=== PATIENT | female | born 1955 | race Hispanic/Latino ===

== ENCOUNTER → 2016-05-06 | Outpatient (CLI) | payer OTHER ==
[~2016-05-06] MED LIST: /MOXI40TA OR; /PANT40TA PO; ADV250INH INH; ALBU17IN2 IN; ALBU2TA INH; ALLO100T PO; ALLO10TA PO; ANTI25TA OR; ANTI25TA PO; ANUSHCSU PR; ATEN50TA2 OR; ATEN50TA2 PO; ATROPINE SULF 0.4 MG/ML 1ML VIAL (J0461) As Ordered ONE; ATROPINE SULF 1MG/10ML SYRINGE (J0461) As Ordered ONE; AUGM500T34 PO; AUGM875T27 PO; AVEL1TAB PO; AZIT500T2 PO; BACITAB3 PO; BACT800T5 PO; BENT10CA PO; BENZ100C5 PO; BREO1INH3 INH; BUDE0.254 INH; BUPIVACAINE HCL 0.25% 10 ML VIAL As Ordered ONE; BUPIVACAINE HCL 0.25% 30 ML VIAL As Ordered ONE; CALC1CAP31 PO; CARD120T6 OR; CEFD1CAP8 PO; CIPR500T89 PO; CLIN200T OR; CLIN300C OR; CLOP75TA2 PO; COLC0.6T OR; COLC0.6T34 PO; CRES40TA PO; DALI500T PO; DELTASONE PO; DEMA100T PO; DICY1CAP8 PO; DICY20TA11 PO; DIFL150T PO; DILA2TAB OR; DOCU10ELUD PO; DOXY100T OR; FAMO40TA2 PO; FAMO40TA3 PO; FENO145T PO; FENO160T10 PO; FLAG500T PO; FLUC10TA PO; HEPA1INJ IV; HUMUINJ3 SC; INCR1INH INH; INSUHUMDS SC; INSULANT SC; INSUN SC; INSUR50VL SC; INVA1INJ IV; Insulin; KLOR1TAB69 PO; LASI80TA OR; LEVA500T PO; LEVO75TA4 PO; LINZ145C PO; LISI10TA4 OR; LISI2.5T PO; LOFI160T PO; LYRI150C PO; LYRI75CA OR; MACR100C3 PO; MECL-68 PO; MIRA3350 PO; NEUR300C OR; NITR PO; NOVO70VL SC; NYAM10003 EXT; NYST10PW EXT; OSPH1TAB PO; OXYB5TA PO; PANT40TA2 PO; PEPC40SU PO; PERC7.5T8 OR; PLAV75TA2 PO; POTA10CA PO; POTA20PO4 PO; PRED10TA PO; PRIL20CA OR; ROXI1TAB2 PO; SALI0.9I2 IV; SENN8.6T10 PO; SENO8.6T10 PO; SENO8.6T9 PO; SYNT75TA PO; TENO50TA PO; TIZA4CAP3 PO; TORS100T12 PO; TORS20TA2 PO; TRAM50TA2 OR; TRIAMCINOLONE ACETONIDE SUSP 40 MG/ML VIAL (J3301) As Ordered ONE; TUMS500C PO; TYLE325T5 PO; VENTAER INH; VICO5TAB OR; VITA50003 PO; ZANA4CAP PO; ZOCO80TA PO; ZOFR8TAB PO; ZYLO300T4 PO; [UNRECOGNIZED DRUG - CODE] SC; [UNRECOGNIZED DRUG - REMARK] PO; [UNRECOGNIZED DRUG - REMARK] PO; albuterol inhaler INH
--- NOTE | 2016-05-09 01:35 | ECWPNPC ---
PATIENT NAME: NU WOODARD : 1955 GENDER: FEMALE VISIT DATE: 05/06/2016 DISCHARGE DATE: 05/06/16 1048 VISIT LOCKED DATE TIME: PHYSICIAN: ANAY BENTLEY RESOURCE: ANAY BENTLEY REASON FOR APPOINTMENT 1. LFBD HISTORY OF PRESENT ILLNESS HISTORY OF PRESENT ILLNESS: PAIN THE PATIENT DESCRIBES THE PAIN... FALL RISK SCREENING: SCREENING :NO FALLS IN THE PAST YEAR CURRENT MEDICATIONS TAKING INCRUSE ELLIPTA 62.5 MCG/INH AEROSOL POWDER BREATH ACTIVATED 1 PUFF INHALATION ONCE A DAY TAKING SYNTHROID 75 MCG TABLET 1 TABLET EVERY MORNING ON AN EMPTY STOMACH ORALLY ONCE A DAY, NOTES: 05/05/16 TAKING LYRICA 150 MG CAPSULE 1 CAPSULE ORALLY THREE TIMES A DAY, NOTES: 05/05/16 TAKING ATENOLOL 50 50MG TABLET 1 ORAL TWO TIMES DAILY, NOTES: 05/05/16 TAKING ANTIVERT 25 MG TABLET 1 TABLET ORALLY ONCE A DAY NEEDED, NOTES: 05/05/16 TAKING ALLOPURINOL 300 MG TABLETS 1 TAB ORALLY DAILY, NOTES: 05/05/16 TAKING HUMULIN N 100 UNIT/ML SUSPENSION 10 UNITS SUBCUTANEOUS WITH EACH MEAL, NOTES: 05/05/16 TAKING TORSEMIDE 150 TABLET ORALLY DIVIDED DAILY, NOTES: 05/05/16 TAKING BETADINE SWABSTICKS 10 % SWAB DIRECTED EXTERNALLY QID- WITH CIC, NOTES: N/A TAKING LATEX GLOVES LARGE 1 BOX MISCELLANEOUS DIRECTED NEEDED FOR CIC, NOTES: N/A TAKING CATHETERS 14 FR MISCELLANEOUS DIRECTED TID, NOTES: N/A TAKING BREO ELLIPTA 200-25 MCG/INH AEROSOL POWDER BREATH ACTIVATED 1 PUFF INHALATION ONCE A DAY, NOTES: 05/05/16 TAKING ZOCOR 80 MG TABLET 1 TABLET IN THE EVENING ORALLY ONCE A DAY, NOTES: 05/05/16 TAKING LINZESS 290 MCG CAPSULE 1 CAPSULE ORALLY ONCE A DAY, NOTES: 05/03/1608 TAKING POTASSIUM CHLORIDE 10 MEQ CAPSULE EXTENDED RELEASE 1 CAPSULE WITH FOOD ORALLY TWO TIMES A DAY, NOTES: 05/05/16 TAKING CALCITRIOL 0.25 MCG CAPSULE 1 CAPSULE ORALLY ONCE A DAY, NOTES: 05/05/16 TAKING BENTYL 10 MG CAPSULE 1 CAPSULE ORALLY NEEDED, NOTES: 05/05/16@1999 TAKING TIZANIDINE HCL 4 MG TABLET 1 TABLET NEEDED ORALLY EVERY 8 HRS, NOTES: 05/05/16@1999 TAKING PLAVIX 75 MG TABLET 1 TABLET ORALLY ONCE A DAY, NOTES: 05/04/16@0800 TAKING HUMULIN R U-500 (CONCENTRATED) 500 UNIT/ML SOLUTION DIRECTED SLIDING SCALE BETWEEN 18 AND 27 UNITS SUBCUTANEOUS EVERY 3 HRS., NOTES: 05/05/16@88500 TAKING POISE MAXIMUM ABSORBENCY . PAD DIRECTED CHANGE NEEDED, DX CODE- N39.46 TAKING TOUJEO SOLOSTAR 300 UNIT/ML SOLUTION PEN-INJECTOR 100 SUBCUTANEOUS BID, NOTES: 05/05/16@2199 NOT-TAKING FENOFIBRATE 160 MG TABLET DIRECTED ORALLY DAILY, NOTES: 12/13/15 NOT-TAKING PROTONIX 40 MG TABLET DELAYED RELEASE 1 TABLET ORALLY ONCE A DAY, NOTES: 1999 NOT-TAKING DIFLUCAN 200 MG TABLET 1 TABLET ORALLY ONCE A DAY, NOTES: 11-13-15 0800 NOT-TAKING NYSTATIN 127380 UNIT/ML SUSPENSION 30 CC MOUTH/THROAT THREE TIMES A DAY, NOTES: NONE NOT-TAKING NYSTATIN POWDER 6 MU/GM POWDER DIRECTED TWICE A DAY, NOTES: 09-12-15 AM NOT-TAKING CIPRO 500 MG TABLET 1 TABLET ORALLY TWICE A DAY NOT-TAKING PYRIDIUM 200 MG TABLET 1 TABLET AFTER MEALS ORALLY THREE TIMES A DAY NOT-TAKING NOVOLIN N 100 UNIT/ML SUSPENSION 90 UNITS IN AM, AND NEEDED SUBCUTANEOUS MORNING NOT-TAKING CIPRO 500 MG TABLET 1 TABLET ORALLY TWICE A DAY NEEDED NOT-TAKING VOLTAREN 1 % GEL 3 CC AT [facility] AREA TRANSDERMAL TID PRN FOR PAIN DISCONTINUED FAMOTIDINE 40 MG TABLET 1 TABLET ORALLY ONCE A DAY MEDICATION LIST REVIEWED AND RECONCILED WITH THE PATIENT PAST MEDICAL HISTORY 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 DR HAYNES KIDNEY DISEASE/FAILURE 2007 DR KNUTSNO HYPERTENSION HYPOTHYROIDISM HYPERCHOLESTEROLEMIA ASTHMA [facility] GOUT BRAIN STROKE-07/06 PITUITARY TUMOR-2007 SLEEP APNEA/CPAP 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 ALLERGIES ASPIRIN: ANAPHYLAXIS: ALLERGY BEEF FLAVOR: SWELLING/FEVER: ALLERGY LEVAQUIN: KIDNEY FAILURE BACTRIM: KIDNEY FAILURE FLAGYL: KIDNEY FAILURE SOCIAL HISTORY TOBACCO USE ARE YOU A:NONSMOKER LEARNING BARRIERS / SPECIAL NEEDS ORIENTED TO PLAN OF CARE: PATIENT, PAIN MANAGEMENT PATIENT, ORIENTED TO PLAN OF CARE: PATIENT, PAIN MANAGEMENT PATIENT. NEW PATIENT PAIN DIARY TODAY'S VISITNOTES FROM 0-10, WHAT LEVEL IS YOUR PAIN TODAY?0 PAIN CLINIC PFS, CLERGY, PUBLIC HEALTH REFERRALS PFS REFERRAL NEEDED?NO CLERGY REFERRAL NEEDED?NO PUBLIC HEALTH REFERRAL NEEDED?NO WAS THE PROVIDER NOTIFIED OF ANY PERTINENT INFO?NO PFS REFERRAL NEEDED?NO CLERGY REFERRAL NEEDED?NO PUBLIC HEALTH REFERRAL NEEDED?NO WAS THE PROVIDER NOTIFIED OF ANY PERTINENT INFO?NO REVIEW OF SYSTEMS CONSTITUTIONAL: ANY CHANGE IN YOUR MEDICAL CONDITION? NO . CHILLS NO . FEVER NO . INFECTION: DO YOU HAVE NEW INFECTIONS? NO . DO YOU HAVE HISTORY OF MRSA? NO . MUSCULOSKELETAL: ANY NEW PATTERNS OF PAIN OR NUMBNESS? YES . GASTROENTEROLOGY: ANY NEW CHANGE IN BOWEL CONTROL? NO . GENITOURINARY: ANY NEW CHANGE IN BLADDER CONTROL? NO . IS THERE A CHANCE YOU COULD BE ? NO . HEMATOLOGY/LYMPH: DO YOU TAKE ANY BLOOD THINNERS? (FOR EXAMPLE- COUMADIN, PLAVIX, AGGRENOX, PLATEL, PRADAXA, OR XARELTO) NO . WHEN WAS YOUR LAST DOSE? DATE:05/04/16, TIME: 0800 . NEUROLOGY: HAVE YOU FALLEN IN THE PAST 6 MONTHS? NO . ANY NEW EXTREMITY NUMBNESS OR WEAKNESS? NO . CARDIOLOGY: DO YOU HAVE A PACEMAKER OR DEFIBRILLATOR? NO . RESPIRATORY: HAVE YOU BEEN SICK IN THE PAST WEEK? NO . FEVER NO . FLU LIKE SYMPTOMS? NO . COUGH NO . INTEGUMENTARY: DO YOU HAVE ANY RASHES OR OPEN SORES? NO . ALLERGIC/IMMUNO: ARE YOU ALLERGIC TO SHELLFISH OR IV DYE? YES . ANY NEW ALLERGIES? NO . PSYCHIATRIC: DO YOU HAVE THOUGHTS OF HURTING YOURSELF OR SOMEONE ELSE? NO . ARE YOU ABUSED, NEGLECTED, OR IN AN UNSAFE ENVIRONMENT? NO . ENDOCRINOLOGY: ARE YOU DIABETIC? YES . OTHER: DO YOU NEED ANY PRESCRIPTIONS? NO . IF YES, PLEASE LIST: ____ . ANY NEW PROBLEMS WITH YOUR MEDICATIONS? NO . WHEN DID YOU LAST EAT? ____05/05/16@1800 . WHEN DID YOU LAST DRINK? ____05/05/16 . WHAT DID YOU LAST DRINK? ____GINGER LEA . NAME OF PERSON DRIVING YOU HOME? ____[facility] . DO YOU HAVE ANY OTHER QUESTIONS OR CONCERNS NO . REVIEWED BY: PROVIDER: . VITAL SIGNS WT 305.2 LBS, HT 65.5 IN, BMI 50.01 INDEX, BP 91/55 MM HG, HR 72 /MIN, RR 18 /MIN, TEMP 97.0 F, OXYGEN SAT % 93%, NA INITIALS SC 09:11, REVIEWED BY: VDRN IS AWARE OF PT'S LOW BP. ASSESSMENTS MYALGIA - M79.1 (PRIMARY) PROCEDURES PN TRIGGER POINT INJECTION WITH STEROIDS PRE PROCEDURE DIAGNOSIS 1. MYALGIA 2. PAIN AT BILATERAL LOWER BACK AREA POST PROCEDURE DIAGNOSIS 1. MYALGIA 2. PAIN AT BILATERAL LOWER BACK AREA PROCEDURE TRIGGER POINT INJECTION AT BILATERAL LOWER BACK AREA SURGEON DR. ANAY BENTLEY WET PLANT OPERATOR NONE ANESTHESIA LOCAL PRE PROCEDURE NOTE THE PATIENT HAS A HISTORY OF CHRONIC PAIN AT THE RIGHT AND LEFT LOWER BACK AREA. I EVALUATE THE PATIENT AND REVIEWED THE CHART. THERE IS EVIDENCE OF BANDS OF TISSUE WITH RESTRICTION OF MOVEMENT AND PRESENCE OF TRIGGER POINT AT THE AFFECTED AREA. I WENT OVER THE RISKS, ALTERNATIVES, AND BENEFITS ASSOCIATED WITH THIS PROCEDURE. THE PATIENT WOULD LIKE TO PROCEED AND GIVE CONSENT TO PERFORMED THE PROCEDURE. THE PATIENT DENIES UNEXPLAINABLE WEIGHT LOSS, FEVER, CHILLS, OR NEW CHANGES IN URINARY OR BOWEL CONTROL DESCRIPTION OF PROCEDURE THE PATIENT WAS BROUGHT TO THE PROCEDURE ROOM AND PLACED IN THE SITTING POSITION. THE AREA WAS CLEANED WITH ALCOHOL. THE PROCEDURE WAS DONE USING ASEPTIC STERILE TECHNIQUE. I CHECKED LATERALITY AND THE LEVEL WHERE THE PROCEDURE WAS GOING TO BE PERFORMED WITH THE PATIENT AND THE SUPPORTING STAFF AT THE MOMENT OF THE TIME OUT IN THE PROCEDURE ROOM. USING A 25-GAUGE NEEDLE, TRIGGER POINTS WERE INJECTED AT THE RIGHT AND LEFT LOWER BACK AREA WITH A TOTAL OF 40 ML OF BUPIVACAINE 0.25% AND KENALOG 40 MG. THERE WAS NO EVIDENCE OF BLOOD, PARESTHESIA OR CEREBROSPINAL FLUID DURING THE PROCEDURE. THE PATIENT WAS SENT TO THE RECOVERY ROOM. THE PATIENT WAS MOVING THE EXTREMITIES AND DOING WELL. THERE WAS NO COMPLICATION DURING THE PROCEDURE POST PROCEDURE NOTE THE PATIENT WILL BE SEEN IN A FOLLOW UP IN THE NEXT FEW WEEKS. INSTRUCTIONS WERE GIVEN, QUESTIONS WERE ANSWERED, AND THE PATIENT EXPRESSED UNDERSTANDING AND AGREES WITH THE PLAN. I, SULAIMAN ORTIZ, DOCUMENTED THE ABOVE INFORMATION ACTING A SCRIBE FOR DR. BENTLEY. I HAVE REVIEWED THE ABOVE DOCUMENT, WRITTEN BY SULAIMAN MOROE AND I VERIFY THAT IT IS ACCURATE PROCEDURE CODES 51441 INJECT TRIGGER POINT, 1 OR 2 FOLLOW UP 3 WEEKS ELECTRONICALLY SIGNED BY ANAY BENTLEY MD ON 05/08/2016 AT 09:03 AM EST DISCLAIMER : THIS IS A VISIT SUMMARY EXTRACTED FROM THE [employer] CHART. IT IS NOT A COPY OF THE [employer] PROGRESS NOTE. JAYDEN
== END ==
LOC: M PAIN 09:40
PROVIDERS: ATTEND Anesthesiology
DX: G89.29 Other chronic pain (principal); M79.1 Myalgia; M54.5 Low back pain; Z79.4 Long term (current) use of insulin; Z79.899 Other long term (current) drug therapy; E11.9 Type 2 diabetes mellitus without complications; N18.9 Chronic kidney disease, unspecified; I50.9 Heart failure, unspecified; I12.9 Hypertensive chronic kidney disease with stage 1 through stage 4 chronic kidney disease, or unspecified chronic kidney disease; E03.9 Hypothyroidism, unspecified; J44.9 Chronic obstructive pulmonary disease, unspecified; Z88.6 Allergy status to analgesic agent; Z91.018 Allergy to other foods; Z88.1 Allergy status to other antibiotic agents
CPT/HCPCS: 20552; J0461; J3301

== ENCOUNTER → 2016-05-09 | Outpatient (CLI) | payer OTHER ==
[~2016-05-09] MED LIST changes: -ATROPINE SULF 0.4 MG/ML 1ML VIAL (J0461) As Ordered ONE; -ATROPINE SULF 1MG/10ML SYRINGE (J0461) As Ordered ONE; -BUPIVACAINE HCL 0.25% 10 ML VIAL As Ordered ONE; -BUPIVACAINE HCL 0.25% 30 ML VIAL As Ordered ONE; -TRIAMCINOLONE ACETONIDE SUSP 40 MG/ML VIAL (J3301) As Ordered ONE
[2016-05-09 10:52] LABS: ALBUMIN 3.5 GM/DL (3.2-5.2); ANION GAP 7 MEQ/L (8-16); BLOOD UREA NITROGEN 31 MG/DL (7-18); CALCIUM LEVEL 9.8 MG/DL (8.8-10.2); CARBON DIOXIDE LEVEL 36 MEQ/L (21-32); CHLORIDE LEVEL 100 MEQ/L (98-107); CREATININE FOR GFR 0.95 MG/DL (0.55-1.02); GLOMERULAR FILTRATION RATE > 60.0 (>45); GLUCOSE, FASTING 93 MG/DL (80-110); PHOSPHORUS LEVEL 3.7 MG/DL (2.5-4.9); POTASSIUM SERUM 4.2 MEQ/L (3.5-5.1); SODIUM LEVEL 143 MEQ/L (136-145); URIC ACID 5.2 MG/DL (2.6-6.0)
== END ==
LOC: M LAB 09:22
PROVIDERS: ATTEND Nurse Practitioner Family
DX: N18.3 Chronic kidney disease, stage 3 (moderate) (principal); M10.9 Gout, unspecified; N25.81 Secondary hyperparathyroidism of renal origin

== ENCOUNTER → 2016-05-27 | Outpatient (CLI) | payer OTHER ==
[~2016-05-27] MED LIST changes: +TORS100T PO
--- NOTE | 2016-05-28 00:51 | ECWPNPC ---
PATIENT NAME: NU WOODARD : 1955 GENDER: FEMALE VISIT DATE: 05/27/2016 DISCHARGE DATE: 05/27/16 1242 VISIT LOCKED DATE TIME: PHYSICIAN: LEAH ANDERS RESOURCE: LEAH ANDERS REASON FOR APPOINTMENT 1. POST PROCEDURE- BACK HISTORY OF PRESENT ILLNESS HISTORY OF PRESENT ILLNESS: PAIN THE PATIENT DESCRIBES THE PAIN... FALL RISK SCREENING: SCREENING :NO FALLS IN THE PAST YEAR TODAY'S VISIT: NOTES: IS S/P TPI ON 05/06/16. PAIN DECREASED FROM 9/10 TO 0./[address] FOR ANOUT 1 1/2 WEEKS. WAS ABLE TO WALK WITHOUT WALKER - WHEN PAIN RETURNED HAD TO WALK WITH WALKER AGAIN. STATES SHE DOES NOT TAKE HER LYRICA TWICE A DAY, EVERY DAY, ESPECIALLY WHEN SHE HAS TO GO OUT OF HER HOUSE. AFTER MUCH DISCUSSION PT REPORTS SHE TAKES THE LYRICA 75% OF THE TIMES TWICE A DAY AND THI SIS HELPFUL FOR PAIN AND NEUROPLATHY CONTROL. KIDNEY FUNCTION IS REPORTED TO HAVE IMPROVED. . CURRENT MEDICATIONS TAKING INCRUSE ELLIPTA 62.5 MCG/INH AEROSOL POWDER BREATH ACTIVATED 1 PUFF INHALATION ONCE A DAY TAKING SYNTHROID 75 MCG TABLET 1 TABLET EVERY MORNING ON AN EMPTY STOMACH ORALLY ONCE A DAY, NOTES: 05/05/16@0800 TAKING LYRICA 150 MG CAPSULE 1 CAPSULE ORALLY THREE TIMES A DAY, NOTES: 05/05/16 TAKING ATENOLOL 50 50MG TABLET 1 ORAL TWO TIMES DAILY, NOTES: 05/05/16 TAKING ANTIVERT 25 MG TABLET 1 TABLET ORALLY ONCE A DAY NEEDED, NOTES: 05/05/16 TAKING ALLOPURINOL 300 MG TABLETS 1 TAB ORALLY DAILY, NOTES: 05/05/16 TAKING TORSEMIDE 150 TABLET ORALLY DIVIDED DAILY, NOTES: 05/05/16 TAKING BETADINE SWABSTICKS 10 % SWAB DIRECTED EXTERNALLY QID- WITH CIC, NOTES: N/A TAKING LATEX GLOVES LARGE 1 BOX MISCELLANEOUS DIRECTED NEEDED FOR CIC, NOTES: N/A TAKING CATHETERS 14 FR MISCELLANEOUS DIRECTED TID, NOTES: N/A TAKING BREO ELLIPTA 200-25 MCG/INH AEROSOL POWDER BREATH ACTIVATED 1 PUFF INHALATION ONCE A DAY, NOTES: 05/05/16@0800 TAKING ZOCOR 80 MG TABLET 1 TABLET IN THE EVENING ORALLY ONCE A DAY, NOTES: 05/05/16 TAKING LINZESS 290 MCG CAPSULE 1 CAPSULE ORALLY ONCE A DAY, NOTES: 05/03/16 TAKING POTASSIUM CHLORIDE 10 MEQ CAPSULE EXTENDED RELEASE 1 CAPSULE WITH FOOD ORALLY TWO TIMES A DAY, NOTES: 05/05/16 TAKING CALCITRIOL 0.25 MCG CAPSULE 1 CAPSULE ORALLY ONCE A DAY, NOTES: 05/05/16 TAKING BENTYL 10 MG CAPSULE 1 CAPSULE ORALLY NEEDED, NOTES: 05/05/16 TAKING TIZANIDINE HCL 4 MG TABLET 1 TABLET NEEDED ORALLY EVERY 8 HRS, NOTES: 05/05/16 TAKING PLAVIX 75 MG TABLET 1 TABLET ORALLY ONCE A DAY, NOTES: 05/04/16 TAKING HUMULIN R U-500 (CONCENTRATED) 500 UNIT/ML SOLUTION DIRECTED SLIDING SCALE BETWEEN 18 AND 27 UNITS SUBCUTANEOUS EVERY 3 HRS., NOTES: 05/05/16 TAKING TOUJEO SOLOSTAR 300 UNIT/ML SOLUTION PEN-INJECTOR 100 SUBCUTANEOUS BID, NOTES: 05/05/16 TAKING POISE MAXIMUM ABSORBENCY . PAD DIRECTED CHANGE NEEDED, DX CODE- N39.46 NOT-TAKING FENOFIBRATE 160 MG TABLET DIRECTED ORALLY DAILY, NOTES: 12/13/15 NOT-TAKING PROTONIX 40 MG TABLET DELAYED RELEASE 1 TABLET ORALLY ONCE A DAY, NOTES: 1999 NOT-TAKING DIFLUCAN 200 MG TABLET 1 TABLET ORALLY ONCE A DAY, NOTES: 11-13-15799 NOT-TAKING NYSTATIN [id number] UNIT/ML SUSPENSION 30 CC MOUTH/THROAT THREE TIMES A DAY, NOTES: NONE NOT-TAKING NYSTATIN POWDER 6 MU/GM POWDER DIRECTED TWICE A DAY, NOTES: 09-12-15 AM NOT-TAKING CIPRO 500 MG TABLET 1 TABLET ORALLY TWICE A DAY NOT-TAKING PYRIDIUM 200 MG TABLET 1 TABLET AFTER MEALS ORALLY THREE TIMES A DAY NOT-TAKING NOVOLIN N 100 UNIT/ML SUSPENSION 90 UNITS IN AM, AND NEEDED SUBCUTANEOUS MORNING NOT-TAKING CIPRO 500 MG TABLET 1 TABLET ORALLY TWICE A DAY NEEDED NOT-TAKING VOLTAREN 1 % GEL 3 CC AT RIGTH HIP AREA TRANSDERMAL TID PRN FOR PAIN DISCONTINUED HUMULIN N 100 UNIT/ML SUSPENSION SLIDING SCALE SUBCUTANEOUS WITH EACH MEAL, NOTES: 05/05/16 MEDICATION LIST REVIEWED AND RECONCILED WITH THE PATIENT PAST MEDICAL HISTORY 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 DR HAYNES KIDNEY DISEASE/FAILURE 2007 DR KNUTSON HYPERTENSION HYPOTHYROIDISM HYPERCHOLESTEROLEMIA ASTHMA COPD [facility] GOUT BRAIN STROKE-07/06 PITUITARY TUMOR-2007 SLEEP APNEA/CPAP 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 ALLERGIES ASPIRIN: ANAPHYLAXIS: ALLERGY BEEF FLAVOR: SWELLING/FEVER: ALLERGY LEVAQUIN: KIDNEY FAILURE BACTRIM: KIDNEY FAILURE FLAGYL: KIDNEY FAILURE IVP DYE, IODINE: KIDNEY FAILURE SURGICAL HISTORY SHANELLE AND BSO 12/15/1996 COLONOSCOPY X 5 ,8 POLYPS BEIGN 2007,11/2015 BREAST BIOPSY/MASS REMOVED-RIGHT BREAST 06/24/2002 APPENDECTOMY 10/09/2002 LEFT URETERAL STONE 01/29/1979 BRAIN TUMOR TUBAL LIGATION 10/30/1975 WART REMOVAL - EYES VAGINAL BLADDER LIFT - SLING & CYSTOCELE REPAIR 1997 URETHERAL DILATION 11/15/1999 RIGHT METAL PLATE INSERTED INTO RIGHT LEG - "TUMOR FROM FALL" CYSTOSCOPY 09/24/13 SOCIAL HISTORY GENERAL: TOBACCO USE ARE YOU A:NONSMOKER LEARNING BARRIERS / SPECIAL NEEDS ORIENTED TO PLAN OF CARE: PATIENT, PAIN MANAGEMENT PATIENT, ORIENTED TO PLAN OF CARE: PATIENT, PAIN MANAGEMENT PATIENT. NEW PATIENT PAIN DIARY TODAY'S VISITNOTES FROM 0-10, WHAT LEVEL IS YOUR PAIN TODAY?0 PAIN CLINIC PFS, CLERGY, PUBLIC HEALTH REFERRALS PFS REFERRAL NEEDED?NO CLERGY REFERRAL NEEDED?NO PUBLIC HEALTH REFERRAL NEEDED?NO WAS THE PROVIDER NOTIFIED OF ANY PERTINENT INFO?NO PFS REFERRAL NEEDED?NO CLERGY REFERRAL NEEDED?NO PUBLIC HEALTH REFERRAL NEEDED?NO WAS THE PROVIDER NOTIFIED OF ANY PERTINENT INFO?NO HOSPITALIZATION/MAJOR DIAGNOSTIC PROCEDURE SURGICAL RELATED CVA KIDNEY FAILURE UTI [facility] 07/2013 [facility] 09/08/13 [facility] UTI 09/30/13-10/06/13 KIDNEY FAILURE 01/05/112013 ABDOMINAL PAIN-LIVER BIOPSY-CYST 08/2015 AND 09/2015 REVIEW OF SYSTEMS CONSTITUTIONAL: ANY CHANGE IN YOUR MEDICAL CONDITION? YES, KIDNEY FUNCTION HAS WENT FROM STAGE 3 TO 2 . CHILLS NO . FEVER NO . INFECTION: DO YOU HAVE NEW INFECTIONS? NO . DO YOU HAVE HISTORY OF MRSA? NO . MUSCULOSKELETAL: ANY NEW PATTERNS OF PAIN OR NUMBNESS? YES,HANDS GET NUMB-- COULDN'T SLEEP LAST NIGHT&NBSP;. GASTROENTEROLOGY: ANY NEW CHANGE IN BOWEL CONTROL? NO . GENITOURINARY: ANY NEW CHANGE IN BLADDER CONTROL? NO . IS THERE A CHANCE YOU COULD BE ? NO . HEMATOLOGY/LYMPH: DO YOU TAKE ANY BLOOD THINNERS? (FOR EXAMPLE- COUMADIN, PLAVIX, AGGRENOX, PLATEL, PRADAXA, OR XARELTO) NO . WHEN WAS YOUR LAST DOSE? DATE: TIME: . NEUROLOGY: HAVE YOU FALLEN IN THE PAST 6 MONTHS? NO . ANY NEW EXTREMITY NUMBNESS OR WEAKNESS? INCREASED NUMBNESS AND TINGLING/PERIPHERAL NEURPATHY IN HANDS AND FEET. . CARDIOLOGY: DO YOU HAVE A PACEMAKER OR DEFIBRILLATOR? NO . RESPIRATORY: HAVE YOU BEEN SICK IN THE PAST WEEK? NO . FEVER NO . FLU LIKE SYMPTOMS? NO . COUGH NO . INTEGUMENTARY: DO YOU HAVE ANY RASHES OR OPEN SORES? NO . ALLERGIC/IMMUNO: ARE YOU ALLERGIC TO SHELLFISH OR IV DYE? YES IVP DYE AND IODINE DUE TO KINDEY FAILURE . ANY NEW ALLERGIES? NO . PSYCHIATRIC: DO YOU HAVE THOUGHTS OF HURTING YOURSELF OR SOMEONE ELSE? NO . ARE YOU ABUSED, NEGLECTED, OR IN AN UNSAFE ENVIRONMENT? NO . ENDOCRINOLOGY: ARE YOU DIABETIC? YES . OTHER: DO YOU NEED ANY PRESCRIPTIONS? NO . IF YES, PLEASE LIST: ____ . ANY NEW PROBLEMS WITH YOUR MEDICATIONS? NO . WHEN DID YOU LAST EAT? ____ . WHEN DID YOU LAST DRINK? ____ . WHAT DID YOU LAST DRINK? ____ . NAME OF PERSON DRIVING YOU HOME? ____ . DO YOU HAVE ANY OTHER QUESTIONS OR CONCERNS YES WOULD LIKE SOMETHING FOR THE PAIN . REVIEWED BY: PROVIDER: LEAH NARANJO . VITAL SIGNS WT 302.5 LBS, HT 65.5 IN, BMI 49.57 INDEX, BP 126/66 MM HG, HR 75 /MIN, RR 16 /MIN, TEMP 97.9 F, OXYGEN SAT % 93%, REVIEWED BY: AD. EXAMINATION GENERAL EXAMINATION: PSYCHALERT , ORIENTED X 3 , APPROPRIATE MOOD AND AFFECT , TALKATIVE. LUNGS:CLEAR TO AUSCULTATION BILATERALLY, NO WHEEZES, RALES OR RHONCHI. HEART:HEART RATE REGULAR. MUSCULOSKELETAL:USING POWER CHAIR FOR MOBILITY. TENDER OVER LUMBAR SPINOUS PROCESSES. AND ACROSS THE LUMBOSACRAL AXIS BILATERALLY. POINT TENDERNESS OVER LUMBAR FACETS AND PARASPINOUS MUSCLES. ABLE TO RISE SLOWLY TO STANDING POSITION. ASSESSMENTS MYALGIA - M79.1 (PRIMARY) LUMBAR SPONDYLOSIS - M47.816 TREATMENT MYALGIA INJECTION FACET JOINT/NERVE SAJI/HAMLETHUSAMLEAH M 05/27/2016 12:18:18 PM > DIAGNOSTIC BILATERAL L3-4, L4-5, L5 -S1 NOTES: FACET JOINT INJECTION MATERIAL WAS PRINTED,FACET JOINT INJECTION: YOUR EXPERIENCE MATERIAL WAS PRINTED,FACET JOINT INJECTION: YOUR EXPERIENCE MATERIAL WAS PRINTED. RECOMMEND ALL MEDS COME FROM EITHER PRIMARY CARE PROVIDER OR NEPHROLOGY. PROCEDURE CODES FA211 ESTABILISHED PATIENT [facility] FACILITY CHARGE FOLLOW UP AFTER INJECTION (REASON: CHECK AUTH FOR BILATERAL DIAGNOSTIC LUMBAR FACET BLOCK - NEED NOTES FROM Bette REYNOLDS TO PUT PLAVIX ON H) ELECTRONICALLY SIGNED BY GEOVANY SLAUGHTER ON 05/27/2016 AT 01:22 PM EST DISCLAIMER : THIS IS A VISIT SUMMARY EXTRACTED FROM THE [employer] CHART. IT IS NOT A COPY OF THE [employer] PROGRESS NOTE. JAYDEN
== END ==
LOC: M PAIN 11:20
PROVIDERS: ATTEND Nurse Practitioner Family
DX: M79.1 Myalgia (principal); M47.816 Spondylosis without myelopathy or radiculopathy, lumbar region; Z79.899 Other long term (current) drug therapy; Z79.4 Long term (current) use of insulin; I50.9 Heart failure, unspecified; E11.9 Type 2 diabetes mellitus without complications; N19 Unspecified kidney failure; E03.9 Hypothyroidism, unspecified; E78.00 Pure hypercholesterolemia, unspecified; I13.0 Hypertensive heart and chronic kidney disease with heart failure and stage 1 through stage 4 chronic kidney disease, or unspecified chronic kidney disease; J44.1 Chronic obstructive pulmonary disease with (acute) exacerbation; G47.30 Sleep apnea, unspecified; Z87.59 Personal history of other complications of pregnancy, childbirth and the puerperium; Z86.79 Personal history of other diseases of the circulatory system; Z88.6 Allergy status to analgesic agent; Z88.1 Allergy status to other antibiotic agents; Z91.018 Allergy to other foods; Z91.041 Radiographic dye allergy status

== ENCOUNTER 2016-06-03 20:26 | Emergency (ER) | payer OTHER ==
[2016-06-03] MEDS ORDERED: OXYMETAZOLINE NASAL SPRAY (AFRIN) As Ordered ONE (21:58)
--- NOTE | 2016-06-03 22:56 | EDDOCDS ---
Physician Documentation [facility] Name: Gia Wood Age: 61 yrs Sex: Female : 1955 Arrival Date: 06/03/2016 Time: 20:26 Bed 8 Private MD: Disposition: 06/03/16 22:41 Discharged to Home/Self Care. Impression: Epistaxis. - Condition is Stable. - Medication Reconciliation, Local Pharmacy Hours form. - Follow up: Private Physician; When: Call to arrange an appointment; Reason: Recheck today's complaints. - Problem is new. - Symptoms are resolved. - Notes: softly remove the vaseline gauze tomorrow. Historical: - Allergies: Aspirin (Anaphylaxis); Bactrim (kidney failure); BEEF CONTAINING PRODUCTS; Flagyl (kidney failure); Levaquin (kidney failure); Nubain (kidney failure); QUINOLONES (kidney failure); - Home Meds: 1. albuterol sulfate 2.5 mg /3 mL (0.083 %) Inhl nebu 2. allopurinol 300 mg Oral tab 1 tab once daily 3. atenolol 50 mg Oral tab 1 tab 2 times per day 4. Bentyl 20 mg Oral tab 1 tab 3 times per day as needed 5. Breo Ellipta 200-25 mcg/dose inhalation dsdv 1 puff once daily 6. Humulin U 500 Sub-Q susp every 3 hours sliding scale took 200 units at 1038 7. Linzess 290 mcg oral cap 1 cap once daily 8. Lyrica 150 mg oral cap tid 9. calcitriol 0.25 mcg oral cap 1 cap once daily 10. famotidine 40 mg Oral tab once daily 11. Humalog sliding scale Sub-Q 185 units at 1400 12. meclizine 25 mg Oral tab 1 tab prn as needed 13. Oxygen 3L as needed as needed 14. Pepcid 40 mg Oral tab 1 tab once daily 15. Zocor 80 mg Oral tab nightly 16. torsemide 100 mg oral tab 1.5 tabs once daily 17. tizanidine 4 mg oral cap 1 cap 3 times per day 18. tessalon pearls every 4 hours prn 19. Synthroid 75 mcg Oral tab 1 tab once daily 20. restigen D 21. Protonix 40 mg Oral TbEC 1 tab once daily 22. potassium chloride 10 mEq Oral cpER 1 cap 2 times per day 23. Plavix 75 mg Oral tab once daily - PMHx: CHF; COPD; CVA; Diabetes - IDDM: controlled; Diverticulitis; ESRD 3; Gout; Hypothyroidism; Kidney stones; Sleep Apnea w/ CPAP; Spinal Stenosis; - PSHx: Hysterectomy; Appendectomy; Laparoscopy; Lithotripsy; - Social history: Smoking status: Patient states former smoker of tobacco. No barriers to communication noted, The patient speaks fluent Turkmen. - Family history: Not pertinent. - : The pt / caregiver states he / she is on anticoagulants: Plavix. Home medication list is obtained from the patient. - Exposure Risk Screening:: None identified. Vital Signs: 06/03 20:38 BP 145 / 64 LA Sitting (auto/); Pulse 81; Resp 18 S; Temp 97.8(O); Pulse Ox 96% on R/A; af2 Weight 137.21 kg / 302.5 lbs (R); Height 5 ft. 5 in. (165.10 cm) (R); Pain 0/10; 22:44 BP 116 / 51; Pulse 80; Resp 18; Temp 97.8(TE); Pulse Ox 97% on R/A; Pain 0/10; raquel 20:38 Body Mass Index 50.34 (137.21 kg, 165.10 cm) af2 MDM: 20:41 Misc. Nursing Order ordered. cs11 21:21 Financial registration complete. zo 21:35 [facility] Payment Agreement was scanned into [employer] and attached to record. zo 21:56 Oxymetazoline Jackson 0.05 % 1 sprays Intranasal once ordered. cs11 Administered Medications: 22:11 Drug: Oxymetazoline 1 sprays [oxymetazoline 0.05 % nasal spray (1 sprays)] {Note: admin af2 by provider.} Route: Intranasal; Site: left nare; Signatures: Soraya Hobbs Shannon RN RN [id number] Venkat Jauregui DO DO cs11 Love SiddiqiRN RN af2 The chart was reviewed and I authenticate all verbal orders and agree with the evaluation and treatment provided.Attachments: 21:35 [facility] Payment Agreement zo [id number]
--- NOTE | 2016-06-03 22:56 | EDDOCDS ---
Nurse's Notes 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 bleeding af2 stopped at this time. pt reports feeling clots in back of throat. Adult Sepsis Screening: The patient does not have new or worsening altered mentation. Patient's respiratory rate is less than 22. Systolic blood pressure is greater than 100. Patient has a qSOFA score of 0- Negative Sepsis Screen. Suicide/Homicide risk assessment- the patient denies having any suicidal and/or homicidal ideations and does not present with any other emotional, behavioral or mental health complaints. Status: Patient is not a manager of environmental services or dependent. Transition of care: patient was not received from another setting of care. 20:35 Method Of Arrival: Ambulance af2 20:35 Acuity: OSIEL Level 3 af2 Triage Assessment: 20:39 General: Appears in no apparent distress, Behavior is cooperative. Pain: Denies pain. af2 HIV screening NA for this visit Offered previously. Neurological: Level of Consciousness is awake, alert, obeys commands, Oriented to person, place, time. EENT: Reports no bleeding noted to left nare.. Derm: Skin is normal. Historical: - Allergies: Aspirin (Anaphylaxis); Bactrim (kidney failure); BEEF CONTAINING PRODUCTS; Flagyl (kidney failure); Levaquin (kidney failure); Nubain (kidney failure); QUINOLONES (kidney failure); - Home Meds: 1. albuterol sulfate 2.5 mg /3 mL (0.083 %) Inhl nebu 2. allopurinol 300 mg Oral tab 1 tab once daily 3. atenolol 50 mg Oral tab 1 tab 2 times per day 4. Bentyl 20 mg Oral tab 1 tab 3 times per day as needed 5. Breo Ellipta 200-25 mcg/dose inhalation dsdv 1 puff once daily 6. Humulin U 500 Sub-Q susp every 3 hours sliding scale took 200 units at 1038 7. Linzess 290 mcg oral cap 1 cap once daily 8. Lyrica 150 mg oral cap tid 9. calcitriol 0.25 mcg oral cap 1 cap once daily 10. famotidine 40 mg Oral tab once daily 11. Humalog sliding scale Sub-Q 185 units at 1400 12. meclizine 25 mg Oral tab 1 tab prn as needed 13. Oxygen 3L as needed as needed 14. Pepcid 40 mg Oral tab 1 tab once daily 15. Zocor 80 mg Oral tab nightly 16. torsemide 100 mg oral tab 1.5 tabs once daily 17. tizanidine 4 mg oral cap 1 cap 3 times per day 18. tessalon pearls every 4 hours prn 19. Synthroid 75 mcg Oral tab 1 tab once daily 20. restigen D 21. Protonix 40 mg Oral TbEC 1 tab once daily 22. potassium chloride 10 mEq Oral cpER 1 cap 2 times per day 23. Plavix 75 mg Oral tab once daily - PMHx: CHF; COPD; CVA; Diabetes - IDDM: controlled; Diverticulitis; ESRD 3; Gout; Hypothyroidism; Kidney stones; Sleep Apnea w/ CPAP; Spinal Stenosis; - PSHx: Hysterectomy; Appendectomy; Laparoscopy; Lithotripsy; - Social history: Smoking status: Patient states former smoker of tobacco. No barriers to communication noted, The patient speaks fluent Lao. - Family history: Not pertinent. - : The pt / caregiver states he / she is on anticoagulants: Plavix. Home medication list is obtained from the patient. - Exposure Risk Screening:: None identified. Screenin:53 Screening information is obtained from the patient. Fall risk: At risk due to sls1 immobility. Assistance ADL's: requires no assistance with activities of daily living. Abuse/DV Screen: The patient / caregiver reports he/she is: not in a situation that causes fear, pain or injury. Nutritional screening: No deficits noted. home support is adequate. Assessment: 22:53 General: Appears in no apparent distress, Behavior is appropriate for age, cooperative, sls1 First encounter with pt, discharge instructions reviewed with pt including follow up care and wound care. Pt verbalizes understanding of all instructions, pt d/c home with vaseline gauze intact to left nare. Pt d/c home via wheelchair with SO. Pain: Denies pain. Neurological: Level of Consciousness is awake, alert. EENT: Nares gauze intact to left nare. Respiratory: Airway is patent Respiratory effort is even, unlabored, Respiratory pattern is regular, symmetrical. Derm: No deficits noted. Vital Signs: 20:38 BP 145 / 64 LA Sitting (auto/); Pulse 81; Resp 18 S; Temp 97.8(O); Pulse Ox 96% on R/A; af2 Weight 137.21 kg (R); Height 5 ft. 5 in. (165.10 cm) (R); Pain 0/10; 22:44 BP 116 / 51; Pulse 80; Resp 18; Temp 97.8(TE); Pulse Ox 97% on R/A; Pain 0/10; raquel 20:38 Body Mass Index 50.34 (137.21 kg, 165.10 cm) af2 Vitals: 20:38 Log In Time N/A - ambulance arrival. af2 ED Course: 20:27 Patient visited by Irena Glass PCA. tmm1 20:27 Patient moved to Waiting tmm1 20:28 Lashawn Metcalf RN is Primary Nurse. tmm1 20:28 Love Siddiqi RN is Primary Nurse. tmm1 20:28 Patient moved to 8 tmm1 20:36 Triage Initiated af2 20:39 Patient visited by Love Siddiqi RN. af2 20:40 Venkat Jauregui DO is Attending Physician. cs11 20:40 Patient visited by Venkat Jauregui DO. cs11 20:57 Primary Nurse role handed off by Lashawn Metcalf RN raquel 21:12 Patient visited by Love Siddiqi RN. af2 21:35 [facility] Payment Agreement was scanned into [employer] and attached to record. zo 22:04 Patient visited by Love Siddiqi RN. af2 22:45 Patient visited by Rody Mae PCA. raquel 22:53 The patient / caregiver is instructed regarding the plan of care and ED course. Patient sls1 has correct armband on for positive identification. 22:53 No IV's were initiated during this patient's visit. No procedures done that require sls1 assistance. Administered Medications: 22:11 Drug: Oxymetazoline 1 sprays [oxymetazoline 0.05 % nasal spray (1 sprays)] {Note: admin af2 by provider.} Route: Intranasal; Site: left nare; Order Results: There are currently no results for this order. Outcome: 22:41 Discharge ordered by Provider. cs11 22:53 Discharge Assessment: Patient awake, alert and oriented x 3. No cognitive and/or sls1 functional deficits noted. Patient verbalized understanding of disposition instructions. patient administered narcotics - no. The following High Risk Discharge criteria are identified: None. Discharged to home via wheelchair, with significant other. Condition: stable. Discharge instructions given to patient, Instructed on discharge instructions, follow up and referral plans. Demonstrated understanding of instructions, Pt was receptive of discharge instructions/ teaching. No special radiology studies were completed. Property :Personal belongings accompany Pt. 22:56 Patient left the ED. sls1 Signatures: Soraya Hobbs Destiny, MANAGER DIABETES MANAGER DIABETES raquel Kayla Nieves, RN RN sls1 Venkat Jauregui DO DO cs11 Irena Glass, MANAGER DIABETES MANAGER DIABETES tmm1 Love Siddiqi,RN RN af2 MTDD
--- NOTE | 2016-06-05 23:56 | EDDOCDS ---
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 bleeding af2 stopped at this time. pt reports feeling clots in back of throat. Adult Sepsis Screening: The patient does not have new or worsening altered mentation. Patient's respiratory rate is less than 22. Systolic blood pressure is greater than 100. Patient has a qSOFA score of 0- Negative Sepsis Screen. Suicide/Homicide risk assessment- the patient denies having any suicidal and/or homicidal ideations and does not present with any other emotional, behavioral or mental health complaints. Status: Patient is not a community service worker or dependent. Transition of care: patient was not received from another setting of care. 20:35 Method Of Arrival: Ambulance af2 20:35 Acuity: OSIEL Level 3 af2 Triage Assessment: 20:39 General: Appears in no apparent distress, Behavior is cooperative. Pain: Denies pain. af2 HIV screening NA for this visit Offered previously. Neurological: Level of Consciousness is awake, alert, obeys commands, Oriented to person, place, time. EENT: Reports no bleeding noted to left nare.. Derm: Skin is normal. Historical: - Allergies: Aspirin (Anaphylaxis); Bactrim (kidney failure); BEEF CONTAINING PRODUCTS; Flagyl (kidney failure); Levaquin (kidney failure); Nubain (kidney failure); QUINOLONES (kidney failure); - Home Meds: 1. albuterol sulfate 2.5 mg /3 mL (0.083 %) Inhl nebu 2. allopurinol 300 mg Oral tab 1 tab once daily 3. atenolol 50 mg Oral tab 1 tab 2 times per day 4. Bentyl 20 mg Oral tab 1 tab 3 times per day as needed 5. Breo Ellipta 200-25 mcg/dose inhalation dsdv 1 puff once daily 6. Humulin U 500 Sub-Q susp every 3 hours sliding scale took 200 units at 1038 7. Linzess 290 mcg oral cap 1 cap once daily 8. Lyrica 150 mg oral cap tid 9. calcitriol 0.25 mcg oral cap 1 cap once daily 10. famotidine 40 mg Oral tab once daily 11. Humalog sliding scale Sub-Q 185 units at 1400 12. meclizine 25 mg Oral tab 1 tab prn as needed 13. Oxygen 3L as needed as needed 14. Pepcid 40 mg Oral tab 1 tab once daily 15. Zocor 80 mg Oral tab nightly 16. torsemide 100 mg oral tab 1.5 tabs once daily 17. tizanidine 4 mg oral cap 1 cap 3 times per day 18. tessalon pearls every 4 hours prn 19. Synthroid 75 mcg Oral tab 1 tab once daily 20. restigen D 21. Protonix 40 mg Oral TbEC 1 tab once daily 22. potassium chloride 10 mEq Oral cpER 1 cap 2 times per day 23. Plavix 75 mg Oral tab once daily - PMHx: CHF; COPD; CVA; Diabetes - IDDM: controlled; Diverticulitis; ESRD 3; Gout; Hypothyroidism; Kidney stones; Sleep Apnea w/ CPAP; Spinal Stenosis; - PSHx: Hysterectomy; Appendectomy; Laparoscopy; Lithotripsy; - Social history: Smoking status: Patient states former smoker of tobacco. No barriers to communication noted, The patient speaks fluent Greek. - Family history: Not pertinent. - : The pt / caregiver states he / she is on anticoagulants: Plavix. Home medication list is obtained from the patient. - Exposure Risk Screening:: None identified. Screenin:53 Screening information is obtained from the patient. Fall risk: At risk due to sls1 immobility. Assistance ADL's: requires no assistance with activities of daily living. Abuse/DV Screen: The patient / caregiver reports he/she is: not in a situation that causes fear, pain or injury. Nutritional screening: No deficits noted. home support is adequate. Assessment: 22:53 General: Appears in no apparent distress, Behavior is appropriate for age, cooperative, sls1 First encounter with pt, discharge instructions reviewed with pt including follow up care and wound care. Pt verbalizes understanding of all instructions, pt d/c home with vaseline gauze intact to left nare. Pt d/c home via wheelchair with SO. Pain: Denies pain. Neurological: Level of Consciousness is awake, alert. EENT: Nares gauze intact to left nare. Respiratory: Airway is patent Respiratory effort is even, unlabored, Respiratory pattern is regular, symmetrical. Derm: No deficits noted. Vital Signs: 20:38 BP 145 / 64 LA Sitting (auto/); Pulse 81; Resp 18 S; Temp 97.8(O); Pulse Ox 96% on R/A; af2 Weight 137.21 kg (R); Height 5 ft. 5 in. (165.10 cm) (R); Pain 0/10; 22:44 BP 116 / 51; Pulse 80; Resp 18; Temp 97.8(TE); Pulse Ox 97% on R/A; Pain 0/10; raquel 20:38 Body Mass Index 50.34 (137.21 kg, 165.10 cm) af2 Vitals: 20:38 Log In Time N/A - ambulance arrival. af2 ED Course: 20:27 Patient visited by Irena Glass PCA. tmm1 20:27 Patient moved to Waiting tmm1 20:28 Lashawn Metcalf RN is Primary Nurse. tmm1 20:28 Love Siddiqi RN is Primary Nurse. tmm1 20:28 Patient moved to 8 tmm1 20:36 Triage Initiated af2 20:39 Patient visited by Love Siddiqi RN. af2 20:40 Venkat Jauregui DO is Attending Physician. cs11 20:40 Patient visited by Venkat Jauregui DO. cs11 20:57 Primary Nurse role handed off by Lashawn Metcalf RN raquel 21:12 Patient visited by Love Siddiqi RN. af2 21:35 COUNTS INCLUDE 234 BEDS AT THE [facility] Payment Agreement was scanned into [employer] and attached to record. zo 22:04 Patient visited by Love Siddiqi RN. af2 22:45 Patient visited by Rody Mae PCA. raquel 22:53 The patient / caregiver is instructed regarding the plan of care and ED course. Patient sls1 has correct armband on for positive identification. 22:53 No IV's were initiated during this patient's visit. No procedures done that require sls1 assistance. 06/04 11:48 T-Sheet-- Draft Copy was scanned into [employer] and attached to record. gb Administered Medications: 06/03 22:11 Drug: Oxymetazoline 1 sprays [oxymetazoline 0.05 % nasal spray (1 sprays)] {Note: admin af2 by provider.} Route: Intranasal; Site: left nare; Order Results: There are currently no results for this order. Outcome: 22:41 Discharge ordered by Provider. cs11 22:53 Discharge Assessment: Patient awake, alert and oriented x 3. No cognitive and/or sls1 functional deficits noted. Patient verbalized understanding of disposition instructions. patient administered narcotics - no. The following High Risk Discharge criteria are identified: None. Discharged to home via wheelchair, with significant other. Condition: stable. Discharge instructions given to patient, Instructed on discharge instructions, follow up and referral plans. Demonstrated understanding of instructions, Pt was receptive of discharge instructions/ teaching. No special radiology studies were completed. Property :Personal belongings accompany Pt. 22:56 Patient left the ED. sls1 Signatures: Dana Madera, Reg Reg gb Soraya Hobbs Destiny, PRINCIPAL ARCHAEOLOGIST PRINCIPAL ARCHAEOLOGIST Kayla Ascencio, RN RN sls1 Venkat Jauregui, DO cs11 Irena Glass, PRINCIPAL ARCHAEOLOGIST PRINCIPAL ARCHAEOLOGIST tmm1 Love Siddiqi,ESTHER RN af2 Chart Complete MTDD
--- NOTE | 2016-06-05 23:56 | EDDOCDS ---
Physician Documentation [facility] Name: Gia Wood Age: 61 yrs Sex: Female : 1955 Arrival Date: 06/03/2016 Time: 20:26 Bed 8 Private MD: Disposition: 06/03/16 22:41 Discharged to Home/Self Care. Impression: Epistaxis. - Condition is Stable. - Medication Reconciliation, Local Pharmacy Hours form. - Follow up: Private Physician; When: Call to arrange an appointment; Reason: Recheck today's complaints. - Problem is new. - Symptoms are resolved. - Notes: softly remove the vaseline gauze tomorrow. Historical: - Allergies: Aspirin (Anaphylaxis); Bactrim (kidney failure); BEEF CONTAINING PRODUCTS; Flagyl (kidney failure); Levaquin (kidney failure); Nubain (kidney failure); QUINOLONES (kidney failure); - Home Meds: 1. albuterol sulfate 2.5 mg /3 mL (0.083 %) Inhl nebu 2. allopurinol 300 mg Oral tab 1 tab once daily 3. atenolol 50 mg Oral tab 1 tab 2 times per day 4. Bentyl 20 mg Oral tab 1 tab 3 times per day as needed 5. Breo Ellipta 200-25 mcg/dose inhalation dsdv 1 puff once daily 6. Humulin U 500 Sub-Q susp every 3 hours sliding scale took 200 units at 1038 7. Linzess 290 mcg oral cap 1 cap once daily 8. Lyrica 150 mg oral cap tid 9. calcitriol 0.25 mcg oral cap 1 cap once daily 10. famotidine 40 mg Oral tab once daily 11. Humalog sliding scale Sub-Q 185 units at 1400 12. meclizine 25 mg Oral tab 1 tab prn as needed 13. Oxygen 3L as needed as needed 14. Pepcid 40 mg Oral tab 1 tab once daily 15. Zocor 80 mg Oral tab nightly 16. torsemide 100 mg oral tab 1.5 tabs once daily 17. tizanidine 4 mg oral cap 1 cap 3 times per day 18. tessalon pearls every 4 hours prn 19. Synthroid 75 mcg Oral tab 1 tab once daily 20. restigen D 21. Protonix 40 mg Oral TbEC 1 tab once daily 22. potassium chloride 10 mEq Oral cpER 1 cap 2 times per day 23. Plavix 75 mg Oral tab once daily - PMHx: CHF; COPD; CVA; Diabetes - IDDM: controlled; Diverticulitis; ESRD 3; Gout; Hypothyroidism; Kidney stones; Sleep Apnea w/ CPAP; Spinal Stenosis; - PSHx: Hysterectomy; Appendectomy; Laparoscopy; Lithotripsy; - Social history: Smoking status: Patient states former smoker of tobacco. No barriers to communication noted, The patient speaks fluent Romansh. - Family history: Not pertinent. - : The pt / caregiver states he / she is on anticoagulants: Plavix. Home medication list is obtained from the patient. - Exposure Risk Screening:: None identified. Vital Signs: 06/03 20:38 BP 145 / 64 LA Sitting (auto/); Pulse 81; Resp 18 S; Temp 97.8(O); Pulse Ox 96% on R/A; af2 Weight 137.21 kg / 302.5 lbs (R); Height 5 ft. 5 in. (165.10 cm) (R); Pain 0/10; 22:44 BP 116 / 51; Pulse 80; Resp 18; Temp 97.8(TE); Pulse Ox 97% on R/A; Pain 0/10; raquel 20:38 Body Mass Index 50.34 (137.21 kg, 165.10 cm) af2 MDM: 20:41 Misc. Nursing Order ordered. 11 21:21 Financial registration complete. zo 21:35 [facility] Payment Agreement was scanned into [employer] and attached to record. zo 21:56 Oxymetazoline [place] 0.05 % 1 sprays Intranasal once ordered. 11 06/04 11:48 T-Sheet-- Draft Copy was scanned into [employer] and attached to record. gb Administered Medications: 06/03 22:11 Drug: Oxymetazoline 1 sprays [oxymetazoline 0.05 % nasal spray (1 sprays)] {Note: admin af2 by provider.} Route: Intranasal; Site: left nare; Signatures: Dana Madera, Soraya Burdick Shannon RN RN sls1 Venkat Jauregui DO DO cs11 Love SiddiqiRN RN af2 The chart was reviewed and I authenticate all verbal orders and agree with the evaluation and treatment provided.Attachments: 21:35 [facility] Payment Agreement zo 06/04 11:48 T-Sheet-- Draft Copy gb Chart Complete MTDD
--- NOTE | 2016-06-05 23:56 | EDDOCDS ---
Physician Documentation [facility] Name: Gia Wood Age: 61 yrs Sex: Female : 1955 Arrival Date: 06/03/2016 Time: 20:26 Bed 8 Private MD: Disposition: 06/03/16 22:41 Discharged to Home/Self Care. Impression: Epistaxis. - Condition is Stable. - Medication Reconciliation, Local Pharmacy Hours form. - Follow up: Private Physician; When: Call to arrange an appointment; Reason: Recheck today's complaints. - Problem is new. - Symptoms are resolved. - Notes: softly remove the vaseline gauze tomorrow. Historical: - Allergies: Aspirin (Anaphylaxis); Bactrim (kidney failure); BEEF CONTAINING PRODUCTS; Flagyl (kidney failure); Levaquin (kidney failure); Nubain (kidney failure); QUINOLONES (kidney failure); - Home Meds: 1. albuterol sulfate 2.5 mg /3 mL (0.083 %) Inhl nebu 2. allopurinol 300 mg Oral tab 1 tab once daily 3. atenolol 50 mg Oral tab 1 tab 2 times per day 4. Bentyl 20 mg Oral tab 1 tab 3 times per day as needed 5. Breo Ellipta 200-25 mcg/dose inhalation dsdv 1 puff once daily 6. Humulin U 500 Sub-Q susp every 3 hours sliding scale took 200 units at 1038 7. Linzess 290 mcg oral cap 1 cap once daily 8. Lyrica 150 mg oral cap tid 9. calcitriol 0.25 mcg oral cap 1 cap once daily 10. famotidine 40 mg Oral tab once daily 11. Humalog sliding scale Sub-Q 185 units at 1400 12. meclizine 25 mg Oral tab 1 tab prn as needed 13. Oxygen 3L as needed as needed 14. Pepcid 40 mg Oral tab 1 tab once daily 15. Zocor 80 mg Oral tab nightly 16. torsemide 100 mg oral tab 1.5 tabs once daily 17. tizanidine 4 mg oral cap 1 cap 3 times per day 18. tessalon pearls every 4 hours prn 19. Synthroid 75 mcg Oral tab 1 tab once daily 20. restigen D 21. Protonix 40 mg Oral TbEC 1 tab once daily 22. potassium chloride 10 mEq Oral cpER 1 cap 2 times per day 23. Plavix 75 mg Oral tab once daily - PMHx: CHF; COPD; CVA; Diabetes - IDDM: controlled; Diverticulitis; ESRD 3; Gout; Hypothyroidism; Kidney stones; Sleep Apnea w/ CPAP; Spinal Stenosis; - PSHx: Hysterectomy; Appendectomy; Laparoscopy; Lithotripsy; - Social history: Smoking status: Patient states former smoker of tobacco. No barriers to communication noted, The patient speaks fluent Kiswahili. - Family history: Not pertinent. - : The pt / caregiver states he / she is on anticoagulants: Plavix. Home medication list is obtained from the patient. - Exposure Risk Screening:: None identified. Vital Signs: 06/03 20:38 BP 145 / 64 LA Sitting (auto/); Pulse 81; Resp 18 S; Temp 97.8(O); Pulse Ox 96% on R/A; af2 Weight 137.21 kg / 302.5 lbs (R); Height 5 ft. 5 in. (165.10 cm) (R); Pain 0/10; 22:44 BP 116 / 51; Pulse 80; Resp 18; Temp 97.8(TE); Pulse Ox 97% on R/A; Pain 0/10; raquel 20:38 Body Mass Index 50.34 (137.21 kg, 165.10 cm) af2 MDM: 20:41 Misc. Nursing Order ordered. 11 21:21 Financial registration complete. zo 21:35 [facility] Payment Agreement was scanned into [employer] and attached to record. zo 21:56 Oxymetazoline [place] 0.05 % 1 sprays Intranasal once ordered. 11 06/04 11:48 T-Sheet-- Draft Copy was scanned into [employer] and attached to record. gb Administered Medications: 06/03 22:11 Drug: Oxymetazoline 1 sprays [oxymetazoline 0.05 % nasal spray (1 sprays)] {Note: admin af2 by provider.} Route: Intranasal; Site: left nare; Signatures: Dana Madera, Soraya Burdick Shannon RN RN sls1 Venkat Jauregui DO DO cs11 Love SiddiqiRN RN af2 The chart was reviewed and I authenticate all verbal orders and agree with the evaluation and treatment provided.Attachments: 21:35 [facility] Payment Agreement zo 06/04 11:48 T-Sheet-- Draft Copy gb Chart Complete MTDD
== END 2016-06-03 22:56 | disposition home or self-care (01) ==
LOC: M ED 20:26
DX: R04.0 Epistaxis (principal); I50.9 Heart failure, unspecified; J44.9 Chronic obstructive pulmonary disease, unspecified; I63.9 Cerebral infarction, unspecified; E11.9 Type 2 diabetes mellitus without complications; K57.30 Diverticulosis of large intestine without perforation or abscess without bleeding; N18.3 Chronic kidney disease, stage 3 (moderate); M10.9 Gout, unspecified; E03.9 Hypothyroidism, unspecified; G47.30 Sleep apnea, unspecified; M48.00 Spinal stenosis, site unspecified; Z87.891 Personal history of nicotine dependence; Z79.4 Long term (current) use of insulin; Z79.899 Other long term (current) drug therapy; Z79.02 Long term (current) use of antithrombotics/antiplatelets; Z99.81 Dependence on supplemental oxygen; Z88.6 Allergy status to analgesic agent; Z88.1 Allergy status to other antibiotic agents; Z88.8 Allergy status to other drugs, medicaments and biological substances; Z91.018 Allergy to other foods; Z88.5 Allergy status to narcotic agent

== ENCOUNTER → 2016-06-06 | Outpatient (CLI) | payer OTHER ==
[2016-06-06 10:41] LABS: BASO % 0.5 % (0.0-1.0); EOS # 0.1 K/mm3 (0.0-0.50); EOS % 1.5 % (0.0-3.0); LARGE UNSTAINED CELL # 0.2 K/mm3 (0.0-0.4); LARGE UNSTAINED CELL % 2.1 % (0.0-4.0); LYMPH # 1.6 K/mm3 (1.5-4.5); LYMPH % 20.1 % (24.0-44.0); MEAN CORPUSCULAR HEMOGLOBIN 26.2 pg (27.0-33.0); MEAN CORPUSCULAR HGB CONC 31.6 g/dl (32.0-36.5); MEAN CORPUSCULAR VOLUME 83.1 fl (80.0-96.0); MONO # 0.4 K/mm3 (0.0-0.8); MONO % 5.1 % (0.0-5.0); NEUTROPHILS # 5.8 K/mm3 (1.8-7.7); NEUTROPHILS % 70.7 % (36.0-66.0); PLATELET COUNT, AUTOMATED 318 k/mm3 (150-450); RED CELL DISTRIBUTION WIDTH 14.1 % (11.5-14.5); WHITE BLOOD COUNT 8.2 K/mm3 (4.0-10.0)
[2016-06-06 10:55] LABS: ANION GAP 7 MEQ/L (8-16); BLOOD UREA NITROGEN 24 MG/DL (7-18); CALCIUM LEVEL 9.2 MG/DL (8.8-10.2); CARBON DIOXIDE LEVEL 33 MEQ/L (21-32); CHLORIDE LEVEL 102 MEQ/L (98-107); CREATININE FOR GFR 0.97 MG/DL (0.55-1.02); GLOMERULAR FILTRATION RATE > 60.0 (>45); GLUCOSE, FASTING 220 MG/DL (80-110); POTASSIUM SERUM 3.8 MEQ/L (3.5-5.1); SODIUM LEVEL 142 MEQ/L (136-145)
== END ==
LOC: M LAB 09:42
PROVIDERS: ATTEND Physician Assistant Medical
DX: R04.0 Epistaxis (principal)

== ENCOUNTER → 2016-06-11 | Outpatient (CLI) | payer OTHER ==
[~2016-06-11] MED LIST changes: +BUPIVACAINE HCL 0.25% 30 ML VIAL As Ordered ONE; +ISOVUE-M 300 61% 15ML VIAL (Q9967) As Ordered ONE; +LIDOCAINE 1% SDV INJ 30 ML VIAL As Ordered ONE
--- NOTE | 2016-06-11 18:37 | REP ---
FLUOROSCOPIC GUIDANCE FOR BILATERAL LUMBAR FACET BLOCK: 06/11/2016: Clinical history: Back pain. Three images from C-arm fluoroscopy provided to Dr. King, all of the pain clinic for bilateral lumbar facet injection. Each oblique image was obtained and shows a needle at the L3, L4 and L5 pedicles near the facets. Fluoroscopy time 36 seconds. Signed by Osman Carlos MD 06/12/2016 08:31 A
--- NOTE | 2016-06-15 23:32 | ECWPNPC ---
PATIENT NAME: NU WOODARD : 1955 GENDER: FEMALE VISIT DATE: 06/11/2016 DISCHARGE DATE: 06/11/16 1250 VISIT LOCKED DATE TIME: PHYSICIAN: ANAY BENTLEY RESOURCE: ANAY BENTLEY REASON FOR APPOINTMENT 1. DIAGNOSTIC FACET HISTORY OF PRESENT ILLNESS HISTORY OF PRESENT ILLNESS: PAIN THE PATIENT DESCRIBES THE PAIN... FALL RISK SCREENING: SCREENING :NO FALLS IN THE PAST YEAR CURRENT MEDICATIONS TAKING INCRUSE ELLIPTA 62.5 MCG/INH AEROSOL POWDER BREATH ACTIVATED 1 PUFF INHALATION ONCE A DAY, NOTES: 06-10-16 TAKING SYNTHROID 75 MCG TABLET 1 TABLET EVERY MORNING ON AN EMPTY STOMACH ORALLY ONCE A DAY, NOTES: 06-11-16599 TAKING LYRICA 150 MG CAPSULE 1 CAPSULE ORALLY THREE TIMES A DAY, NOTES: 06-10-162099 TAKING ATENOLOL 50 50MG TABLET 1 ORAL TWO TIMES DAILY, NOTES: 06-11-16599 TAKING ANTIVERT 25 MG TABLET 1 TABLET ORALLY ONCE A DAY NEEDED, NOTES: 05-11-16599 TAKING ALLOPURINOL 300 MG TABLETS 1 TAB ORALLY DAILY, NOTES: 05-11-16599 TAKING TORSEMIDE 150 TABLET ORALLY DIVIDED DAILY, NOTES: 05-10-161999 TAKING BETADINE SWABSTICKS 10 % SWAB DIRECTED EXTERNALLY QID- WITH CIC, NOTES: N/A TAKING LATEX GLOVES LARGE 1 BOX MISCELLANEOUS DIRECTED NEEDED FOR CIC, NOTES: N/A TAKING CATHETERS 14 FR MISCELLANEOUS DIRECTED TID, NOTES: N/A TAKING BREO ELLIPTA 200-25 MCG/INH AEROSOL POWDER BREATH ACTIVATED 1 PUFF INHALATION ONCE A DAY, NOTES: 06-10-16799 TAKING ZOCOR 80 MG TABLET 1 TABLET IN THE EVENING ORALLY ONCE A DAY, NOTES: 06-10-161999 TAKING LINZESS 290 MCG CAPSULE 1 CAPSULE ORALLY ONCE A DAY, NOTES: WEEK TAKING POTASSIUM CHLORIDE 10 MEQ CAPSULE EXTENDED RELEASE 1 CAPSULE WITH FOOD ORALLY TWO TIMES A DAY, NOTES: 06-11-16599 TAKING CALCITRIOL 0.25 MCG CAPSULE 1 CAPSULE ORALLY ONCE A DAY, NOTES: 06-11-16599 TAKING BENTYL 10 MG CAPSULE 1 CAPSULE ORALLY NEEDED, NOTES: 06-11-16599 TAKING TIZANIDINE HCL 4 MG TABLET 1 TABLET NEEDED ORALLY EVERY 8 HRS, NOTES: 06-10-161999 TAKING PLAVIX 75 MG TABLET 1 TABLET ORALLY ONCE A DAY, NOTES: 06-03-16 TAKING HUMULIN R U-500 (CONCENTRATED) 500 UNIT/ML SOLUTION DIRECTED SLIDING SCALE BETWEEN 18 AND 27 UNITS SUBCUTANEOUS EVERY 3 HRS., NOTES: 06-10-161999 TAKING TOUJEO SOLOSTAR 300 UNIT/ML SOLUTION PEN-INJECTOR 100 SUBCUTANEOUS BID, NOTES: 06-10-161999 TAKING POISE MAXIMUM ABSORBENCY . PAD DIRECTED CHANGE NEEDED, DX CODE- N39.46 NOT-TAKING NYSTATIN POWDER 6 MU/GM POWDER DIRECTED TWICE A DAY, NOTES: 09-12-15 AM NOT-TAKING VOLTAREN 1 % GEL 3 CC AT [facility] ARE[facility] TRANSDERMAL TID PRN FOR PAIN DISCONTINUED FENOFIBRATE 160 MG TABLET DIRECTED ORALLY DAILY, NOTES: 12/13/15 DISCONTINUED PROTONIX 40 MG TABLET DELAYED RELEASE 1 TABLET ORALLY ONCE A DAY, NOTES: 1999 DISCONTINUED DIFLUCAN 200 MG TABLET 1 TABLET ORALLY ONCE A DAY, NOTES: 11-13-15 0800 DISCONTINUED NYSTATIN 226509 UNIT/ML SUSPENSION 30 CC MOUTH/THROAT THREE TIMES A DAY, NOTES: NONE DISCONTINUED CIPRO 500 MG TABLET 1 TABLET ORALLY TWICE A DAY DISCONTINUED PYRIDIUM 200 MG TABLET 1 TABLET AFTER MEALS ORALLY THREE TIMES A DAY DISCONTINUED NOVOLIN N 100 UNIT/ML SUSPENSION 90 UNITS IN AM, AND NEEDED SUBCUTANEOUS MORNING DISCONTINUED CIPRO 500 MG TABLET 1 TABLET ORALLY TWICE A DAY NEEDED MEDICATION LIST REVIEWED AND RECONCILED WITH THE PATIENT PAST MEDICAL HISTORY 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 DR HAYNES KIDNEY DISEASE/FAILURE 2007 DR KNUTSON HYPERTENSION HYPOTHYROIDISM HYPERCHOLESTEROLEMIA ASTHMA [facility] GOUT BRAIN STROKE-07/06 PITUITARY TUMOR-2007 SLEEP APNEA/CPAP 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 ALLERGIES ASPIRIN: ANAPHYLAXIS: ALLERGY BEEF FLAVOR: SWELLING/FEVER: ALLERGY LEVAQUIN: KIDNEY FAILURE BACTRIM: KIDNEY FAILURE FLAGYL: KIDNEY FAILURE IVP DYE, IODINE: KIDNEY FAILURE SURGICAL HISTORY SHANELLE AND BSO 12/15/1996 COLONOSCOPY X 5 ,8 POLYPS BEIGN 2007,11/2015 BREAST BIOPSY/MASS REMOVED-RIGHT BREAST 06/24/2002 APPENDECTOMY 10/09/2002 LEFT URETERAL STONE 01/29/1979 BRAIN TUMOR TUBAL LIGATION 10/30/1975 WART REMOVAL - EYES VAGINAL BLADDER LIFT - SLING & CYSTOCELE REPAIR 1997 URETHERAL DILATION 11/15/1999 RIGHT METAL PLATE INSERTED INTO RIGHT LEG - "TUMOR FROM FALL" CYSTOSCOPY 09/24/13 SOCIAL HISTORY GENERAL: TOBACCO USE ARE YOU A:NONSMOKER LEARNING BARRIERS / SPECIAL NEEDS ORIENTED TO PLAN OF CARE: PATIENT, PAIN MANAGEMENT PATIENT, ORIENTED TO PLAN OF CARE: PATIENT, PAIN MANAGEMENT PATIENT. NEW PATIENT PAIN DIARY TODAY'S VISITNOTES FROM 0-10, WHAT LEVEL IS YOUR PAIN TODAY?0 PAIN CLINIC PFS, CLERGY, PUBLIC HEALTH REFERRALS PFS REFERRAL NEEDED?NO CLERGY REFERRAL NEEDED?NO PUBLIC HEALTH REFERRAL NEEDED?NO WAS THE PROVIDER NOTIFIED OF ANY PERTINENT INFO?NO PFS REFERRAL NEEDED?NO CLERGY REFERRAL NEEDED?NO PUBLIC HEALTH REFERRAL NEEDED?NO WAS THE PROVIDER NOTIFIED OF ANY PERTINENT INFO?NO HOSPITALIZATION/MAJOR DIAGNOSTIC PROCEDURE SURGICAL RELATED CVA KIDNEY FAILURE UTI [facility] 07/2013 [facility] 09/08/13 [facility] UTI 09/30/13-10/06/13 KIDNEY FAILURE 01/05/112013 ABDOMINAL PAIN-LIVER BIOPSY-CYST 08/2015 AND 09/2015 REVIEW OF SYSTEMS CONSTITUTIONAL: ANY CHANGE IN YOUR MEDICAL CONDITION? NO . CHILLS NO . FEVER NO . INFECTION: DO YOU HAVE NEW INFECTIONS? NO . DO YOU HAVE HISTORY OF MRSA? NO . MUSCULOSKELETAL: ANY NEW PATTERNS OF PAIN OR NUMBNESS? YES, PAIN IN HER HANDS . GASTROENTEROLOGY: ANY NEW CHANGE IN BOWEL CONTROL? NO . GENITOURINARY: ANY NEW CHANGE IN BLADDER CONTROL? NO . IS THERE A CHANCE YOU COULD BE ? NO . HEMATOLOGY/LYMPH: DO YOU TAKE ANY BLOOD THINNERS? (FOR EXAMPLE- COUMADIN, PLAVIX, AGGRENOX, PLATEL, PRADAXA, OR XARELTO) YES, PLAVIX . WHEN WAS YOUR LAST DOSE? DATE: TIME: 06/03/16 0800 . NEUROLOGY: HAVE YOU FALLEN IN THE PAST 6 MONTHS? NO . ANY NEW EXTREMITY NUMBNESS OR WEAKNESS? NO . CARDIOLOGY: DO YOU HAVE A PACEMAKER OR DEFIBRILLATOR? NO . RESPIRATORY: HAVE YOU BEEN SICK IN THE PAST WEEK? NO . FEVER NO . FLU LIKE SYMPTOMS? NO . COUGH NO . INTEGUMENTARY: DO YOU HAVE ANY RASHES OR OPEN SORES? NO . ALLERGIC/IMMUNO: ARE YOU ALLERGIC TO SHELLFISH OR IV DYE? YES, IV DYE . ANY NEW ALLERGIES? NO . PSYCHIATRIC: DO YOU HAVE THOUGHTS OF HURTING YOURSELF OR SOMEONE ELSE? NO . ARE YOU ABUSED, NEGLECTED, OR IN AN UNSAFE ENVIRONMENT? NO . ENDOCRINOLOGY: ARE YOU DIABETIC? YES . OTHER: DO YOU NEED ANY PRESCRIPTIONS? NO . IF YES, PLEASE LIST: ____ . ANY NEW PROBLEMS WITH YOUR MEDICATIONS? NO . WHEN DID YOU LAST EAT? 06-10-16 5PM . WHEN DID YOU LAST DRINK? 06-11-16 0600 . WHAT DID YOU LAST DRINK? WATER . NAME OF PERSON DRIVING YOU HOME? [employer] . DO YOU HAVE ANY OTHER QUESTIONS OR CONCERNS NO . REVIEWED BY: PROVIDER: . VITAL SIGNS WT 302.5 LBS, HT 65.5 IN, BMI 49.57 INDEX, BP 109/64 MM HG, HR 78 /MIN, RR 16 /MIN, TEMP 98.1 F, OXYGEN SAT % 91%, NA INITIALS SC 10:13, REVIEWED BY: CM. ASSESSMENTS SPONDYLOSIS WITHOUT MYELOPATHY OR RADICULOPATHY, LUMBAR REGION - M47.816 (PRIMARY) PROCEDURES PN LUMBAR FACET BLOCK DIAGNOSTIC PRE PROCEDURE DIAGNOSIS LUMBAR SPONDYLOSIS POST PROCEDURE DIAGNOSIS LUMBAR SPONDYLOSIS PROCEDURE BILATERAL L3-L4 AND BILATERAL L4-L5 FACET BLOCK DIAGNOSTIC NUMBER [address] ANAY BENTLEY [employer] PROFESSOR NONE ANESTHESIA LOCAL PRE PROCEDURE NOTE THE PATIENT WITH HISTORY OF CHRONIC LOW BACK PAIN. I EVALUATED THE PATIENT AND REVIEWED THE CHART. I WENT OVER THE RISKS, ALTERNATIVES, AND BENEFITS ASSOCIATED WITH THIS PROCEDURE. THE PATIENT WOULD LIKE TO PROCEED AND GAVE CONSENT TO PERFORM THE PROCEDURE. AGREED WITH THE PATIENT WE ARE DOING THIS PROCEDURE TO DETERMINE IF THE PATIENT IS A CANDIDATE FOR A RADIOFREQUENCY ABLATION OF THE FACETS JOINTS. THE PATIENT DENIES UNEXPLAINABLE WEIGHT LOSS, FEVER, CHILLS, OR NEW CHANGES IN URINARY OR BOWEL CONTROL DESCRIPTION OF PROCEDURE THE PATIENT WAS BROUGHT TO THE PROCEDURE ROOM AND PLACED IN THE PRONE POSITION. THE LUMBOSACRAL AREA WAS CLEANED WITH CHLORAPREP SOLUTION AND DRAPED ASEPTICALLY. THE PROCEDURE WAS DONE UNDER STERILE CONDITIONS. I CHECKED LATERALITY AND THE LEVEL WHERE THE PROCEDURE WAS GOING TO BE PERFORMED WITH THE PATIENT AND THE SUPPORTING STAFF AT THE MOMENT OF THE TIME OUT IN THE PROCEDURE ROOM. UNDER FLUOROSCOPIC GUIDANCE, TARGETS WERE SELECTED AT THE INTERSECTION OF THE RIGHT AND LEFT TRANSVERSE PROCESS OF L3-L4 AND L4-L5 WITH ITS RESPECTIVE SUPERIOR ARTICULAR PROCESS. LIDOCAINE WAS USED TO NUMB THE SKIN AND THE SUBCUTANEOUS TISSUE BELOW IT. SPINAL NEEDLE, 22-GAUGE WAS ADVANCED UNDER FLUOROSCOPIC GUIDANCE AND FOLLOWING PATIENT FEEDBACK UNTIL THE TARGETS WERE REACHED. POSITION OF THE NEEDLES WAS VERIFIED WITH AP AND LATERAL VIEWS. AFTER PROPER POSITION OF THE NEEDLES WAS ACHIEVED, ISOVUE-M DYE 30% 0.1 ML WAS INJECTED AT EACH SITE SHOWING ADEQUATE SPREAD OF THE DYE. THEN A SOLUTION OF 0.4 ML OF BUPIVACAINE 0.25% WAS INJECTED AT EACH SITE. THERE WAS NO EVIDENCE OF BLOOD, PARESTHESIA OR CEREBROSPINAL FLUID DURING THE PROCEDURE. THE PATIENT WAS SENT TO THE RECOVERY ROOM. THE PATIENT WAS MOVING THE EXTREMITIES AND DOING WELL. THERE WAS NO COMPLICATION DURING THE PROCEDURE. FLUOROSCOPY TIME WAS 36 SECONDS POST PROCEDURE NOTE THE PATIENT WILL DOCUMENT HIS PAIN LEVEL AND RESPONSE TO THIS PROCEDURE EVERY 30 MINUTES. THE PATIENT WILL BE SEEN IN A FOLLOW UP IN THE NEXT FEW WEEKS. FURTHER DETERMINATION FOR HIS CASE WILL BE DONE AT THE NEXT VISIT. INSTRUCTIONS WERE GIVEN, QUESTIONS WERE ANSWERED, AND THE PATIENT EXPRESSED UNDERSTANDING AND AGREED WITH THE PLAN. INSTRUCTIONS WERE GIVEN, QUESTIONS WERE ANSWERED, PATIENT REPORTS UNDERSTANDING AND AGREES WITH THE PLAN. I, ANDREW CORLEY, DOCUMENTED THE ABOVE INFORMATION ACTING A SCRIBE FOR DR. BENTLEY. I HAVE REVIEWED THE ABOVE DOCUMENT, WRITTEN BY ANDREW CORLEY SCRIBE AND I VERIFY THAT IT IS ACCURATE. DIAGNOSTIC IMAGING [facility] FACET BLOCK (PAIN)[id number] PREVENTIVE MEDICINE PAIN CLINIC TEACHING: PROCEDURE TEACHING POST DIAGNOSTIC LUMBAR FACET BLOCK INSTRUCTIONS REVIEWED WITH PT. VERBALIZED UNDERSTANDING.. PROCEDURE CODES 99404 INJ PARAVERT F JNT L/S 1 LEV 16233 INJ PARAVERT F JNT L/S 2 LEV 6045F RADXPS IN END [id number] PXD DISPOSITION & COMMUNICATION FOLLOW UP 3 WEEKS ELECTRONICALLY SIGNED BY ANAY BENTLEY MD ON 06/15/2016 AT 09:19 PM EST DISCLAIMER : THIS IS A VISIT SUMMARY EXTRACTED FROM THE [employer] CHART. IT IS NOT A COPY OF THE [employer] PROGRESS NOTE. MTDD
== END ==
LOC: M PAIN 10:00
PROVIDERS: ATTEND Anesthesiology
DX: G89.29 Other chronic pain (principal); M47.816 Spondylosis without myelopathy or radiculopathy, lumbar region; E11.22 Type 2 diabetes mellitus with diabetic chronic kidney disease; J45.909 Unspecified asthma, uncomplicated; I12.9 Hypertensive chronic kidney disease with stage 1 through stage 4 chronic kidney disease, or unspecified chronic kidney disease; N18.9 Chronic kidney disease, unspecified; I50.9 Heart failure, unspecified; E03.9 Hypothyroidism, unspecified; E78.00 Pure hypercholesterolemia, unspecified; J44.9 Chronic obstructive pulmonary disease, unspecified; M10.9 Gout, unspecified; G47.30 Sleep apnea, unspecified; Z86.73 Personal history of transient ischemic attack (TIA), and cerebral infarction without residual deficits; Z79.899 Other long term (current) drug therapy; Z79.51 Long term (current) use of inhaled steroids; Z79.01 Long term (current) use of anticoagulants; Z79.4 Long term (current) use of insulin; N39.46 Mixed incontinence; Z91.018 Allergy to other foods; Z88.1 Allergy status to other antibiotic agents; Z88.6 Allergy status to analgesic agent; Z91.041 Radiographic dye allergy status

== ENCOUNTER → 2016-07-16 | Outpatient (CLI) | payer OTHER ==
[~2016-07-16] MED LIST changes: -BUPIVACAINE HCL 0.25% 30 ML VIAL As Ordered ONE; -ISOVUE-M 300 61% 15ML VIAL (Q9967) As Ordered ONE; -LIDOCAINE 1% SDV INJ 30 ML VIAL As Ordered ONE
[2016-07-16 12:53] LABS: BACTERIA, URINE LARGE AMOUNT; HYALINE CAST, URINE NONE SEEN /lpf (0-1); MICROSCOPIC EXAM PERFORMED; RBC, URINE NONE SEEN /hpf (0-3); SQUAMOUS EPITHELIAL CELL URINE MOD AMOUNT /hpf (SMALL AMT); WBC, URINE 20-30 /hpf (0-3)
== END ==
LOC: M LAB 11:25
PROVIDERS: ATTEND Internal Medicine Nephrology
DX: N39.0 Urinary tract infection, site not specified (principal); N18.2 Chronic kidney disease, stage 2 (mild); E11.22 Type 2 diabetes mellitus with diabetic chronic kidney disease

== ENCOUNTER → 2016-07-19 | Outpatient (CLI) | payer OTHER ==
[~2016-07-19] MED LIST changes: -HEPA1INJ IV; +HEPA1INJ4 IV
--- NOTE | 2016-07-30 01:14 | ECWPNPC ---
PATIENT NAME: NU WOODARD : 1955 GENDER: FEMALE VISIT DATE: 07/19/2016 DISCHARGE DATE: 07/19/16 1404 VISIT LOCKED DATE TIME: PHYSICIAN: LEAH ANDERS RESOURCE: LEAH ANDERS REASON FOR APPOINTMENT 1. POST PROCEDURE HISTORY OF PRESENT ILLNESS HISTORY OF PRESENT ILLNESS: PAIN THE PATIENT DESCRIBES THE PAIN... FALL RISK SCREENING: SCREENING :NO FALLS IN THE PAST YEAR TODAY'S VISIT: NOTES: S/P DIAGNOSTIC LUMBAT FACET BLOCK (BILATERAL) ON 06/11/13 WITH 100% RELIEF OF PAIN X 2 WEEKS. WAS ABLE TO STAND AND WALK WITH GOOD RELIEF. THE RIGHT SIDE IS THE WORST. . CURRENT MEDICATIONS TAKING INCRUSE ELLIPTA 62.5 MCG/INH AEROSOL POWDER BREATH ACTIVATED 1 PUFF INHALATION ONCE A DAY TAKING SYNTHROID 75 MCG TABLET 1 TABLET EVERY MORNING ON AN EMPTY STOMACH ORALLY ONCE A DAY TAKING LYRICA 150 MG CAPSULE 1 CAPSULE ORALLY THREE TIMES A DAY TAKING ATENOLOL 50 50MG TABLET 1 ORAL TWO TIMES DAILY TAKING ANTIVERT 25 MG TABLET 1 TABLET ORALLY ONCE A DAY NEEDED TAKING ALLOPURINOL 300 MG TABLETS 1 TAB ORALLY DAILY TAKING TORSEMIDE 150 TABLET ORALLY DIVIDED DAILY TAKING BETADINE SWABSTICKS 10 % SWAB DIRECTED EXTERNALLY QID- WITH CIC, NOTES: N/A TAKING LATEX GLOVES LARGE 1 BOX MISCELLANEOUS DIRECTED NEEDED FOR CIC, NOTES: N/A TAKING CATHETERS 14 FR MISCELLANEOUS DIRECTED TID, NOTES: N/A TAKING BREO ELLIPTA 200-25 MCG/INH AEROSOL POWDER BREATH ACTIVATED 1 PUFF INHALATION ONCE A DAY TAKING ZOCOR 80 MG TABLET 1 TABLET IN THE EVENING ORALLY ONCE A DAY TAKING LINZESS 290 MCG CAPSULE 1 CAPSULE ORALLY ONCE A DAY TAKING POTASSIUM CHLORIDE 10 MEQ CAPSULE EXTENDED RELEASE 1 CAPSULE WITH FOOD ORALLY TWO TIMES A DAY TAKING CALCITRIOL 0.25 MCG CAPSULE 1 CAPSULE ORALLY ONCE A DAY TAKING BENTYL 10 MG CAPSULE 1 CAPSULE ORALLY NEEDED TAKING TIZANIDINE HCL 4 MG TABLET 1 TABLET NEEDED ORALLY EVERY 8 HRS TAKING PLAVIX 75 MG TABLET 1 TABLET ORALLY ONCE A DAY TAKING HUMULIN R U-500 (CONCENTRATED) 500 UNIT/ML SOLUTION DIRECTED SLIDING SCALE BETWEEN 18 AND 27 UNITS SUBCUTANEOUS EVERY 3 HRS. TAKING TOUJEO SOLOSTAR 300 UNIT/ML SOLUTION PEN-INJECTOR 100 SUBCUTANEOUS BID TAKING POISE MAXIMUM ABSORBENCY . PAD DIRECTED CHANGE NEEDED, DX CODE- N39.46 TAKING CIPRO 500 MG TABLET 1 TABLET ORALLY TWICE A DAY TAKING REGLAN 10 MG TABLET ORALLY NOT-TAKING NYSTATIN POWDER 6 MU/GM POWDER DIRECTED TWICE A DAY, NOTES: 5-17-16 AM NOT-TAKING VOLTAREN 1 % GEL 3 CC AT [facility] ARE[facility] TRANSDERMAL TID PRN FOR PAIN MEDICATION LIST REVIEWED AND RECONCILED WITH THE PATIENT PAST MEDICAL HISTORY 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 DR HAYNES KIDNEY DISEASE/FAILURE 2007 DR KNUTSON HYPERTENSION HYPOTHYROIDISM HYPERCHOLESTEROLEMIA ASTHMA [facility] GOUT BRAIN STROKE-07/06 PITUITARY TUMOR-2007 SLEEP APNEA/CPAP 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 NO . CHILLS NO . FEVER NO . INFECTION: DO YOU HAVE NEW INFECTIONS? YES UTI - PUT ON CIPRO BY DR LEY AND TEAM. HAD RECENT FLU LIKE SYMPTOMS. . DO YOU HAVE HISTORY OF MRSA? NO . MUSCULOSKELETAL: ANY NEW PATTERNS OF PAIN OR NUMBNESS? NO . GASTROENTEROLOGY: ANY NEW CHANGE IN BOWEL CONTROL? NO . GENITOURINARY: ANY NEW CHANGE IN BLADDER CONTROL? NO . IS THERE A CHANCE YOU COULD BE ? NO . HEMATOLOGY/LYMPH: DO YOU TAKE ANY BLOOD THINNERS? (FOR EXAMPLE- COUMADIN, PLAVIX, AGGRENOX, PLATEL, PRADAXA, OR XARELTO) NO . WHEN WAS YOUR LAST DOSE? DATE: TIME: . NEUROLOGY: HAVE YOU FALLEN IN THE PAST 6 MONTHS? NO . ANY NEW EXTREMITY NUMBNESS OR WEAKNESS? NO . CARDIOLOGY: DO YOU HAVE A PACEMAKER OR DEFIBRILLATOR? NO . RESPIRATORY: HAVE YOU BEEN SICK IN THE PAST WEEK? NO . FEVER NO . FLU LIKE SYMPTOMS? NO . COUGH NO . INTEGUMENTARY: DO YOU HAVE ANY RASHES OR OPEN SORES? NO . ALLERGIC/IMMUNO: ARE YOU ALLERGIC TO SHELLFISH OR IV DYE? NO . ANY NEW ALLERGIES? NO . PSYCHIATRIC: DO YOU HAVE THOUGHTS OF HURTING YOURSELF OR SOMEONE ELSE? NO . ARE YOU ABUSED, NEGLECTED, OR IN AN UNSAFE ENVIRONMENT? NO . ENDOCRINOLOGY: ARE YOU DIABETIC? YES - INCREASED WITH ABX . OTHER: DO YOU NEED ANY PRESCRIPTIONS? YES &QUOT;SOMETHING FOR CIRCULATION&QUOT; FOR NUMBNESS . IF YES, PLEASE LIST: ____ . ANY NEW PROBLEMS WITH YOUR MEDICATIONS? NO . WHEN DID YOU LAST EAT? ____ . WHEN DID YOU LAST DRINK? ____ . WHAT DID YOU LAST DRINK? ____ . NAME OF PERSON DRIVING YOU HOME? ____ . DO YOU HAVE ANY OTHER QUESTIONS OR CONCERNS NO . REVIEWED BY: PROVIDER: LEAH NARANJO . VITAL SIGNS WT 310.2 LBS, HT 65.5 IN, BMI 50.83 INDEX, BP 122/63 MM HG, HR 73 /MIN, RR 16 /MIN, TEMP 97.6 F, OXYGEN SAT % 98%, SAFE IN ENV? (Y/N) YES, NA INITIALS SC 10:10, REVIEWED BY: KG. EXAMINATION GENERAL EXAMINATION: PSYCHALERT , ORIENTED X 3 , APPROPRIATE MOOD AND AFFECT , TALKATIVE. LUNGS:CLEAR TO AUSCULTATION BILATERALLY, NO WHEEZES, RALES OR RHONCHI. HEART:HEART RATE REGULAR. MUSCULOSKELETAL:USING POWER CHAIR FOR MOBILITY. TENDER OVER LUMBAR SPINOUS PROCESSES. AND ACROSS THE LUMBOSACRAL AXIS BILATERALLY. POINT TENDERNESS OVER LUMBAR FACETS AND PARASPINOUS MUSCLES. ABLE TO RISE SLOWLY TO STANDING POSITION. NO FOCAL MOTOR WEAKNESS. ASSESSMENTS MYALGIA - M79.1 (PRIMARY) LUMBAR SPONDYLOSIS - M47.816 TREATMENT MYALGIA INJECTION FACET JOINT/NERVE SACRAL HUSAM RODRIGUEZBEN Mazariegos 07/19/2016 10:35:12 AM > RIGHT DIAGNOSTIC #2 NOTES: GET HEALTHY - OFF ANTIBIOTICS, NO INFECTIONS. HOLD PLAVIX FOR 7 DAYS FOR PROCEDURES. PRACITICE DANCE STEPS TO IMPROVE CIRCULATION. PROCEDURE CODES FA211 ESTABILISHED PATIENT [facility] FAC[facility] CHARGE DISPOSITION & COMMUNICATION FOLLOW UP AFTER INJECTION( NEEDS TO BE OFF PLAVIX FOR 7 DAYS) (REASON: CHECK DIAGNOSTIC RIGHT LUMBAR FACET # 2) ELECTRONICALLY SIGNED BY GEOVANY SLAUGHTER ON 07/29/2016 AT 07:23 PM EDT DISCLAIMER : THIS IS A VISIT SUMMARY EXTRACTED FROM THE [employer] CHART. IT IS NOT A COPY OF THE [employer] PROGRESS NOTE. MTDD
== END ==
LOC: M PAIN 10:20
PROVIDERS: ATTEND Nurse Practitioner Family
DX: Z09 Encounter for follow-up examination after completed treatment for conditions other than malignant neoplasm (principal); G89.29 Other chronic pain; M79.1 Myalgia; M47.816 Spondylosis without myelopathy or radiculopathy, lumbar region; E11.9 Type 2 diabetes mellitus without complications; I50.9 Heart failure, unspecified; I12.9 Hypertensive chronic kidney disease with stage 1 through stage 4 chronic kidney disease, or unspecified chronic kidney disease; N18.9 Chronic kidney disease, unspecified; E03.9 Hypothyroidism, unspecified; E78.00 Pure hypercholesterolemia, unspecified; J44.9 Chronic obstructive pulmonary disease, unspecified; G47.30 Sleep apnea, unspecified; Z88.6 Allergy status to analgesic agent; Z91.018 Allergy to other foods; Z88.1 Allergy status to other antibiotic agents; Z88.8 Allergy status to other drugs, medicaments and biological substances; Z91.041 Radiographic dye allergy status; Z79.51 Long term (current) use of inhaled steroids; Z79.4 Long term (current) use of insulin; Z79.899 Other long term (current) drug therapy; Z86.73 Personal history of transient ischemic attack (TIA), and cerebral infarction without residual deficits

== ENCOUNTER → 2016-08-08 | Outpatient (CLI) | payer OTHER ==
[~2016-08-08] MED LIST changes: +BUPIVACAINE HCL 0.25% 30 ML VIAL As Ordered ONE; +LIDOCAINE 1% SDV INJ 30 ML VIAL As Ordered ONE
--- NOTE | 2016-08-08 13:39 | REP ---
PARTIAL LUMBAR SPINE SERIES: Two views. HISTORY: Injection procedure for pain. Fluoroscopy time is reported as 27 seconds. FINDINGS: A sequence of two fluoroscopically obtained intraprocedural spot radiographs of the lumbar spine document needle positions for various right-sided lumbar spine facet injection procedures. Signed by González Jamison MD 08/08/2016 03:43 P
--- NOTE | 2016-08-14 00:02 | ECWPNPC ---
PATIENT NAME: NU WOODARD : 1955 GENDER: FEMALE VISIT DATE: 08/08/2016 DISCHARGE DATE: 08/08/16 1035 VISIT LOCKED DATE TIME: PHYSICIAN: ANAY BENTLEY RESOURCE: ANAY BENTLEY REASON FOR APPOINTMENT 1. LUMBAR FACET HISTORY OF PRESENT ILLNESS HISTORY OF PRESENT ILLNESS: PAIN THE PATIENT DESCRIBES THE PAIN... FALL RISK SCREENING: SCREENING :NO FALLS IN THE PAST YEAR CURRENT MEDICATIONS TAKING INCRUSE ELLIPTA 62.5 MCG/INH AEROSOL POWDER BREATH ACTIVATED 1 PUFF INHALATION ONCE A DAY, NOTES: 08/07/16 08 TAKING SYNTHROID 75 MCG TABLET 1 TABLET EVERY MORNING ON AN EMPTY STOMACH ORALLY ONCE A DAY, NOTES: 08/07/16799 TAKING LYRICA 150 MG CAPSULE 1 CAPSULE ORALLY THREE TIMES A DAY, NOTES: 08/07/161999 TAKING ATENOLOL 50 50MG TABLET 1 ORAL TWO TIMES DAILY, NOTES: 08/06/16 TAKING ANTIVERT 25 MG TABLET 1 TABLET ORALLY ONCE A DAY NEEDED, NOTES: NONE RECENT TAKING ALLOPURINOL 300 MG TABLETS 1 TAB ORALLY DAILY, NOTES: 08/07/16799 TAKING TORSEMIDE 150 TABLET ORALLY DIVIDED DAILY, NOTES: 50 MGS 08/07/161999 TAKING BETADINE SWABSTICKS 10 % SWAB DIRECTED EXTERNALLY QID- WITH CIC, NOTES: N/A TAKING LATEX GLOVES LARGE 1 BOX MISCELLANEOUS DIRECTED NEEDED FOR CIC, NOTES: N/A TAKING CATHETERS 14 FR MISCELLANEOUS DIRECTED TID, NOTES: N/A TAKING BREO ELLIPTA 200-25 MCG/INH AEROSOL POWDER BREATH ACTIVATED 1 PUFF INHALATION ONCE A DAY, NOTES: 08/07/16799 TAKING ZOCOR 80 MG TABLET 1 TABLET IN THE EVENING ORALLY ONCE A DAY, NOTES: 08/07/161999 TAKING LINZESS 290 MCG CAPSULE 1 CAPSULE ORALLY ONCE A DAY, NOTES: NONE RECENT TAKING POTASSIUM CHLORIDE 10 MEQ CAPSULE EXTENDED RELEASE 1 CAPSULE WITH FOOD ORALLY TWO TIMES A DAY, NOTES: 08/07/161999 TAKING CALCITRIOL 0.25 MCG CAPSULE 1 CAPSULE ORALLY ONCE A DAY, NOTES: 08/07/16 08 TAKING BENTYL 20 MG TABLET 1 CAPSULE ORALLY NEEDED, NOTES: 08/07/16 TAKING TIZANIDINE HCL 4 MG TABLET 1 TABLET NEEDED ORALLY EVERY 8 HRS, NOTES: 08/07/161999 TAKING PLAVIX 75 MG TABLET 1 TABLET ORALLY ONCE A DAY, NOTES: 07/31/16 0800 TAKING HUMULIN R U-500 (CONCENTRATED) 500 UNIT/ML SOLUTION DIRECTED SLIDING SCALE BETWEEN 18 AND 27 UNITS SUBCUTANEOUS EVERY 3 HRS., NOTES: 08/07/16 170 UNITS TAKING TOUJEO SOLOSTAR 300 UNIT/ML SOLUTION PEN-INJECTOR 100 SUBCUTANEOUS BID, NOTES: 08/07/161999 100 UNITS TAKING POISE MAXIMUM ABSORBENCY . PAD DIRECTED CHANGE NEEDED, DX CODE- N39.46 TAKING REGLAN 10 MG TABLET 1 TAB ORALLY THREE TIMES DAILY NEEDED, NOTES: 08/07/161999 TAKING SIMVASTATIN 80 MG TABLET 1 TABLET IN THE EVENING ORALLY ONCE A DAY, NOTES: 08/07/161999 TAKING VITAMIN D (ERGOCALCIFEROL) 16800 UNIT CAPSULE 1 CAPSULE ORALLY , NOTES: 08/02/16 NOT-TAKING NYSTATIN POWDER 6 MU/GM POWDER DIRECTED TWICE A DAY, NOTES: 09-11-16 AM NOT-TAKING VOLTAREN 1 % GEL 3 CC AT [facility] ARE[facility] TRANSDERMAL TID PRN FOR PAIN DISCONTINUED CIPRO 500 MG TABLET 1 TABLET ORALLY TWICE A DAY DISCONTINUED VITAMIN D (CHOLECALCIFEROL) 1000 UNIT CAPSULE 1 CAPSULE ORALLY ONCE A DAY MEDICATION LIST REVIEWED AND RECONCILED WITH THE PATIENT PAST MEDICAL HISTORY 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 DR HAYNES KIDNEY DISEASE/FAILURE 2007 DR KNUTSON HYPERTENSION HYPOTHYROIDISM HYPERCHOLESTEROLEMIA ASTHMA COPD [facility] GOUT BRAIN STROKE-07/06 PITUITARY TUMOR-2007 SLEEP APNEA/CPAP 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 ALLERGIES ASPIRIN: ANAPHYLAXIS: ALLERGY BEEF FLAVOR: SWELLING/FEVER: ALLERGY LEVAQUIN: KIDNEY FAILURE BACTRIM: KIDNEY FAILURE FLAGYL: KIDNEY FAILURE IVP DYE, IODINE: KIDNEY FAILURE SOCIAL HISTORY GENERAL: PAIN CLINIC PFS, CLERGY, PUBLIC HEALTH REFERRALS CLERGY REFERRAL NEEDED?NO WAS THE PROVIDER NOTIFIED OF ANY PERTINENT INFO?NO PFS REFERRAL NEEDED?NO PUBLIC HEALTH REFERRAL NEEDED?NO PATIENT: ____. REVIEW OF SYSTEMS CONSTITUTIONAL: ANY CHANGE IN YOUR MEDICAL CONDITION? NO . CHILLS NO . FEVER NO . INFECTION: DO YOU HAVE NEW INFECTIONS? NO . DO YOU HAVE HISTORY OF MRSA? NO . MUSCULOSKELETAL: ANY NEW PATTERNS OF PAIN OR NUMBNESS? NO . GASTROENTEROLOGY: ANY NEW CHANGE IN BOWEL CONTROL? NO . GENITOURINARY: ANY NEW CHANGE IN BLADDER CONTROL? NO . IS THERE A CHANCE YOU COULD BE ? NO . HEMATOLOGY/LYMPH: DO YOU TAKE ANY BLOOD THINNERS? (FOR EXAMPLE- COUMADIN, PLAVIX, AGGRENOX, PLATEL, PRADAXA, OR XARELTO) NO . WHEN WAS YOUR LAST DOSE? DATE: TIME: . NEUROLOGY: HAVE YOU FALLEN IN THE PAST 6 MONTHS? NO . ANY NEW EXTREMITY NUMBNESS OR WEAKNESS? NO . CARDIOLOGY: DO YOU HAVE A PACEMAKER OR DEFIBRILLATOR? NO . RESPIRATORY: HAVE YOU BEEN SICK IN THE PAST WEEK? NO . FEVER NO . FLU LIKE SYMPTOMS? NO . COUGH NO . INTEGUMENTARY: DO YOU HAVE ANY RASHES OR OPEN SORES? NO . ALLERGIC/IMMUNO: ARE YOU ALLERGIC TO SHELLFISH OR IV DYE? YES, IV DYE DUE TO KIDNEY FAILURE . ANY NEW ALLERGIES? NO . PSYCHIATRIC: DO YOU HAVE THOUGHTS OF HURTING YOURSELF OR SOMEONE ELSE? NO . ARE YOU ABUSED, NEGLECTED, OR IN AN UNSAFE ENVIRONMENT? NO . ENDOCRINOLOGY: ARE YOU DIABETIC? YES FSBS 357 08/07/161999 . OTHER: DO YOU NEED ANY PRESCRIPTIONS? NO . IF YES, PLEASE LIST: ____ . ANY NEW PROBLEMS WITH YOUR MEDICATIONS? NO . WHEN DID YOU LAST EAT? 08/07/16 1900 . WHEN DID YOU LAST DRINK? ____08/07/16 1730 . WHAT DID YOU LAST DRINK? ____WATER . NAME OF PERSON DRIVING YOU HOME? ____[employer] . DO YOU HAVE ANY OTHER QUESTIONS OR CONCERNS NO . REVIEWED BY: PROVIDER: . VITAL SIGNS WT 305.5 LBS, HT 65.5 IN, BMI 50.06 INDEX, BP 105/62 MM HG, HR 86 /MIN, RR 16 /MIN, TEMP 97.6 F, OXYGEN SAT % 95%, NA INITIALS AW 0901. ASSESSMENTS SPONDYLOSIS WITHOUT MYELOPATHY OR RADICULOPATHY, LUMBAR REGION - M47.816 (PRIMARY) PROCEDURES PN LUMBAR FACET BLOCK DIAGNOSTIC PRE PROCEDURE DIAGNOSIS LUMBAR SPONDYLOSIS POST PROCEDURE DIAGNOSIS LUMBAR SPONDYLOSIS PROCEDURE RIGHT L3-L4 AND RIGHT L4-L5 FACET BLOCK DIAGNOSTIC NUMBER [address] ANAY BENTLEY LOGGING TRACTOR OPERATOR SWAMP NONE ANESTHESIA LOCAL PRE PROCEDURE NOTE THE PATIENT WITH HISTORY OF CHRONIC LOW BACK PAIN. I EVALUATED THE PATIENT AND REVIEWED THE CHART. I WENT OVER THE RISKS, ALTERNATIVES, AND BENEFITS ASSOCIATED WITH THIS PROCEDURE. THE PATIENT WOULD LIKE TO PROCEED AND GAVE CONSENT TO PERFORM THE PROCEDURE. AGREED WITH THE PATIENT WE ARE DOING THIS PROCEDURE TO DETERMINE IF THE PATIENT IS A CANDIDATE FOR A RADIOFREQUENCY ABLATION OF THE FACETS JOINTS. THE PATIENT DENIES UNEXPLAINABLE WEIGHT LOSS, FEVER, CHILLS, OR NEW CHANGES IN URINARY OR BOWEL CONTROL DESCRIPTION OF PROCEDURE THE PATIENT WAS BROUGHT TO THE PROCEDURE ROOM AND PLACED IN THE PRONE POSITION. THE LUMBOSACRAL AREA WAS CLEANED WITH CHLORAPREP SOLUTION AND DRAPED ASEPTICALLY. THE PROCEDURE WAS DONE UNDER STERILE CONDITIONS. I CHECKED LATERALITY AND THE LEVEL WHERE THE PROCEDURE WAS GOING TO BE PERFORMED WITH THE PATIENT AND THE SUPPORTING STAFF AT THE MOMENT OF THE TIME OUT IN THE PROCEDURE ROOM. UNDER FLUOROSCOPIC GUIDANCE, TARGETS WERE SELECTED AT THE INTERSECTION OF THE RIGHT TRANSVERSE PROCESS OF L3, L4, AND L5 WITH ITS RESPECTIVE SUPERIOR ARTICULAR PROCESS. LIDOCAINE WAS USED TO NUMB THE SKIN AND THE SUBCUTANEOUS TISSUE BELOW IT. SPINAL NEEDLE, 22-GAUGE WAS ADVANCED UNDER FLUOROSCOPIC GUIDANCE AND FOLLOWING PATIENT FEEDBACK UNTIL THE TARGETS WERE REACHED. POSITION OF THE NEEDLES WAS VERIFIED WITH AP AND LATERAL VIEWS. AFTER PROPER POSITION OF THE NEEDLES WAS ACHIEVED, ISOVUE-M DYE 30% 0.1 ML WAS INJECTED AT EACH SITE SHOWING ADEQUATE SPREAD OF THE DYE. THEN A SOLUTION OF 0.4 ML OF BUPIVACAINE 0.25% WAS INJECTED AT EACH SITE. THERE WAS NO EVIDENCE OF BLOOD, PARESTHESIA OR CEREBROSPINAL FLUID DURING THE PROCEDURE. THE PATIENT WAS SENT TO THE RECOVERY ROOM. THE PATIENT WAS MOVING THE EXTREMITIES AND DOING WELL. THERE WAS NO COMPLICATION DURING THE PROCEDURE. FLUOROSCOPY TIME WAS 27 SECONDS POST PROCEDURE NOTE THE PATIENT WILL DOCUMENT HIS PAIN LEVEL AND RESPONSE TO THIS PROCEDURE EVERY 30 MINUTES. THE PATIENT WILL BE SEEN IN A FOLLOW UP IN THE NEXT FEW WEEKS. FURTHER DETERMINATION FOR HIS CASE WILL BE DONE AT THE NEXT VISIT. INSTRUCTIONS WERE GIVEN, QUESTIONS WERE ANSWERED, AND THE PATIENT EXPRESSED UNDERSTANDING AND AGREED WITH THE PLAN. I, SULAIMAN ORTIZ, DOCUMENTED THE ABOVE INFORMATION ACTING A SCRIBE FOR DR. BENTLEY. I, DR. BENTLEY, HAVE REVIEWED THE ABOVE DOCUMENT, SCRIBED BY SULAIMAN ORTIZ, AND I VERIFY THAT IT IS ACCURATE DIAGNOSTIC IMAGING [facility] FACET BLOCK (PAIN)[id number] PROCEDURE CODES 39413 INJ PARAVERT F JNT L/S 1 LEV 58730 INJ PARAVERT F JNT L/S 2 LEV 6045F RADXPS IN END [id number] PXD DISPOSITION & COMMUNICATION FOLLOW UP 3 WEEKS ELECTRONICALLY SIGNED BY ANAY BENTLEY MD ON 08/13/2016 AT 09:50 PM EDT DISCLAIMER : THIS IS A VISIT SUMMARY EXTRACTED FROM THE [employer] CHART. IT IS NOT A COPY OF THE [employer] PROGRESS NOTE. MTDD
== END ==
LOC: M PAIN 09:00
PROVIDERS: ATTEND Anesthesiology
DX: G89.29 Other chronic pain (principal); M47.816 Spondylosis without myelopathy or radiculopathy, lumbar region; E11.9 Type 2 diabetes mellitus without complications; I51.9 Heart disease, unspecified; I12.9 Hypertensive chronic kidney disease with stage 1 through stage 4 chronic kidney disease, or unspecified chronic kidney disease; N18.9 Chronic kidney disease, unspecified; E03.9 Hypothyroidism, unspecified; E78.00 Pure hypercholesterolemia, unspecified; J44.9 Chronic obstructive pulmonary disease, unspecified; M10.00 Idiopathic gout, unspecified site; G47.30 Sleep apnea, unspecified; Z88.6 Allergy status to analgesic agent; Z91.018 Allergy to other foods; Z91.041 Radiographic dye allergy status; Z88.8 Allergy status to other drugs, medicaments and biological substances; Z79.51 Long term (current) use of inhaled steroids; Z79.4 Long term (current) use of insulin; Z79.899 Other long term (current) drug therapy; Z86.73 Personal history of transient ischemic attack (TIA), and cerebral infarction without residual deficits

== ENCOUNTER → 2016-08-15 | Outpatient (CLI) | payer OTHER ==
[~2016-08-15] MED LIST changes: -BUPIVACAINE HCL 0.25% 30 ML VIAL As Ordered ONE; -LIDOCAINE 1% SDV INJ 30 ML VIAL As Ordered ONE
[2016-08-15 11:07] LABS: ALBUMIN 3.2 GM/DL (3.2-5.2); ANION GAP 7 MEQ/L (8-16); BLOOD UREA NITROGEN 21 MG/DL (7-18); CARBON DIOXIDE LEVEL 32 MEQ/L (21-32); CHLORIDE LEVEL 101 MEQ/L (98-107); CREATININE FOR GFR 0.86 MG/DL (0.55-1.02); GLOMERULAR FILTRATION RATE > 60.0 (>45); GLUCOSE, FASTING 176 MG/DL (80-110); MAGNESIUM LEVEL 2.2 MG/DL (1.8-2.4); PHOSPHORUS LEVEL 2.8 MG/DL (2.5-4.9); POTASSIUM SERUM 3.9 MEQ/L (3.5-5.1); SODIUM LEVEL 140 MEQ/L (136-145); URIC ACID 5.5 MG/DL (2.6-6.0)
== END ==
LOC: M LAB 09:15
PROVIDERS: ATTEND Internal Medicine Nephrology
DX: N18.2 Chronic kidney disease, stage 2 (mild) (principal); M10.9 Gout, unspecified; N25.81 Secondary hyperparathyroidism of renal origin; E55.9 Vitamin D deficiency, unspecified

== ENCOUNTER → 2016-08-15 | Outpatient (CLI) | payer OTHER ==
[2016-08-15 10:16] LABS: BASO % 0.3 % (0.0-1.0); EOS # 0.2 K/mm3 (0.0-0.50); EOS % 2.1 % (0.0-3.0); LYMPH # 1.6 K/mm3 (1.5-4.5); LYMPH % 20.4 % (24.0-44.0); MEAN CORPUSCULAR HEMOGLOBIN 26.8 pg (27.0-33.0); MEAN CORPUSCULAR HGB CONC 32.1 g/dl (32.0-36.5); MEAN CORPUSCULAR VOLUME 83.8 fl (80.0-96.0); MONO # 0.4 K/mm3 (0.0-0.8); MONO % 5.8 % (0.0-5.0); NEUTROPHILS # 5.2 K/mm3 (1.8-7.7); NEUTROPHILS % 69.6 % (36.0-66.0); RED CELL DISTRIBUTION WIDTH 14.8 % (11.5-14.5); WHITE BLOOD COUNT 7.4 K/mm3 (4.0-10.0)
[2016-08-15 10:55] LABS: ALBUMIN 3.2 GM/DL (3.2-5.2); ALKALINE PHOSPHATASE 275 U/L (45-117); ALT/SGPT 55 U/L (12-78); ANION GAP 6 MEQ/L (8-16); AST/SGOT 80 U/L (15-37); BILIRUBIN,TOTAL 0.7 MG/DL (0.2-1.0); BLOOD UREA NITROGEN 21 MG/DL (7-18); CALCIUM LEVEL 9.2 MG/DL (8.8-10.2); CARBON DIOXIDE LEVEL 34 MEQ/L (21-32); CHLORIDE LEVEL 101 MEQ/L (98-107); CHOLESTEROL LEVEL 165 MG/DL (<200); CREATININE FOR GFR 0.87 MG/DL (0.55-1.02); GLOMERULAR FILTRATION RATE > 60.0 (>45); GLUCOSE, FASTING 184 MG/DL (80-110); POTASSIUM SERUM 3.8 MEQ/L (3.5-5.1); SODIUM LEVEL 141 MEQ/L (136-145); TOTAL PROTEIN 7.2 GM/DL (6.4-8.2); TRIGLYCERIDES LEVEL 268 MG/DL (<150)
== END ==
LOC: M LAB 09:19
PROVIDERS: ATTEND Physician Assistant Medical
DX: E11.22 Type 2 diabetes mellitus with diabetic chronic kidney disease (principal)

== ENCOUNTER → 2016-08-27 | Outpatient (CLI) | payer OTHER ==
--- NOTE | 2016-09-20 00:25 | ECWPNPC ---
PATIENT NAME: NU WOODARD : 1955 GENDER: FEMALE VISIT DATE: 08/27/2016 DISCHARGE DATE: 08/27/16 1527 VISIT LOCKED DATE TIME: PHYSICIAN: LEAH ANDERS RESOURCE: LEAH ANDERS REASON FOR APPOINTMENT 1. POST FACET HISTORY OF PRESENT ILLNESS HISTORY OF PRESENT ILLNESS: PAIN THE PATIENT DESCRIBES THE PAIN... FALL RISK SCREENING: SCREENING :NO FALLS IN THE PAST YEAR TODAY'S VISIT: NOTES: IS S/P DIAGNOSTIC LUMBAR FACET BLOCK #2 AT L3-4 AND L4-5 ON 08/08/16. RATES PAIN TODAY 9/10. SHE DOES CONTINUE ON PLAVIX AND HAS HAD NOT ADVRSE REACTIONS. . CURRENT MEDICATIONS TAKING INCRUSE ELLIPTA 62.5 MCG/INH AEROSOL POWDER BREATH ACTIVATED 1 PUFF INHALATION ONCE A DAY TAKING SYNTHROID 75 MCG TABLET 1 TABLET EVERY MORNING ON AN EMPTY STOMACH ORALLY ONCE A DAY TAKING LYRICA 150 MG CAPSULE 1 CAPSULE ORALLY THREE TIMES A DAY TAKING ATENOLOL 50 50MG TABLET 1 ORAL TWO TIMES DAILY TAKING ANTIVERT 25 MG TABLET 1 TABLET ORALLY ONCE A DAY NEEDED TAKING ALLOPURINOL 300 MG TABLETS 1 TAB ORALLY DAILY TAKING TORSEMIDE 150 TABLET ORALLY DIVIDED DAILY TAKING BETADINE SWABSTICKS 10 % SWAB DIRECTED EXTERNALLY QID- WITH CIC TAKING LATEX GLOVES LARGE 1 BOX MISCELLANEOUS DIRECTED NEEDED FOR CIC TAKING CATHETERS 14 FR MISCELLANEOUS DIRECTED TID TAKING BREO ELLIPTA 200-25 MCG/INH AEROSOL POWDER BREATH ACTIVATED 1 PUFF INHALATION ONCE A DAY TAKING ZOCOR 80 MG TABLET 1 TABLET IN THE EVENING ORALLY ONCE A DAY TAKING LINZESS 290 MCG CAPSULE 1 CAPSULE ORALLY ONCE A DAY TAKING POTASSIUM CHLORIDE 10 MEQ CAPSULE EXTENDED RELEASE 1 CAPSULE WITH FOOD ORALLY TWO TIMES A DAY TAKING CALCITRIOL 0.25 MCG CAPSULE 1 CAPSULE ORALLY ONCE A DAY TAKING BENTYL 20 MG TABLET 1 CAPSULE ORALLY NEEDED TAKING TIZANIDINE HCL 4 MG TABLET 1 TABLET NEEDED ORALLY EVERY 8 HRS TAKING PLAVIX 75 MG TABLET 1 TABLET ORALLY ONCE A DAY TAKING HUMULIN R U-500 (CONCENTRATED) 500 UNIT/ML SOLUTION DIRECTED SLIDING SCALE BETWEEN 18 AND 27 UNITS SUBCUTANEOUS EVERY 3 HRS. TAKING TOUJEO SOLOSTAR 300 UNIT/ML SOLUTION PEN-INJECTOR 100 SUBCUTANEOUS BID TAKING POISE MAXIMUM ABSORBENCY . PAD DIRECTED CHANGE NEEDED, DX CODE- N39.46 TAKING REGLAN 10 MG TABLET 1 TAB ORALLY THREE TIMES DAILY NEEDED TAKING SIMVASTATIN 80 MG TABLET 1 TABLET IN THE EVENING ORALLY ONCE A DAY TAKING VITAMIN D (ERGOCALCIFEROL) 96751 UNIT CAPSULE 1 CAPSULE ORALLY NOT-TAKING NYSTATIN POWDER 6 MU/GM POWDER DIRECTED TWICE A DAY, NOTES: 5-17-16 AM NOT-TAKING VOLTAREN 1 % GEL 3 CC AT [facility] ARE[facility] TRANSDERMAL TID PRN FOR PAIN MEDICATION LIST REVIEWED AND RECONCILED WITH THE PATIENT PAST MEDICAL HISTORY 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 DR HAYNES KIDNEY DISEASE/FAILURE 2007 DR KNUTSON HYPERTENSION HYPOTHYROIDISM HYPERCHOLESTEROLEMIA ASTHMA COPD [facility] GOUT BRAIN STROKE-07/06 PITUITARY TUMOR-2007 SLEEP APNEA/CPAP 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 YES, ON NEW BP MED/ WILL CALL US TO TELL WHAT IT IS . CHILLS NO . FEVER NO . INFECTION: DO YOU HAVE NEW INFECTIONS? NO . DO YOU HAVE HISTORY OF MRSA? NO . MUSCULOSKELETAL: ANY NEW PATTERNS OF PAIN OR NUMBNESS? YES, HANDS . GASTROENTEROLOGY: ANY NEW CHANGE IN BOWEL CONTROL? NO . GENITOURINARY: ANY NEW CHANGE IN BLADDER CONTROL? NO . IS THERE A CHANCE YOU COULD BE ? NO . HEMATOLOGY/LYMPH: DO YOU TAKE ANY BLOOD THINNERS? (FOR EXAMPLE- COUMADIN, PLAVIX, AGGRENOX, PLATEL, PRADAXA, OR XARELTO) NO . WHEN WAS YOUR LAST DOSE? DATE: TIME: . NEUROLOGY: HAVE YOU FALLEN IN THE PAST 6 MONTHS? NO . ANY NEW EXTREMITY NUMBNESS OR WEAKNESS? NO . CARDIOLOGY: DO YOU HAVE A PACEMAKER OR DEFIBRILLATOR? NO . RESPIRATORY: HAVE YOU BEEN SICK IN THE PAST WEEK? NO . FEVER NO . FLU LIKE SYMPTOMS? NO . COUGH NO . INTEGUMENTARY: DO YOU HAVE ANY RASHES OR OPEN SORES? NO . ALLERGIC/IMMUNO: ARE YOU ALLERGIC TO SHELLFISH OR IV DYE? YES, IV DYE . ANY NEW ALLERGIES? NO . PSYCHIATRIC: DO YOU HAVE THOUGHTS OF HURTING YOURSELF OR SOMEONE ELSE? NO . ARE YOU ABUSED, NEGLECTED, OR IN AN UNSAFE ENVIRONMENT? NO . ENDOCRINOLOGY: ARE YOU DIABETIC? YES STABLE 150 - 288. HAS INCREASE IN THYROID MED, NO IMPROVEMENT NOTED YET IN ENERGY . OTHER: DO YOU NEED ANY PRESCRIPTIONS? NO . IF YES, PLEASE LIST: ____ . ANY NEW PROBLEMS WITH YOUR MEDICATIONS? NO . WHEN DID YOU LAST EAT? ____ . WHEN DID YOU LAST DRINK? ____ . WHAT DID YOU LAST DRINK? ____ . NAME OF PERSON DRIVING YOU HOME? ____ . DO YOU HAVE ANY OTHER QUESTIONS OR CONCERNS NO . REVIEWED BY: PROVIDER: LEAH NARANJO . VITAL SIGNS WT 302.5 LBS, HT 65.5 IN, BMI 49.57 INDEX, BP 133/60 MM HG, HR 77 /MIN, RR 16 /MIN, TEMP 97.4 F, OXYGEN SAT % 92%, NA INITIALS AW 1430, REVIEWED BY: NL. EXAMINATION GENERAL EXAMINATION: PSYCHALERT , ORIENTED X 3 , APPROPRIATE MOOD AND AFFECT , TALKATIVE. LUNGS:CLEAR TO AUSCULTATION BILATERALLY, NO WHEEZES, RALES OR RHONCHI. HEART:HEART RATE REGULAR. MUSCULOSKELETAL:USING POWER CHAIR FOR MOBILITY. TENDER OVER LUMBAR SPINOUS PROCESSES. AND ACROSS THE LUMBOSACRAL AXIS BILATERALLY. POINT TENDERNESS OVER LUMBAR FACETS AND PARASPINOUS MUSCLES. ABLE TO RISE SLOWLY TO STANDING POSITION. NO FOCAL MOTOR WEAKNESS. ASSESSMENTS SPONDYLOSIS WITHOUT MYELOPATHY OR RADICULOPATHY, LUMBAR REGION - M47.816 (PRIMARY) MYALGIA - M79.1 (PRIMARY) TREATMENT SPONDYLOSIS WITHOUT MYELOPATHY OR RADICULOPATHY, LUMBAR REGION RF FACET LUMBAR SACRAL LEAH STOUT 08/27/2016 2:58:28 PM > RIGHT LEAH ANDERS 08/27/2016 2:58:28 PM > RIGHT LEAH ANDERS 08/27/2016 2:59:02 PM > PATIENT IS ON PLAVIX NOTES: HOLD PLAVIX 7 DAYS BEFORE RADIOFREQUENCY. HOLD BLOOD SUGAR MEDS AM OF PROCEDURE,FACET JOINT INJECTION MATERIAL WAS PRINTED. PREVENTIVE MEDICINE REVIEWED CARE FOR AM OF PROCEDURE / HOLD PLAVIX FOR 7 FULL DAYS AND NO BLOOD SUGAR MEDS THE AM OF PROCEDUREREVIEWED RADIOFREQUENCY WITH PT. PROCEDURE CODES FA211 ESTABILISHED PATIENT [facility] FACILITY CHARGE DISPOSITION & COMMUNICATION FOLLOW UP AFTER INJECTION (REASON: CHECK AUTH FOR RFI RIGHT L4-5, L5-S1) ELECTRONICALLY SIGNED BY GEOVANY SLAUGHTER ON 09/19/2016 AT 12:22 PM EDT DISCLAIMER : THIS IS A VISIT SUMMARY EXTRACTED FROM THE [email or web address] CHART. IT IS NOT A COPY OF THE [employer] PROGRESS NOTE. [facility]
== END ==
LOC: M PAIN 14:20
PROVIDERS: ATTEND Nurse Practitioner Family
DX: G89.29 Other chronic pain (principal); M47.816 Spondylosis without myelopathy or radiculopathy, lumbar region; M79.1 Myalgia; E11.9 Type 2 diabetes mellitus without complications; I50.9 Heart failure, unspecified; I12.9 Hypertensive chronic kidney disease with stage 1 through stage 4 chronic kidney disease, or unspecified chronic kidney disease; N18.9 Chronic kidney disease, unspecified; E03.9 Hypothyroidism, unspecified; J44.9 Chronic obstructive pulmonary disease, unspecified; M10.9 Gout, unspecified; G47.30 Sleep apnea, unspecified; Z88.6 Allergy status to analgesic agent; Z91.018 Allergy to other foods; Z91.041 Radiographic dye allergy status; Z86.79 Personal history of other diseases of the circulatory system

== ENCOUNTER → 2016-09-09 | Outpatient (CLI) | payer OTHER ==
[~2016-09-09] MED LIST changes: +BUPIVACAINE HCL 0.25% 30 ML VIAL As Ordered ONE; +LIDOCAINE 1% SDV INJ 30 ML VIAL As Ordered ONE; +TRIAMCINOLONE ACETONIDE SUSP 40 MG/ML VIAL (J3301) As Ordered ONE
--- NOTE | 2016-09-09 13:46 | REP ---
Partial lumbar spine series: Five views. History: Injection procedure for pain. 35 seconds of fluoroscopy time was utilized. Findings: A sequence of five fluoroscopically obtained intraprocedural spot radiographs of the lumbar spine done with last image hold fluoroscopy technique show various needle positions associated with lumbar spine facet injection procedure. Signed by González Jamison MD 09/09/2016 03:17 P
--- NOTE | 2016-09-14 23:31 | ECWPNPC ---
PATIENT NAME: NU WOODARD : 1955 GENDER: FEMALE VISIT DATE: 09/09/2016 DISCHARGE DATE: 09/09/16 1240 VISIT LOCKED DATE TIME: PHYSICIAN: ANAY BENTLEY RESOURCE: ANAY BENTLEY REASON FOR APPOINTMENT 1. RF HISTORY OF PRESENT ILLNESS HISTORY OF PRESENT ILLNESS: PAIN THE PATIENT DESCRIBES THE PAIN... FALL RISK SCREENING: SCREENING :NO FALLS IN THE PAST YEAR CURRENT MEDICATIONS TAKING INCRUSE ELLIPTA 62.5 MCG/INH AEROSOL POWDER BREATH ACTIVATED 1 PUFF INHALATION ONCE A DAY, NOTES: 09/08/16799 TAKING SYNTHROID 75 MCG TABLET 1 TABLET EVERY MORNING ON AN EMPTY STOMACH ORALLY ONCE A DAY, NOTES: 09/08/16799 TAKING LYRICA 150 MG CAPSULE 1 CAPSULE ORALLY THREE TIMES A DAY, NOTES: 09/08/162099 TAKING ATENOLOL 50 50MG TABLET 1 ORAL TWO TIMES DAILY, NOTES: 09/08/162099 TAKING ANTIVERT 25 MG TABLET 1 TABLET ORALLY ONCE A DAY NEEDED, NOTES: 09/08/16799 TAKING ALLOPURINOL 300 MG TABLETS 1 TAB ORALLY DAILY, NOTES: 09/08/16799 TAKING TORSEMIDE 150 TABLET ORALLY DIVIDED DAILY, NOTES: 09/08/162099 TAKING BETADINE SWABSTICKS 10 % SWAB DIRECTED EXTERNALLY QID- WITH CIC TAKING LATEX GLOVES LARGE 1 BOX MISCELLANEOUS DIRECTED NEEDED FOR CIC TAKING CATHETERS 14 FR MISCELLANEOUS DIRECTED TID TAKING BREO ELLIPTA 200-25 MCG/INH AEROSOL POWDER BREATH ACTIVATED 1 PUFF INHALATION ONCE A DAY, NOTES: 09/08/16799 TAKING ZOCOR 80 MG TABLET 1 TABLET IN THE EVENING ORALLY ONCE A DAY, NOTES: 09/08/162099 TAKING LINZESS 290 MCG CAPSULE 1 CAPSULE ORALLY ONCE A DAY, NOTES: 09/07/16799 TAKING POTASSIUM CHLORIDE 10 MEQ CAPSULE EXTENDED RELEASE 1 CAPSULE WITH FOOD ORALLY TWO TIMES A DAY, NOTES: 09/08/162099 TAKING CALCITRIOL 0.25 MCG CAPSULE 1 CAPSULE ORALLY ONCE A DAY, NOTES: 09/08/16799 TAKING BENTYL 20 MG TABLET 1 CAPSULE ORALLY NEEDED, NOTES: 09/08/162099 TAKING TIZANIDINE HCL 4 MG TABLET 1 TABLET NEEDED ORALLY EVERY 8 HRS, NOTES: 09/08/162099 TAKING PLAVIX 75 MG TABLET 1 TABLET ORALLY ONCE A DAY, NOTES: 0800 TAKING HUMULIN R U-500 (CONCENTRATED) 500 UNIT/ML SOLUTION DIRECTED SLIDING SCALE BETWEEN 18 AND 27 UNITS SUBCUTANEOUS EVERY 3 HRS., NOTES: 09/08/16 165 UNITS 2100 TAKING TOUJEO SOLOSTAR 300 UNIT/ML SOLUTION PEN-INJECTOR 100 SUBCUTANEOUS BID, NOTES: 08/1416 TAKING POISE MAXIMUM ABSORBENCY . PAD DIRECTED CHANGE NEEDED, DX CODE- N39.46 TAKING REGLAN 10 MG TABLET 1 TAB ORALLY THREE TIMES DAILY NEEDED, NOTES: 09/08/162099 TAKING SIMVASTATIN 80 MG TABLET 1 TABLET IN THE EVENING ORALLY ONCE A DAY, NOTES: 09/08/162099 TAKING VITAMIN D (ERGOCALCIFEROL) 65352 UNIT CAPSULE 1 CAPSULE ORALLY , NOTES: 09/06/16 TAKING AMLODIPINE BESYLATE 10 MG TABLET 1 TABLET ORALLY ONCE A DAY, NOTES: 09/08/16 0800 NOT-TAKING NYSTATIN POWDER 6 MU/GM POWDER DIRECTED TWICE A DAY, NOTES: 09-12-15 AM NOT-TAKING VOLTAREN 1 % GEL 3 CC AT 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 NO . CHILLS NO . FEVER NO . INFECTION: DO YOU HAVE NEW INFECTIONS? NO . DO YOU HAVE HISTORY OF MRSA? NO . MUSCULOSKELETAL: ANY NEW PATTERNS OF PAIN OR NUMBNESS? NO . GASTROENTEROLOGY: ANY NEW CHANGE IN BOWEL CONTROL? NO . GENITOURINARY: ANY NEW CHANGE IN BLADDER CONTROL? NO . IS THERE A CHANCE YOU COULD BE ? NO . HEMATOLOGY/LYMPH: DO YOU TAKE ANY BLOOD THINNERS? (FOR EXAMPLE- COUMADIN, PLAVIX, AGGRENOX, PLATEL, PRADAXA, OR XARELTO) YES, PLAVIX . WHEN WAS YOUR LAST DOSE? DATE: TIME: 09/01/16 0800 . NEUROLOGY: HAVE YOU FALLEN IN THE PAST 6 MONTHS? NO . ANY NEW EXTREMITY NUMBNESS OR WEAKNESS? NO . CARDIOLOGY: DO YOU HAVE A PACEMAKER OR DEFIBRILLATOR? NO . RESPIRATORY: HAVE YOU BEEN SICK IN THE PAST WEEK? NO . FEVER NO . FLU LIKE SYMPTOMS? NO . COUGH NO . INTEGUMENTARY: DO YOU HAVE ANY RASHES OR OPEN SORES? NO . ALLERGIC/IMMUNO: ARE YOU ALLERGIC TO SHELLFISH OR IV DYE? YES, CAN'T TAKE IV DYE DUE TO KIDNEY DISEASE.&NBSP;. ANY NEW ALLERGIES? &NBSP;&NBSP; NO&NBSP;. PSYCHIATRIC: DO YOU HAVE THOUGHTS OF HURTING YOURSELF OR SOMEONE ELSE? NO . ARE YOU ABUSED, NEGLECTED, OR IN AN UNSAFE ENVIRONMENT? NO . ENDOCRINOLOGY: ARE YOU DIABETIC? YES, FSBS 09/08/16 305 @2100 . OTHER: DO YOU NEED ANY PRESCRIPTIONS? NO . IF YES, PLEASE LIST: ____ . ANY NEW PROBLEMS WITH YOUR MEDICATIONS? NO . WHEN DID YOU LAST EAT? 09/08/16 1800 . WHEN DID YOU LAST DRINK? 09/08/16 2100 . WHAT DID YOU LAST DRINK? GLUCERKYILE SHAKE . NAME OF PERSON DRIVING YOU HOME? [employer] . DO YOU HAVE ANY OTHER QUESTIONS OR CONCERNS NO . REVIEWED BY: PROVIDER: . VITAL SIGNS WT 312.0 LBS, HT 65.5 IN, BMI 51.12 INDEX, BP 110/60 MM HG, HR 68 /MIN, RR 18 /MIN, TEMP 96.7 F, OXYGEN SAT % 96%, NA INITIALS TL 1014, REVIEWED BY: AD. ASSESSMENTS SPONDYLOSIS WITHOUT MYELOPATHY OR RADICULOPATHY, LUMBAR REGION - M47.816 (PRIMARY) PROCEDURES PN RADIOFREQUENCY PRE PROCEDURE DIAGNOSES 1. LUMBAR SPONDYLOSIS POST PROCEDURE DIAGNOSES 1. LUMBAR SPONDYLOSIS PROCEDURE RIGHT L3-L4 AND RIGHT L4-L5 LUMBAR FACET RADIOFREQUENCY SURGEON DR. ANAY BENTLEY GYN NONE ANESTHESIA LOCAL PRE PROCEDURE REPORT THE PATIENT HAS HISTORY OF CHRONIC LOW BACK PAIN. I EVALUATE THE PATIENT AND REVIEWED THE CHART. I WENT OVER THE RISKS, ALTERNATIVES, AND BENEFITS ASSOCIATED WITH THIS PROCEDURE. THE PATIENT WOULD LIKE TO PROCEED AND GIVE CONSENT TO PERFORMED THE PROCEDURE. THE PATIENT DENIES UNEXPLAINABLE WEIGHT LOSS, FEVER, CHILLS, OR NEW CHANGES IN URINARY OR BOWEL CONTROL DESCRIPTION OF PROCEDURE THE PATIENT WAS BROUGHT TO THE PROCEDURE ROOM AND PLACED IN THE PRONE POSITION. THE LUMBOSACRAL AREA WAS CLEANED WITH CHLORAPREP SOLUTION AND DRAPED ASEPTICALLY. THE PROCEDURE WAS DONE UNDER STERILE CONDITIONS. I CHECKED LATERALITY AND THE LEVEL WHERE THE PROCEDURE WAS GOING TO BE PERFORMED WITH THE PATIENT AND THE SUPPORTING STAFF AT THE MOMENT OF THE TIME OUT IN THE PROCEDURE ROOM. UNDER FLUOROSCOPIC GUIDANCE, TARGETS WERE SELECTED AT THE INTERSECTION OF THE RIGHT TRANSVERSE PROCESS OF L3, L4, AND L5 WITH ITS RESPECTIVE SUPERIOR ARTICULAR PROCESS. LIDOCAINE WAS USED TO NUMB THE SKIN AND THE SUBCUTANEOUS TISSUE BELOW IT. RADIOFREQUENCY NEEDLES 22-GAUGE 15 CM LONG WITH 10 MM ACTIVE CURVE TIP WERE ADVANCED UNDER FLUOROSCOPIC GUIDANCE AND FOLLOWING PATIENT FEEDBACK UNTIL THE TARGET AREA WAS REACHED. POSITION OF THE NEEDLES WAS VERIFIED WITH AP AND LATERAL VIEWS. AFTER PROPER POSITION OF THE NEEDLE WAS ACHIEVED, WE WORKED WITH THE RIGHT SELECTED MEDIAN BRANCHES OF L3, L4 AND THE DORSAL RAMI OF L5. WE MEASURED THE CORRESPONDING IMPEDANCES, SENSORY STIMULATION AND MOTOR RESPONSES INDICATED IN THE RADIOFREQUENCY WORK SHEET. POSITION OF THE NEEDLES WAS VERIFIED AGAIN WITH AP AND LATERAL VIEWS. LIDOCAINE 1%, 2 ML, WAS INJECTED AT EACH LEVEL. RADIOFREQUENCY WAS DONE AT EACH LEVEL AT 80 DEGREES FOR 90 SECONDS. AFTER RADIOFREQUENCY WAS DONE, THE PATIENT RECEIVED BUPIVACAINE 0.125% 1 CC WITH KENALOG 5 MG AT EACH SITE. THERE WAS NO EVIDENCE OF BLOOD, PARESTHESIA OR CEREBROSPINAL FLUID DURING THE PROCEDURE. THE PATIENT WAS SENT TO THE RECOVERY ROOM. THE PATIENT WAS MOVING THE EXTREMITIES AND DOING WELL. THERE WAS NO COMPLICATION DURING THE PROCEDURE. FLUOROSCOPY TIME WAS 35 SECONDS POST PROCEDURE NOTE THE PATIENT WILL BE SEEN IN A FOLLOW UP IN THE NEXT FEW WEEKS. INSTRUCTIONS WERE GIVEN, QUESTIONS WERE ANSWERED, AND THE PATIENT EXPRESSED UNDERSTANDING AND AGREES WITH THE PLAN. I, SULAIMAN ORTIZ, DOCUMENTED THE ABOVE INFORMATION ACTING A SCRIBE FOR DR. BENTLEY. I HAVE REVIEWED THE ABOVE DOCUMENT, WRITTEN BY SULAIMAN ORTIZ [employer] AND I VERIFY THAT IT IS ACCURATE DIAGNOSTIC IMAGING [facility] FACET BLOCK (PAIN)[id number] PROCEDURE CODES 46167 DESTROY LUMB/SAC FACET JNT 90032 DESTROY L/S FACET JNT ADDL 6045F RADXPS IN END [id number] PXD DISPOSITION & COMMUNICATION FOLLOW UP 3 WEEKS ELECTRONICALLY SIGNED BY ANAY BENTLEY MD ON 09/14/2016 AT 07:18 PM EDT DISCLAIMER : THIS IS A VISIT SUMMARY EXTRACTED FROM THE [employer] CHART. IT IS NOT A COPY OF THE [employer] PROGRESS NOTE. JAYDEN
== END ==
LOC: M PAIN 10:20
PROVIDERS: ATTEND Anesthesiology
DX: G89.29 Other chronic pain (principal); M47.816 Spondylosis without myelopathy or radiculopathy, lumbar region; E11.9 Type 2 diabetes mellitus without complications; I12.9 Hypertensive chronic kidney disease with stage 1 through stage 4 chronic kidney disease, or unspecified chronic kidney disease; N18.4 Chronic kidney disease, stage 4 (severe); I50.9 Heart failure, unspecified; E03.9 Hypothyroidism, unspecified; J44.9 Chronic obstructive pulmonary disease, unspecified; M10.00 Idiopathic gout, unspecified site; G47.30 Sleep apnea, unspecified; Z91.018 Allergy to other foods; Z91.041 Radiographic dye allergy status; Z88.6 Allergy status to analgesic agent; Z88.1 Allergy status to other antibiotic agents; Z79.01 Long term (current) use of anticoagulants; Z79.51 Long term (current) use of inhaled steroids; Z79.4 Long term (current) use of insulin; Z79.899 Other long term (current) drug therapy; Z86.73 Personal history of transient ischemic attack (TIA), and cerebral infarction without residual deficits

== ENCOUNTER → 2016-09-24 | Outpatient (CLI) | payer OTHER ==
[~2016-09-24] MED LIST changes: -BUPIVACAINE HCL 0.25% 30 ML VIAL As Ordered ONE; -LIDOCAINE 1% SDV INJ 30 ML VIAL As Ordered ONE; -TRIAMCINOLONE ACETONIDE SUSP 40 MG/ML VIAL (J3301) As Ordered ONE
--- NOTE | 2016-10-13 23:52 | ECWPNPC ---
PATIENT NAME: NU WOODARD : 1955 GENDER: FEMALE VISIT DATE: 09/24/2016 DISCHARGE DATE: 09/24/16 1138 VISIT LOCKED DATE TIME: PHYSICIAN: LEAH ANDERS RESOURCE: LEAH ANDERS REASON FOR APPOINTMENT 1. POST RF HISTORY OF PRESENT ILLNESS HISTORY OF PRESENT ILLNESS: PAIN THE PATIENT DESCRIBES THE PAIN... FALL RISK SCREENING: SCREENING :NO FALLS IN THE PAST YEAR TODAY'S VISIT: NOTES: RATES PAIN TODAY 07/05. IS S/P L3-4 AND L4-5 RIGHT LUMBAR RADIOFREQUENCY ON 09/09/16 WITH EXCELLANT RELIEF OF LOW BACK PAIN. NOTES DISCOMFORT IN RIGHT HIP CLOSE TO THE GROIN AREA. IS ABLE TO STAND AT SINK AND WASH DISHES. . CURRENT MEDICATIONS TAKING INCRUSE ELLIPTA 62.5 MCG/INH AEROSOL POWDER BREATH ACTIVATED 1 PUFF INHALATION ONCE A DAY TAKING SYNTHROID 88 MCG TABLET 1 TABLET EVERY MORNING ON AN EMPTY STOMACH ORALLY ONCE A DAY TAKING LYRICA 150 MG CAPSULE 1 CAPSULE ORALLY THREE TIMES A DAY TAKING ATENOLOL 50 50MG TABLET 1 ORAL TWO TIMES DAILY TAKING ANTIVERT 25 MG TABLET 1 TABLET ORALLY ONCE A DAY NEEDED TAKING ALLOPURINOL 300 MG TABLETS 1 TAB ORALLY DAILY TAKING TORSEMIDE 150 TABLET ORALLY DIVIDED DAILY TAKING BETADINE SWABSTICKS 10 % SWAB DIRECTED EXTERNALLY QID- WITH CIC TAKING LATEX GLOVES LARGE 1 BOX MISCELLANEOUS DIRECTED NEEDED FOR CIC TAKING CATHETERS 14 FR MISCELLANEOUS DIRECTED TID TAKING BREO ELLIPTA 200-25 MCG/INH AEROSOL POWDER BREATH ACTIVATED 1 PUFF INHALATION ONCE A DAY TAKING ZOCOR 80 MG TABLET 1 TABLET IN THE EVENING ORALLY ONCE A DAY TAKING LINZESS 290 MCG CAPSULE 1 CAPSULE ORALLY ONCE A DAY PRN TAKING POTASSIUM CHLORIDE 10 MEQ CAPSULE EXTENDED RELEASE 1 CAPSULE WITH FOOD ORALLY TWO TIMES A DAY TAKING CALCITRIOL 0.25 MCG CAPSULE 1 CAPSULE ORALLY ONCE A DAY TAKING BENTYL 20 MG TABLET 1 CAPSULE ORALLY NEEDED TAKING TIZANIDINE HCL 4 MG TABLET 1 TABLET NEEDED ORALLY EVERY 8 HRS TAKING PLAVIX 75 MG TABLET 1 TABLET ORALLY ONCE A DAY TAKING HUMULIN R U-500 (CONCENTRATED) 500 UNIT/ML SOLUTION DIRECTED SLIDING SCALE BETWEEN 18 AND 27 UNITS SUBCUTANEOUS EVERY 3 HRS. TAKING TOUJEO SOLOSTAR 300 UNIT/ML SOLUTION PEN-INJECTOR 100 SUBCUTANEOUS BID TAKING POISE MAXIMUM ABSORBENCY . PAD DIRECTED CHANGE NEEDED, DX CODE- N39.46 TAKING REGLAN 10 MG TABLET 1 TAB ORALLY THREE TIMES DAILY NEEDED TAKING SIMVASTATIN 80 MG TABLET 1 TABLET IN THE EVENING ORALLY ONCE A DAY TAKING VITAMIN D (ERGOCALCIFEROL) 33330 UNIT CAPSULE 1 CAPSULE ORALLY MONTHLY TAKING AMLODIPINE BESYLATE 10 MG TABLET 1 TABLET ORALLY ONCE A DAY NOT-TAKING NYSTATIN POWDER 6 MU/GM POWDER DIRECTED TWICE A DAY, NOTES: 517-16 AM NOT-TAKING VOLTAREN 1 % GEL 3 CC AT [facility] TRANSDERMAL TID PRN FOR PAIN PAST MEDICAL HISTORY 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 DR HAYNES KIDNEY DISEASE/FAILURE 2007 DR KNUTSON HYPERTENSION HYPOTHYROIDISM HYPERCHOLESTEROLEMIA ASTHMA [facility] GOUT BRAIN STROKE-07/06 PITUITARY TUMOR-2007 SLEEP APNEA/CPAP 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 NO . CHILLS NO . FEVER NO . INFECTION: DO YOU HAVE NEW INFECTIONS? NO . DO YOU HAVE HISTORY OF MRSA? NO . MUSCULOSKELETAL: ANY NEW PATTERNS OF PAIN OR NUMBNESS? YES, PAIN RIGHT HIP AND BOTH KNEES . GASTROENTEROLOGY: ANY NEW CHANGE IN BOWEL CONTROL? NO . GENITOURINARY: ANY NEW CHANGE IN BLADDER CONTROL? NO . IS THERE A CHANCE YOU COULD BE ? NO . HEMATOLOGY/LYMPH: DO YOU TAKE ANY BLOOD THINNERS? (FOR EXAMPLE- COUMADIN, PLAVIX, AGGRENOX, PLATEL, PRADAXA, OR XARELTO) YES. PLAVIX . WHEN WAS YOUR LAST DOSE? DATE: TIME: 09/24/16 0800 . NEUROLOGY: HAVE YOU FALLEN IN THE PAST 6 MONTHS? NO . ANY NEW EXTREMITY NUMBNESS OR WEAKNESS? NO . CARDIOLOGY: DO YOU HAVE A PACEMAKER OR DEFIBRILLATOR? NO . RESPIRATORY: HAVE YOU BEEN SICK IN THE PAST WEEK? NO . FEVER NO . FLU LIKE SYMPTOMS? NO . COUGH NO . INTEGUMENTARY: DO YOU HAVE ANY RASHES OR OPEN SORES? NO . ALLERGIC/IMMUNO: ARE YOU ALLERGIC TO SHELLFISH OR IV DYE? YES, CAN'T TAKE DUE TO KIDNEY FUNCTION&NBSP;. ANY NEW ALLERGIES? &NBSP;&NBSP; NO&NBSP;. PSYCHIATRIC: DO YOU HAVE THOUGHTS OF HURTING YOURSELF OR SOMEONE ELSE? NO . ARE YOU ABUSED, NEGLECTED, OR IN AN UNSAFE ENVIRONMENT? NO . ENDOCRINOLOGY: ARE YOU DIABETIC? YES . OTHER: DO YOU NEED ANY PRESCRIPTIONS? NO . IF YES, PLEASE LIST: ____ . ANY NEW PROBLEMS WITH YOUR MEDICATIONS? NO . WHEN DID YOU LAST EAT? ____ . WHEN DID YOU LAST DRINK? ____ . WHAT DID YOU LAST DRINK? ____ . NAME OF PERSON DRIVING YOU HOME? ____ . DO YOU HAVE ANY OTHER QUESTIONS OR CONCERNS HASN'T FELT THIS GOOD IN A LONG TIME&NBSP;. REVIEWED BY: PROVIDER: LEAH NARANJO . VITAL SIGNS WT 302.5 LBS, HT 65.5 IN, BMI 49.57 INDEX, BP 120/61 MM HG, HR 74 /MIN, RR 16 /MIN, TEMP 97.3 F, OXYGEN SAT % 95%, NA INITIALS SC 11:18, REVIEWED BY: AD. EXAMINATION GENERAL EXAMINATION: PSYCHALERT , ORIENTED X 3 , APPROPRIATE MOOD AND AFFECT , TALKATIVE. LUNGS:CLEAR TO AUSCULTATION BILATERALLY, NO WHEEZES, RALES OR RHONCHI. HEART:HEART RATE REGULAR. MUSCULOSKELETAL:USING POWER CHAIR FOR MOBILITY. NO TENDERNESS OVER LUMBAR SPINOUS PROCESSES OR ACROSS THE LUMBOSACRAL AXIS BILATERALLY. ABLE TO RISE TO STANDING POSITION. AND WALK ACROSS THE ROOM.NO FOCAL MOTOR WEAKNESS. ASSESSMENTS SPONDYLOSIS WITHOUT MYELOPATHY OR RADICULOPATHY, LUMBAR REGION - M47.816 (PRIMARY) MYALGIA - M79.1 (PRIMARY) TREATMENT SPONDYLOSIS WITHOUT MYELOPATHY OR RADICULOPATHY, LUMBAR REGION NOTES: WALK EVERY DAY. PROCEDURE CODES FA211 ESTABILISHED PATIENT [facility] CHARGE DISPOSITION & COMMUNICATION FOLLOW UP 6-8 WEEKS ELECTRONICALLY SIGNED BY GEOVANY SLAUGHTER ON 10/13/2016 AT 02:16 PM EDT DISCLAIMER : THIS IS A VISIT SUMMARY EXTRACTED FROM THE [employer] CHART. IT IS NOT A COPY OF THE [employer] PROGRESS NOTE. JAYDEN
== END ==
LOC: M PAIN 10:20
PROVIDERS: ATTEND Nurse Practitioner Family
DX: G89.29 Other chronic pain (principal); M47.816 Spondylosis without myelopathy or radiculopathy, lumbar region; M79.1 Myalgia; M25.561 Pain in right knee; M25.562 Pain in left knee; M25.551 Pain in right hip; E11.9 Type 2 diabetes mellitus without complications; I50.9 Heart failure, unspecified; I12.9 Hypertensive chronic kidney disease with stage 1 through stage 4 chronic kidney disease, or unspecified chronic kidney disease; N18.9 Chronic kidney disease, unspecified; E03.9 Hypothyroidism, unspecified; J44.9 Chronic obstructive pulmonary disease, unspecified; M10.00 Idiopathic gout, unspecified site; G47.30 Sleep apnea, unspecified; Z88.6 Allergy status to analgesic agent; Z88.8 Allergy status to other drugs, medicaments and biological substances; Z91.041 Radiographic dye allergy status; Z91.018 Allergy to other foods; Z86.73 Personal history of transient ischemic attack (TIA), and cerebral infarction without residual deficits; Z79.01 Long term (current) use of anticoagulants; Z79.51 Long term (current) use of inhaled steroids; Z79.4 Long term (current) use of insulin; Z79.899 Other long term (current) drug therapy

== ENCOUNTER → 2016-10-01 | Outpatient (REF) | payer OTHER ==
[2016-10-01 18:51] LABS: MICROSCOPIC INDICATED? MAN YES (NO)
[2016-10-01 18:52] LABS: BACTERIA, URINE LARGE AMOUNT; HYALINE CAST, URINE NONE SEEN /lpf (0-1); MICROSCOPIC EXAM PERFORMED; RBC, URINE 0-1 /hpf (0-3); SQUAMOUS EPITHELIAL CELL URINE SMALL AMOUNT /hpf (SMALL AMT)
== END ==
LOC: M LAB REF 16:07
PROVIDERS: ATTEND Physician Assistant Medical
DX: N39.0 Urinary tract infection, site not specified (principal)

== ENCOUNTER → 2016-10-18 | Outpatient (CLI) | payer OTHER ==
--- NOTE | 2016-10-18 08:41 | REP ---
Complete abdomen ultrasound: Comparison is a CT abdomen pelvis dated 10/04/2015. The gallbladder is significantly distended measuring up to 8.5 cm transverse diameter on images performed with the patient in a decubitus position. This is compatible with hydrops in the appropriate clinical setting. There is no cholelithiasis, gallbladder wall thickening or pericholecystic fluid. There is no intrahepatic biliary duct dilatation. However, the common duct measures up to 9.4 mm and is dilated. The hepatic parenchyma is echogenic compatible with hepato steatosis. The pancreas is obscured by bowel gas. The spleen measures 14.7 cm craniocaudad length and is enlarged. The splenic parenchyma is homogeneous. The right kidney measures 10.3 x 6 point of a 5.3 cm. There is a 8 mm echogenic nodule in the right renal cortex at the mid pole uncertain significance, possibly an angiomyolipoma. No lesion is identified on the comparison CT in this location, however the CT was performed without IV contrast. There is no right renal hydronephrosis, calculus or cyst. Left kidney measures 12.2 x 6.1 x 5.3 cm. There is no left renal hydronephrosis, calculus, mass or cyst. The abdominal aorta is obscured by bowel gas. Impression: Markedly distended gallbladder. This is compatible with gallbladder hydrops in the appropriate clinical setting. The common biliary duct is dilated. There is no intrahepatic biliary duct dilatation. Hepato steatosis. 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
== END ==
LOC: M RAD 07:35
PROVIDERS: ATTEND Physician Assistant Medical
DX: R10.10 Upper abdominal pain, unspecified (principal); K82.9 Disease of gallbladder, unspecified

== ENCOUNTER → 2016-10-22 | Outpatient (CLI) | payer OTHER ==
[2016-10-22 11:03] LABS: BASO % 0.3 % (0.0-1.0); EOS # 0.2 K/mm3 (0.0-0.50); LARGE UNSTAINED CELL # 0.1 K/mm3 (0.0-0.4); LARGE UNSTAINED CELL % 1.2 % (0.0-4.0); LYMPH # 1.7 K/mm3 (1.5-4.5); LYMPH % 17.6 % (24.0-44.0); MEAN CORPUSCULAR HEMOGLOBIN 27.5 pg (27.0-33.0); MEAN CORPUSCULAR HGB CONC 32.6 g/dl (32.0-36.5); MEAN CORPUSCULAR VOLUME 84.6 fl (80.0-96.0); MONO # 0.5 K/mm3 (0.0-0.8); MONO % 5.8 % (0.0-5.0); NEUTROPHILS # 6.8 K/mm3 (1.8-7.7); NEUTROPHILS % 73.1 % (36.0-66.0); PLATELET COUNT, AUTOMATED 309 k/mm3 (150-450); RED CELL DISTRIBUTION WIDTH 15.3 % (11.5-14.5); WHITE BLOOD COUNT 9.2 K/mm3 (4.0-10.0)
[2016-10-22 11:44] LABS: ALBUMIN 3.2 GM/DL (3.2-5.2); ALKALINE PHOSPHATASE 331 U/L (45-117); ALT/SGPT 59 U/L (12-78); AMYLASE 37 U/L (25-115); ANION GAP 7 MEQ/L (8-16); AST/SGOT 67 U/L (15-37); BILIRUBIN,TOTAL 0.8 MG/DL (0.2-1.0); BLOOD UREA NITROGEN 21 MG/DL (7-18); CALCIUM LEVEL 9.1 MG/DL (8.8-10.2); CARBON DIOXIDE LEVEL 33 MEQ/L (21-32); CHLORIDE LEVEL 100 MEQ/L (98-107); CREATININE FOR GFR 0.92 MG/DL (0.55-1.02); GLOMERULAR FILTRATION RATE > 60.0 (>45); GLUCOSE, FASTING 208 MG/DL (80-110); POTASSIUM SERUM 3.7 MEQ/L (3.5-5.1); SODIUM LEVEL 140 MEQ/L (136-145); TOTAL PROTEIN 7.2 GM/DL (6.4-8.2)
== END ==
LOC: M LAB 10:26
PROVIDERS: ATTEND Physician Assistant Medical
DX: R10.10 Upper abdominal pain, unspecified (principal)

== ENCOUNTER → 2016-11-05 | Outpatient (CLI) | payer OTHER ==
[~2016-11-05] MED LIST changes: +AMLO5TAB2 PO; +ATEN25TA PO; -AUGM875T27 PO; +AUGM875T28 PO; -AVEL1TAB PO; +AVEL1TAB3 PO; +BACITAB PO; -BACITAB3 PO; +CIPR-249 PO; -CIPR500T89 PO; +CLEADRO8 OU; +DEMA20TA6 PO; +FLOM5CAP PO; +FLON1SPR; +LEVA1TAB2 PO; -LEVA500T PO; +LINZ290C PO; +LOSA25TA8 PO; -MACR100C3 PO; +MACR100C43 PO; +METO10TA2 PO; +NITRO10CA PO; -OXYB5TA PO; +OXYB5TAB10 PO; +POTA1TAB23; +PRED5TA PO; +SENN1TAB10 PO; -SENN8.6T10 PO; +SYNT88TA2 PO; +TORS100T; +TOUJ1.2I SC; +VITA1CAP40 PO; -VITA50003 PO
--- NOTE | 2016-11-09 01:21 | ECWPNPC ---
PATIENT NAME: NU WOODARD : 1955 GENDER: FEMALE VISIT DATE: 11/05/2016 DISCHARGE DATE: 11/05/16 1131 VISIT LOCKED DATE TIME: PHYSICIAN: LEAH ANDERS RESOURCE: LEAH ANDERS REASON FOR APPOINTMENT 1. FOLLOWUP HISTORY OF PRESENT ILLNESS HISTORY OF PRESENT ILLNESS: PAIN THE PATIENT DESCRIBES THE PAIN... FALL RISK SCREENING: SCREENING :NO FALLS IN THE PAST YEAR TODAY'S VISIT: NOTES: RATES BACK PAIN 0-2 IN LOW BACK, AND 10/10 IN RIGHT LEG. IS HAVING NUMBNESS IN RIGHT ANTERIOR AND LATERAL THIGH. PAIN IS INTENSE IN RIGHT GROIN.HAS HAD PREVIOUS INJECTION IN THIS AREA WHICH WAS REALLY HELPFUL. . CURRENT MEDICATIONS TAKING INCRUSE ELLIPTA 62.5 MCG/INH AEROSOL POWDER BREATH ACTIVATED 1 PUFF INHALATION ONCE A DAY TAKING SYNTHROID 88 MCG TABLET 1 TABLET EVERY MORNING ON AN EMPTY STOMACH ORALLY ONCE A DAY TAKING LYRICA 150 MG CAPSULE 1 CAPSULE ORALLY THREE TIMES A DAY TAKING ATENOLOL 50 50MG TABLET 1 ORAL TWO TIMES DAILY TAKING ANTIVERT 25 MG TABLET 1 TABLET ORALLY ONCE A DAY NEEDED TAKING ALLOPURINOL 300 MG TABLETS 1 TAB ORALLY DAILY TAKING TORSEMIDE 150 TABLET 100 IN AM/ 50 PM ORALLY DIVIDED DAILY TAKING BETADINE SWABSTICKS 10 % SWAB DIRECTED EXTERNALLY QID- WITH CIC TAKING LATEX GLOVES LARGE 1 BOX MISCELLANEOUS DIRECTED NEEDED FOR CIC TAKING CATHETERS 14 FR MISCELLANEOUS DIRECTED TID TAKING BREO ELLIPTA 200-25 MCG/INH AEROSOL POWDER BREATH ACTIVATED 1 PUFF INHALATION ONCE A DAY TAKING ZOCOR 80 MG TABLET 1 TABLET IN THE EVENING ORALLY ONCE A DAY TAKING LINZESS 290 MCG CAPSULE 1 CAPSULE ORALLY ONCE A DAY PRN TAKING POTASSIUM CHLORIDE 10 MEQ CAPSULE EXTENDED RELEASE 1 CAPSULE WITH FOOD ORALLY TWO TIMES A DAY TAKING CALCITRIOL 0.25 MCG CAPSULE 1 CAPSULE ORALLY ONCE A DAY TAKING BENTYL 20 MG TABLET 1 CAPSULE ORALLY NEEDED TAKING TIZANIDINE HCL 4 MG TABLET 1 TABLET NEEDED ORALLY EVERY 8 HRS TAKING PLAVIX 75 MG TABLET 1 TABLET ORALLY ONCE A DAY TAKING HUMULIN R U-500 (CONCENTRATED) 500 UNIT/ML SOLUTION DIRECTED SLIDING SCALE BETWEEN 18 AND 27 UNITS SUBCUTANEOUS EVERY 3 HRS. TAKING TOUJEO SOLOSTAR 300 UNIT/ML SOLUTION PEN-INJECTOR 100 SUBCUTANEOUS BID TAKING POISE MAXIMUM ABSORBENCY . PAD DIRECTED CHANGE NEEDED, DX CODE- N39.46 TAKING REGLAN 10 MG TABLET 1 TAB ORALLY THREE TIMES DAILY NEEDED TAKING SIMVASTATIN 80 MG TABLET 1 TABLET IN THE EVENING ORALLY ONCE A DAY TAKING VITAMIN D (ERGOCALCIFEROL) 82211 UNIT CAPSULE 1 CAPSULE ORALLY MONTHLY TAKING AMLODIPINE BESYLATE 10 MG TABLET 1 TABLET ORALLY ONCE A DAY NOT-TAKING NYSTATIN POWDER 6 MU/GM POWDER DIRECTED TWICE A DAY, NOTES: 5-17-16 AM NOT-TAKING VOLTAREN 1 % GEL 3 CC AT [facility] TRANSDERMAL TID PRN FOR PAIN MEDICATION LIST REVIEWED AND RECONCILED WITH THE PATIENT PAST MEDICAL HISTORY 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 DR HAYNES KIDNEY DISEASE/FAILURE 2007 DR KNUTSON HYPERTENSION HYPOTHYROIDISM HYPERCHOLESTEROLEMIA ASTHMA [facility] GOUT BRAIN STROKE-07/06 PITUITARY TUMOR-2007 SLEEP APNEA/CPAP 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 GASTROPARESIS ALLERGIES ASPIRIN: ANAPHYLAXIS: ALLERGY BEEF FLAVOR: SWELLING/FEVER: ALLERGY LEVAQUIN: KIDNEY FAILURE BACTRIM: KIDNEY FAILURE FLAGYL: KIDNEY FAILURE IVP DYE, IODINE: KIDNEY FAILURE REVIEW OF SYSTEMS REVIEWED BY: PROVIDER: LEAH SAMPSONP . CONSTITUTIONAL: ANY CHANGE IN YOUR MEDICAL CONDITION? YES. BLOOD SUGARS IN 100S, HAIC DOWN, WALKING WITHOUT WALKER AT HOME, FEELING GOOD. KIDNEY FUNCTION IS BETTER TOO . CHILLS NO . FEVER NO . INFECTION: DO YOU HAVE NEW INFECTIONS? NO . DO YOU HAVE HISTORY OF MRSA? NO . MUSCULOSKELETAL: ANY NEW PATTERNS OF PAIN OR NUMBNESS? YES, RIGHT LEG IS REALLY BOTHERING BOTH KNEES ALSO . GASTROENTEROLOGY: ANY NEW CHANGE IN BOWEL CONTROL? NO . GENITOURINARY: ANY NEW CHANGE IN BLADDER CONTROL? NO . IS THERE A CHANCE YOU COULD BE ? NO . HEMATOLOGY/LYMPH: DO YOU TAKE ANY BLOOD THINNERS? (FOR EXAMPLE- COUMADIN, PLAVIX, AGGRENOX, PLATEL, PRADAXA, OR XARELTO) YES . WHEN WAS YOUR LAST DOSE? DATE: TIME: . NEUROLOGY: HAVE YOU FALLEN IN THE PAST 6 MONTHS? NO . ANY NEW EXTREMITY NUMBNESS OR WEAKNESS? NO . CARDIOLOGY: DO YOU HAVE A PACEMAKER OR DEFIBRILLATOR? NO . RESPIRATORY: HAVE YOU BEEN SICK IN THE PAST WEEK? NO . FEVER NO . FLU LIKE SYMPTOMS? NO . COUGH NO . INTEGUMENTARY: DO YOU HAVE ANY RASHES OR OPEN SORES? NO . ALLERGIC/IMMUNO: ARE YOU ALLERGIC TO SHELLFISH OR IV DYE? YES, IV DYE . ANY NEW ALLERGIES? NO . PSYCHIATRIC: DO YOU HAVE THOUGHTS OF HURTING YOURSELF OR SOMEONE ELSE? NO . ARE YOU ABUSED, NEGLECTED, OR IN AN UNSAFE ENVIRONMENT? NO . ENDOCRINOLOGY: ARE YOU DIABETIC? YES - UNDER GOOD CONTROL . OTHER: DO YOU NEED ANY PRESCRIPTIONS? NO . IF YES, PLEASE LIST: ____ . ANY NEW PROBLEMS WITH YOUR MEDICATIONS? NO . WHEN DID YOU LAST EAT? ____ . WHEN DID YOU LAST DRINK? ____ . WHAT DID YOU LAST DRINK? ____ . NAME OF PERSON DRIVING YOU HOME? ____ . DO YOU HAVE ANY OTHER QUESTIONS OR CONCERNS YES,&QUOT; FEELS LIKE RIGHT LEG IS GOING TO ON ME&QUOT; . UROLOGY: GENERAL RENAL FUNCTION HAS IMPROVED SIGNIFICANTLY - CLOSELY FOLLOWED BY DR LEY . VITAL SIGNS WT 306.2 LBS, HT 65.5 IN, BMI 50.17 INDEX, BP 119/63 MM HG, HR 69 /MIN, RR 16 /MIN, TEMP 97.3 F, OXYGEN SAT % 94%, NA INITIALS TL 1037. EXAMINATION GENERAL EXAMINATION: PSYCHALERT , ORIENTED X 3 , APPROPRIATE MOOD AND AFFECT , TALKATIVE. LUNGS:CLEAR TO AUSCULTATION BILATERALLY, NO WHEEZES, RALES OR RHONCHI. HEART:HEART RATE REGULAR. MUSCULOSKELETAL:USING POWER CHAIR FOR MOBILITY. NO TENDERNESS OVER LUMBAR SPINOUS PROCESSES OR ACROSS THE LUMBOSACRAL AXIS BILATERALLY. ABLE TO RISE TO STANDING POSITION. AND WALK ACROSS THE ROOM.NO FOCAL MOTOR WEAKNESS. EXQUISITE TENDERNESS OVER RIGHT LATERAL FEMORAL CUTANEOUS NERVE. DECREASED SENSATION OVER LATERAL RIGHT THIGH. 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 PROCEDURE CODES FA211 ESTABILISHED PATIENT [facility] CHARGE DISPOSITION & COMMUNICATION FOLLOW UP AFTER INJECTION (REASON: REQUEST AUTH FOR RIGHT LATERAL FEMORAL CUTANEOUS NERVE INJECTION) ELECTRONICALLY SIGNED BY GEOVANY SLAUGHTER ON 11/08/2016 AT 08:33 AM EDT DISCLAIMER : THIS IS A VISIT SUMMARY EXTRACTED FROM THE [employer] CHART. IT IS NOT A COPY OF THE [employer] PROGRESS NOTE. JAYDEN
== END ==
LOC: M PAIN 10:20
PROVIDERS: ATTEND Nurse Practitioner Family
DX: G89.29 Other chronic pain (principal); G57.11 Meralgia paresthetica, right lower limb; M47.816 Spondylosis without myelopathy or radiculopathy, lumbar region; M79.1 Myalgia; M79.604 Pain in right leg; E11.9 Type 2 diabetes mellitus without complications; I12.9 Hypertensive chronic kidney disease with stage 1 through stage 4 chronic kidney disease, or unspecified chronic kidney disease; N18.9 Chronic kidney disease, unspecified; I50.9 Heart failure, unspecified; E03.9 Hypothyroidism, unspecified; E78.00 Pure hypercholesterolemia, unspecified; J44.9 Chronic obstructive pulmonary disease, unspecified; G47.30 Sleep apnea, unspecified; Z91.018 Allergy to other foods; Z91.041 Radiographic dye allergy status; Z88.6 Allergy status to analgesic agent; Z88.8 Allergy status to other drugs, medicaments and biological substances; Z79.01 Long term (current) use of anticoagulants; Z79.51 Long term (current) use of inhaled steroids; Z79.4 Long term (current) use of insulin; Z79.899 Other long term (current) drug therapy

== ENCOUNTER → 2016-11-28 | Outpatient (CLI) | payer OTHER ==
[~2016-11-28] MED LIST changes: +BUPIVACAINE HCL 0.25% 30 ML VIAL As Ordered ONE; +ISOVUE-M 300 61% 15ML VIAL (Q9967) As Ordered ONE; +LIDOCAINE 1% SDV INJ 30 ML VIAL As Ordered ONE; +TRIAMCINOLONE ACETONIDE SUSP 40 MG/ML VIAL (J3301) As Ordered ONE; +diazePAM 5 MG TAB As Ordered ONE
--- NOTE | 2016-12-16 00:18 | ECWPNPC ---
PATIENT NAME: NU WOODARD : 1955 GENDER: FEMALE VISIT DATE: 11/28/2016 DISCHARGE DATE: 11/28/16 1332 VISIT LOCKED DATE TIME: PHYSICIAN: ANAY BENTLEY RESOURCE: ANAY BENTLEY REASON FOR APPOINTMENT 1. RIGHT LATERAL FEMORAL CUTANEOUS NERVE INJECTION HISTORY OF PRESENT ILLNESS HISTORY OF PRESENT ILLNESS: PAIN THE PATIENT DESCRIBES THE PAIN... FALL RISK SCREENING: SCREENING :NO FALLS IN THE PAST YEAR CURRENT MEDICATIONS TAKING INCRUSE ELLIPTA 62.5 MCG/INH AEROSOL POWDER BREATH ACTIVATED 1 PUFF INHALATION ONCE A DAY, NOTES: 11-27-162099 TAKING SYNTHROID 88 MCG TABLET 1 TABLET EVERY MORNING ON AN EMPTY STOMACH ORALLY ONCE A DAY, NOTES: 11-27-16899 TAKING LYRICA 150 MG CAPSULE 1 CAPSULE ORALLY THREE TIMES A DAY, NOTES: 11-27-162099 TAKING ATENOLOL 50 50MG TABLET 1 ORAL TWO TIMES DAILY, NOTES: 11-27-162099 TAKING ANTIVERT 25 MG TABLET 1 TABLET ORALLY ONCE A DAY NEEDED, NOTES: 11-27-162099 TAKING ALLOPURINOL 300 MG TABLETS 1 TAB ORALLY DAILY, NOTES: 11-27-16899 TAKING TORSEMIDE 150 TABLET 100 IN AM/ 50 PM ORALLY DIVIDED DAILY, NOTES: 11-27-162099 TAKING BETADINE SWABSTICKS 10 % SWAB DIRECTED EXTERNALLY QID- WITH CIC, NOTES: NA TAKING LATEX GLOVES LARGE 1 BOX MISCELLANEOUS DIRECTED NEEDED FOR CIC TAKING CATHETERS 14 FR MISCELLANEOUS DIRECTED TID TAKING BREO ELLIPTA 200-25 MCG/INH AEROSOL POWDER BREATH ACTIVATED 1 PUFF INHALATION ONCE A DAY, NOTES: 11-27-16899 TAKING ZOCOR 80 MG TABLET 1 TABLET IN THE EVENING ORALLY ONCE A DAY, NOTES: 11-27-162099 TAKING LINZESS 290 MCG CAPSULE 1 CAPSULE ORALLY ONCE A DAY PRN, NOTES: NOT LATELY TAKING POTASSIUM CHLORIDE 10 MEQ CAPSULE EXTENDED RELEASE 1 CAPSULE WITH FOOD ORALLY TWO TIMES A DAY, NOTES: 11-27-16899 TAKING CALCITRIOL 0.25 MCG CAPSULE 1 CAPSULE ORALLY ONCE A DAY, NOTES: 11-27-16899 TAKING BENTYL 20 MG TABLET 1 CAPSULE ORALLY NEEDED, NOTES: 11-27-162099 TAKING TIZANIDINE HCL 4 MG TABLET 1 TABLET NEEDED ORALLY EVERY 8 HRS, NOTES: 11-27-162099 TAKING PLAVIX 75 MG TABLET 1 TABLET ORALLY ONCE A DAY, NOTES: 11-20-16899 TAKING HUMULIN R U-500 (CONCENTRATED) 500 UNIT/ML SOLUTION DIRECTED SLIDING SCALE BETWEEN 18 AND 27 UNITS SUBCUTANEOUS EVERY 3 HRS., NOTES: 11-27-162099 TAKING TOUJEO SOLOSTAR 300 UNIT/ML SOLUTION PEN-INJECTOR 100 SUBCUTANEOUS BID, NOTES: 11-27-16899 TAKING POISE MAXIMUM ABSORBENCY . PAD DIRECTED CHANGE NEEDED, DX CODE- N39.46 TAKING REGLAN 10 MG TABLET 1 TAB ORALLY THREE TIMES DAILY NEEDED, NOTES: 11-27-162099 TAKING SIMVASTATIN 80 MG TABLET 1 TABLET IN THE EVENING ORALLY ONCE A DAY, NOTES: 899 TAKING VITAMIN D (ERGOCALCIFEROL) 85777 UNIT CAPSULE 1 CAPSULE ORALLY MONTHLY, NOTES: 11-09-16899 NOT-TAKING AMLODIPINE BESYLATE 10 MG TABLET 1 TABLET ORALLY ONCE A DAY NOT-TAKING NYSTATIN POWDER 6 MU/GM POWDER DIRECTED TWICE A DAY, NOTES: 09-12-15 AM NOT-TAKING VOLTAREN 1 % GEL 3 CC AT [facility] TRANSDERMAL TID PRN FOR PAIN MEDICATION LIST REVIEWED AND RECONCILED WITH THE PATIENT PAST MEDICAL HISTORY 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 DR HAYNES KIDNEY DISEASE/FAILURE 2007 DR KNUTSON HYPERTENSION HYPOTHYROIDISM HYPERCHOLESTEROLEMIA ASTHMA [facility] GOUT BRAIN STROKE-07/06 PITUITARY TUMOR-2007 SLEEP APNEA/CPAP 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 CONSTITUTIONAL: ANY CHANGE IN YOUR MEDICAL CONDITION? NO . CHILLS NO . FEVER NO . INFECTION: DO YOU HAVE NEW INFECTIONS? NO . DO YOU HAVE HISTORY OF MRSA? NO . MUSCULOSKELETAL: ANY NEW PATTERNS OF PAIN OR NUMBNESS? NO . GASTROENTEROLOGY: ANY NEW CHANGE IN BOWEL CONTROL? NO . GENITOURINARY: ANY NEW CHANGE IN BLADDER CONTROL? NO . IS THERE A CHANCE YOU COULD BE ? NO . HEMATOLOGY/LYMPH: DO YOU TAKE ANY BLOOD THINNERS? (FOR EXAMPLE- COUMADIN, PLAVIX, AGGRENOX, PLATEL, PRADAXA, OR XARELTO) YES 7-26-17 0800 LAST DOSE . WHEN WAS YOUR LAST DOSE? DATE: TIME: . NEUROLOGY: HAVE YOU FALLEN IN THE PAST 6 MONTHS? NO . ANY NEW EXTREMITY NUMBNESS OR WEAKNESS? NO . CARDIOLOGY: DO YOU HAVE A PACEMAKER OR DEFIBRILLATOR? NO . RESPIRATORY: HAVE YOU BEEN SICK IN THE PAST WEEK? NO . FEVER NO . FLU LIKE SYMPTOMS? NO . COUGH NO . INTEGUMENTARY: DO YOU HAVE ANY RASHES OR OPEN SORES? NO . ALLERGIC/IMMUNO: ARE YOU ALLERGIC TO SHELLFISH OR IV DYE? NO . ANY NEW ALLERGIES? NO . PSYCHIATRIC: DO YOU HAVE THOUGHTS OF HURTING YOURSELF OR SOMEONE ELSE? NO . ARE YOU ABUSED, NEGLECTED, OR IN AN UNSAFE ENVIRONMENT? NO . ENDOCRINOLOGY: ARE YOU DIABETIC? NO . OTHER: DO YOU NEED ANY PRESCRIPTIONS? NO . IF YES, PLEASE LIST: ____ . ANY NEW PROBLEMS WITH YOUR MEDICATIONS? NO . WHEN DID YOU LAST EAT? ____11-27-16 4 PM . WHEN DID YOU LAST DRINK? ____11-27-16 8 PM . WHAT DID YOU LAST DRINK? ____ . NAME OF PERSON DRIVING YOU HOME? ____[facility] . DO YOU HAVE ANY OTHER QUESTIONS OR CONCERNS NO . VITAL SIGNS WT 306.2 LBS, HT 65.5 IN, BMI 50.17 INDEX, BP 112/59 MM HG, HR 65 /MIN, RR 18 /MIN, TEMP 97.1 F, OXYGEN SAT % 92%, NA INITIALS MP 1022. ASSESSMENTS NEURALGIA AND NEURITIS, UNSPECIFIED - M79.2 (PRIMARY) TREATMENT OTHERS NOTES: PRE-PROCEDURE DIAGNOSIS: MERALGIA PARESTHETICAPOST-PROCEDURE DIAGNOSIS: MERALGIA PARESTHETICAPROCEDURE: RIGHT LATERAL FEMORAL CUTANEOUS NERVE BLOCKSURGEON: ANAY BENTLEY MDANESTHESIA: LOCALCOMPLICATIONS: NONEPRE-PROCEDURE NOTE: THE PATIENT HAS HISTORY OF PAIN AT THE LATERAL ASPECT OF THE THIGH. THE PAIN IS FOLLOWING THE DISTRIBUTION OF THE LATERAL FEMORAL CUTANEOUS NERVE. I DISCUSSED ALTERNATIVES WITH THE PATIENT AND WE BOTH AGREE ON BLOCKING THE NERVE LOOKING FOR LONG-LASTING PAIN RELIEF. I EVALUATE THE PATIENT AND REVIEWED THE CHART. I WENT THROUGH THE RISKS ALTERNATIVES AND BENEFITS ASSOCIATED WITH THIS PROCEDURE. THE PATIENT EXPRESSED WANTS TO PROCEED. THE PATIENT DENIES UNEXPLAINABLE WEIGHT LOSS FEVER CHILLS NEW CHANGES IN THE URINARY OR BOWEL CONTROL.PROCEDURE NOTE: CONSENT WAS REVIEWED WITH THE PATIENT. PATIENT WAS BROUGHT TO THE PROCEDURE ROOM AND PLACED IN THE SUPINE POSITION. THE RIGHT INGUINAL AREA WAS CLEAN WITH CHLORA-PREP SOLUTION AND DRAPED ASEPTICALLY. PROCEDURE WAS DONE UNDER STANDARD STERILE CONDITIONS. TARGET WAS SELECTED 2 CM MEDIAL AND 2 CM INFERIOR TO THE ANTERIOR SUPERIOR ILIAC SPINE. A NERVE STIMULATOR WAS USED FIRST AT 3.0 VOLTS AND REDUCED SLOWLY FOLLOWING THE PATIENT FEEDBACK TO 0.6 VOLTS. WHEN PROPER STIMULATION OF THE NERVE WAS REACHED BUPIVACAINE 0.125%, 15 ML WITH KENALOG 10 MGS WAS INJECTED. THERE WAS NO EVIDENCE OF BLOOD, PARESTHESIA OR VISCERAL PUNCTURE. PATIENT WAS SENT TO THE RECOVERY ROOM. THERE WERE NO COMPLICATIONS.POST-PROCEDURE NOTE: I DISCUSSED ALTERNATIVES WITH THE PATIENT. PATIENT IS GOING TO BE SEEN IN A FOLLOW-UP. I AM LOOKING FOR LONG-LASTING PAIN IS WITH THIS INTERVENTION. INSTRUCTIONS WERE GIVING, QUESTIONS WERE ANSWERED, AND THE PATIENT REPORTS UNDERSTANDING AND AGREES WITH THE PLAN.I, SULAIMAN ORTIZ, DOCUMENTED THE ABOVE INFORMATION ACTING A SCRIBE FOR DR. BENTLEY. I HAVE REVIEWED THE ABOVE DOCUMENT, WRITTEN BY SULAIMAN MOORE AND I VERIFY THAT IT IS ACCURATE. PROCEDURE CODES 75072 N BLOCK OTHER PERIPHERAL DISPOSITION & COMMUNICATION FOLLOW UP 3 WEEKS ELECTRONICALLY SIGNED BY ANAY BENTLEY MD ON 12/15/2016 AT 12:29 PM EDT DISCLAIMER : THIS IS A VISIT SUMMARY EXTRACTED FROM THE [facility] CHART. IT IS NOT A COPY OF THE [facility] PROGRESS NOTE. MTDBette
== END ==
LOC: M PAIN 10:20
PROVIDERS: ATTEND Anesthesiology
DX: G89.29 Other chronic pain (principal); M79.651 Pain in right thigh; M79.2 Neuralgia and neuritis, unspecified; E11.9 Type 2 diabetes mellitus without complications; I51.9 Heart disease, unspecified; I12.9 Hypertensive chronic kidney disease with stage 1 through stage 4 chronic kidney disease, or unspecified chronic kidney disease; N18.9 Chronic kidney disease, unspecified; E03.9 Hypothyroidism, unspecified; E78.00 Pure hypercholesterolemia, unspecified; J44.9 Chronic obstructive pulmonary disease, unspecified; I25.2 Old myocardial infarction; G47.30 Sleep apnea, unspecified; Z88.6 Allergy status to analgesic agent; Z91.018 Allergy to other foods; Z91.041 Radiographic dye allergy status; Z88.1 Allergy status to other antibiotic agents; Z88.8 Allergy status to other drugs, medicaments and biological substances; Z79.01 Long term (current) use of anticoagulants; Z79.51 Long term (current) use of inhaled steroids; Z79.4 Long term (current) use of insulin; Z79.899 Other long term (current) drug therapy
CPT/HCPCS: 64450; J3301; Q9967

== ENCOUNTER 2016-12-09 18:47 | Inpatient (IN) | payer OTHER ==
[~2016-12-09] VITALS: Ht 180.3 cm; Wt 137.3 kg
[~2016-12-09 18:47] MED LIST changes: -AMLO5TAB2 PO; -ATEN25TA PO; -BUPIVACAINE HCL 0.25% 30 ML VIAL As Ordered ONE; -CLEADRO8 OU; -DEMA20TA6 PO; -FLOM5CAP PO; -FLON1SPR; -ISOVUE-M 300 61% 15ML VIAL (Q9967) As Ordered ONE; -LIDOCAINE 1% SDV INJ 30 ML VIAL As Ordered ONE; -LINZ290C PO; -LOSA25TA8 PO; -METO10TA2 PO; -NITRO10CA PO; -POTA1TAB23; -PRED5TA PO; -SYNT88TA2 PO; -TORS100T; -TOUJ1.2I SC; -TRIAMCINOLONE ACETONIDE SUSP 40 MG/ML VIAL (J3301) As Ordered ONE; -diazePAM 5 MG TAB As Ordered ONE
[2016-12-09] MEDS ORDERED: ONDANSETRON 4MG/2ML VIAL (J2405) IV ONE (19:15)
[2016-12-09] MEDS ORDERED: NS 1,000 ML IV ONE ×3 (19:15→20:45)
[2016-12-09 19:38] LABS: INR 1.24
[2016-12-09] MEDS ORDERED: ACETAMINOPHEN 325 MG TAB PO ONE (19:45)
[2016-12-09 19:46] LABS: ALBUMIN 2.8 GM/DL (3.2-5.2); ALBUMIN/GLOBULIN RATIO 0.67 (1.00-1.93); ALKALINE PHOSPHATASE 239 U/L (45-117); ALT/SGPT 66 U/L (12-78); AMYLASE 26 U/L (25-115); ANION GAP 14 MEQ/L (8-16); AST/SGOT 73 U/L (15-37); BILIRUBIN,DIRECT 0.8 MG/DL (0.0-0.2); BILIRUBIN,TOTAL 1.4 MG/DL (0.2-1.0); BLOOD UREA NITROGEN 72 MG/DL (7-18); CALCIUM LEVEL 9.2 MG/DL (8.8-10.2); CARBON DIOXIDE LEVEL 25 MEQ/L (21-32); CHLORIDE LEVEL 100 MEQ/L (98-107); GLOMERULAR FILTRATION RATE 13.3 (>45); GLUCOSE, FASTING 165 MG/DL (80-110); POTASSIUM SERUM 4.4 MEQ/L (3.5-5.1); SODIUM LEVEL 139 MEQ/L (136-145)
[2016-12-09 19:48] LABS: ADD MANUAL DIFFER YES; MEAN CORPUSCULAR HEMOGLOBIN 27.3 pg (27.0-33.0); MEAN CORPUSCULAR HGB CONC 31.7 g/dl (32.0-36.5); PLATELET COUNT, AUTOMATED 335 k/mm3 (150-450); RED CELL DISTRIBUTION WIDTH 15.3 % (11.5-14.5); WHITE BLOOD COUNT 25.1 K/mm3 (4.0-10.0)
[2016-12-09] MEDS ORDERED: ACETAMINOPHEN TAB 650MG DOSE (2X325MG) PO PRN (20:30)
[2016-12-09] MEDS ORDERED: ONDANSETRON 4MG/2ML VIAL (J2405) IV PRN (20:30)
[2016-12-09] MEDS ORDERED: PIPERACILLIN/TAZOBACTAM SOD 3.375 GM in D5W MINI-BAG PLUS 50 ML IV ONE (20:30)
[2016-12-09 20:34] LABS: BANDS 1 % (< 11)
[2016-12-09 20:35] LABS: ANISOCYTOSIS 1+
--- NOTE | 2016-12-09 20:43 | ECGEPIP ---
Stationary ECG Study [facility] - ED Test Date: 2016-12-09 Pat Name: NU WOODARD Department: Room: - Gender: F Guideman: BriggsB: 1955 Requested By: MI NARANJO Order Number: [id number] Reading MD: Lise Ignacio Measurements Intervals [place] Rate: 84 P: 54 [place]: 180 QRS: -56 QRSD: 118 T: 56 QT: 369 QTc: 437 Interpretive Statements SINUS RHYTHM PATTERN CONSISTENT WITH PULMONARY DISEASE LEFT ANTERIOR FASCICULAR BLOCK Electronically Signed On 12-09-2016 20:43:10 EDT by Lise Ignacio
[2016-12-09 20:52] LABS: ABG BASE EXCESS -0.9 (-2.0-2.0); ABG HCO3 23.4 MEQ/L (22.0-26.0); ABG PARTIAL PRESSURE CO2 37.5 mmHg (35.0-45.0); ABG PARTIAL PRESSURE O2 70.2 mmHg (75.0-100.0); ABG STANDARD HCO3 23.7 MEQ/L (22.0-26.0); ABG TOTAL CO2 24.5 MEQ/L (23.0-31.0); ABG pH (ARTERIAL) 7.413 UNITS (7.350-7.450)
[2016-12-09] MEDS ORDERED: SIMVASTATIN 40 MG TAB PO SCH (21:00)
[2016-12-09] MEDS ORDERED: PREGABALIN 75 MG CAP(LYRICA) PO SCH (21:00)
[2016-12-09] MEDS: tiZANidine 4 MG TAB PO SCH (21:00)
[2016-12-09] MEDS: METOCLOPRAMIDE 10 MG TAB PO SCH (21:00)
[2016-12-09] MEDS ORDERED: NS 2,000 ML IV ONE (21:15)
[2016-12-09] MEDS ORDERED: AMLO5TAB2 PO (21:29)
[2016-12-09] MEDS ORDERED: SYNT88TA2 PO (21:29)
[2016-12-09] MEDS ORDERED: METO10TA2 PO (21:29)
[2016-12-09] MEDS ORDERED: LOSA25TA8 PO (21:29)
[2016-12-09] MEDS ORDERED: VITA1CAP40 PO (21:29)
[2016-12-09] MEDS ORDERED: TOUJ1.2I SC (21:29)
[2016-12-09] MEDS ORDERED: MECL-68 PO (21:29)
[2016-12-09] MEDS ORDERED: CLEADRO8 OU (21:29)
[2016-12-09] MEDS ORDERED: LYRI150C PO (21:29)
[2016-12-09] MEDS ORDERED: FLON1SPR (21:29)
[2016-12-09] MEDS ORDERED: NOREPINEPHRINE BITARTRATE 16 MG in D5W 500 ML IV SCH (21:30)
[2016-12-09] MEDS ORDERED: NS 1,000 ML IV SCH ×2 (21:30→23:30)
[2016-12-09 21:38] LABS: MICROSCOPIC INDICATED? MAN YES (NO)
[2016-12-09 22:22] LABS: MICROSCOPIC EXAM PERFORMED
[2016-12-09 22:23] LABS: RBC, URINE 20-30 /hpf (0-3); SQUAMOUS EPITHELIAL CELL URINE MOD AMOUNT /hpf (SMALL AMT); WBC, URINE 40-50 /hpf (0-3)
[2016-12-09 22:24] LABS: BACTERIA, URINE LARGE AMOUNT; HYALINE CAST, URINE NONE SEEN /lpf (0-1)
[2016-12-09] MEDS ORDERED: MECLIZINE 25 MG TABLET PO PRN (22:45)
[2016-12-09] MEDS ORDERED: PANTOPRAZOLE 40MG TAB (PROTONIX) PO PRN (22:45)
[2016-12-09] MEDS ORDERED: FLUTICASONE PROP 0.05% NASAL SPRAY 16 GM (FLONASE) PRN (22:45)
--- NOTE | 2016-12-09 23:50 | REPUSA ---
CLINICAL HISTORY: Sepsis. TECHNIQUE: Multiple axial, coronal, sagittal CT images were obtained through the abdomen and pelvis without administration of oral or IV contrast material. COMMENTS: The liver is markedly lobulated compatible with cirrhosis. The spleen is mildly enlarged measuring 1 3.5 cm. The gallbladder is distended showing a single calcified gallstone measuring 5 mm. The pancr eas is of normal contour and attenuation characteristics. There is no evidence of adrenal mass. The kidneys are normal in size, shape and configuration. No renal or ureteral calculi are identified . There is no hydroureter or hydronephrosis. There is no evidence for appendicitis. There is diffuse sigmoid diverticulosis without evidence of a cute diverticulitis. No evidence for small or large bowel obstruction. There is no evidence of abdo renay ascites or lymphadenopathy. There is no evidence of intrinsic or extrinsic bladder mass. There is no pelvic ascites or lymphaden opathy. The patient is status post complete hysterectomy. Bibasilar opacities are noted compatible with multifocal pneumonia versus aspiration. There are no p leural effusions. The bony structures are free of lytic or blastic lesions. IMPRESSION: 1. The liver is markedly lobulated compatible with cirrhosis. 2. The spleen is mildly enlarged measuring 13.5 cm. 3. The gallbladder is distended showing a single calcified gallstone measuring 5 mm. 4. The patient is status post complete hysterectomy. 5. Bibasilar opacities are noted compatible with multifocal pneumonia versus aspiration. 6. There is diffuse sigmoid diverticulosis without evidence of acute diverticulitis.
[2016-12-10] VITALS (24 sets, daily range): BP systolic 62–148; BP diastolic 25–76; O2SAT 92
[2016-12-10] MEDS ORDERED: DEXTROSE 50% 50 ML SYRINGE IV PRN (00:15)
[2016-12-10] MEDS ORDERED: GLUCOSE 4 GM CHEW TABLET PO PRN (00:15)
[2016-12-10] MEDS ORDERED: GLUCAGON FOR INJ 1 MG VIAL (J1610) SC PRN (00:15)
[2016-12-10] MEDS ORDERED: VANCOMYCIN INTERMITTENT/PULSE DOSING BY CLINICAL PHARMACIST PER DOSING PROTOCOL XX SCH (00:45)
--- NOTE | 2016-12-10 00:45 | PHACANCOPD ---
PHARMACY VANCOMYCIN DOSING Pt Demographics Demographics Patient Age:61 , Weight:199.000 , Gender: female Adjusted Body Weight Date: 12/10/16, Adjusted Body Weight: [113] Kg Events Past 24 Hours Events Past 24 Hours: NO: Dialysis, Diuretic Therapy, Change in CrCl, Fever, Elevation in WBC, Pending Diagnostics, Pending Procedures, Other Vancomycin Vancomycin Target Ranges: 10-20 mcg/ml Vancomycin Load Y/N: Yes Load Dose Date Time Vancomycin Load Dose: 2000MG Date: 12-10 Time: 0100 Vancomycin Dose Date: 12/10/16. Current Vancomycin Dose: Intermittent Dosing?: Yes Labs Labs Item Value Date Time White Blood Count 25.1 K/mm3 H 12/09/16 1902 Creatinine 3.70 MG/DL H 12/09/16 1902 Blood Urea Nitrogen 72 MG/DL H 12/09/16 190 Vital Signs Label Value Date Time Patient Temperature 98.7 degrees F 12/09/16 2355 Temperature Source Oral 12/09/16 2355 Micro Microbiology 12/09/16 Blood Culture, Received Pending 12/09/16 Blood Culture, Received Pending 12/09/16 Urine Culture, Received Pending Creatinine Clearance Date:12/10/16. Creatinine Clearance: [15]. Pending Labs Random 12-10 in am Assessment and Plan Maintaining Current Dose?: Yes Reason for dose change: No Dose Change Pharmacist Note Pharmacist Note Date: 12/10/16. Pharmacist note:Dosed intermittent by levels. First random ordered for 12-10 @0600. Will continue to monitor and make adjustments as needed. [facility] Dec 10, 2016 00:45
[2016-12-10] MEDS: VANCOMYCIN HCL 1,000 MG, VIAL MATE ADAPTER 1 EACH in D5W 250 ML IV SCH ×2 (01:02→03:47)
[2016-12-10 01:05] LABS: ANION GAP 11 MEQ/L (8-16); BLOOD UREA NITROGEN 78 MG/DL (7-18); CALCIUM LEVEL 9.4 MG/DL (8.8-10.2); CARBON DIOXIDE LEVEL 25 MEQ/L (21-32); CHLORIDE LEVEL 100 MEQ/L (98-107); CREATININE FOR GFR 3.82 MG/DL (0.55-1.02); GLOMERULAR FILTRATION RATE 12.8 (>45); GLUCOSE, FASTING 189 MG/DL (80-110); POTASSIUM SERUM 4.9 MEQ/L (3.5-5.1); SODIUM LEVEL 136 MEQ/L (136-145)
[2016-12-10 02:09] LABS: MICROSCOPIC INDICATED? MAN YES (NO)
[2016-12-10 02:13] LABS: RBC, URINE TNTC /hpf (0-3); WBC, URINE TNTC /hpf (0-3)
[2016-12-10 02:14] LABS: SQUAMOUS EPITHELIAL CELL URINE SMALL AMOUNT /hpf (SMALL AMT)
[2016-12-10 02:19] LABS: CALCIUM OXALATE CRYSTALS,URINE SMALL AMOUNT /hpf
[2016-12-10 02:20] LABS: BACTERIA, URINE MOD AMOUNT; HYALINE CAST, URINE NONE SEEN /lpf (0-1); MICROSCOPIC EXAM PERFORMED
[2016-12-10] MEDS ORDERED: NS 1,000 ML IV ONE (02:30)
[2016-12-10] MEDS ORDERED: NS 2,000 ML IV ONE ×2 (03:00→05:15)
[2016-12-10] MEDS ORDERED: ERTAPENEM SODIUM 0.5 GM in NS 50 ML IV SCH (04:00)
[2016-12-10] MEDS ORDERED: PHENYLEPHRINE HCL INJ 50 MG in D5W 500 ML IV SCH (04:30)
[2016-12-10] MEDS: VANCOMYCIN ORAL SOL 250MG/5ML ORAL SYRINGE PO SCH ×2 (05:13)
[2016-12-10] MEDS: HumaLOG INSULIN (NovoLOG) PER UNIT SC SCH ×5 (05:23→23:45)
[2016-12-10] MEDS: HEPARIN SOD (PORCINE) 5000 UNITS/ML VIAL SQ SCH ×3 (05:23→21:55)
[2016-12-10 05:35] LABS: ADD MANUAL DIFFER YES; MEAN CORPUSCULAR HEMOGLOBIN 27.3 pg (27.0-33.0); MEAN CORPUSCULAR HGB CONC 31.6 g/dl (32.0-36.5); MEAN CORPUSCULAR VOLUME 86.4 fl (80.0-96.0); PLATELET COUNT, AUTOMATED 362 k/mm3 (150-450); WHITE BLOOD COUNT 24.1 K/mm3 (4.0-10.0)
[2016-12-10 05:56] LABS: CREATININE FOR GFR 4.14 MG/DL (0.55-1.02); GLOMERULAR FILTRATION RATE 11.6 (>45); POTASSIUM SERUM 4.2 MEQ/L (3.5-5.1); VANCOMYCIN RANDOM 34.3 UG/ML
[2016-12-10] MEDS ORDERED: LEVOTHYROXINE 88MCG TABLET (0.088 MG) PO SCH (06:00)
[2016-12-10 07:02] LABS: BANDS 19 % (< 11)
[2016-12-10] MEDS: NOREPINEPHRINE BITARTRATE 16 MG in D5W 500 ML IV SCH ×2 (07:09→16:24)
--- NOTE | 2016-12-10 07:14 | RO ---
DATE OF PROCEDURE: 12/10/2016 TIME OF PROCEDURE: 3:30 a.m. PREPROCEDURE DIAGNOSIS: Hemodynamic monitoring, septic shock. POSTPROCEDURE DIAGNOSIS: PROCEDURE: Arterial line placement. RESIDENT DOCTOR: Hector Blanchard DO ATTENDING DOCTOR: Anna Dockery MD ANESTHESIA: DESCRIPTION OF PROCEDURE: A time out was completed verifying correct patient, procedure, set position and special equipment applicable. The patient gave verbal consent for the procedure, for both central line and arterial line, however a central line was not attempted. William's test was performed to ensure adequate perfusion. The patient's right arm, right wrist was initially attempted, prepped and draped in a sterile fashion. 1% lidocaine was used to anesthetize the area. A needle was introduced into the radial artery, however after three attempts, the artery could not be reached and the pulses were not palpable. Therefore, the left wrist was attempted, however even under direct guidance of ultrasound, the radial artery was unable to be punctured. Therefore, the procedure was aborted due to we could not thread the wire into the left radial artery. The patient's blood loss was roughly [address] Dockery was present for the entire procedure. Patient has tolerated the procedure. Patient has been discussed with attending doctor, Dr. Dockery. My preceptor for this patient encounter was Dr. Anna Dockery. The preceptor was physically present in the building during the encounter and was fully available. As needed, all aspects of the patient interview, examination, medical decision making process, and medical care plan development were reviewed and approved by the preceptor. The preceptor is aware and concurs with the plan as stated in the body of this note and will attest to such by his/her cosignature.
--- NOTE | 2016-12-10 07:37 | REP ---
Acute abdominal series five views including supine AP chest, supine AP abdomen three views, and decubitus abdomen. Supine AP chest: Comparison is 2068. Lung ruggiero are clear. Cardiac size is enlarged but is magnified by positioning. The tameka, mediastinum, and bony thorax unremarkable for positioning. Supine position precludes evaluation for free subdiaphragmatic air. Impression: Lung ruggiero are clear. Cardiac size appears enlarged. Abdomen, supine and decubitus views: The decubitus view is likely a cross-table lateral view. There are a few air-fluid levels in nondistended bowel loops in a nonspecific pattern. Skeletal structures and soft tissues otherwise are unremarkable. There are pelvic calcifications, likely phleboliths. Impression: The bowel gas pattern is nonspecific Signed by Yosef Caceres MD 12/10/2016 07:28 A
[2016-12-10 08:17] LABS: ABG HCO3 18.8 MEQ/L (22.0-26.0); ABG PARTIAL PRESSURE CO2 34.8 mmHg (35.0-45.0); ABG PARTIAL PRESSURE O2 59.9 mmHg (75.0-100.0); ABG STANDARD HCO3 19.4 MEQ/L (22.0-26.0); ABG TOTAL CO2 19.9 MEQ/L (23.0-31.0); ABG pH (ARTERIAL) 7.351 UNITS (7.350-7.450)
--- NOTE | 2016-12-10 08:26 | REP ---
Portable chest, 07:05 a.m., single AP view, the patient supine: Comparison is 12/09/2016. There is diffuse bilateral interstitial coarsening compatible with interstitial infiltrates. Cardiac size is enlarged but is magnified by supine positioning. There are no focal infiltrates or pleural effusions. Impression: Interstitial coarsening compatible with interstitial infiltrates. Cardiomegaly. Signed by Yosef Caceres MD 12/10/2016 08:18 A
[2016-12-10] MEDS: METOCLOPRAMIDE 10 MG TAB PO SCH (09:00)
[2016-12-10] MEDS ORDERED: ALLOPURINOL 300 MG TAB PO SCH (09:00)
[2016-12-10] MEDS ORDERED: CLOPIDOGREL 75 MG TAB PO SCH (09:00)
[2016-12-10] MEDS: tiZANidine 4 MG TAB PO SCH (09:00)
[2016-12-10] MEDS ORDERED: CALCITRIOL 0.25 MCG CAP (S0169) PO SCH (09:00)
[2016-12-10] MEDS ORDERED: POTASSIUM CHLORIDE 10 MEQ SR TABLET PO SCH (09:00)
[2016-12-10] MEDS ORDERED: LEVOTHYROXINE 100 MCG (0.1MG) VIAL IV SCH (09:00)
[2016-12-10] MEDS ORDERED: PREGABALIN 75 MG CAP(LYRICA) PO SCH (09:00)
[2016-12-10 09:53] LABS: ALBUMIN 2.5 GM/DL (3.2-5.2); ALBUMIN/GLOBULIN RATIO 0.71 (1.00-1.93); BILIRUBIN,TOTAL 2.4 MG/DL (0.2-1.0); CALCIUM LEVEL 7.9 MG/DL (8.8-10.2); CREATININE FOR GFR 4.28 MG/DL (0.55-1.02); GLOMERULAR FILTRATION RATE 11.2 (>45); PHOSPHORUS LEVEL 3.6 MG/DL (2.5-4.9); POTASSIUM SERUM 4.5 MEQ/L (3.5-5.1)
--- NOTE | 2016-12-10 09:57 | HPE ---
DATE OF ADMISSION: 12/09/2016 PRIMARY CARE PROVIDER: SOSA Kerns PAIN MANAGEMENT PHYSICIAN: Rick King MD SECURITY TEST ENGINEER: Chastity Casillas MD HOSPITALIST ATTENDING: Hilary Orozco MD TAMPING MACHINE OPERATOR: Gurmeet Blunt MD SHEET ROCK TAPER: Shreyas Jameson MD GENERAL SURGEON: Luis Angel Polanco MD CHIEF COMPLAINT: Diarrhea, pain when I urinate. HISTORY OF PRESENTING ILLNESS: This is a 61-year-old female with past medical history significant for liver abscess in 2016, status post percutaneous drainage and intravenous (IV) antibiotics, chronic kidney disease stage III, extended-spectrum beta-lactamase urinary tract infection with pseudomonas and enterococcus sensitive to vancomycin, type 2 diabetes, hypertension, obstructive sleep apnea, morbid obesity body mass index (BMI) of 73, metabolic syndrome, hypothyroidism, chronic obstructive pulmonary disease (COPD) with chronic hypoxic respiratory failure on home oxygen, osteoarthritis, coronary artery disease (CAD), cerebrovascular accident (CVA), reflux, spinal stenosis, kidney stones, congestive heart failure, and history of pituitary tumor, presented to the emergency room with complaints of severe diarrhea, watery in nature, nonbloody, nonmucusy, about seven times yesterday, as well as diffuse bandlike abdominal pain bilateral lower quadrant with a fever of 102 and 103 with some dysuria without frequency or urgency and generalized weakness. The patient has not had any weight loss. Denies any nausea or vomiting. Has not eaten outside in restaurants. Had been eating mostly at home. She has had no recent antibiotics over the past 2 weeks but has had antibiotics for urinary tract infection (UTI) about a month ago. No sick contacts and no recent travel. The patient denies any headaches. Had a documented fever of 102.3 at home. No changes in vision, diplopia. No sore throat, earache, ear discharge. Denies any neck rigidity. No chest pain, pressure, or tightness, shortness of breath, palpitations, or lightheadedness. Denies any paroxysmal nocturnal dyspnea (PND), increase in weight, or worsening lower extremity edema. She denies any paresthesias bilateral upper or lower extremities but does complain of generalized weakness. In the emergency room (ER), she was found to be hypotensive, systolic pressure of 52/33, white count of 25,000, and a fever of 101.1. She was emergently given Zosyn and intravenous vancomycin. No stool sample has been obtained, as she has not exhibited any diarrhea at this time. CT abdomen and pelvis ordered but none available. Hospitalist service was called for admission for septic shock and acute on chronic renal failure, most likely secondary to UTI. PAST MEDICAL HISTORY: 1. Liver abscess. 2. Extended-spectrum beta-lactamase UTI. 3. Acute kidney injury. 4. Chronic kidney disease. 5. Type 2 diabetes. 6. Chronic hypertension. 7. Obstructive sleep apnea. 8. COPD. 9. CHF. 10. Chronic hypoxic respiratory failure. 11. Osteoarthritis. 12. CAD. 13. CVA. 14. Reflux. 15. Kidney stones. 16. Spinal stenosis. 17. History of pituitary tumor. 18. Internal hemorrhoids. 19. Colonic polyps with adenomatous polyp with liver abscess. PAST SURGICAL HISTORY: 1. Hysterectomy. 2. Appendectomy. 3. Tubal ligation 4. Bladder suspension. 5. Ureteral stents. 6. Breast mass removal, which was benign. SOCIAL HISTORY: Quit smoking 16 years ago. Smoked for 28 years. Denies drinking or recreational drug use. Lives with her . FAMILY HISTORY: Mother with lung problems. Father's sister had breast cancer and ovarian cancer. REVIEW OF SYSTEMS: Ten-point system obtained, all of which are negative aside from positive findings on history of present illness (HPI). PHYSICAL EXAMINATION: Blood pressure was on arrival to the emergency room is 52/33, fever of 101.1, respiratory rate of 20, pulse oximetry of 87% on room air and 97% on 2 liters nasal cannula. Generally, the patient is awake, alert, oriented times three, answering questions appropriately. No respiratory distress. No icterus or jaundice. Pupils are round, reactive to light and accommodation. Extraocular muscles are intact. Normocephalic, atraumatic. Dry mucous membranes. No cervical lymphadenopathy or thyromegaly. Lungs are diminished, clear to auscultation. No wheezing, rales, or rhonchi. Heart: S1, S2, sinus rhythm. No murmurs, rubs, or gallops. Abdomen is soft, tender bilateral lower quadrants. Positive for costovertebral angle (CVA) tenderness on the left. 1+ pitting edema bilaterally. White count 25,000, hemoglobin 12, hematocrit 40, platelet count 335. Sodium 139, potassium 4.4, chloride 100, bicarbonate 25, BUN 72, creatinine 3.7, glucose of 165, lactic acid of 2.8, calcium 9.2, total bilirubin (T Bili) 1.4, direct bilirubin 0.8, AST 73, ALT 66, alkaline phosphatase 239, total CK 728, MB fraction 1.5, troponin less than 0.05, total protein of 7, albumin of 2.8, amylase 26, lipase of 90, lactic acid of 2.8. Urinalysis: Hazy appearance, 2+ protein, positive blood, positive leukocyte esterase, 20-30 red blood cells (RBCs), 40-50 white blood cells (WBCs), large amount of bacteria. CT abdomen and pelvis: No report available at this time. ASSESSMENT AND PLAN: This is a 61-year-old female with history of liver abscess, chronic kidney disease stage III, urinary tract infection with extended-spectrum beta-lactamase (ESBL), type 2 diabetes, chronic constipation, hypertension, obstructive sleep apnea, gout, hypothyroidism, chronic hypoxic respiratory failure on 2 liters home oxygen, osteoarthritis, coronary artery disease, cerebrovascular accident, congestive heart failure, reflux, spinal stenosis, kidney stones, internal hemorrhoids, colonic polyps, history of pituitary tumor, presents to the emergency room with complaints of diarrhea since Friday about seven times daily with a fever of 102.3, dysuria, and flank pain, and anorexia. The patient was found to be in septic shock with systolic pressure of 50, fever of 101, and white count of 25,000. CT abdomen and pelvis is pending. Urine is consistent with a UTI. The patient will be admitted as an inpatient for two midnights into the intensive care unit (ICU) - hospitalist attending will be Dr. Hilary Orozco - for the following acute issues: 1. Septic shock secondary to urinary tract infection, prior history of Klebsiella enterococcus faecalis with ESBL positive for Klebsiella. The patient has been pancultured with urine and blood cultures. Chest x-ray is still pending. CT abdomen and pelvis pending official report with prior history of liver abscess. With complaints of bilateral abdominal pain. Rule out pyelonephritis, recurrent liver abscess, or cholangitis. The patient is currently on Zosyn renally dosed, vancomycin, due to complaints of diarrhea, the patient has also been given oral vancomycin which may be discontinued once Clostridium (C) difficile is negative. The patient has been given 5 liters of normal saline IV bolus with some response to systolic pressure of 98 from admission, systolic pressure of 50. The patient's septic shock may be attributable also to dehydration with hypovolemia, due to diarrhea, the patient has been placed on Levophed drip to keep mean arterial pressure at 65-70. Monitor the patient's urine output, strict intake and output (I and O), renally dose medications, and repeat metabolic panel every 6 hours. Continue with full supportive care. Monitor for congestive heart failure. 2. Acute on chronic renal failure stage III secondary to dehydration and septic shock from a urinary tract infection. At this time, the patient has responded to intravenous fluids. Has received 5 liters of intravenous fluids. Currently, on Levophed drip to keep mean arterial pressure at 65-70. Renally dose all medications. Avoid nephrotoxins. Pharmacy has been consulted for vancomycin renal dosing. Strict I and O. Daily weights. Claire catheter placement for critical patient monitoring. Await results of CT abdomen and pelvis to rule out hydronephrosis or kidney stone. The patient does complain of dysuria and has been treated for a UTI with Zosyn for a history of Klebsiella pneumoniae, ESBL positive. If needed, may switch over to meropenem or ertapenem if sensitivity results show resistant. 3. Due to history of enterococcus faecalis, vancomycin has also been added. Monitor the patient's blood cultures and fevers and infectious disease consult in the morning if no other focus is found. 4. Transaminitis with elevated bilirubin. The patient has known history of cholelithiasis but denies any biliary colic. However, will continue to monitor liver function tests and await results of CT abdomen and pelvis. The patient may need an magnetic resonance cholangiopancreatography (MRCP) or dedicated gallbladder ultrasound once she is medically stable and systolic pressure is maintained with a mean arterial pressure (MAP) greater than 70, to rule out ascending cholangitis, continue with gram-negative and anaerobic coverage with Zosyn for now and monitor the patient's complete blood count (CBC), sedimentation rate. 5. Diarrhea. Check gastrointestinal (GI) panel. Oral vancomycin. If negative for C. difficile, may discontinue vancomycin. 6. History of congestive heart failure. Check a chest x-ray and brain natriuretic peptide (BNP). The patient is in septic shock. Required multiple IV fluid boluses to keep systolic pressure above 90. At this time, she is not exhibiting any significant respiratory distress. Will monitor. Repeat chest x-ray in the morning. Check a BNP level and strict I and O. Once stable, the patient may be transferred to progressive care unit (PCU). 7. Type 2 diabetes. Check A1c. Full-liquid diet for now due to abdominal pain. Fingersticks before food and at bedtime with sliding scale coverage and hypoglycemic protocol. 8. Chronic hypoxic respiratory failure, on 2 liters of home oxygen due to severe chronic obstructive pulmonary disease and obstructive sleep apnea. Keep saturations at 88% to 92%. 9. Hyperlipidemia, chronic. Hold on oral medications for now. The patient is being stabilized for septic shock. 10. History of cerebrovascular accident. Continue home dose of Plavix. 11. Hypothyroidism. Continue on Synthroid. Check thyroid-stimulating hormone (TSH). 12. History of chronic obstructive pulmonary disease. Nebulizer treatments as needed and Breo Ellipta. 13. Deep venous thrombosis (DVT) prophylaxis with compression stockings, heparin subcutaneously. The patient will be assigned to Dr. Chaya Yao at 7 a.m. on 12/10/2016.
[2016-12-10] MEDS: VASOPRESSIN INJ 20 UNITS in NS 500 ML IV SCH ×2 (10:17→18:51)
[2016-12-10] MEDS: MEROPENEM INJ 500 MG in D5W MINI-BAG PLUS 100 ML IV SCH ×2 (10:19→21:52)
--- NOTE | 2016-12-10 10:31 | PHACANCOPD ---
PHARMACY VANCOMYCIN DOSING Pt Demographics Demographics Patient Age:61 , Weight:144.100 , Gender: female Adjusted Body Weight Date: 12/10/16, Adjusted Body Weight: [113] Kg Vancomycin Vancomycin indication: UTI Vancomycin Target Ranges: 10-20 mcg/ml Vancomycin Load Y/N: Yes Load Dose Date Time Vancomycin Load Dose: 2000MG Date: 12-10 Time: 0100 Vancomycin Dose Date: 12/10/16. Current Vancomycin Dose: Intermittent Dosing?: Yes Labs Labs Item Value Date Time White Blood Count 25.1 K/mm3 H 12/09/16 1902 White Blood Count 24.1 K/mm3 H 12/10/16 0510 Creatinine 4.14 MG/DL H 12/10/16 0510 Creatinine 4.28 MG/DL H 12/10/16 0903 Random Vancomycin Level 34.3 UG/ML 12/10/16 0510 Micro Microbiology 12/09/16 Blood Culture, Received Pending 12/09/16 Blood Culture - Preliminary, Resulted 12/10/16 Respiratory Virus Panel (PCR) ([facility]), Received Pending 12/10/16 MRSA Screen, Received Pending 12/10/16 Urine Culture, Received Pending 12/09/16 Urine Culture, Received Pending Creatinine Clearance Date:12/10/16. Creatinine Clearance: [15]. Pending Labs Random -16 in am Assessment and Plan Maintaining Current Dose?: Yes Reason for dose change: No Dose Change Pharmacist Note Pharmacist Note Date: 12/10/16. Pharmacist note: Vanco random was drawn 2 hours post vanco loading dose. Patient has micro history positive for ESBL Klebsiella Pneumonia in the urine. Another Vanco random is sheduled for tomorrow morning (12/11). Continue intermittent dosing and adjust as needed. Date: 12/10/16. Pharmacist note:Dosed intermittent by levels. First random ordered for 12-10 @0600. Will continue to monitor and make adjustments as needed. STEPHANIE VANN PHARMACY Dec 10, 2016 10:31
[2016-12-10] MEDS: ACETAMINOPHEN 650 MG SUPP PR PRN ×3 (11:13→17:56)
[2016-12-10] MEDS: PANTOPRAZOLE 40MG INJ (PROTONIX) (C9113) IV SCH (11:15)
--- NOTE | 2016-12-10 15:25 | CR ---
DATE OF CONSULTATION: 12/10/2016 CONSULTATION REPORT FOR: Anna Dockery MD REASON FOR CONSULTATION: Is acute renal failure in this lady with septic shock. HISTORY OF PRESENT ILLNESS: Ms. Wood is a 61-year-old morbidly obese lady with multiple chronic medical problems including a history of diabetes, COPD, morbid obesity, coronary artery disease, with prior stroke, history of kidney stones, recurrent urinary tract infections and history of congestive heart failure. She was brought to the emergency room last evening due to generalized weakness and diarrhea. She was found to be hypotensive, blood pressure in 60s. Temperature was up to 103 degrees Fahrenheit. She is admitted to intensive care unit and is currently receiving IV Levophed and Wisam-Synephrine. She also received multiple fluid boluses of normal saline. Nephrology consultation was requested this morning and the patient is seen in intensive care unit. PAST MEDICAL AND SURGICAL HISTORY: Significant for: 1. Type 2 diabetes. 2. Hypertension. 3. COPD. 4. Obstructive sleep apnea. 5. Coronary artery disease. 6. History of recurrent urinary tract infections. 7. History of CHF. 8. History of prior CVA. 9. History of kidney stones. 10. History of spinal stenosis. 11. History of pituitary tumor. Surgical history is significant for hysterectomy, appendectomy, tubal ligation, bladder suspension surgery, ureteral stent for stones, and a breast lump removal. PERSONAL AND SOCIAL HISTORY: The patient lives by herself with day care provider. She has quit smoking 15 years ago. There is no history of drug or alcohol use. FAMILY HISTORY: Mother had lung problems and father's sister also had breast cancer. There is no family history for end-stage renal disease. REVIEW OF SYSTEMS: The patient is quite obtunded at present and not able to provide much information. Her day care provider is present in the room who reported that she had diarrhea and not feeling well for a few days. She did have a fever up to 103 degrees Fahrenheit and poor oral intake. No other relevant information is available. PHYSICAL EXAMINATION: Morbidly obese lady laying in bed with temperature of 99.2 degrees Fahrenheit, heart rate 80 per minute and respiratory rate 24 per minute. Blood pressure is 69/40 mmHg and oxygen saturation 91% on 5 liters oxygen. Head is atraumatic. Neck is obese and JVD is difficult to be assessed. Oral mucosa is dry. Heart sounds are distant and regular. Lungs have poor inspiratory effort and moderate air entry. Abdomen is obese and nontender. Bowel sounds are present. Extremities have no cyanosis or clubbing. Skin has no rash or ulcers. Neurologically she is quite obtunded and not able to answer any questions at this point. LABORATORY DATA: Today's labs show WBC count 24.1, hemoglobin 12.2 and hematocrit 38.7. Platelets 362. Blood gas showed a pH of 7.35, pCO2 of 34.8, pO2 60 and bicarbonate 19. Sodium is 138 and potassium 4.5. Chloride 103, CO2 20, BUN 77 and creatinine 4.28. Glucose 144 and lactic acid level 4.0. Calcium level is 7.9 and a C-reactive protein 24.5. Blood cultures preliminary report showed gram-negative rods. Her urinalysis showed too numerous to count WBCs and too numerous to count RBCs. A random vancomycin level is 34.3 this morning. She had CT scan of abdomen and pelvis done in the emergency room which showed markedly lobulated liver compatible with cirrhosis, mildly enlarged spleen, distended gallbladder with a single gallstone about 5 mm in size, status post complete hysterectomy and bilateral opacities compatible with multifocal pneumonia versus aspiration. Sigmoid diverticulosis without any evidence for acute diverticulitis. There was no hydronephrosis. Chest x-ray showed interstitial coarsening compatible with infiltrates and cardiomegaly. PROBLEMS: 1. Septic shock. The patient has history of recurrent urinary tract infections. She most likely has urosepsis with gram-negative bacteremia. She has been on meropenem and pressors. She is currently on Levophed and Wisam-Synephrine. I have discussed with Dr. Orozco who has updated me and has a plan to switch Wisam-Synephrine with vasopressin. Her blood pressure remains low despite many fluid boluses of normal saline. I suggest to continue with IV normal saline and pressors. 2. Acute renal failure. This is related to septic shock. The patient is oliguric at present. I suggest to continue with aggressive IV fluid hydration. She is not suitable for dialysis at this point and there is no indication for dialysis. At this point there is no indication for dialysis as her electrolytes are reasonably stable and she does not have metabolic acidosis. I thank you for involving me in the care of Ms. Wood. I will follow her along with you.
--- NOTE | 2016-12-10 18:28 | REP ---
RIGHT UPPER QUADRANT ULTRASOUND: Real-time sonographic evaluation of the right upper quadrant performed. The study is limited due to patient body habitus and inability to suspend respirations. Gallbladder demonstrates intraluminal sludge but no stones. There is no gallbladder wall thickening. The gallbladder is moderate distended. No free fluid is seen. The common bile duct is upper limits of normal in diameter at 7 mm. The liver and pancreas are grossly unremarkable with no definite mass. The pancreas is not optimally seen due to overlying bowel gas. The right kidney demonstrates no hydronephrosis or nephrolithiasis with normal size at 10.1 cm in length. IMPRESSION: Moderately distended gallbladder contains mild sludge, but no stones. No gallbladder wall thickening, pericholecystic fluid or significant biliary dilatation. Common bile duct 7 mm, upper limits of normal in diameter. Signed by Yosef Harris MD 12/11/2016 05:07 P
--- NOTE | 2016-12-10 19:19 | RO ---
DATE OF PROCEDURE: 12/10/2016 PREPROCEDURE DIAGNOSIS: Septic shock. POSTPROCEDURE DIAGNOSIS: Septic shock. PROCEDURE: Right femoral arterial line. SURGEON: Dr. Hilary Orozco BUSINESS SERVICES ANALYST: none ANESTHESIA: 1% local lidocaine. ESTIMATED BLOOD LOSS: 10 mL. SEDATION: None. VENTILATION: Oxygen via nasal cannula. DESCRIPTION OF PROCEDURE: The patient was placed in supine position. Ultrasound was used to locate patient's right femoral artery. The site was cleaned with Chloraprep and covered in a sterile manner. Ultrasound probe with sterile cover was used. 1% local lidocaine was injected superficially with ultrasound guidance. Subsequently, needle was reinserted, aiming towards the right femoral artery and a flash of blood was obtained. Wire was threaded through the needle and arterial line was placed via Seldinger technique over the guidewire and guidewire was removed. Subsequently, the line placement was confirmed with wave tracing and blood return. Patient tolerated the procedure with no complications. INDICATION FOR PROCEDURE: Frequent arterial blood draws as well as patient on pressor support with continuous blood pressure monitoring. JAYDEN
--- NOTE | 2016-12-10 20:27 | IPN ---
DATE: 12/10/2016 CRITICAL CARE NOTE Patient seen and examined in the intensive care unit (ICU), currently hypotensive, blood pressure is in the 60s and barely responsive, lethargic, arousable, withdrawn to pain, spontaneous movement of upper and lower extremities but cannot give history. Overnight, left subclavian triple lumen central line was placed by general surgeon, Dr. Preston, and right femoral arterial line was placed at the bedside. VITAL SIGNS: Temperature 98.9, pulse 97, respirations 24, blood pressure initially 69/50, later after pressor switch has improved to about 97/51, pulse oximetry 94% on continuous positive airway pressure (CPAP) now. LABORATORY: WBC 24.1, hemoglobin and hematocrit 12.2 over 38.7, platelets 362. Chemistry: Sodium 138, potassium 4.5, chloride 103, bicarbonate 20, BUN 77, creatinine 4.28, lactic acid 4, improved to 3.3, bilirubin 2.5, total CK 7081, troponin 0.86, C-reactive protein 24.5. PHYSICAL EXAMINATION: GENERAL: Patient morbidly obese, arousable but not really following commands and does not answer questions. This is a significant deterioration from previous. HEENT: Normocephalic, obese, atraumatic. Dry mucous membranes. NECK: Short and stubby. PULMONARY: Diminished breath sounds bilaterally. No wheeze, rales or rhonchi. CARDIAC: Regular rate and rhythm. Distant heart sounds. S1, S2. ABDOMEN: Soft, obese, nontender, costovertebral angle tenderness. EXTREMITIES: 1+ edema bilateral lower extremities. NEUROLOGIC: Patient withdraws to pain bilateral lower extremities, barely arousable. ASSESSMENT AND PLAN: This is a 61-year-old female patient with underlying medical history of liver abscess 2016 with extended spectrum beta-lactamase (ESBL) Escherichia (E) coli, chronic kidney disease, acute kidney injury ([place]), type 2 diabetes, chronic hypertension, obstructive sleep apnea, poor compliance, chronic obstructive pulmonary disease (COPD), congestive heart failure (CHF), chronic hypoxic respiratory failure, osteoarthritis, coronary arterial disease, cerebrovascular accident (CVA), gastroesophageal reflux disease (GERD), kidney stones, spinal stenosis, history of pituitary tumors, internal hemorrhoids, colonic polyps and chronic hypoxic respiratory failure on two liters of oxygen, presented to the emergency room with complaints of diarrhea, fevers, dysuria, flank pain, anorexia, found to be in septic shock. Problems: 1. Septic shock, possibly secondary to urinary tract infection (UTI) versus pneumonia. History of ESBL urinary tract infection. Currently antibiotics are meropenem and vancomycin. CT of the abdomen appreciated. Followup cultures. Clostridium difficile (C diff) was negative. Initially on vancomycin oral. Received a total of 5 liters of normal saline, CVP at 22. Fluids have been discontinued. Patient currently on Levophed and vasopressin. Arterial line for continuous blood pressure monitoring. Followup urine output. Seems to be mildly improved. Followup lactic acid, daily weight. 2. Encephalopathy secondary to septic shock. Recommendation as above. Nothing by mouth right now. 3. Acute on chronic renal failure. Chronic kidney disease stage III baseline. Secondary to dehydration and septic shock. Currently IV fluids have been given, Levophed and vasopressin. Strict intake and output, daily weight. Nephrology has been consulted. Claire catheter in place. CT scan of the abdomen appreciated. History of ESBL UTI and Klebsiella. 4. Transaminitis with elevated bilirubin. Patient has a known history of cholelithiasis. Initially denies any biliary colic pain. Continue to monitor liver function. Ultrasound and CT scan has been done. We will continue to monitor. Also, alternative explantation KIM. 5. Diarrhea. Gastrointestinal (GI) panel negative. Initially on vancomycin, currently discontinued. Continue to monitor. 6. History of congestive heart failure. Chest x-ray appreciated. CVP seems to be elevated. The patient also has pulmonary artery hypertension. Multiple IV fluids have been given. Continue CPAP, strict intake and output and daily weight. 7. Type 2 diabetes. Followup insulin. Nothing by mouth right now, every 6 hours fingerstick, nothing by mouth protocol. 8. Chronic hypoxic respiratory failure, on 2 liters of oxygen at home for severe COPD and obstructive sleep apnea, not compliant with CPAP as per Dr. Jameson. Currently on CPAP. Will continue to monitor the patient to see if the patient tolerates. 9. Dyslipidemia. Holding oral medications given patient is nothing by mouth. 10. Hypothyroidism. Synthroid converted to IV. 11. History of cerebrovascular accident. Patient currently is nothing by mouth. Will restart Plavix once the patient tolerates. 12. History of chronic obstructive pulmonary disease. Nebulizer treatment as needed. 13. Morbid obesity. Complicating care. 14. Poor compliance. Complicating care. 15. Deep vein thrombosis (DVT) prophylaxis. Compression stockings, subcutaneous heparin. DISPOSITION: Patient with multiple comorbidities, poor overall prognosis. Case discussed with Dr. Jameson, family and the patient prior to encephalopathy had decided that she wanted to be FULL CODE. Critical time spent exclusive of procedure: 40 minutes. ADDENDUM: Addendum to critical care note dictated on 12/10/2016 Please add to the problem list of septic shock: Patient initially on Wisam-Synephrine and Levophed. Later Wisam-Synephrine was switched to vasopressin with significant improvement of blood pressure on the arterial line tracing. Will wean Levophed as tolerated.
--- NOTE | 2016-12-10 22:28 | ECHO ---
DATE OF PROCEDURE: 12/10/2016 REFERRING PHYSICIAN: Dr. Orozco Study was performed on 12/10/2016 for indication sepsis. The patient measures 165 cm and weighs 144 kg. DIMENSIONS: IVS: 1.6 LV: 4.8 LVPW: 1.6 LA: 4.2 Aorta: 3.0 FINDINGS: The study is of rather limited technical quality corresponding to patient's body habitus. The patient is in sinus rhythm. Left ventricle is of normal size and grossly normal contractility based on limited views. I certainly cannot rule out subtle wall motion abnormalities but overall left ventricular systolic function is normal or near normal. Right ventricle does not appear grossly enlarged. Left atrium is at least mildly enlarged. Right atrium was poorly seen. Aortic, mitral and tricuspid valves appear grossly normal. Pulmonic valve was not well seen. No pericardial effusion is noted. Inferior vena cava is normal size. Aortic root is normal, aortic arch was not well visualized. Abdominal aorta appears normal. Doppler interrogation reveals no aortic stenosis or insufficiency. There is probably mild or trace mitral insufficiency and mild tricuspid insufficiency. Calculated pulmonary artery pressure is within normal limits, but quality of TR jet was fair and this should not be considered completely reliable. Mitral inflow pattern and tissue Doppler imaging of mitral annulus revealed normal diastolic functional of left ventricle, tissue Doppler velocities of septal and lateral mitral annulus are 6.8 and 11.4 cm/s respectively. CONCLUSIONS: 1. Study is of limited technical quality. 2. Normal LV size with moderate left ventricular hypertrophy and normal LV systolic function. Likely normal diastolic function. 3. No significant valvular disease. 4. Normal central venous pressure and likely normal pulmonary artery pressure. COMMENTS: Subacute bacterial endocarditis (SBE) prophylaxis is not recommended. The patient hypotension is not due to cardiac dysfunction. [facility]
--- NOTE | 2016-12-10 22:56 | IPNPDOC ---
Text Note Date of Service The patient was seen on 12/10/16. NOTE Resident and evening hospitalist were called regarding patient has elevated troponin. Patient was evaluated at bedside. Dr. Orozco was contacted and recommended consulting cardiology. In the mean time EKG was obtained shows SR VR 95, similar to previous EKG yesterday. Cardiology Dr. Blunt recommended one time dose of PO plavix as long she can tolerate it due to she has Aspirin allergy. And a repeat EKG in the morning. Patient denies any chest pain and shortness of breath even when she is on high flow nasal cannula. She also admits to some shoulder back and pain in her abdomen. Abdominal exam shows she has a soft abdomen. She also had a recent CT of abdomen that didn't show any acute intra abdominal findings. Will do serial abdominal exams and repeat imaging if needed. Patient has been discussed with attending Dr. Dill. VS,Christine, I+O VSChristine, I+O Laboratory Tests 12/10/16 00:16 Calcium Level 9.4, Total Creatine Kinase 1320 #H 12/10/16 05:10 Calcium Level 8.0 L, Total Creatine Kinase 1150 H, Red Blood Count 4.48, Mean Corpuscular Volume 86.4, Mean Corpuscular Hemoglobin 27.3, Mean Corpuscular Hemoglobin Concent 31.6 L, Red Cell Distribution Width 15.0 H 12/10/16 09:03 Calcium Level 7.9 L, Phosphorus Level 3.6, Aspartate Amino Transf (AST/SGOT) 174 H, Alanine Aminotransferase (ALT/SGPT) 78, Alkaline Phosphatase 236 H, Total Bilirubin 2.4 #H, Total Protein 6.0 L, Albumin 2.5 L Vital Signs Date Time Temp Pulse Resp B/P (MAP) Pulse Ox O2 Delivery O2 Flow Rate FiO2 12/10/16 22:03 101.0 94 22 129/60 (83) 93 Nasal Cannula 5.0 145/64 (91) I&O- Last 24 Hours up to 6 AM 12/10/16 05:59 Intake Total 3270 ml Output Total 285 ml Balance 2985 ml GME ATTESTATION GME ATTESTATION My preceptor for this patient encounter was physically present in the building during the encounter and was fully available. As needed, all aspects of the patient interview, examination, medical decision making process, and medical care plan development were reviewed and approved by the preceptor. Preceptor is aware and concurs with the plan as stated in the body of this note and will attest to such by his/her cosignature. TEETEE MUJICA DO Dec 10, 2016 22:56
[2016-12-10] MEDS: oxyCODONE 5MG TAB PO PRN (22:59)
[2016-12-10] MEDS ORDERED: CLOPIDOGREL 75 MG TAB PO ONE (23:00)
[2016-12-11] VITALS (38 sets, daily range): BP systolic 83–136; BP diastolic 41–72
[2016-12-11] MEDS: VASOPRESSIN INJ 20 UNITS in NS 500 ML IV SCH (03:27)
[2016-12-11] MEDS: NOREPINEPHRINE BITARTRATE 16 MG in D5W 500 ML IV SCH ×11 (03:28→17:00)
[2016-12-11 05:33] LABS: BASO # 0.1 K/mm3 (0.0-0.2); BASO % 0.3 % (0.0-1.0); LARGE UNSTAINED CELL # 0.5 K/mm3 (0.0-0.4); LARGE UNSTAINED CELL % 1.9 % (0.0-4.0); LYMPH # 1.6 K/mm3 (1.5-4.5); LYMPH % 5.1 % (24.0-44.0); MEAN CORPUSCULAR HEMOGLOBIN 28.2 pg (27.0-33.0); MEAN CORPUSCULAR HGB CONC 33.4 g/dl (32.0-36.5); MEAN CORPUSCULAR VOLUME 84.4 fl (80.0-96.0); MONO % 4.2 % (0.0-5.0); NEUTROPHILS # 20.8 K/mm3 (1.8-7.7); NEUTROPHILS % 88.5 % (36.0-66.0); RED CELL DISTRIBUTION WIDTH 15.4 % (11.5-14.5); WHITE BLOOD COUNT 23.5 K/mm3 (4.0-10.0)
[2016-12-11 05:34] LABS: ABG BASE EXCESS -5.6 (-2.0-2.0); ABG HCO3 18.5 MEQ/L (22.0-26.0); ABG PARTIAL PRESSURE CO2 31.9 mmHg (35.0-45.0); ABG PARTIAL PRESSURE O2 83.4 mmHg (75.0-100.0); ABG STANDARD HCO3 19.9 MEQ/L (22.0-26.0); ABG TOTAL CO2 19.5 MEQ/L (23.0-31.0); ABG pH (ARTERIAL) 7.382 UNITS (7.350-7.450)
[2016-12-11] MEDS: ACETAMINOPHEN TAB 650MG DOSE (2X325MG) PO PRN (05:36)
[2016-12-11 05:40] LABS: PLATELET COUNT, AUTOMATED 268 k/mm3 (150-450)
[2016-12-11 05:53] LABS: INR 1.4
[2016-12-11 05:55] LABS: ALBUMIN 2.4 GM/DL (3.2-5.2); ALBUMIN/GLOBULIN RATIO 0.67 (1.00-1.93); BILIRUBIN,TOTAL 2.6 MG/DL (0.2-1.0); CALCIUM LEVEL 7.1 MG/DL (8.8-10.2); CREATININE FOR GFR 3.62 MG/DL (0.55-1.02); GLOMERULAR FILTRATION RATE 13.6 (>45); MAGNESIUM LEVEL 2.2 MG/DL (1.8-2.4); POTASSIUM SERUM 4.8 MEQ/L (3.5-5.1); VANCOMYCIN RANDOM 12.9 UG/ML
--- NOTE | 2016-12-11 06:06 | PHACANCOPD ---
PHARMACY VANCOMYCIN DOSING Pt Demographics Demographics Patient Age:61 , Weight:144.000 , Gender: female Adjusted Body Weight Date: 12/10/16, Adjusted Body Weight: [113] Kg Events Past 24 Hours Events Past 24 Hours: NO: Dialysis, Diuretic Therapy, Change in CrCl, Fever, Elevation in WBC, Pending Diagnostics, Pending Procedures, Other Vancomycin Vancomycin indication: UTI Vancomycin Target Ranges: 10-20 mcg/ml Vancomycin Load Y/N: Yes Load Dose Date Time Vancomycin Load Dose: 2000MG Date: 12-10 Time: 0100 Vancomycin Dose Date: 12/11/16. Current Vancomycin Dose: [1000mg @0900] Intermittent Dosing?: Yes Labs Labs Item Value Date Time White Blood Count 23.5 K/mm3 H 12/11/16 0500 Creatinine 3.62 MG/DL H 12/11/16 0500 Blood Urea Nitrogen 80 MG/DL H 12/11/16 0500 Random Vancomycin Level 12.9 UG/ML 12/11/16 0500 Vital Signs Label Value Date Time Patient Temperature 99.0 degrees F 12/11/16 0404 Temperature Source Temporal 12/11/16 0404 Micro Microbiology 12/09/16 Blood Culture - Preliminary, Resulted No growth after 24 hours . All specim... 12/09/16 Blood Culture - Preliminary, Resulted 12/10/16 Gastrointestinal Tract Panel (PCR) - Final, Complete 12/10/16 Respiratory Virus Panel (PCR) (SILVIA) - Final, Complete 12/10/16 MRSA Screen, Received Pending 12/10/16 Urine Culture, Received Pending 12/09/16 Urine Culture, Received Pending Creatinine Clearance Date:12/10/16. Creatinine Clearance: [15]. Pending Labs Random - in am Assessment and Plan Maintaining Current Dose?: Yes Reason for dose change: No Dose Change Pharmacist Note Pharmacist Note Date: 12/10/16. Pharmacist note: Random level of 12.9 is within target range. Will dose with 1000mg -16 @0900. Random level scheduled for - in am. Will continue to monitor and make adjustments as needed. [facility] Dec 11, 2016 06:06
[2016-12-11] MEDS: HEPARIN SOD (PORCINE) 5000 UNITS/ML VIAL SQ SCH ×3 (06:49→22:56)
[2016-12-11] MEDS: HumaLOG INSULIN (NovoLOG) PER UNIT SC SCH ×3 (06:49→22:57)
[2016-12-11] MEDS: CLOPIDOGREL 75 MG TAB PO SCH (08:48)
[2016-12-11] MEDS: LEVOTHYROXINE 88MCG TABLET (0.088 MG) PO SCH (08:49)
[2016-12-11] MEDS: MEROPENEM INJ 500 MG in D5W MINI-BAG PLUS 100 ML IV SCH ×2 (08:49→22:57)
[2016-12-11] MEDS ORDERED: LEVEMIR (INSULIN DETEMIR) 1 UNITS/0.01ML SC SCH ×2 (09:00→21:00)
[2016-12-11] MEDS ORDERED: LEVEMIR (INSULIN DETEMIR) 1 UNITS/0.01ML SC ONE (10:00)
[2016-12-11] MEDS: oxyCODONE 5MG TAB PO PRN (10:58)
[2016-12-11] MEDS ORDERED: HumaLOG INSULIN (NovoLOG) PER UNIT SC SCH (12:00)
[2016-12-11] MEDS: PANTOPRAZOLE 40MG INJ (PROTONIX) (C9113) IV SCH (12:16)
[2016-12-11] MEDS ORDERED: SODIUM CHLORIDE 0.9% INJ 10 ML SYR IV PRN (14:00)
[2016-12-11] MEDS ORDERED: NS 1,000 ML IV SCH (14:00)
[2016-12-11] MEDS ORDERED: SLF 3 ML SYR IV PRN (14:00)
[2016-12-11] MEDS: SODIUM CHLORIDE 0.9% INJ 10 ML SYR IV SCH ×2 (14:10→22:58)
[2016-12-11] MEDS: SLF 3 ML SYR IV SCH ×2 (14:11→22:58)
[2016-12-12] VITALS (24 sets, daily range): BP systolic 98–132; BP diastolic 48–74
[2016-12-12] MEDS: oxyCODONE 5MG TAB PO PRN ×2 (00:28→18:12)
[2016-12-12 04:48] LABS: BASO % 0.1 % (0.0-1.0); EOS % 0.2 % (0.0-3.0); LARGE UNSTAINED CELL # 0.3 K/mm3 (0.0-0.4); LARGE UNSTAINED CELL % 2.1 % (0.0-4.0); LYMPH # 1.3 K/mm3 (1.5-4.5); LYMPH % 5.8 % (24.0-44.0); MEAN CORPUSCULAR HGB CONC 32.1 g/dl (32.0-36.5); MEAN CORPUSCULAR VOLUME 84.1 fl (80.0-96.0); MONO # 0.7 K/mm3 (0.0-0.8); MONO % 4.3 % (0.0-5.0); NEUTROPHILS # 14.2 K/mm3 (1.8-7.7); NEUTROPHILS % 87.5 % (36.0-66.0); PLATELET COUNT, AUTOMATED 213 k/mm3 (150-450); RED CELL DISTRIBUTION WIDTH 15.2 % (11.5-14.5); WHITE BLOOD COUNT 16.2 K/mm3 (4.0-10.0)
[2016-12-12 04:54] LABS: INR 1.09
[2016-12-12 04:56] LABS: ALBUMIN 2.1 GM/DL (3.2-5.2); ALBUMIN/GLOBULIN RATIO 0.58 (1.00-1.93); CALCIUM LEVEL 6.6 MG/DL (8.8-10.2); CREATININE FOR GFR 2.76 MG/DL (0.55-1.02); GLOMERULAR FILTRATION RATE 18.6 (>45); MAGNESIUM LEVEL 2.7 MG/DL (1.8-2.4); POTASSIUM SERUM 4.8 MEQ/L (3.5-5.1); TOTAL PROTEIN 5.7 GM/DL (6.4-8.2)
[2016-12-12] MEDS: NS 1,000 ML IV SCH ×2 (05:03→19:50)
--- NOTE | 2016-12-12 05:08 | PHACANCOPD ---
PHARMACY VANCOMYCIN DOSING Pt Demographics Demographics Patient Age:61 , Weight:146.800 , Gender: female Adjusted Body Weight Date: 12/10/16, Adjusted Body Weight: [113] Kg Events Past 24 Hours Events Past 24 Hours: NO: Dialysis, Diuretic Therapy, Change in CrCl, Fever, Elevation in WBC, Pending Diagnostics, Pending Procedures, Other Vancomycin Vancomycin indication: UTI Vancomycin Target Ranges: 10-20 mcg/ml Vancomycin Load Y/N: Yes Load Dose Date Time Vancomycin Load Dose: 2000MG Date: 12-10 Time: 0100 Vancomycin Dose Date: 12/12/16. Current Vancomycin Dose: [1000mg @0500] Intermittent Dosing?: Yes Labs Labs Item Value Date Time White Blood Count 16.2 K/mm3 H 12/12/16 0413 Creatinine 3.62 MG/DL H 12/11/16 0500 Random Vancomycin Level 7.9 UG/ML 12/12/16 0413 Vital Signs Label Value Date Time Patient Temperature 98.0 degrees F 12/12/16 0400 Temperature Source Temporal 12/12/16 0400 Micro Microbiology 12/09/16 Blood Culture - Preliminary, Resulted No Growth after 48 hours. All Specime... 12/09/16 Blood Culture - Preliminary, Resulted 12/10/16 Gastrointestinal Tract Panel (PCR) - Final, Complete 12/10/16 Respiratory Virus Panel (PCR) (SILVIA) - Final, Complete 12/10/16 MRSA Screen - Final, Complete 12/10/16 Urine Culture - Final, Complete Escherichia Coli 12/09/16 Urine Culture - Final, Complete Escherichia Coli Creatinine Clearance Date:12/10/16. Creatinine Clearance: [15]. Pending Labs Random 18 in am Assessment and Plan Maintaining Current Dose?: Yes Reason for dose change: No Dose Change Pharmacist Note Pharmacist Note Date: 12/10/16. Pharmacist note: Random level of 7.9 is below target range. Will dose with 1000mg 12-12 @0500. Random level ordered for 0818 in am. Will continue to monitor and make adjustments as needed. [facility] Dec 12, 2016 05:08
[2016-12-12] MEDS ORDERED: VANCOMYCIN HCL 1,000 MG, VIAL MATE ADAPTER 1 EACH in D5W 250 ML IV ONE (05:15)
[2016-12-12] MEDS: LEVOTHYROXINE 88MCG TABLET (0.088 MG) PO SCH (05:57)
[2016-12-12] MEDS: HEPARIN SOD (PORCINE) 5000 UNITS/ML VIAL SQ SCH ×3 (05:58→21:48)
[2016-12-12] MEDS: SLF 3 ML SYR IV SCH ×3 (05:58→22:00)
[2016-12-12] MEDS: SODIUM CHLORIDE 0.9% INJ 10 ML SYR IV SCH ×3 (05:59→21:52)
[2016-12-12] MEDS ORDERED: MEROPENEM INJ 500 MG in D5W MINI-BAG PLUS 100 ML IV SCH (08:00)
[2016-12-12] MEDS: CLOPIDOGREL 75 MG TAB PO SCH (08:23)
[2016-12-12] MEDS: HumaLOG INSULIN (NovoLOG) PER UNIT SC SCH ×5 (08:24→21:51)
[2016-12-12] MEDS ORDERED: LEVEMIR (INSULIN DETEMIR) 1 UNITS/0.01ML SC SCH ×2 (09:00→21:00)
[2016-12-12] MEDS ORDERED: CALCIUM GLUCONATE 1,000 MG in D5W MINI-BAG PLUS 100 ML IV ONE (12:00)
[2016-12-12] MEDS: PANTOPRAZOLE 40MG INJ (PROTONIX) (C9113) IV SCH (12:37)
--- NOTE | 2016-12-12 13:16 | IPN ---
DATE: 12/11/2016 Patient seen and examined. No acute events overnight. Patient's blood pressure has improved significantly. Currently is weaning off of pressors. Almost off of Levophed. Will continue to wean the patient of vasopressin once the patient is off the Levophed. Patient lost some more weight today, making urine. Denies any chest pain, pressure, discomfort. Denies any shortness of breath. Overnight, patient had a troponin spike. Case was discussed with Dr. Blunt, likely secondary to patient's hypertension, septic shock on two pressors. Currently, patient is on Plavix, tolerating oral. No chest pain. EKG is appreciated. Denies any abdominal pain, pressure or discomfort Patient has not reported hungry. VITAL SIGNS: Temperature 97.8, pulse 78, respirations 20, blood pressure 102/55, pulse oximetry 95% on 4 liters nasal cannula. LABORATORY DATA: WBC 23.5, hemoglobin and hematocrit (H and H) 11.7/35, platelets 268. Chemistry: Sodium 138, potassium 4.8, chloride 104, bicarbonate 21, BUN 80, creatinine 3.6, lactic acid 0.9. Urine culture positive for huddleston-sensitive Escherichia (E) coli. Blood culture preliminary positive for gram-negative. PHYSICAL EXAMINATION: GENERAL: Patient morbidly obese, arousable. Following commands. In no acute distress. HEENT: Normocephalic, atraumatic. Moist mucous membranes. NECK: Supple and stubby. PULMONARY: Diminished breath sounds bilaterally. No wheezes, rales or rhonchi. CARDIAC: Regular rate and rhythm. Distant heart sounds. S1, S2. ABDOMEN: Soft, obese, nontender. Costovertebral angle (CVA) tenderness. EXTREMITIES: One plus bilateral lower extremity edema. NEUROLOGIC: Patient moves all four extremities. Currently is arousable. ASSESSMENT AND PLAN: This is a 61-year-old female patient with underlying medical history of liver abscess 2016 with extended-spectrum beta-lactamases (ESBL), Escherichia (E) coli, chronic kidney disease, acute kidney injury, type 2 diabetes, chronic hypertension, obstructive sleep apnea, poor compliance, chronic obstructive pulmonary disease (COPD), congestive heart failure, chronic hypoxic respiratory failure, osteoarthritis, coronary artery disease, cerebrovascular accident (CVA), gastroesophageal reflux disease (GERD), kidney stones, spinal stenosis, history of pituitary tumor, internal hemorrhoids, colonic polyps and chronic hypoxic respiratory failure on 2 liters oxygen at home, presented to hospital with complaints of diarrhea, fevers, dysuria, flank pain, anorexia, found to be in septic shock. PROBLEMS: 1. Septic shock secondary to urinary tract infection (UTI) versus pneumonia. History of extended-spectrum beta-lactamases (ESBL) urinary tract infection (UTI). Currently, patient on meropenem, vancomycin, pending culture. Likely with gram-negative bacteremia. Will taper antibiotics once cultures are finalized. CT scan of abdomen appreciated. Gastrointestinal (GI) panel negative for Clostridium (C) difficile. Vancomycin oral has been discontinued. IV fluids have initially been given. Currently weaning off pressors, Levophed and vasopressin. Patient is almost off of Levophed. Arterial line for continuous blood pressure monitoring. Lactic acidosis has improved. Followup kidney functions. Strict intake and output (I and O) and daily weight. 2. Encephalopathy secondary to septic shock. Currently improved. Will advance diet as the patient tolerates. 3. Acute on chronic renal failure. Chronic kidney disease (CKD) stage III at baseline. Secondary to septic shock. IV fluids initially provided. Kidney function and urine output has improved. Strict intake and output (I and O) and daily weight. Patient has a Claire catheter. 4. Transaminitis with elevated bilirubin. Patient with known history of cholelithiasis. Initially denies any biliary or cholic symptoms. Continue to monitor. Ultrasound and CT scan has been done. We will continue to monitor. Also, possible alternative explanation is nonalcoholic steatohepatitis (KIM). 5. Elevated cardiac enzymes. Likely demand ischemia. Cardiology consulted. Echocardiogram appreciated. Continue on Plavix. Cardiac enzyme trend to peak. 6. Diarrhea. Gastrointestinal (GI) panel is negative. Initially on vancomycin oral. Currently discontinued. Continue to monitor. 7. History of congestive heart failure. Echocardiogram appreciated. Strict intake and output (I and O) and daily weight. 8. Central venous pressure (CVP) elevated. Likely secondary to pulmonary artery hypertension. On continuous positive airway pressure (CPAP) . Strict intake and output (I and O) and daily weight. 9. Type [address] the patient on insulin basal bolus and reduce basal dosage given elevated kidney function. Follow up fingersticks. Diet as tolerated. 10. Chronic hypoxic respiratory failure. On 2 liters oxygen at home for severe chronic obstructive pulmonary disease (COPD), obstructive sleep apnea, not compliant with continuous positive airway pressure (CPAP) . Encourage CPAP. Oxygen supplementation. Case discussed with Dr. Jameson. 11. Dyslipidemia. Withholding oral medication given transaminitis. 12. Hypothyroidism. Continue Synthroid. 13. History of cerebrovascular accident (CVA). Continue Plavix. Will restart statin once transaminitis resolves. 14. History of chronic obstructive pulmonary disease (COPD). Nebulizer treatments as needed. 15. Morbid obesity. Complicating care. 16. Poor compliance. Complicating care. 17. Deep venous thrombosis (DVT) prophylaxis. Sequential compression devices and subcutaneously heparin. DISPOSITION: Patient with multiple comorbidities. Poor long-term prognosis. Fortunately, patient's condition seems to be improved. Patient remains FULL CODE. CRITICAL CARE TIME: Exclusive of procedures, 35 minutes.
--- NOTE | 2016-12-12 13:16 | CR ---
DATE OF CONSULTATION: 12/11/2016 REFERRING PHYSICIAN: Dr. Orozco INDICATION: Elevated troponin in the setting of probable urosepsis. HISTORY: Mrs. Wood is a 61-year-old morbidly obese female who presented to [facility] after approximately 1 day history of altered mental status and profound weakness. On presentation, she was markedly hypotensive and was found to be in septic shock. She has been treated with administration of fluids as well as pressors and her condition is slightly better today than it was yesterday. It looks like that the pressors will be slowly tapered off. The source is most likely urine as she has gram-negative rods growing from her blood culture and urine culture. I was asked to see the patient because the troponin that was drawn was elevated. The initial reading was 0.86 and it continues to raise and peaked last night at 2.5 with total CK of 12,000 and CK-MB 38 and negative relative index. Her ECG reveals presence of sinus rhythm, left anterior fascicular hemiblock and nonspecific repolarization abnormalities. It is not appreciably changed from the day before. An echocardiogram was performed yesterday that I interpreted. It revealed surprisingly a reasonable quality study considering her body habitus. There was preserved LV systolic function and I did not appreciate any segmental wall motion abnormalities. When I saw the patient at bedside, she had a BiPap on, but she was able to communicate. She denies feeling any chest discomfort today or yesterday. PAST MEDICAL HISTORY: 1. Hypertensive heart disease. 2. Morbid obesity. 3. Chronic renal insufficiency. 4. Obstructive sleep apnea, on C-PAP. 5. Hypertension. 6. Hypercholesterolemia. 7. Type 2 diabetes. 8. Chronic diastolic congestive heart failure. 9. There is no history of coronary artery disease. Her last coronary angiogram was in 2013 and revealed minimal nonobstructive coronary artery disease (CAD). OUTPATIENT MEDICATIONS: - allopurinol 100 two tablets in the morning - amlodipine 10 a day - atenolol 50 twice a day - atorvastatin 80 a day - Bentyl - Breo Ellipta - calcitriol - Demadex 100 mg 1/2 tablet a day - insulin - Lyrica 150 twice a day - meclizine 25 three times a day - Plavix 75 a day - sulindac as needed - Synthroid 75 mcg a day - Toujeo - Ventolin - Zanaflex - Zofran - vitamin D3 There is allergy or intolerance of: - ASPIRIN - CONTRAST - LEVOFLOXACIN - METRONIDAZOLE - NALBUPHINE - QUINOLONES - BACTRIM SOCIAL HISTORY: The patient is a nonsmoker, but used to smoke in the past. She lives with her family. There is no significant alcohol use. SURGICAL HISTORY: Positive for appendectomy, hysterectomy, laparotomy, resection of right breast mass, tubal ligation, and history of brain tumor. FAMILY HISTORY: Positive for coronary artery disease in her mother. PHYSICAL EXAMINATION: Mrs. Wood is a morbidly obese woman who appears to be older than her calendar age. She is in an intensive care unit (ICU) bed laying in a completely horizontal position with BiPap on. She answers simple questions, but there is no clear-cut communication possible. Vital signs reveal blood pressure 98/53 with mean 68 which is the lower than the A-line reading of 130/66. Heart rate has been in 80s in sinus rhythm. Saturation 95% on 5 liters of oxygen. She is currently afebrile. Her fluid balance yesterday was about 4 liters positive. Documented weight is 146.8 kg. Her jugular venous pulse (JVP) is still relatively low by physical exam, but by measurement it actually was over 15. I cannot comment on her neurologic status. She certainly appears appropriate based on limited communication and she moves all four extremities. Lungs are relatively clear to auscultation. I do not appreciate any wheezing, crackles or rhonchi. Heart exam reveals very muffled heart sounds, but regular rhythm and no gallop, rub or murmur. Abdomen is morbidly obese. I am unable to comment on possible organomegaly or masses. Bowel sounds are present. Extremities: Have mild edema. Peripheral pulses are palpable and I do not appreciate any skin lesions. LABORATORY DATA: Basic metabolic panel: Potassium 4.8, BUN 80, creatinine 3.6 and glucose 287. Elevated liver function tests, bilirubin 2.6, AST 657, ALT 216 , alkaline phosphatase 223. Cardiac enzymes as per history of present illness (HPI). CRP was 36 and albumin 2.4. CBC reveals WBC count 23.5 thousand, hemoglobin 11.7, hematocrit 35, platelet count 265,000. Her urine, initial one , had 2+ protein and positive for blood. Her culture so far she is growing E-coli from urine and the initial blood culture preliminary report indicates gram-negative rods. ASSESSMENT/PLAN: Mrs. Wood is a 61-year-old morbidly obese woman who has hypertensive heart disease and presented with likely urosepsis and septic shock. She has had aggressive management with volume resuscitation and pressor amines. In the process, she has troponin elevation without associated chest discomfort or wall motion abnormalities on echocardiogram. The presence of elevated troponin certainly indicates high risk, but it does not mean that she has acute coronary syndrome. It is likely a consequence of cytokine induced injury. Because she is allergic to aspirin, I do recommend to give her Plavix unless there is clear-cut contraindication. Otherwise, she should be managed for her principal concern which is still septic shock. She does not have any chest discomfort and I believe that at this point full anticoagulation carries higher risk than potential benefit. After, and if, she recovers from her current illness, we will reevaluate her for underlying coronary artery disease, but in my opinion, with essentially normal cardiac catheterization three years ago this is again most likely just a sign of just cytokine induced myocardial injury. JAYDEN
--- NOTE | 2016-12-12 13:20 | IPN ---
DATE: 12/12/2016 Mrs. Wood is much better. When I saw her this morning she is able to breathe on her own without support, just with supplemental oxygen. She is off pressors. Blood pressure is 112/53 by A-line, about 100 by noninvasive cuff. Heart rate is in 70s. She is afebrile. Saturation is 95% on 4 liters of oxygen. Fluid balance yesterday was slightly negative. Weight is documented at 145 kg. She is alert and oriented and appropriate. Heart sounds are very muffled, which is consistent with her morbid obesity. Lungs are clear. Abdomen is soft and without obvious tenderness and there is no peripheral edema. Neurologically she is weak, but otherwise intact. LABORATORY DATA: CBC reveals WBC count 16.2, hemoglobin 11.1, hematocrit 34 and platelet count 213,000. Basic metabolic panel potassium 4.0, BUN 90, creatinine 2.7 and glucose 343. Her CRP is still high at 27 and albumin is 2.1 ASSESSMENT/PLAN: Mrs. Wood is a 61-year-old female who presented with urosepsis resulting in shock. She required pressor support, but it looks like the situation is improving. She has grown E. coli from urine and also from blood and is receiving appropriate antibiotics. At this point, her blood pressure remained soft, but she is off pressors, so I do not believe that we need to restart any antihypertensive medications as yet. I was called because her troponin was elevated. There was no obvious evolution on ECG, but I am going to obtain followup tomorrow. I believe that this is almost certainly a consequence of her sepsis rather than thrombotic event. Her echo reveals preserved LV systolic function and she had normal coronary angiogram 3 years ago. We have started her on Plavix and I would continue now if she does not have any thrombocytopenia or any bleeding issues. I foresee that we will do yet another noninvasive evaluation after discharge, provided no additional events occur. I am going to sign off her care. Please contact me if further assistance is desired.
[2016-12-12] MEDS: cefTRIAXone SOD 2 GM in D5W MINI-BAG PLUS 50 ML IV SCH (13:39)
--- NOTE | 2016-12-12 17:57 | IPN ---
DATE: 12/12/2016 The patient is seen and examined. No acute events overnight. Denies any chest pain, pressure or discomfort. Currently comfortable. Reported diffuse myalgia that is coming back, requesting more pain medication. Denies any shortness of breath. VITAL SIGNS: Temperature 98.4, pulse 72, respirations 12, blood pressure 116/64, pulse oximetry 96% on four liters nasal cannula. LABORATORY: WBC 16.2, hemoglobin and hematocrit 11.1/34.5, platelets 213. Chemistry: Sodium 143, potassium 4.8, chloride 108, bicarbonate 23, BUN 90, creatinine 2.76. PHYSICAL EXAMINATION: GENERAL: Patient alert, following commands, morbidly obese, in no acute distress. HEENT: Normocephalic, atraumatic. Moist mucous membranes. NECK: Supple and stubby. PULMONARY: Diminished breath sounds bilaterally. No wheeze, rales or rhonchi. CARDIAC: Regular rate and rhythm. Distant heart sounds. Normal S1, S2. ABDOMEN: Soft, obese, nontender. Positive bowel sounds. EXTREMITIES: 1+ bilateral lower extremity edema. NEUROLOGIC: Moves all four extremities, currently following commands, verbal. ASSESSMENT AND PLAN: This is a 61-year-old female patient with underlying medical history of liver abscess in 2016 with extended spectrum beta-lactamase (ESBL) Escherichia (E) coli as well as chronic kidney disease (CKD), acute kidney injury, type 2 diabetes, hypertension, obstructive sleep apnea, poor compliance, chronic obstructive pulmonary disease (COPD), congestive heart failure (CHF), chronic hypoxic respiratory failure, osteoarthritis, coronary arterial disease, cerebrovascular accident (CVA), gastroesophageal reflux disease (GERD), kidney stones, spinal stenosis, history of pituitary tumors, internal hemorrhoids, colonic polyps and chronic hypoxic respiratory failure on two liters of oxygen at home who presented to the hospital with complaints of diarrhea, fevers, dysuria, flank pain, and found to be in septic shock. PROBLEMS: 1. Septic shock, secondary to urinary tract infection (UTI) with Escherichia (E) coli. Initially on meropenem and vancomycin. Currently culture appreciated with Escherichia coli bacteremia. Antibiotics adjusted to Rocephin. We will continue to monitor white blood cell (WBC) count, C-reactive protein. Cultures appreciated. Patient currently of pressor. We will remove the patient's arterial line. Patient has a triple lumen central line and lactic acidosis has resolved. Strict intake and output. Continue IV fluids. 2. Encephalopathy, secondary to septic shock, currently improved. Advance diet as tolerated. 3. Acute on chronic renal failure, baseline chronic kidney disease (CKD) stage III. Likely worsening kidney function due to septic shock. IV fluids. Kidney function and urine output has improved. Strict intake and output, daily weights. Claire catheter. Nephrology consulted. 4. Transaminitis with elevated bilirubin. Patient with known history of cholelithiasis. Initially denies any biliary colic symptoms. Continue to monitor. CT and ultrasound has been appreciated. Possibly alternative explanation is nonalcoholic steatohepatitis (KIM). 5. Elevated cardiac enzymes, likely demand ischemia. Consulted cardiology. Continue Plavix. Echocardiograms appreciated. Cardiac enzymes trend to peak. 6. Rhabdomyolysis. IV fluids. Followup creatine kinase (CK). Followup kidney function. 7. Diarrhea. Gastrointestinal (GI) panel negative. Initially on vancomycin oral, currently discontinued. Continue to monitor. 8. History of congestive heart failure. Echocardiogram appreciated. Strict intake and output, daily weight. Central venous pressure elevated, likely secondary to pulmonary artery hypertension. Continue continuous positive airway pressure (CPAP). Strict intake and output, daily weight. 9. Type 2 diabetes. Restarting insulin at reduced dose, adjust as needed, basal bolus insulin. Followup fingersticks. Diet as tolerated. 10. Chronic hypoxic respiratory failure. Patient on two liters of oxygen at home for severe COPD and obstructive sleep apnea, not very compliant with CPAP. Encouraged CPAP at night. Oxygen supplementation. Case discussed with Dr. Jameson. 11. Dyslipidemia. Withholding oral medications given transaminitis. 12. Hypothyroidism. Continue Synthroid. 13. History of cerebrovascular accident (CVA). Continue Plavix. Restart statin once transaminitis resolved. 14. History of chronic obstructive pulmonary disease. Nebulizer treatment as needed. 15. Morbid obesity. Complicating care. 16. Poor compliance. Complicating care. 17. Deep vein thrombosis (DVT) prophylaxis, heparin subcutaneously. DISPOSITION: Patient with multiple comorbidities, poor m[facility]p prognosis, but currently the patient seems to be improving.
--- NOTE | 2016-12-12 19:47 | ECGEPIP ---
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
--- NOTE | 2016-12-12 19:51 | ECGEPIP ---
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
[2016-12-12] MEDS: DICYCLOMINE INJ 20MG/2ML (J0500) IM SCH (21:00)
[2016-12-12] MEDS: tiZANidine 4 MG TAB PO SCH (21:47)
[2016-12-12] MEDS: LEVEMIR (INSULIN DETEMIR) 1 UNITS/0.01ML SC SCH (21:50)
--- NOTE | 2016-12-12 22:42 | IPN ---
DATE: 12/11/2016 Mrs. Wood is seen this morning on her bedside. She still is on low dose of Levophed. She is much more alert and responsive today. Yesterday she had severe hypotension and required two pressors. Today her condition has improved significantly. She also has improved urine output. PHYSICAL EXAMINATION: Temperature 97.8 degrees Fahrenheit, heart rate 82 per minute and respiratory rate 20 per minute. Blood pressure 110/56 mmHg and oxygen saturation 94% on 4 liters oxygen. Intake and output records from yesterday showed total intake 5900 and output 1900. Her head is atraumatic. Neck veins are difficult to assess due to short and thick neck. Her heart sounds are regular. Lungs have moderate bilateral air entry with poor inspiratory effort. Abdomen: Soft and nontender. Extremities: Have no cyanosis or clubbing. Neurologically she is much more alert and responsive today. Today's labs show WBC count 23.5, hemoglobin 11.7 and hematocrit 35.0. Sodium 138 and potassium 4.8. BUN 80 and creatinine 3.62. Her lactic acid level is down to 0.9. PROBLEMS: 1. Septic shock. The patient had a gram-negative rods in her blood and Escherichia coli (E. Coli) in the urine. She most likely has E. coli urosepsis. At this point, her blood pressure is improving and she is on low dose of Levophed. I suggest to cut down the IV fluids and maintain her systolic blood pressure just about 100 mmHg. She remains on meropenem pending final sensitivity of her cultures. 2. Acute renal failure superimposed on chronic kidney disease. Kidney function has started to improve and her urine output have picked up. There is no emergent indication for dialysis. 3. Rhabdomyolysis. Her CPK is gradually decreasing. She seems to be well hydrated with more than 4 liters of positive fluid balance. Her CPK is likely to improve further over next 24 hours.
[2016-12-13] VITALS (7 sets, daily range): BP systolic 98–136; BP diastolic 55–77
[2016-12-13 00:06] LABS: ORGANISM ID Not indicated. (.); SPECIMEN SOURCE Urine (.)
[2016-12-13] MEDS: ACETAMINOPHEN TAB 650MG DOSE (2X325MG) PO PRN ×2 (00:25→20:55)
[2016-12-13] MEDS: LEVOTHYROXINE 88MCG TABLET (0.088 MG) PO SCH (05:44)
[2016-12-13] MEDS: HEPARIN SOD (PORCINE) 5000 UNITS/ML VIAL SQ SCH ×3 (05:45→21:28)
[2016-12-13] MEDS: SLF 3 ML SYR IV SCH ×3 (05:45→21:21)
[2016-12-13] MEDS: SODIUM CHLORIDE 0.9% INJ 10 ML SYR IV SCH ×3 (05:46→21:21)
[2016-12-13 06:12] LABS: BASO % 0.1 % (0.0-1.0); EOS # 0.1 K/mm3 (0.0-0.50); EOS % 1.2 % (0.0-3.0); LARGE UNSTAINED CELL # 0.3 K/mm3 (0.0-0.4); LYMPH # 1.5 K/mm3 (1.5-4.5); LYMPH % 10.6 % (24.0-44.0); MEAN CORPUSCULAR HEMOGLOBIN 27.2 pg (27.0-33.0); MEAN CORPUSCULAR HGB CONC 32.1 g/dl (32.0-36.5); MEAN CORPUSCULAR VOLUME 84.8 fl (80.0-96.0); MONO # 0.6 K/mm3 (0.0-0.8); MONO % 5.1 % (0.0-5.0); NEUTROPHILS % 79.9 % (36.0-66.0); PLATELET COUNT, AUTOMATED 194 k/mm3 (150-450); RED CELL DISTRIBUTION WIDTH 15.1 % (11.5-14.5); WHITE BLOOD COUNT 11.2 K/mm3 (4.0-10.0)
[2016-12-13 06:19] LABS: INR 1.03
[2016-12-13 06:32] LABS: ALBUMIN/GLOBULIN RATIO 0.57 (1.00-1.93); BILIRUBIN,TOTAL 0.7 MG/DL (0.2-1.0); CALCIUM LEVEL 7.5 MG/DL (8.8-10.2); CREATININE FOR GFR 1.6 MG/DL (0.55-1.02); GLOMERULAR FILTRATION RATE 34.9 (>45); MAGNESIUM LEVEL 2.7 MG/DL (1.8-2.4); POTASSIUM SERUM 4.5 MEQ/L (3.5-5.1); TOTAL PROTEIN 5.5 GM/DL (6.4-8.2); VANCOMYCIN RANDOM 9.8 UG/ML
--- NOTE | 2016-12-13 07:55 | REP ---
Right forearm two views : There is no fracture or dislocation. Mineralization and joint spaces are normal. There are no calcifications or foreign bodies. Impression: Negative the forearm an intravenous cannula is incidentally noted. . Signed by Yosef Caceres MD 12/13/2016 07:48 A
--- NOTE | 2016-12-13 07:55 | REP ---
Right elbow three views : There is no fracture or dislocation. Mineralization and joint spaces are normal. There are no calcifications or foreign bodies. Impression: Negative right elbow . Signed by Yosef Caceres MD 12/13/2016 07:47 A
--- NOTE | 2016-12-13 07:56 | REP ---
Right shoulder two views: Both views are AP views. There is no lateral or axillary view. Both views are under penetrated. There is no gross evidence of fracture or dislocation. There is mild acromioclavicular osteoarthritis. No calcifications are identified. Impression: Acromioclavicular osteoarthritis. Otherwise, negative limited right shoulder study. Signed by Yosef Caceres MD 12/13/2016 07:49 A
[2016-12-13] MEDS: NS 1,000 ML IV SCH (08:00)
--- NOTE | 2016-12-13 08:10 | REP ---
Right upper extremity deep vein duplex ultrasound: The deep veins demonstrate normal compression, normal Doppler color flow and normal Doppler waveforms with respiration augmentation at multiple levels from the brachial veins to the jugular vein. Impression: No deep vein thrombus in the right upper extremity. The study is technically difficult because of patient body habitus and difficulty positioning the patient. Signed by Yosef Caceres MD 12/13/2016 08:02 A
[2016-12-13] MEDS: HumaLOG INSULIN (NovoLOG) PER UNIT SC SCH ×4 (08:15→20:54)
[2016-12-13] MEDS: LEVEMIR (INSULIN DETEMIR) 1 UNITS/0.01ML SC SCH ×2 (08:16→20:56)
[2016-12-13] MEDS: cefTRIAXone SOD 2 GM in D5W MINI-BAG PLUS 50 ML IV SCH (08:17)
[2016-12-13] MEDS: tiZANidine 4 MG TAB PO SCH ×3 (08:17→20:55)
[2016-12-13] MEDS: CLOPIDOGREL 75 MG TAB PO SCH (08:17)
[2016-12-13] MEDS: DICYCLOMINE INJ 20MG/2ML (J0500) IM SCH ×3 (08:18→21:20)
[2016-12-13] MEDS: PANTOPRAZOLE 40MG INJ (PROTONIX) (C9113) IV SCH (12:41)
[2016-12-13] MEDS: PREGABALIN 75 MG CAP(LYRICA) PO SCH ×2 (12:41→20:55)
--- NOTE | 2016-12-13 19:44 | IPN ---
DATE: 12/13/2016 Patient seen and examined. Much improved and much more awake today. Tolerating oral. Denies any chest pain, pressure, or discomfort, fevers, or chills. VITAL SIGNS: Temperature 96.2, pulse 67, blood pressure 111/56, pulse oximetry 97% on 3 liters nasal cannula. LABORATORY DATA: WBC 11.2, hemoglobin and hematocrit 11.2/35, platelets 194. Chemistry: Sodium 145, potassium 4.5, chloride 112, bicarbonate 24, BUN 74, creatinine 1.6. PHYSICAL EXAMINATION: GENERAL: Patient alert. Follows commands. Morbidly obese in no acute distress. HEENT: Normocephalic, atraumatic. Moist mucous membranes. NECK: Supple. PULMONARY: Diminished breath sounds bilateral. No wheezes, rales, or rhonchi. CARDIAC: Regular rate and rhythm. Distant heart sounds. S1, S2. ABDOMEN: Soft, obese, nontender. Positive bowel sounds. EXTREMITIES: 1+ bilateral lower extremity edema. NEUROLOGIC: Moves all four extremities. Follows commands. ASSESSMENT AND PLAN: This is a 61-year-old female patient with underlying medical history of liver abscess in 2016 with extended-spectrum beta lactamase (ESBL) Escherichia (E) coli as well as chronic kidney disease (CKD), type 2 diabetes, hypertension, obstructive sleep apnea, poor compliance at home, chronic obstructive pulmonary disease (COPD), congestive heart failure, chronic hypoxic respiratory failure, osteoarthritis, coronary artery disease, cerebrovascular accident (CVA), gastroesophageal reflux disease (GERD), kidney stones, spinal stenosis, history of pituitary tumor, internal hemorrhoids, colonic polyps, and chronic hypoxic respiratory failure, on 2 liters oxygen at home, presented to the hospital with complaints of diarrhea, fevers, dysuria, flank pain. Found to be in septic shock. 1. Septic shock secondary to urinary tract infection (UTI) E. coli, currently improved. Initially on meropenem and vancomycin. Currently switched to Rocephin. Patient with E. coli bacteria. Continue to monitor white blood cells (WBC), C-reactive protein. Cultures appreciated. Patient currently off pressors. Has a triple-lumen central line. Strict intake and output. Daily weight. 2. Encephalopathy secondary to septic shock, currently improved. 3. Acute on chronic renal failure. Baseline CKD, stage III. Worsening kidney function due to septic shock. Cloth Bleaching Supervisor consulted. Currently improved. Strict intake and output. Claire catheter. 4. Transaminitis with elevated bilirubin. Patient has no history of cholelithiasis. Possible alternative explanations: Shock liver. CT scan and ultrasound appreciated. Possible also nonalcoholic steatohepatitis (KIM). Will continue to monitor. 5. Elevated cardiac enzymes, likely demand ischemia. Consulted cardiology. Continue Plavix. Echo appreciated. Cardiac enzymes trend to peak. 6. Rhabdomyolysis. IV fluids have been given. Followup CPK. Followup kidney function. 7. Diarrhea. Gastrointestinal (GI) panel negative. Initially on oral vancomycin, which was discontinued. Continue to monitor. 8. History of congestive heart failure. Echo appreciated. Strict intake and output, daily weights. Central venous pressure elevated, likely secondary to pulmonary artery hypertension. Encourage continuous positive airway pressure (CPAP) compliance. 9. Type 2 diabetes. Insulin dose has been adjusted. Basal bolus. Adjust as needed. Diabetic diet. 10. Chronic hypoxic respiratory failure. Patient on 2 liters oxygen at home with severe COPD, obstructive sleep apnea, morbid obesity. Encourage CPAP compliance. Case discussed with Dr. Jameson. 11. Dyslipidemia, withholding oral medication given transaminitis. 12. Hypothyroidism. Continue Synthroid. 13. History of CVA. Continue Plavix. Will restart statin once transaminitis resolves. 14. History of COPD. Nebulizer treatment. 15. Morbid obesity complicating care. 16. Chronic pain. Restarting home medication, Lyrica at reduced dose. 17. Poor compliance complicating care. 18. Deep vein thrombosis (DVT) prophylaxis. Heparin subcutaneous. DISPOSITION PLANNING: Patient with multiple comorbidities, morbid obesity, poor long-term prognosis, but currently patient seems to be improving. Transfer to progressive care unit (PCU).
[2016-12-13] MEDS ORDERED: oxyCODONE 5MG TAB PO PRN (22:15)
[2016-12-14 04:00] VITALS: BP 130/60
[2016-12-14] MEDS: LEVOTHYROXINE 88MCG TABLET (0.088 MG) PO SCH (05:09)
[2016-12-14] MEDS: SODIUM CHLORIDE 0.9% INJ 10 ML SYR IV SCH ×3 (05:09→21:52)
[2016-12-14 05:11] LABS: BASO % 0.1 % (0.0-1.0); EOS # 0.2 K/mm3 (0.0-0.50); EOS % 2.7 % (0.0-3.0); LARGE UNSTAINED CELL # 0.3 K/mm3 (0.0-0.4); LARGE UNSTAINED CELL % 3.1 % (0.0-4.0); LYMPH # 1.2 K/mm3 (1.5-4.5); LYMPH % 15.2 % (24.0-44.0); MEAN CORPUSCULAR HGB CONC 31.7 g/dl (32.0-36.5); MEAN CORPUSCULAR VOLUME 85.3 fl (80.0-96.0); MONO # 0.5 K/mm3 (0.0-0.8); MONO % 6.3 % (0.0-5.0); NEUTROPHILS # 5.8 K/mm3 (1.8-7.7); NEUTROPHILS % 72.5 % (36.0-66.0); PLATELET COUNT, AUTOMATED 200 k/mm3 (150-450); RED CELL DISTRIBUTION WIDTH 14.8 % (11.5-14.5)
[2016-12-14] MEDS: HEPARIN SOD (PORCINE) 5000 UNITS/ML VIAL SQ SCH ×3 (05:12→21:51)
[2016-12-14] MEDS: SLF 3 ML SYR IV SCH ×3 (05:13→21:53)
--- NOTE | 2016-12-14 05:20 | IPN ---
DATE OF SERVICE: 12/12/2016 Mrs. Wood is seen this morning on her bedside in intensive care unit. She is awake and talking reasonably well. However, still seems to be somewhat confused at times. The patient denies any nausea or vomiting. Family reports that she has been eating and talking much better today. PHYSICAL EXAMINATION: Temperature is 98 degrees Fahrenheit, heart rate 72 per minute and respiratory rate 14 per minute. Blood pressure 102/56 mmHg and oxygen saturation 95% on 4 liters oxygen. Intake and output records from yesterday showed total intake 1469 and output 2090. Head is atraumatic. Neck veins are difficult to be assessed. Heart sounds regular and distant. Lungs with moderate bilateral air entry. Abdomen is obese and nontender and bowel sounds are normal. Extremities have no cyanosis or clubbing. Today's labs show WBC count 16.2, hemoglobin 11.1 and hematocrit 34.5. Platelets 213. Sodium 143 and potassium 4.8. BUN 90 and creatinine 2.76. Glucose 343 and calcium 6.6. Albumin is 2.1. PROBLEMS: 1. Acute renal failure superimposed on chronic kidney disease. Kidney function is gradually improving as her sepsis is improving. At this point, her electrolytes are stable. No urgent indication for dialysis. 2. Gram-negative bacteremia with septic shock. The patient had Escherichia (E) coli septicemia, most likely related to urosepsis. She is afebrile now and has been off pressors. Blood pressure has improved. The patient remains on ceftriaxone 2 grams every 24 hours. 3. Hypocalcemia. The patient will be given one dose of calcium gluconate intravenously. We will continue to monitor closely.
[2016-12-14 05:33] LABS: ALBUMIN/GLOBULIN RATIO 0.59 (1.00-1.93); BILIRUBIN,TOTAL 0.6 MG/DL (0.2-1.0); CREATININE FOR GFR 1.13 MG/DL (0.55-1.02); GLOMERULAR FILTRATION RATE 52.1 (>45); MAGNESIUM LEVEL 2.5 MG/DL (1.8-2.4); POTASSIUM SERUM 4.3 MEQ/L (3.5-5.1); TOTAL PROTEIN 5.4 GM/DL (6.4-8.2)
[2016-12-14 07:59] VITALS: BP 113/58
[2016-12-14] MEDS: DICYCLOMINE INJ 20MG/2ML (J0500) IM SCH ×3 (08:46→21:52)
[2016-12-14] MEDS: LEVEMIR (INSULIN DETEMIR) 1 UNITS/0.01ML SC SCH ×2 (08:47→21:00)
[2016-12-14] MEDS: CLOPIDOGREL 75 MG TAB PO SCH (08:47)
[2016-12-14] MEDS: cefTRIAXone SOD 2 GM in D5W MINI-BAG PLUS 50 ML IV SCH (08:47)
[2016-12-14] MEDS: PREGABALIN 75 MG CAP(LYRICA) PO SCH ×2 (08:47→21:51)
[2016-12-14] MEDS: tiZANidine 4 MG TAB PO SCH ×3 (08:47→21:51)
[2016-12-14] MEDS: HumaLOG INSULIN (NovoLOG) PER UNIT SC SCH ×4 (08:51→21:00)
[2016-12-14 09:59] VITALS: BP 122/61
--- NOTE | 2016-12-14 11:50 | ECGEPIP ---
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
[2016-12-14] MEDS: PANTOPRAZOLE 40MG INJ (PROTONIX) (C9113) IV SCH (12:03)
[2016-12-14 12:30] VITALS: BP 147/82
[2016-12-14 14:00] VITALS: BP 142/80
[2016-12-14] MEDS: oxyCODONE 5MG TAB PO PRN (15:32)
--- NOTE | 2016-12-14 20:46 | IPN ---
DATE: 12/14/2016 Patient seen and examined. No acute events overnight. Reported hungry. Does not want to eat the pureed foods. Mental status is much improved. Still a bit weak. Denies any chest pain, pressure, or discomfort, fevers, or chills, abdominal pain. VITAL SIGNS: Temperature 97.9, pulse 76, respirations 20, blood pressure 142/80, pulse oximetry 99% on 3 liters nasal cannula. LABORATORY DATA: WBC 8, hemoglobin and hematocrit 11.4/35.9, platelets 200. Chemistry: Sodium 147, potassium 4.3, chloride 114, bicarbonate 25, BUN 63, creatinine 1.13. PHYSICAL EXAMINATION: GENERAL: Patient alert. Follows commands. Morbid obesity. In no acute distress. HEENT: Normocephalic, atraumatic. Moist mucous membranes. NECK: Supple. PULMONARY: Diminished breath sounds bilateral. No wheezes, rales, or rhonchi. CARDIAC: Regular rate and rhythm. Distant heart sounds. S1, S2. ABDOMEN: Soft, obese, nontender. Positive bowel sounds. EXTREMITIES: 1+ Bilateral lower extremity edema. NEUROLOGIC: Moves all four extremities. Follows commands. ASSESSMENT AND PLAN: This is a 61-year-old female patient with underlying medical history of liver abscess in 2016 with extended-spectrum beta lactamase (ESBL), Escherichia (E) coli in the past, chronic kidney disease (CKD), stage III, type 2 diabetes, hypertension, obstructive sleep apnea, poor compliance at home. chronic obstructive pulmonary disease (COPD), congestive heart failure, chronic hypoxic respiratory failure, osteoarthritis, coronary artery disease, cerebrovascular accident (CVA), gastroesophageal reflux disease (GERD), kidney stones, spinal stenosis, history of pituitary tumor, internal hemorrhoids, colonic polyps, and chronic hypoxic respiratory failure on 2 liters oxygen at home presented to the hospital with complaints of diarrhea, fevers, dysuria, flank pain, found to be in septic shock. 1. Septic shock secondary to urinary tract infection (UTI). E. coli, currently improved. Initially on meropenem and vancomycin, currently switched to Rocephin. Cultures appreciated. Followup white blood cells (WBC), C-reactive protein (CRP). Currently patient is off pressor. A-line discontinued. Has a triple-lumen central line. Strict intake and output, daily weight. 2. Encephalopathy secondary to septic shock, currently resolved. 3. Acute on chronic renal failure, baseline CKD, stage III, worsening kidney function due to septic shock. Nephrology has been consulted. Currently improved. Strict intake and output. Claire catheter. 4. Discontinue Claire catheter. 5. Acute on chronic renal failure. Baseline CKD III, worsening kidney function due to septic shock. Nephrology consulted. Currently improved. Strict intake and output. Followup kidney function. Discontinue Claire catheter. 6. Transaminitis with elevated bilirubin, likely secondary to shock liver. 7. Cholelithiasis, possibly elevated alternative explanation shock liver versus nonalcoholic steatohepatitis (KIM). CT scan and ultrasound appreciated. Will continue to monitor. 8. Elevated cardiac enzymes secondary to demand ischemia. Consulted cardiology. Continue Plavix. Echo appreciated. Cardiac enzymes trend to peak. 9. Rhabdomyolysis. Intravenous (IV) initially provided. CK has much improved. Followup kidney function. 10. Diarrhea. Gastrointestinal (GI) panel negative. Currently improved. 11. History of congestive heart failure. Echo appreciated. Strict intake and output, daily weight. Elevated central venous pressure (CVP) likely secondary to pulmonary artery hypertension. Encourage continuous positive airway pressure (CPAP). 12. Type 2 diabetes. Insulin basal bolus. Adjust as needed. Diabetic diet. 13. Chronic hypoxic respiratory failure. Patient on 2 liters oxygen at home. CPAP at night. 14. Obstructive sleep apnea. Encourage CPAP. Patient fully compliant at home as per Dr. Jameson. 15. Dyslipidemia. Holding statin at this time. Will consider restarting. Followup transaminitis. 16. Hypothyroidism. Continue Synthroid. 17. CVA. Continue Plavix. Restarting statin once patient's liver function stabilizes. 18. COPD. Nebulizer treatment. 19. Morbid obesity complicating care. 20. Chronic pain. Restarting home medication. Lyrica reduced dose. 21. Poor compliance complicating care. 22. Deep vein thrombosis (DVT) prophylaxis, heparin subcutaneous. DISPOSITION PLANNING: Patient with multiple comorbidities, morbid obesity, poor long-term prognosis. Currently improved. Transfer to medical/surgical floor. Continue physical therapy.
[2016-12-15] MEDS: LEVOTHYROXINE 88MCG TABLET (0.088 MG) PO SCH (05:47)
[2016-12-15] MEDS: SLF 3 ML SYR IV SCH ×3 (05:47→21:24)
[2016-12-15] MEDS: SODIUM CHLORIDE 0.9% INJ 10 ML SYR IV SCH ×3 (05:47→21:24)
[2016-12-15 06:10] LABS: INR 1.05
[2016-12-15 06:13] LABS: ALBUMIN 2.1 GM/DL (3.2-5.2); ALBUMIN/GLOBULIN RATIO 0.62 (1.00-1.93); ALKALINE PHOSPHATASE 209 U/L (45-117); ALT/SGPT 137 U/L (12-78); ANION GAP 5 MEQ/L (8-16); AST/SGOT 131 U/L (15-37); BILIRUBIN,TOTAL 0.6 MG/DL (0.2-1.0); BLOOD UREA NITROGEN 43 MG/DL (7-18); CALCIUM LEVEL 8.3 MG/DL (8.8-10.2); CARBON DIOXIDE LEVEL 28 MEQ/L (21-32); CHLORIDE LEVEL 114 MEQ/L (98-107); CREATININE FOR GFR 0.84 MG/DL (0.55-1.02); GLOMERULAR FILTRATION RATE > 60.0 (>45); GLUCOSE, FASTING 118 MG/DL (80-110); MAGNESIUM LEVEL 2.2 MG/DL (1.8-2.4); POTASSIUM SERUM 4.5 MEQ/L (3.5-5.1); SODIUM LEVEL 147 MEQ/L (136-145); TOTAL PROTEIN 5.5 GM/DL (6.4-8.2)
[2016-12-15] MEDS: cefTRIAXone SOD 2 GM in D5W MINI-BAG PLUS 50 ML IV SCH (08:46)
[2016-12-15] MEDS: DICYCLOMINE INJ 20MG/2ML (J0500) IM SCH ×3 (08:46→21:00)
[2016-12-15] MEDS: HumaLOG INSULIN (NovoLOG) PER UNIT SC SCH ×4 (08:47→21:00)
[2016-12-15] MEDS: LEVEMIR (INSULIN DETEMIR) 1 UNITS/0.01ML SC SCH ×2 (08:47→21:00)
[2016-12-15] MEDS: tiZANidine 4 MG TAB PO SCH ×3 (08:48→21:00)
[2016-12-15] MEDS: CLOPIDOGREL 75 MG TAB PO SCH (08:48)
[2016-12-15] MEDS: PREGABALIN 75 MG CAP(LYRICA) PO SCH ×2 (08:48→21:00)
[2016-12-15] MEDS: PANTOPRAZOLE 40MG INJ (PROTONIX) (C9113) IV SCH (12:27)
[2016-12-15 14:00] VITALS: BP 142/67
--- NOTE | 2016-12-15 16:22 | IPN ---
DATE: 12/15/2016 The patient is seen and examined. No acute events overnight. The patient had persistent increasing urinary frequency every 10-15 minutes, has a residual of 1200, subsequently Claire has been inserted. Reported tired, not been able to sleep. Denies any chest pain, pressure or discomfort, abdominal pain, flank pain. VITAL SIGNS: Temperature 97, pulse 72, respirations 17, blood pressure 142/67, pulse oximetry 99% on three liters nasal cannula. LABORATORY DATA: WBC 8, hemoglobin and hematocrit 11.4/35.9, platelets 200. Chemistry: Sodium 147, potassium 4.5, chloride 114, bicarbonate 28, BUN 43, creatinine 0.84. PHYSICAL EXAMINATION: GENERAL: Patient is alert, follows commands, morbidly obesity, in no acute distress. HEENT: Normocephalic, atraumatic. Moist mucous membranes. NECK: Supple. PULMONARY: Diminished breath sounds bilaterally. No wheezes, rales, or rhonchi. CARDIAC: Regular rate and rhythm, with distant heart sounds, S1, S2. ABDOMEN: Soft, obese, nontender. Positive bowel sounds. EXTREMITIES: Bilateral lower extremity edema 1+. NEUROLOGIC: Moves all four extremities. Follows commands. ASSESSMENT AND PLAN: This is a 61-year-old female patient with underlying medical history of liver abscess in 2016, extended-spectrum beta lactamase (ESBL), Escherichia (E) coli urinary tract infection (UTI) in the past, chronic kidney disease (CKD) stage III, type 2 diabetes, hypertension, obstructive sleep apnea, poor compliance, chronic obstructive pulmonary disease (COPD), congestive heart failure, chronic hypoxic respiratory failure, osteoarthritis, coronary artery disease, cerebrovascular accident (CVA), gastroesophageal reflux disease (GERD), kidney stones, spinal stenosis, history of pituitary tumor, internal hemorrhoids, colonic polyps, and chronic hypoxic respiratory failure on two liters of oxygen at home who presented to the hospital with complaints of diarrhea, fevers, dysuria, flank pain, found to be in septic shock. PROBLEMS: 1. Septic shock secondary to urinary tract infection (UTI), Escherichia (E) coli, currently improved. Off pressors, on medical/surgical floor. Initially on meropenem and vancomycin, currently only on Rocephin. Cultures appreciated. White blood cells (WBC), C-reactive protein (CRP) appreciated. Arterial line initially placed, has been discontinued. Strict intake and output, daily weight. 2. Encephalopathy, resolved, secondary to septic shock. 3. Acute on chronic renal failure, chronic kidney disease (CKD) stage III. Kidney function has stabilized. Appreciate nephrology's assistance. Strict intake and output, daily weight. Claire catheter. 4. Urinary retention. Initially, the patient's Claire catheter was discontinued but had to be replaced because the patient is retaining urine. Will need outpatient followup with urology. The patient sees Dr. Del Rosario. 5. Transaminitis with elevated bilirubin, likely secondary to shock liver. The patient's liver enzyme seems to be improving. We will continue to monitor. 6. Differential diagnosis includes cholelithiasis, shock liver, and nonalcoholic steatohepatitis (KIM). CT scan appreciated. 7. Elevated cardiac enzymes secondary to demand ischemia. Consulted cardiology. The patient is on Plavix. Echocardiogram appreciated. Cardiac enzymes trend to peak. 8. Rhabdomyolysis. Intravenous (IV) initially provided. Currently encourage oral intake. Followup kidney function. 9. Diarrhea. Gastrointestinal (GI) panel negative. Currently resolved. 10. History of congestive heart failure. Echocardiogram appreciated. Strict intake and output, daily weight. 11. Type 2 diabetes. Insulin basal bolus. Adjust as needed. Diabetic diet. 12. Chronic hypoxic respiratory failure, on two liters of oxygen at home. Continuous positive airway pressure (CPAP) at night. Encourage compliance. 13. Obstructive sleep apnea. Encourage CPAP at night. Case discussed with Dr. Jameson. The patient is not really compliant at home. 14. Dyslipidemia. Holding statin given transaminitis. We will restart once the patient's liver enzymes return to baseline. 15. Hypothyroidism. Continue Synthroid. 16. History of cerebrovascular accident (CVA). Continue Plavix. Restarting statin once the patient's liver function stabilizes. 17. Chronic obstructive pulmonary disease (COPD). The patient does not have any wheeze. Continue current treatment. 18. Morbid obesity, complicating care. 19. Chronic pain. Restarting home medication, Lyrica at reduced dose. 20. Poor compliance, complicating care. 21. Deep vein thrombosis (DVT) prophylaxis, heparin subcutaneous. DISPOSITION PLANNING: The patient with multiple comorbidities, morbid obesity, poor long-term prognosis, currently improved. Transfer to medical/surgical floor. Continue physical therapy.
[2016-12-15] MEDS: HEPARIN SOD (PORCINE) 5000 UNITS/ML VIAL SQ SCH ×2 (16:26→21:24)
[2016-12-15 16:40] VITALS: BP 159/74
[2016-12-15 16:53] LABS: ABG BASE EXCESS 1.7 (-2.0-2.0); ABG PARTIAL PRESSURE CO2 39.9 mmHg (35.0-45.0); ABG PARTIAL PRESSURE O2 127.8 mmHg (75.0-100.0); ABG TOTAL CO2 27.2 MEQ/L (23.0-31.0); ABG pH (ARTERIAL) 7.432 UNITS (7.350-7.450)
[2016-12-15] MEDS: SENOKOT S TAB PO SCH (17:59)
[2016-12-15] MEDS: MIRALAX *UNIT DOSE* 17GM PACKET PO SCH (17:59)
--- NOTE | 2016-12-15 20:44 | IPN ---
DATE: 12/13/2016 Kidney function is improving nicely. Electrolytes are all within normal range. She is likely to return her kidney function back to baseline. PROBLEM: 1. E-coli urosepsis. The patient has been afebrile and off pressors. She remains on antibiotics. I recommend to continue the antibiotic for at least 7 to 10 days. 2. Rhabdomyolysis. She has rhabdomyolysis related to her fall and possible taken from her home to hospital. CPK level is improving nicely. At this point, there is no indication for IV fluids.
[2016-12-15 21:59] VITALS: BP 137/62
[2016-12-16] MEDS: SLF 3 ML SYR IV SCH ×2 (05:31→14:00)
[2016-12-16] MEDS: SODIUM CHLORIDE 0.9% INJ 10 ML SYR IV SCH ×3 (05:31→22:46)
[2016-12-16] MEDS: LEVOTHYROXINE 88MCG TABLET (0.088 MG) PO SCH (05:31)
[2016-12-16] MEDS: HEPARIN SOD (PORCINE) 5000 UNITS/ML VIAL SQ SCH ×3 (05:31→21:26)
[2016-12-16 05:35] LABS: INR 1.07; MEAN CORPUSCULAR HEMOGLOBIN 26.8 pg (27.0-33.0); MEAN CORPUSCULAR HGB CONC 31.7 g/dl (32.0-36.5); MEAN CORPUSCULAR VOLUME 84.6 fl (80.0-96.0); RED CELL DISTRIBUTION WIDTH 14.8 % (11.5-14.5); WHITE BLOOD COUNT 9.7 K/mm3 (4.0-10.0)
[2016-12-16 05:56] LABS: ALBUMIN 2.1 GM/DL (3.2-5.2); ALBUMIN/GLOBULIN RATIO 0.64 (1.00-1.93); ALKALINE PHOSPHATASE 224 U/L (45-117); ALT/SGPT 107 U/L (12-78); ANION GAP 7 MEQ/L (8-16); AST/SGOT 90 U/L (15-37); BILIRUBIN,TOTAL 0.6 MG/DL (0.2-1.0); BLOOD UREA NITROGEN 33 MG/DL (7-18); CALCIUM LEVEL 8.2 MG/DL (8.8-10.2); CARBON DIOXIDE LEVEL 27 MEQ/L (21-32); CHLORIDE LEVEL 114 MEQ/L (98-107); CREATININE FOR GFR 0.74 MG/DL (0.55-1.02); GLOMERULAR FILTRATION RATE > 60.0 (>45); GLUCOSE, FASTING 103 MG/DL (80-110); MAGNESIUM LEVEL 1.9 MG/DL (1.8-2.4); POTASSIUM SERUM 4.5 MEQ/L (3.5-5.1); SODIUM LEVEL 148 MEQ/L (136-145); TOTAL PROTEIN 5.4 GM/DL (6.4-8.2)
[2016-12-16 06:00] VITALS: BP 132/68
[2016-12-16] MEDS: tiZANidine 4 MG TAB PO SCH ×3 (08:25→21:30)
[2016-12-16] MEDS: HumaLOG INSULIN (NovoLOG) PER UNIT SC SCH ×4 (08:25→21:00)
[2016-12-16] MEDS: LEVEMIR (INSULIN DETEMIR) 1 UNITS/0.01ML SC SCH ×2 (08:26→21:29)
[2016-12-16] MEDS: CLOPIDOGREL 75 MG TAB PO SCH (08:26)
[2016-12-16] MEDS: MIRALAX *UNIT DOSE* 17GM PACKET PO SCH ×2 (08:26→21:00)
[2016-12-16] MEDS: cefTRIAXone SOD 2 GM in D5W MINI-BAG PLUS 50 ML IV SCH (08:26)
[2016-12-16] MEDS: SENOKOT S TAB PO SCH ×2 (08:26→21:00)
[2016-12-16] MEDS: PREGABALIN 75 MG CAP(LYRICA) PO SCH ×2 (08:58→21:34)
[2016-12-16] MEDS: PANTOPRAZOLE 40MG INJ (PROTONIX) (C9113) IV SCH (12:43)
[2016-12-16] MEDS: DICYCLOMINE INJ 20MG/2ML (J0500) IM SCH ×3 (12:44→21:25)
[2016-12-16 15:00] VITALS: BP 169/77
[2016-12-16] MEDS ORDERED: MAGNESIUM CITRATE 300 ML BTL PO ONE (15:00)
[2016-12-16 17:44] LABS: YEAST LIKE CELL URINE AUTO LARGE
[2016-12-16] MEDS: oxyCODONE 5MG TAB PO PRN (21:28)
--- NOTE | 2016-12-16 21:39 | IPN ---
DATE: 12/16/2016 Patient seen and examined. No acute events overnight. Continues to report tiredness and fatigue. Denies any chest pain, pressure or discomfort. VITAL SIGNS: Temperature 99, pulse 80, respirations 18, blood pressure 169/77, pulse oximetry 92% on 2 liters nasal cannula. LABORATORY DATA: WBC 9.7, hemoglobin and hematocrit 11/34.8, platelets 259. Chemistry: Sodium 148, potassium 4.5, chloride 114, bicarbonate 27, BUN 33, creatinine 0.74. PHYSICAL EXAMINATION: GENERAL: Patient alert, follows commands, morbidly obese, in no acute distress. HEENT: Normocephalic, atraumatic. PULMONARY: Diminished breath sounds bilaterally. No wheezes, rales or rhonchi. CARDIAC: Regular rate and rhythm. Normal S1, S2. ABDOMEN: Soft, nontender. Positive bowel sounds. Obese. EXTREMITIES: 1+ bilateral lower extremity edema. NEUROLOGIC: Moves all four extremities. Follows commands. ASSESSMENT AND PLAN: This is a 61-year-old female patient with underlying medical history of liver abscess 2016, recurrent urinary tract infection (UTI) with extended-spectrum beta-lactamase (ESBL) Escherichia (E) coli in the past, chronic kidney disease stage III, type 2 diabetes, hypertension, obstructive sleep apnea, poor compliance with continuous positive airway pressure (CPAP), chronic obstructive pulmonary disease (COPD), congestive heart failure, chronic hypoxic respiratory failure, osteoarthritis, coronary artery disease, cerebrovascular accident, gastroesophageal reflux disease (GERD), kidney stones, spinal stenosis, history of pituitary tumor, internal hemorrhoids, colonic polyp, chronic hypoxic respiratory failure, on two liters of oxygen at home, presented to the hospital with complaints of diarrhea, fevers, dysuria, flank pain, found to be in septic shock. Problems: 1. Septic shock secondary to UTI E. coli with E. coli bacteremia, off pressors, arterial (a) line discontinued. Continue Rocephin. Followup inflammatory markers. Strict intake and output, daily weight. 2. Encephalopathy, resolved. Secondary to septic shock. Currently resolved. 3. Acute on chronic renal failure. Chronic kidney disease stage III at baseline. Currently stabilized. Appreciate nephrology assistance. Strict intake and output, daily weight, Claire catheter. 4. Urinary retention. Initially patient had a Claire that was discontinued but was replaced because the patient had 1.2 liters residual volume. The patient will need to followup with Dr. Del Rosario as an outpatient. 5. Transaminitis. Elevated bilirubin, likely secondary to shock liver. Currently numbers are improving. Continue to monitor. Differential diagnosis also includes nonalcoholic steatohepatitis (KIM) and cholelithiasis. CT scan appreciated. 6. Elevated cardiac enzymes secondary to demand ischemia. Cardiology, Dr. Blunt, consulted. Plavix was continued. Echocardiogram appreciated. Cardiac enzymes trend to peak. 7. Rhabdomyolysis. Intravenous (IV) fluids initially provided. Encouraged oral intake. Followup kidney function. 8. Diarrhea. Gastrointestinal (GI) panel negative. Currently the patient is constipated. Bowel regimen has been given. 9. History of congestive heart failure. Echocardiogram appreciated. Strict intake and output, daily weight. Will restart Lasix once the patient's oral intake improves. 10. Type 2 diabetes. Basal bolus insulin, diabetic diet. Adjust as needed. 11. Chronic hypoxic respiratory failure. Oxygen supplementation two liters at home. Continuous positive airway pressure (CPAP) at night. Encourage compliance. 12. Obstructive sleep apnea. Encourage CPAP compliance. Case was discussed with Dr. Jameson. Patient not really compliant at home. 13. Dyslipidemia. Holding statin given transaminitis. Will restart once active issue resolves. 14. Hypothyroidism. Continue Synthroid. 15. History of cerebrovascular accident (CVA). Continue Plavix. Restarting statin once the patient's liver function stabilizes. 16. Chronic obstructive pulmonary disease (COPD). The patient does not have any wheeze. Continue current treatment. 17. Morbid obesity, complicating care. 18. Chronic pain. Continue home medication Lyrica at reduced dose, poor compliance, complicating care. 19. Deep vein thrombosis (DVT) prophylaxis. Heparin subcutaneously. DISPOSITION PLANNING: Patient with multiple comorbidities, morbid obesity, poor long-term prognosis, currently improved. Transfer to medical-surgical floor. Continue physical therapy.
[2016-12-16 22:00] VITALS: BP 132/68
--- NOTE | 2016-12-17 00:19 | IPN ---
DATE: 12/15/2016 SUBJECTIVE: The patient is seen and examined at the bedside. Family is present. Patient complains of trouble urinating overnight, after which a Claire catheter was placed. She denies any prior history of urinary retention. She denies any shortness of breath this morning. She is lying flat in bed with one pillow and is comfortable on exam with no acute complaints. She has been transferred out of the intensive care unit (ICU) and is now on the general medical floor. She reports a good appetite and has been drinking to thirst. REVIEW OF SYSTEMS: Denies fevers, chills, cough, nausea, vomiting, diarrhea. Denies abdominal pain. Complains of urinary retention and now Claire catheter has been placed. Remainder review of systems negative. PHYSICAL EXAMINATION: Temperature 97.9, pulse 76, respiratory rate 20, blood pressure 142/80, pulse oximetry 99% on 3 liters nasal cannula. Head: Normocephalic, atraumatic. Moist mucous membranes. Neck: Unable to assess jugular veins. supple. Heart: S1, S2, regular rhythm. 2+ radial pulse. Lungs: Bilateral symmetric air entry without rales or rhonchi, on 3 liters nasal cannula. Abdomen: Obese, nontender with positive bowel sounds. Extremities: No cyanosis. No clubbing. No edema. Genitourinary: Claire catheter in place with 800 mL of urine in the bag. Neurologic: no focal deficits, appropriately interactive Psychiatric: appropriate mood and affect. LABORATORY: Chemistry today shows a serum sodium of 147, unchanged from yesterday, potassium 4.5, bicarbonate 28, creatinine has improved to 0.8 from 1.6 48 hours ago. AST 131 and improving. ALT 137 and improving. CBC from yesterday shows hemoglobin 11.4. Inpatient Medications: Reviewed by myself. PROBLEMS: 1. Acute kidney injury in the setting of septic shock, resolved. Patient's creatinine has returned back to baseline, and she is euvolemic on exam today. Patient was previously on low-dose ARB, losartan 25 mg for renal protection. I will continue to hold it at this time, and it can be resumed as an outpatient with close monitoring of serum creatinine and potassium. 2. Escherichia (E) urosepsis with septic shock. The patient remains now afebrile , hemodynamically stable, has been transferred out of the intensive care unit (ICU ) to general medical floor. She remains on ceftriaxone 2 grams daily. Her liver function tests (LFTs) continue to trend down as well. 3. Hx of CHF: The patient is fairly euvolemic on exam today and in no respiratory distress, saturating 99% on 3 liters nasal cannula, which can likely be weaned. She was on high doses of diuretics at home, torsemide 100 mg in the morning and 50 mg at bedtime. Given that her sodium has been 147 today and yesterday, I will not resume her diuretic regimen today. Likely in the next 24 - 48 hours, she will need to be restarted on diuretics to prevent volume overload as her PO intake continues to improve. No IVF for mild hypernatremia at this time as patient has an inclination towards hypervolemia. 4. Urinary retention, status post Claire catheter insertion. The patient has a prior history of urinary retention. Voiding trial after Claire discontinuation. Trial of flomax. MTDD
[2016-12-17] MEDS: SODIUM CHLORIDE 0.9% INJ 10 ML SYR IV SCH ×3 (05:28→22:00)
[2016-12-17 05:45] LABS: MEAN CORPUSCULAR HEMOGLOBIN 27.3 pg (27.0-33.0); MEAN CORPUSCULAR HGB CONC 32.2 g/dl (32.0-36.5); MEAN CORPUSCULAR VOLUME 84.7 fl (80.0-96.0); RED CELL DISTRIBUTION WIDTH 15.3 % (11.5-14.5); WHITE BLOOD COUNT 10.4 K/mm3 (4.0-10.0)
[2016-12-17 05:52] LABS: INR 1.07
[2016-12-17 06:00] VITALS: BP 155/67
[2016-12-17] MEDS: HEPARIN SOD (PORCINE) 5000 UNITS/ML VIAL SQ SCH ×3 (06:14→21:16)
[2016-12-17] MEDS: LEVOTHYROXINE 88MCG TABLET (0.088 MG) PO SCH (06:14)
[2016-12-17] MEDS: oxyCODONE 5MG TAB PO PRN ×2 (06:18→12:39)
[2016-12-17 06:32] LABS: ALBUMIN 2.2 GM/DL (3.2-5.2); ALBUMIN/GLOBULIN RATIO 0.63 (1.00-1.93); ALKALINE PHOSPHATASE 272 U/L (45-117); ALT/SGPT 96 U/L (12-78); ANION GAP 5 MEQ/L (8-16); AST/SGOT 87 U/L (15-37); BILIRUBIN,TOTAL 0.7 MG/DL (0.2-1.0); BLOOD UREA NITROGEN 24 MG/DL (7-18); CALCIUM LEVEL 8.5 MG/DL (8.8-10.2); CARBON DIOXIDE LEVEL 29 MEQ/L (21-32); CHLORIDE LEVEL 111 MEQ/L (98-107); CREATININE FOR GFR 0.79 MG/DL (0.55-1.02); GLOMERULAR FILTRATION RATE > 60.0 (>45); GLUCOSE, FASTING 95 MG/DL (80-110); MAGNESIUM LEVEL 1.9 MG/DL (1.8-2.4); POTASSIUM SERUM 4.8 MEQ/L (3.5-5.1); SODIUM LEVEL 145 MEQ/L (136-145); TOTAL PROTEIN 5.7 GM/DL (6.4-8.2)
[2016-12-17] MEDS: HumaLOG INSULIN (NovoLOG) PER UNIT SC SCH ×4 (07:24→21:18)
[2016-12-17] MEDS: DICYCLOMINE INJ 20MG/2ML (J0500) IM SCH ×3 (08:39→21:00)
[2016-12-17] MEDS: tiZANidine 4 MG TAB PO SCH ×3 (08:40→21:44)
[2016-12-17] MEDS: CLOPIDOGREL 75 MG TAB PO SCH (08:40)
[2016-12-17] MEDS: PREGABALIN 75 MG CAP(LYRICA) PO SCH ×2 (08:40→21:15)
[2016-12-17] MEDS: LEVEMIR (INSULIN DETEMIR) 1 UNITS/0.01ML SC SCH ×2 (08:40→21:17)
[2016-12-17] MEDS: cefTRIAXone SOD 2 GM in D5W MINI-BAG PLUS 50 ML IV SCH (08:40)
[2016-12-17] MEDS: SENOKOT S TAB PO SCH ×2 (08:41→21:16)
[2016-12-17] MEDS: MIRALAX *UNIT DOSE* 17GM PACKET PO SCH ×2 (08:41→21:18)
--- NOTE | 2016-12-17 08:55 | IPN ---
DATE: 12/14/2016 SUBJECTIVE: Patient was seen and examined at the bedside today morning in the intensive care unit (ICU). Patient is significantly improving. Her renal function continues to improve. She is hemodynamically stable and patient reported that she is tolerating her diet now. REVIEW OF SYSTEMS: Patient denies any fever, chills, rigors, headache, nausea, vomiting, chest pain, shortness of breath, pain in abdomen, constipation or diarrhea. Patient still reports weakness and inability to walk. The rest of review of system is negative. OBJECTIVE: Vital signs: Temperature is 97 degrees Fahrenheit, blood pressure is 113/58, pulse is 73, respiratory rate of 18, saturating 98% on nasal cannula at 3 liters. Intake and output: Urine output recorded as 2.4 liters yesterday, 1.3 liter so far today since overnight. Weight on the bed scale is 146 kg. PHYSICAL EXAMINATION: General: Patient is awake, alert, oriented times three, lying in bed, no apparent distress. Head and neck exam: Extraocular muscles intact. Pupils equally round and reactive to light. Mucous membranes are moist. Neck is supple, there is no jugular venous distention (JVD). Cardiovascular: S1, S2. Regular rate. No murmur, rub or gallop. Respiratory: Chest is clear to auscultation bilaterally. Bilateral equal air entry. No rales or rhonchi. Abdomen is soft, positive bowel sounds, nontender. No ascites. No organomegaly. She is morbidly obese. Musculoskeletal: No clubbing or cyanosis. Pulses are 2+. Patient has tenderness in the lower extremities with mild edema. Central nervous system: No focal neurological deficit. Power is 5/5 in bilateral upper extremities. Psych: Normal mood and affect. LAB REVIEW: CBC showed WBC of 8, hemoglobin is 11.4, platelets are 200. INR is 1. BMP showed sodium 147, potassium 1.3, chloride 114, bicarbonate 25, BUN 63, creatinine is 1.13. Calcium is 8. Magnesium 2.5. AST 161, ALT 175. Albumin is 2. CURRENT INPATIENT MEDICATIONS: Patient's medications were all reviewed by me. She continues to be on IV Rocephin, oxycodone dose was increased by the primary team. There is no other change in the medications today as compared with yesterday. ASSESSMENT: 61-year-old female with acute renal failure superimposed on chronic kidney disease secondary to recent gram negative bacteremia and septic shock. PLAN: 1. Acute kidney injury superimposed on chronic kidney disease. Patient's renal function significantly improving. Creatinine is down to 1.13. Continue to monitor for improvement of renal function. She is hemodynamically stable at this time. 2. E. Coli urinary tract infection (UTI) and bacteremia. Sepsis has improved now. She continues to be on IV Rocephin. Continue the IV antibiotics at this time. Duration of antibiotics should be at least 2 weeks after negative blood culture. 3. Hypernatremia. This is most likely secondary to post ATN diuresis, however, I would not give any IV fluids to this patient. Continue to encourage oral intake. Sodium level is expected to improve with improvement in the oral water intake. 4. Shock liver. Elevated liver enzymes most likely because of sepsis and hypotension. I see improvement in the liver function. AST, ALT and alkaline phosphatase continue to improve. No further intervention needed at this time. 5. History of congestive heart failure. Patient's diuretics are on hold at this time. She is recovering from acute kidney injury and recent septic shock. Patient will be evaluated on a daily basis for any need to start diuretics. Continue to hold Losartan for now. Patient was on torsemide 100 mg in the morning and 50 mg in the evening at home. The plan of care was discussed with the hospitalist, Dr. Hilary Orozco. It is okay to downgrade the patient out of the intensive care unit (ICU) at this time.
[2016-12-17] MEDS: PANTOPRAZOLE 40MG INJ (PROTONIX) (C9113) IV SCH (12:37)
--- NOTE | 2016-12-17 13:47 | IPNPDOC ---
Text Note Date of Service The patient was seen on 12/17/16. NOTE Subjective: Patient states she feels well. Has per dissipated with physical therapy today and was ambulated. Still has trouble with her right shoulder which she states she's been unable to raise after she was left did onto the stretcher prior to being brought into the hospital. Denies chest pain//. Objective: Vitals: (see below) General: No acute distress, laying comfortably in bed. HEENT: Moist mucous membranes. Neck: No JVD or lymphadenopathy Cardiac: RRR, No murmurs Pulm: Clear to auscultation b/l. No wheezing, rhonchi Abd: NT/ND + BS. Obese Ext: Trace edema bilateral lower extremities. No cyanosis. Right upper extremity , flexed at the elbow; range of motion limited secondary to pain at the shoulder site. Distal pulses intact. Labs (see below) Images: CT abdomen and pelvis on 12/09/16 IMPRESSION: 1. The liver is markedly lobulated compatible with cirrhosis. 2. The spleen is mildly enlarged measuring 13.5 cm. 3. The gallbladder is distended showing a single calcified gallstone measuring 5 mm. 4. The patient is status post complete hysterectomy. 5. Bibasilar opacities are noted compatible with multifocal pneumonia versus aspiration. 6. There is diffuse sigmoid diverticulosis without evidence of acute diverticulitis. Chest x-ray on 12/10/16 Impression: Interstitial coarsening compatible with interstitial infiltrates. Cardiomegaly. RUQ u/s 12/10/16 IMPRESSION:Moderately distended gallbladder contains mild sludge, but no stones. No gallbladder wall thickening, pericholecystic fluid or significant biliary dilatation. Common bile duct 7 mm, upper limits of normal in diameter. Doppler u/s 12/12/16 Impression: No deep vein thrombus in the right upper extremity. The study is technically difficult because of patient body habitus and difficulty positioning the patient. Shoulder x ray 12/12/16 Impression: Acromioclavicular osteoarthritis. Otherwise , negative limited right shoulder study. Assessment/Plan 1. Septic shock secondary to Escherichia coli bacteremia- status post pressor therapy. On Rocephin with improvement. Also noted to have bibasilar opacities on CT. We'll continue antibiotics. Blood cultures with Escherichia coli, repeat blood cultures negative. 2. Metabolic encephalopathy- secondary to septic shock. Resolved. 3. Acute kidney injury on chronic kidney disease- Baseline sick ED stage III. Resolved. Nephrology on board. 4. Urinary retention- 1.2 L retention. Will need outpatient urology follow-up. 5. Transaminitis- secondary to #1. We'll continue to monitor. Abdominal ultrasound (see above). 6. Elevated cardiac enzymes likely secondary to demand ischemia from septic shock.- Cardiology has been consulted. On Plavix. Echo cardiogram. 7. Rhabdomyolysis- improved with fluids 8. Right shoulder injury- patient unable to reach her shoulder. Questionable dislocation versus rotator cuff injury. Unable to obtain appropriate imaging secondary to positioning patient. Unable to obtain CAT scan today given her positioning unable of the CAT scan. We'll obtain orthopedics consultation. 9. History of CHF- diuretics initially held secondary to shock. Will be restarted soon. 10. Type 2 diabetes- continue insulin and diabetic diet. 11. Chronic hypoxemic history higher- on 2 L oxygen at home. 12. SHAWANDA- only tea CPAP at home. Will need outpatient pulmonary follow-up. 13. Hyperlipidemia- statin held secondary to transaminitis 14. Hypothyroidism- on Synthroid 15. History of CVA- on Plavix. Will need statin restarted once liver function improves 16 .History of COPD continued duo nebs 17. Morbid obesity 18. Chronic pain on Lyrica DVT prophy: Heparin subcutaneous Continue to work with PT. VS,Fishbone, I+O VS, Fishbone, I+O Laboratory Tests 12/17/16 05:37 Calcium Level 8.5 L, Aspartate Amino Transf (AST/SGOT) 87 H, Alanine Aminotransferase (ALT/SGPT) 96 H, Alkaline Phosphatase 272 H, Total Bilirubin 0.7, Total Protein 5.7 L, Albumin 2.2 L 12/17/16 05:38 Red Blood Count 4.00, Mean Corpuscular Volume 84.7, Mean Corpuscular Hemoglobin 27.3, Mean Corpuscular Hemoglobin Concent 32.2, Red Cell Distribution Width 15.3 H Vital Signs Date Time Temp Pulse Resp B/P (MAP) Pulse Ox O2 Delivery O2 Flow Rate FiO2 12/17/16 13:10 17 Nasal Cannula 2.0 12/17/16 06:00 97.0 79 155/67 (96) 97 I&O- Last 24 Hours up to 6 AM 12/17/16 06:00 Intake Total 1610 ml Output Total 2750 ml Balance -1140 ml YASMIN DICKERSON MD Dec 17, 2016 13:47
[2016-12-17 14:00] VITALS: BP 160/77
--- NOTE | 2016-12-17 14:05 | IPN ---
DATE: 12/16/2016 SUBJECTIVE: The patient was seen at the bedside this morning receiving physical therapy (PT), sitting on the edge of the bed. She was on BiPAP overnight with no acute issues. She denies any shortness of breath or chest pain. She continues to require a Claire catheter. The patient complains of right shoulder pain and fatigue. REVIEW OF SYSTEMS: No fevers. No chills. No shortness of breath. No chest pain. No palpitations. Denies abdominal pain. Denies diarrhea, vomiting. Positive for urinary retention of 1200 mL, requiring Claire catheter placement. Remainder ROS negative VITAL SIGNS: Temperature 97.7, pulse 76, respiratory rate 16, blood pressure 132/68, on 2 liters nasal cannula. Intake and output: Intake 2040 mL, urine output to Claire catheter is 2425 mL. Negative fluid balance of 1385 mL. No daily weight recorded today. PHYSICAL EXAMINATION: GENERAL: The is awake, alert. She is receiving physical therapy (PT) at the time of my visit, sitting at the edge of the bed and moving her legs. She is in no acute distress. HEENT: Normocephalic, nasal cannula in place. Moist mucous membranes. NECK: Supple. Neck veins unable to assess. PULMONARY: Distant. Bilateral, symmetric air entry. No appreciable rales or wheezes. CARDIAC: Regular rate and rhythm with distant heart sounds. S1, S2. ABDOMEN: Soft, obese, nontender. EXTREMITIES: Lower extremities with 1+ edema. GENITOURINARY: Claire catheter in place. NEUROLOGIC: No focal deficits. Decreased ROM R shoulder. Interacts appropriately. LABORATORY DATA: WBC 9.7, hemoglobin 11, platelets 259, INR 1.0. Sodium 148, potassium 4.5, bicarbonate 27, BUN improved to 33, creatinine improving to 0.7, corrected calcium 9.8, magnesium 1.9. Liver function tests continue to improve. AST 90, ALT 107. ASSESSMENT AND PLAN: This is a 61-year-old female with a past medical history of extended-Spectrum beta-Lactamases (ESBL) Escherichia (E) coli urinary tract infection (UTI) in the past, chronic kidney disease stage III, type 2 diabetes, hypertension, obstructive sleep apnea, morbid obesity, congestive heart failure (CHF), chronic hypoxic respiratory failure, osteoarthritis, coronary artery disease, history of CVA, history of kidney stones, history of pituitary tumor, on home oxygen, who was admitted to the hospital with urosepsis and septic shock and acute on chronic renal failure. 1. Septic shock secondary to urinary tract infection (UTI), E coli, improving. The patient is hemodynamically stable and remains on the medical/surgical floor. She remains on Rocephin 2 grams IV daily. 2. Acute on chronic renal failure, chronic kidney disease stage III. Her renal function has returned to baseline. She is currently in the diuretic phase of acute kidney injury, as evidenced by her large urine output and rising serum sodium of 148 today. I will get a urinalysis to confirm with low specific gravity. We will hold off on reinitiation of home diuretic regimen, as the patient continues to be in the diuretic phase of acute kidney injury. 3. Hypernatremia. Serum sodium increased from 145 to 147 to 148 the past 72 hours, along with concomitant decrease in serum creatinine and with an increase in urine production. She is in the diuretic phase of acute kidney injury. I will hold off on IV fluids as the patient does have a tendency to become volume overloaded. I will let her drink to thirst and self correct her mild hypernatremia. We will monitor closely for appropriate reinitiation of home diuretic regimen. 4. Urinary retention. Initially, the patient's Claire catheter was discontinued , but then she had frequent of micturition and was found to be retaining. She had a Claire catheter reinserted with 1200 mL of urine output. The patient will need to continue to followup with urology outpatient. 5. History of congestive heart failure (CHF). The patient is on torsemide at home, 100 mg in the morning and 50 mg in the evening. Currently, she is auto diuresing. We will likely reinitiate diuretics in the next 24 to 48 hours based upon her serum sodium, urine specific gravity, serum creatinine and clinical presentation. The patient is also on losartan 25 mg at home for her history of congestive heart failure (CHF) and chronic kidney disease. I will hold that for the time being, as she is having resolution of acute kidney injury. The plan of care was discussed with the hospitalist, Dr. Hilary Orozco. JAYDEN
--- NOTE | 2016-12-17 17:28 | REP ---
PORTABLE AXILLARY VIEWS OF THE RIGHT SHOULDER: Two portable axillary views of the right shoulder are performed. The study is somewhat limited due to portable technique and body habitus. The humeral head does appear to be aligned with the glenoid. No gross fracture is seen. Signed by Yosef Harris MD 12/18/2016 04:36 P
--- NOTE | 2016-12-17 21:13 | CR ---
DATE OF CONSULTATION: 12/17/2016 CHIEF COMPLAINT: Right shoulder pain. HISTORY: This is a 61-year-old woman with multiple medical problems who was admitted on December 09 with sepsis. Apparently, she has a long history of kidney disease with infections, liver abscess, etc. Multiple hospitalizations. She has chronic end-stage renal disease as well. She was admitted with complaints of severe diarrhea with abdominal pain and fever of 102 to 103 with dysuria. She was reportedly admitted in septic shock and treated IV antibiotics. The patient and her family member related that on the day of admission while being transferred, she fell and had to be lifted up with some sort of sheet device. Since then she has had right shoulder pain. I was asked to evaluate her for this. They had difficulty imaging her. Did two anterior views of the shoulder with plain x-rays and tried to get a CT scan, but she could not tolerate positioning for this. So axillary views were ordered which were done portably and those actually were reviewed tonight and appeared to show no clear evidence of the shoulder dislocation. She describes her pain has been along the anterior and superior aspect of the shoulder. Her past medical history is notable for liver abscess, chronic urinary tract infection (UTI), acute kidney disease, chronic kidney disease, type 2 diabetes, hypertension, obstructive sleep apnea, chronic obstructive pulmonary disease (COPD), congestive heart failure (CHF), chronic hypoxic respiratory failure, osteoarthritis, coronary artery disease, cerebrovascular accident, reflux, kidney stones, spinal stenosis, pituitary tumor, hemorrhoids, chronic polyps with liver abscess. Past surgical history includes per the chart hysterectomy, appendectomy, tubal ligation, bladder suspension, ureteral stents breast mass removal. SOCIAL HISTORY: She quit smoking in the past but smoked for 28 years. Lives with her . FAMILY HISTORY: Otherwise noncontributory. REVIEW OF SYSTEMS: Denies any current chest pain or shortness of breath. It is notable for diabetes. As above is notable for hypertension, coronary artery disease, arthritis, renal failure, sleep apnea, kidney disease, pituitary tumor and gastrointestinal (GI) difficulties as noted above. Current labs demonstrate a white count of 10.4 down from a high of 25 when she was admitted. She has elevated chloride, BUN is elevated. Her creatinine is 0.79. Elevated AST, ALT and alkaline phosphatase. IMAGING STUDIES: As noted above. She had two views of her anterior shoulder, as well as two axillary views that were done portably and it does not show any clear evidence of dislocation. These are relatively poor images due to her body habitus. She a reported weight of 146 kg. On exam, she is morbidly obese, lying in bed and seems comfortable. Her right shoulder shows no clear evidence of swelling or redness or ecchymosis. She moves her fingers quite well. She apparently had swelling in her hand that is resolved. She has good pulses distally. She reports intact sensation. She tolerates full range of motion of her elbow. She does tolerate forward elevation of about 50 to 60 degrees of her shoulder before she reports significant discomfort. She has tenderness to palpation around the superior aspect of her shoulder. She did not have any tenderness along her upper arm, biceps etc. there is no evidence of any abscess or fluid collection; again no redness or erythema or significant warmth of the shoulder. IMPRESSION: Right shoulder pain of unclear etiology. She was unable to tolerate CT scan for further imaging. I assume that a Magnetic Resonance Imaging (MRI) scan would not be tolerated as well given that she did not tolerate the position for a CT scan and the CT scan is a substantially shorter study that a Magnetic Resonance Imaging (MRI) scan. My impression is that this is likely a contusion, possibly a rotator cuff related pain. I think we should rule out infection or fluid collection in the shoulder and I think an ultrasound would make the most sense to proceed to further diagnosis. So I will order an ultrasound of her right shoulder that can be done tomorrow. If there is a fluid collection, I would recommend drainage of the fluid collection perhaps placement of a drain. I doubt that she would be a candidate for surgical treatment of this which would require general anesthetic which she has been through recently; and with her underlying medical issues, this certainly can address that if it becomes necessary or recommended. Will follow along for now and thank you for the consult.
[2016-12-17] MEDS: DICYCLOMINE 10 MG CAP PO PRN (21:15)
[2016-12-17 22:00] VITALS: BP 148/68
[2016-12-18 06:00] VITALS: BP 145/80
[2016-12-18] MEDS: SODIUM CHLORIDE 0.9% INJ 10 ML SYR IV SCH ×3 (06:00→21:23)
[2016-12-18] MEDS: HEPARIN SOD (PORCINE) 5000 UNITS/ML VIAL SQ SCH ×3 (06:33→21:22)
[2016-12-18] MEDS: LEVOTHYROXINE 88MCG TABLET (0.088 MG) PO SCH (06:34)
[2016-12-18 08:46] LABS: MEAN CORPUSCULAR HGB CONC 31.2 g/dl (32.0-36.5); MEAN CORPUSCULAR VOLUME 86.6 fl (80.0-96.0); RED CELL DISTRIBUTION WIDTH 15.3 % (11.5-14.5); WHITE BLOOD COUNT 9.9 K/mm3 (4.0-10.0)
[2016-12-18] MEDS: tiZANidine 4 MG TAB PO SCH ×3 (08:46→21:22)
[2016-12-18] MEDS: CLOPIDOGREL 75 MG TAB PO SCH (08:46)
[2016-12-18] MEDS: SENOKOT S TAB PO SCH ×2 (08:46→21:21)
[2016-12-18] MEDS: cefTRIAXone SOD 2 GM in D5W MINI-BAG PLUS 50 ML IV SCH (08:46)
[2016-12-18] MEDS: PREGABALIN 75 MG CAP(LYRICA) PO SCH ×2 (08:46→21:25)
[2016-12-18] MEDS: DICYCLOMINE 10 MG CAP PO PRN (08:46)
[2016-12-18] MEDS: oxyCODONE 5MG TAB PO PRN (08:47)
[2016-12-18] MEDS: LEVEMIR (INSULIN DETEMIR) 1 UNITS/0.01ML SC SCH ×2 (08:47→21:20)
[2016-12-18] MEDS: HumaLOG INSULIN (NovoLOG) PER UNIT SC SCH ×4 (08:47→21:00)
[2016-12-18] MEDS: MIRALAX *UNIT DOSE* 17GM PACKET PO SCH ×2 (08:48→21:00)
[2016-12-18] MEDS: DICYCLOMINE INJ 20MG/2ML (J0500) IM SCH (08:50)
[2016-12-18 09:23] LABS: ALBUMIN 2.3 GM/DL (3.2-5.2); ALBUMIN/GLOBULIN RATIO 0.61 (1.00-1.93); ALKALINE PHOSPHATASE 283 U/L (45-117); ALT/SGPT 85 U/L (12-78); ANION GAP 8 MEQ/L (8-16); AST/SGOT 62 U/L (15-37); BILIRUBIN,TOTAL 0.7 MG/DL (0.2-1.0); BLOOD UREA NITROGEN 19 MG/DL (7-18); CARBON DIOXIDE LEVEL 26 MEQ/L (21-32); CHLORIDE LEVEL 112 MEQ/L (98-107); GLOMERULAR FILTRATION RATE > 60.0 (>45); GLUCOSE, FASTING 171 MG/DL (80-110); MAGNESIUM LEVEL 2.1 MG/DL (1.8-2.4); SODIUM LEVEL 146 MEQ/L (136-145); TOTAL PROTEIN 6.1 GM/DL (6.4-8.2)
[2016-12-18] MEDS ORDERED: FLEET ENEMA PR ONE (10:00)
[2016-12-18] MEDS: PANTOPRAZOLE 40MG INJ (PROTONIX) (C9113) IV SCH (11:22)
--- NOTE | 2016-12-18 11:59 | IPN ---
DATE OF SERVICE: 12/17/2016 SUBJECTIVE: The patient was seen today at the bedside. She states that she continues to feel better. She had physical therapy today and was able to get out of bed and ambulate a few steps. She denies any shortness of breath. She continues with continuous positive airway pressure (CPAP) at night and 2-liter nasal cannula during the day. She remains with Claire catheter in place. REVIEW OF SYSTEMS: Negative for headache, lightheadedness, chest pain, palpitations, shortness of breath, nausea, vomiting, diarrhea. Negative for lower extremity edema. Positive for urinary retention requiring Claire catheter and R shoulder pain. Remainder ROS negative. PHYSICAL EXAMINATION: VITAL SIGNS: Temperature 96.5, pulse 75, respiratory rate 18, blood pressure 155/67, pulse oximetry 97% on 2 liters nasal cannula. INTAKE AND OUTPUT: In for 1969, urine output 2700 mL. Three recorded bowel movements. No weight in the bed scale today. INPATIENT MEDICATIONS: The patient remains on ceftriaxone 2 grams intravenous (IV) daily. There are no changes in her medications in the previous 24 hours. PHYSICAL EXAMINATION: GENERAL: Awake, alert, sitting up in bed, no acute distress. HEENT: Moist mucous membranes. Extraocular muscles intact. Nasal cannula in place. Neck: No prominent neck veins or lymphadenopathy. CARDIAC: Regular rate and rhythm. Distant heart sounds. PULMONARY: Clear to auscultation bilaterally without rales, wheezing, or rhonchi. ABDOMEN: Obese. Nontender. Positive bowel sounds. GENITOURINARY: Claire catheter in place with urine. EXTREMITIES: Pedal edema. No significant dependent edema. MSK: R shoulder decreased ROM. LABORATORY STUDIES: White count 10.4, hemoglobin 10.9, platelets 263. INR 1.0. Urinalysis (UA) with specific gravity 1.010 and 3+ leukocyte esterase. Chemistry: Sodium 145 improved from 148 yesterday, bicarbonate 29, potassium 4.8, creatinine 0.7, liver function tests (LFTs) downtrending and improving. ASSESSMENT AND PLAN: A 61-year-old female with past medical history of extended-spectrum beta-lactamase (ESBL) Escherichia (E.) coli urinary tract infection, chronic kidney disease (CKD) stage III, type 2 diabetes, history of multiple acute kidney injuries in the past, hypertension, obstructive sleep apnea, morbid obesity, congestive heart failure (CHF), chronic hypoxic respiratory failure, osteoarthritis, history of kidney stones, history of pituitary tumor, on home oxygen, who was admitted to the hospital with urosepsis and septic shock and acute on chronic renal failure. 1. Resolved sepsis secondary to Escherichia (E.) coli urinary tract infection (UTI). The patient remains on ceftriaxone 2 grams intravenous (IV) daily. 2. Acute on chronic renal failure, chronic kidney disease stage III. The patient's renal function remains at baseline. Her urinalysis confirmed isosthenuria with a specific gravity of 1.010. She continues to have large urine output without diuretics. Her serum sodium has normalized, and her by mouth intake has also picked up. She is currently in the diuretic phase of acute kidney injury. However, due to improvement in her by mouth intake as evidenced by normalization of serum sodium, she will likely be ready to be reinitiated on diuretics within the next 24 hours. 3. Urinary retention. The patient remains dependent on a Claire catheter. The most recent urinalysis did show 3+ leukocyte esterase and also candiduria. She does have a history of recurrent UTIs in the past and acute kidney injury associated with urinary tract infection. She should continue to followup with urology. She is high risk for catheter-associated urinary tract infection. 4. History of congestive heart failure. The patient's home diuretic regimen is torsemide 100 mg every morning and 50 mg each evening. Currently, she continues to autodiurese. Urinalysis (UA) shows isosthenuria with specific gravity of 1.010. However, her by mouth intake has continued to improve, and her serum sodium has come down from 148 to 145 with oral hydration only. We will likely need to resume her diuretics within the next 24-48 hours to reduce the risk of volume overload. 5. Hypernatremia secondary to polyuria from diuretic phase of acute kidney injury coupled with prior poor by mouth intake. The patient has now been eating and drinking well, and her serum sodium has come down to 145. She overall does continue to remain in net negative fluid balance. We will continue to monitor her intake and output, serum creatinine, and serum sodium, and respiratory status; and a decision will be made upon that for when to resume her on her oral torsemide. [facility]
--- NOTE | 2016-12-18 13:24 | IPNPDOC ---
Text Note Date of Service The patient was seen on 12/18/16. NOTE Subjective: Pt denies any acute changes since yesterday. Still having difficulty moving her right arm. Objective: Vitals: (see below) General: No acute distress, laying comfortably in bed. HEENT: Moist mucous membranes. Neck: No JVD or lymphadenopathy Cardiac: RRR, No murmurs Pulm: Clear to auscultation b/l. No wheezing, rhonchi Abd: NT/ND + BS. Obese Ext: Trace edema bilateral lower extremities. No cyanosis. Right upper extremity , flexed at the elbow; range of motion limited secondary to pain at the shoulder site. Distal pulses intact. Labs (see below) Images: CT abdomen and pelvis on 12/09/16 IMPRESSION: 1. The liver is markedly lobulated compatible with cirrhosis. 2. The spleen is mildly enlarged measuring 13.5 cm. 3. The gallbladder is distended showing a single calcified gallstone measuring 5 mm. 4. The patient is status post complete hysterectomy. 5. Bibasilar opacities are noted compatible with multifocal pneumonia versus aspiration. 6. There is diffuse sigmoid diverticulosis without evidence of acute diverticulitis. Chest x-ray on 12/10/16 Impression: Interstitial coarsening compatible with interstitial infiltrates. Cardiomegaly. RUQ u/s 12/10/16 IMPRESSION:Moderately distended gallbladder contains mild sludge, but no stones. No gallbladder wall thickening, pericholecystic fluid or significant biliary dilatation. Common bile duct 7 mm, upper limits of normal in diameter. Doppler u/s 12/12/16 Impression: No deep vein thrombus in the right upper extremity. The study is technically difficult because of patient body habitus and difficulty positioning the patient. Shoulder x ray 12/12/16 Impression: Acromioclavicular osteoarthritis. Otherwise , negative limited right shoulder study. Assessment/Plan 1. S/p Septic shock secondary to Escherichia coli bacteremia- status post pressor therapy. On Rocephin with improvement. Also noted to have bibasilar opacities on CT. We'll continue antibiotics. Blood cultures with Escherichia coli, repeat blood cultures negative. 2. Metabolic encephalopathy- secondary to septic shock. Resolved. 3. Acute kidney injury on chronic kidney disease- Baseline sick ED stage III. Resolved. Nephrology on board. 4. Urinary retention- 1.2 L retention. Will need outpatient urology follow-up. Will start flomax and attempt a second voiding trial. 5. Transaminitis- secondary to #1. We'll continue to monitor. Abdominal ultrasound (see above). 6. Elevated cardiac enzymes likely secondary to demand ischemia from septic shock.- Cardiology has been consulted. On Plavix. Echo cardiogram. 7. Rhabdomyolysis- improved with fluids 8. Right shoulder injury- patient unable to elevate her arm above her shoulder leve.. X rays with no dislocation. ?rotator cuff injury. Unable to obtain appropriate imaging secondary to positioning patient. Unable to obtain CAT scan today given her positioning unable of the CAT scan. Orthopedics consulted; u/s shoulder pending.. 9. History of CHF- diuretics initially held secondary to shock. Will be restarted soon. 10. Type 2 diabetes- continue insulin and diabetic diet. 11. Chronic hypoxemic history higher- on 2 L oxygen at home. 12. SHAWANDA- only tea CPAP at home. Will need outpatient pulmonary follow-up. 13. Hyperlipidemia- statin held secondary to transaminitis 14. Hypothyroidism- on Synthroid 15. History of CVA- on Plavix. Will need statin restarted once liver function improves 16 .History of COPD continued duo nebs 17. Morbid obesity 18. Chronic pain on Lyrica DVT prophy: Heparin subcutaneous Continue to work with PT. VS,Fishbone, I+O VS, Fishbone, I+O Laboratory Tests 12/18/16 08:33 Red Blood Count 4.24, Mean Corpuscular Volume 86.6, Mean Corpuscular Hemoglobin 27.0, Mean Corpuscular Hemoglobin Concent 31.2 L, Red Cell Distribution Width 15.3 H, Calcium Level 8.0 L, Aspartate Amino Transf (AST/SGOT) 62 H, Alanine Aminotransferase (ALT/SGPT) 85 H, Alkaline Phosphatase 283 H, Total Bilirubin 0.7, Total Protein 6.1 L, Albumin 2.3 L Vital Signs Date Time Temp Pulse Resp B/P (MAP) Pulse Ox O2 Delivery O2 Flow Rate FiO2 12/18/16 09:17 18 12/18/16 06:00 97.8 83 145/80 (101) 98 Nasal Cannula 2.0 I&O- Last 24 Hours up to 6 AM 12/18/16 05:59 Intake Total 1010 ml Output Total 2200 ml Balance -1190 ml ABED,YASMIN MD Dec 18, 2016 13:24
[2016-12-18] MEDS ORDERED: TAMSULOSIN 0.4 MG CAP PO ONE (13:45)
[2016-12-18] MEDS ORDERED: LIDOCAINE 1% MDV 20ML VIAL As Ordered ONE (15:38)
[2016-12-18] MEDS: DICYCLOMINE 10 MG CAP PO SCH ×2 (18:00→21:22)
[2016-12-18 22:00] VITALS: BP 158/68
[2016-12-19 06:00] VITALS: BP 150/69
[2016-12-19] MEDS: SODIUM CHLORIDE 0.9% INJ 10 ML SYR IV SCH (06:00)
[2016-12-19] MEDS: LEVOTHYROXINE 88MCG TABLET (0.088 MG) PO SCH (06:10)
[2016-12-19] MEDS: HEPARIN SOD (PORCINE) 5000 UNITS/ML VIAL SQ SCH ×3 (06:11→21:45)
--- NOTE | 2016-12-19 06:56 | REP ---
RIGHT SHOULDER ASPIRATION: The procedure was performed by MERI Gonzalez, under the direct supervision of Dr. Harris. The procedure along with its risks, benefits and complications were discussed with the patient prior to the procedure. Informed consent was obtained both verbally and written. The patient was identified in the ultrasound suite and placed in a supine position. The right shoulder joint was identified via ultrasound guidance. This area was marked, prepped and draped in the usual sterile fashion. A procedural "time out" was performed to ensure that the correct patient, site and procedure were being performed. A 22-gauge spinal needle was advanced to the joint space. Multiple attempts to aspirate fluid were not successful. Joint lavage was even attempted with no success. The needle was removed. A soft dressing was applied to the entry site. The patient tolerated the procedure well and had no immediate complications. IMPRESSION: Unsuccessful joint aspiration. Reviewed by MERI Jefferson 12/19/2016 11:29 AEdited and Signed by Yosef Harris MD 12/19/2016 03:10 P
[2016-12-19 07:00] LABS: MEAN CORPUSCULAR HEMOGLOBIN 27.5 pg (27.0-33.0); MEAN CORPUSCULAR HGB CONC 32.7 g/dl (32.0-36.5); RED CELL DISTRIBUTION WIDTH 14.9 % (11.5-14.5); WHITE BLOOD COUNT 9.6 K/mm3 (4.0-10.0)
[2016-12-19 07:20] LABS: ALBUMIN 2.1 GM/DL (3.2-5.2); ALBUMIN/GLOBULIN RATIO 0.47 (1.00-1.93); ALKALINE PHOSPHATASE 260 U/L (45-117); ALT/SGPT 78 U/L (12-78); ANION GAP 9 MEQ/L (8-16); AST/SGOT 54 U/L (15-37); BILIRUBIN,TOTAL 0.6 MG/DL (0.2-1.0); BLOOD UREA NITROGEN 15 MG/DL (7-18); CALCIUM LEVEL 8.9 MG/DL (8.8-10.2); CARBON DIOXIDE LEVEL 26 MEQ/L (21-32); CHLORIDE LEVEL 110 MEQ/L (98-107); CREATININE FOR GFR 0.87 MG/DL (0.55-1.02); GLOMERULAR FILTRATION RATE > 60.0 (>45); GLUCOSE, FASTING 136 MG/DL (80-110); MAGNESIUM LEVEL 2.1 MG/DL (1.8-2.4); POTASSIUM SERUM 4.8 MEQ/L (3.5-5.1); SODIUM LEVEL 145 MEQ/L (136-145); TOTAL PROTEIN 6.6 GM/DL (6.4-8.2)
[2016-12-19] MEDS: MIRALAX *UNIT DOSE* 17GM PACKET PO SCH ×2 (08:00→21:00)
[2016-12-19] MEDS: DICYCLOMINE 10 MG CAP PO SCH ×3 (08:05→21:00)
[2016-12-19] MEDS: CLOPIDOGREL 75 MG TAB PO SCH (08:06)
[2016-12-19] MEDS: PREGABALIN 75 MG CAP(LYRICA) PO SCH ×2 (08:06→21:00)
[2016-12-19] MEDS: TAMSULOSIN 0.4 MG CAP PO SCH (08:06)
[2016-12-19] MEDS: SENOKOT S TAB PO SCH ×2 (08:06→21:00)
[2016-12-19] MEDS: LEVEMIR (INSULIN DETEMIR) 1 UNITS/0.01ML SC SCH ×2 (08:06→21:00)
[2016-12-19] MEDS: tiZANidine 4 MG TAB PO SCH ×3 (08:06→21:00)
[2016-12-19] MEDS: HumaLOG INSULIN (NovoLOG) PER UNIT SC SCH ×4 (08:07→21:00)
--- NOTE | 2016-12-19 10:16 | IPN ---
DATE OF SERVICE: 12/18/2016 SUBJECTIVE: The patient is seen today at the bedside. She states she feels well. Her complaint today is constipation, states her last bowel movement was 10 days prior. She has been receiving MiraLAX and has noted increased flatulence. She is receiving physical therapy and denies any shortness of breath at rest or dyspnea on exertion. REVIEW OF SYSTEMS: Negative for headaches, dizziness, chest pain, shortness of breath, palpitations , nausea, vomiting. Positive for constipation. Positive for urinary retention requiring Claire catheter. Positive for deconditioning. Remainder review of systems is negative. VITAL SIGNS: Temperature 97.8, pulse 83, respiratory rate 16, blood pressure 145/80, saturating 98% on 2 liter nasal cannula. Intake and output - the patient has been in daily net negative fluid balance. The previous 24 hours intake 1010 , output 2200 of which 1550 was urine. There is no daily weight recorded today. PHYSICAL EXAMINATION: GENERAL: The patient is awake, alert, oriented, in bed sitting upright in no acute distress. Morbidly obese. HEENT: Normocephalic, moist mucous membranes, nasal cannula in place. NECK: Supple, thick, unable to assess veins. PULMONARY: Distant bilateral symmetric air entry. No bibasilar rale. CARDIAC: Distant heart sounds, regular rate. ABDOMEN: Soft, obese, with pannus, nontender. EXTREMITIES: With pedal edema. No significant dependent edema. GENITOURINARY: Claire catheter in place. NEUROLOGIC: No focal deficits. PSYCH: Appropriate mood and affect. LABORATORY DATA: White count 9.9, hemoglobin 11.5, platelet 299, glucose 140, sodium 146, potassium 5.0, bicarbonate 26, creatinine 0.9, BUN 19, corrected calcium 9.3, magnesium 2.1, LFTs continue to down trend towards normal. INPATIENT MEDICATIONS: - She remains on Rocephin 2 grams every 24 Her medications are unchanged in the past 24 hours with the exception of increased laxatives and one time order for enema. ASSESSMENT AND PLAN: This is a 61-year-old female with past medical history of chronic kidney disease (CKD) stage 3, type 2 diabetes, hypertension, obstructive sleep apnea, morbid obesity, CHF, chronic hypoxic respiratory failure, osteoarthritis, CAD, history of CVA, history of kidney stones on home oxygen who is admitted with E. coli urosepsis and septic shock and acute on chronic renal failure. 1. Acute kidney injury (LINCOLN) on chronic kidney disease (CKD) stage 3. The patient's BUN continues to trend down. Her creatinine is at baseline. She is in the diuretic phase of her LINCOLN. Her serum sodium has been at the high end of normal. She remains in daily negative fluid balance without use of diuretics. There have been no daily weights recorded for the past 3 days, but the patient has been comfortable and saturating well on her home dose of oxygen via nasal cannula. She is being reassessed daily for optimal timing for reinitiation of home diuretic regimen. 2. Urinary retention. The patient currently is dependent on Claire catheter. She does have a history of urinary tract infection (UTI) in the past and LINCOLN associated with UTI. She is high risk for catheter associated urinary tract infection. She was evaluated by urology in the past, but did not continue to followup with them. At home she occasionally does self catheterize. Start flomax. Outpatient urology follow up. 3. History of congestive heart failure. Patient continues to be in a daily net negative fluid balance without oral diuretic initiation at this time. She is having a daily urine output between 2 and 3 liters and in the polyuric phase of LINCOLN and her serum sodium has been 145 to 148, today 146. She will be reassessed daily for reinitiation of oral diuretics. She remains stable on 2 liters of nasal cannula. She has a history of being on home oxygen. She remains without any complaints of shortness of breath or dyspnea on exertion and without significant volume overload on exam. 4. Hyperkalemia. Potassium 5.0 today. I have changed her diet to 2 gram potassium. 5. Constipation. The patient has been receiving MiraLAX and an enema was ordered. [facility]
[2016-12-19] MEDS: cefTRIAXone SOD 2 GM in D5W MINI-BAG PLUS 50 ML IV SCH (11:59)
[2016-12-19] MEDS: PANTOPRAZOLE 40MG INJ (PROTONIX) (C9113) IV SCH (11:59)
[2016-12-19] MEDS: TORSEMIDE 20 MG TAB PO SCH ×2 (11:59→17:14)
[2016-12-19 14:00] VITALS: BP 168/75
--- NOTE | 2016-12-19 14:59 | IPNPDOC ---
Text Note Date of Service The patient was seen on 12/19/16. NOTE Subjective: Denies any acute changes overnight. He feels well. Attempt to have right shoulder aspiration by orthopedics however no fluid was aspirated. Objective: Vitals: (see below) General: No acute distress, laying comfortably in bed. HEENT: Moist mucous membranes. Neck: No JVD or lymphadenopathy Cardiac: RRR, No murmurs Pulm: Clear to auscultation b/l. No wheezing, rhonchi Abd: NT/ND + BS. Obese Ext: Trace edema bilateral lower extremities. No cyanosis. Right upper extremity , flexed at the elbow; range of motion limited secondary to pain at the shoulder site. Distal pulses intact. Labs (see below) Images: CT abdomen and pelvis on 12/09/16 IMPRESSION: 1. The liver is markedly lobulated compatible with cirrhosis. 2. The spleen is mildly enlarged measuring 13.5 cm. 3. The gallbladder is distended showing a single calcified gallstone measuring 5 mm. 4. The patient is status post complete hysterectomy. 5. Bibasilar opacities are noted compatible with multifocal pneumonia versus aspiration. 6. There is diffuse sigmoid diverticulosis without evidence of acute diverticulitis. Chest x-ray on 12/10/16 Impression: Interstitial coarsening compatible with interstitial infiltrates. Cardiomegaly. RUQ u/s 12/10/16 IMPRESSION:Moderately distended gallbladder contains mild sludge, but no stones. No gallbladder wall thickening, pericholecystic fluid or significant biliary dilatation. Common bile duct 7 mm, upper limits of normal in diameter. Doppler u/s 12/12/16 Impression: No deep vein thrombus in the right upper extremity. The study is technically difficult because of patient body habitus and difficulty positioning the patient. Shoulder x ray 12/12/16 Impression: Acromioclavicular osteoarthritis. Otherwise , negative limited right shoulder study. Assessment/Plan 1. S/p Septic shock secondary to Escherichia coli bacteremia- status post pressor therapy. On Rocephin with improvement. Also noted to have bibasilar opacities on CT. We'll continue antibiotics, last dose 12/20. Blood cultures with Escherichia coli, repeat blood cultures negative. Echocardiogram with no vegetations. 2. Metabolic encephalopathy- secondary to septic shock. Resolved. 3. Acute kidney injury on chronic kidney disease- Baseline CKD stage III. Resolved. Nephrology on board. 4. Urinary retention- 1.2 L retention. Will need outpatient urology follow-up. Continue flomax; voiding trial after Claire has been removed. Patient currently well. 5. Transaminitis- secondary to #1. We'll continue to monitor. Abdominal ultrasound (see above). 6. Elevated cardiac enzymes likely secondary to demand ischemia from septic shock.- Cardiology has been consulted. On Plavix. Echo cardiogram. 7. Rhabdomyolysis- improved with fluids 8. Right shoulder injury- patient unable to elevate her arm above her shoulder level. X rays with no dislocation. ?rotator cuff injury. Unable to obtain appropriate imaging secondary to positioning patient. Unable to obtain CAT scan today given her positioning unable of the CAT scan. Orthopedics consulted. No fluid aspirated. MRI of the shoulder today to rule out rotator cuff injury. 9. History of CHF- diuretics initially held secondary to shock. Restarted on lower dose of torsemide. 10. Type 2 diabetes- continue insulin and diabetic diet. 11. Chronic hypoxemic history higher- on 2 L oxygen at home. 12. SHAWANDA- only tea CPAP at home. Will need outpatient pulmonary follow-up. 13. Hyperlipidemia- statin held secondary to transaminitis 14. Hypothyroidism- on Synthroid 15. History of CVA- on Plavix. Will need statin restarted once liver function improves 16 .History of COPD - restart home nebs. 17. Morbid obesity 18. Chronic pain on Lyrica DVT prophy: Heparin subcutaneous Continue to work with PT. VS,Fishbone, I+O VS, Fishbone, I+O Laboratory Tests 12/19/16 06:38 Calcium Level 8.9, Aspartate Amino Transf (AST/SGOT) 54 H, Alanine Aminotransferase (ALT/SGPT) 78, Alkaline Phosphatase 260 H, Total Bilirubin 0.6 , Total Protein 6.6, Albumin 2.1 L 12/19/16 06:39 Red Blood Count 3.84 L, Mean Corpuscular Volume 84.0, Mean Corpuscular Hemoglobin 27.5, Mean Corpuscular Hemoglobin Concent 32.7, Red Cell Distribution Width 14.9 H Vital Signs Date Time Temp Pulse Resp B/P (MAP) Pulse Ox O2 Delivery O2 Flow Rate FiO2 12/19/16 10:00 Nasal Cannula 2.0 12/19/16 06:00 98.7 72 19 150/69 (96) 96 I&O- Last 24 Hours up to 6 AM 12/19/16 06:00 Intake Total 980 ml Output Total 850 ml Balance 130 ml YASMIN DICKERSON MD Dec 19, 2016 14:59
[2016-12-19] MEDS: oxyCODONE 5MG TAB PO PRN (19:10)
[2016-12-19 22:00] VITALS: BP 119/58
--- NOTE | 2016-12-19 22:26 | IPN ---
DATE: 12/19/2016 SUBJECTIVE: The patient is seen today at the bedside. She is in very good spirits today. She states she had multiple bowel movements and her constipation is relieved. She had her Claire catheter removed yesterday as well and reports no trouble with voiding. She had an attempted right shoulder aspiration yesterday and is pending an MRI of the shoulder today. After her Claire was discontinued, she was started on Flomax as well. She reports good oral intake and continues to fluid restrict herself to 64 ounces or less. REVIEW OF SYSTEMS: Negative for headache, chest pain, palpitations, shortness of breath, nausea, vomiting. Positive for relief of constipation. Negative for dysuria. Negative for voiding issues after discontinuation of Claire catheter. Positive for lower extremity swelling. INTAKE AND OUTPUT: In the previous 24 hours, intake was recorded as 1010 and urine output was recorded as 1500 mL with a negative 490 mL fluid balance. PHYSICAL EXAMINATION: GENERAL: The patient is awake, alert, oriented, in bed, in no acute distress, morbidly obese. HEENT: Normocephalic. Moist mucous membranes. Nasal cannula in place. NECK: Supple, thick, unable to assess neck veins. PULMONARY: Symmetric bilateral air entry without wheeze or rhonchi. CARDIAC: S1, S2, regular rate. ABDOMEN: Soft, obese, nontender. GENITOURINARY: Without catheter. EXTREMITIES: Bilateral pedal edema and 1+ pitting edema in the right lower extremity. No significant sacral or dependent edema present. NEUROLOGIC: No focal deficits. MUSCULOSKELETAL: Right shoulder tenderness and decreased range of motion secondary to pain. PSYCHIATRIC: Appropriate mood and affect. Neurologic: No focal deficits LABORATORY DATA: White count 9.6, hemoglobin 10.5, platelets 293. Sodium 145, potassium 4.8, bicarbonate 26, BUN 15, creatinine 0.8, sugar at 136. Corrected calcium 10.4, magnesium 2.1. INPATIENT MEDICATIONS: Reviewed by myself and notable for new addition of Flomax 0.8 mg daily. No calcium-containing compounds noted. The patient is on once a month vitamin D 50,000 units. ASSESSMENT AND PLAN: 1. Acute kidney injury (LINCOLN) on chronic kidney disease III. The patient's BUN and creatinine have returned to baseline. Her urine output for the past 48 hours has been an average of 1500 mL per day, which has been reduced compared to prior. She continues to fluid restrict in the diet and has no complaints of shortness of breath more than baseline and saturates well on her home dose of oxygen via nasal cannula. I will start her on torsemide 40 mg twice a day due to new lower extremity edema coupled with resolution of her polyuria. We will monitor her serum sodium and potassium while she is on oral torsemide. 2. Urinary retention. Claire catheter was removed appropriately and the patient has been given a trial of Flomax with no reported issues in voiding. I encouraged her to double void. Prior to discharge, I would recommend that the patient has a bladder scan to evaluate for any occult retention. In her case, due to her significant obesity and body habitus, a bladder scan may not be completely reliable in which case I would request that the patient double void and then straight catheterize her to confirm the absence of any retention. 3. History of congestive heart failure. The patient's overall urine output in the past 48 hours has leveled off to about 1500 mL per day. She is no longer polyuric. Her serum sodium has stabilized. She has some mild new edema in the lower extremities. Respiratory snell she remains stable. I will start her on torsemide 40 mg twice a day at this time. Her home dose of torsemide is higher at 100 mg every morning, 50 mg in the evening. We will titrate her diuretics based on her clinical picture. She continues with fluid restriction. 4. Mild hypercalcemia. Corrected calcium today is 10.4. She is not receiving any calcium supplements. She is on once monthly vitamin D 50,000 units. I will check an intact parathyroid hormone level. 5. Escherichia (E) coli urosepsis. The patient remains on Rocephin. 6. Right shoulder injury. She had an attempted aspiration of the joint. She is pending an MRI. 7. Elevated transaminases secondary to ischemic hepatitis from septic shock. Liver function tests (LFTs) continue to downtrend and improve. [facility]
[2016-12-20 05:58] LABS: MEAN CORPUSCULAR HEMOGLOBIN 27.1 pg (27.0-33.0); MEAN CORPUSCULAR VOLUME 84.7 fl (80.0-96.0); RED CELL DISTRIBUTION WIDTH 15.1 % (11.5-14.5); WHITE BLOOD COUNT 9.5 K/mm3 (4.0-10.0)
[2016-12-20 06:00] VITALS: BP 150/74
[2016-12-20] MEDS: LEVOTHYROXINE 88MCG TABLET (0.088 MG) PO SCH (06:08)
[2016-12-20] MEDS: HEPARIN SOD (PORCINE) 5000 UNITS/ML VIAL SQ SCH ×3 (06:08→21:14)
[2016-12-20 06:29] LABS: ALBUMIN 2.3 GM/DL (3.2-5.2); ALBUMIN/GLOBULIN RATIO 0.48 (1.00-1.93); BILIRUBIN,TOTAL 0.6 MG/DL (0.2-1.0); CALCIUM LEVEL 9.3 MG/DL (8.8-10.2); CREATININE FOR GFR 1.13 MG/DL (0.55-1.02); GLOMERULAR FILTRATION RATE 52.1 (>45); MAGNESIUM LEVEL 1.9 MG/DL (1.8-2.4); POTASSIUM SERUM 4.4 MEQ/L (3.5-5.1); TOTAL PROTEIN 7.1 GM/DL (6.4-8.2)
[2016-12-20] MEDS ORDERED: TORSEMIDE 20 MG TAB PO SCH (09:00)
[2016-12-20] MEDS ORDERED: INCRUSE ELLIPTA (PATIENT'S OWN MED) INH SCH (09:00)
[2016-12-20] MEDS ORDERED: BREO ELLIPTA INH SCH (09:00)
[2016-12-20] MEDS: CLOPIDOGREL 75 MG TAB PO SCH (09:16)
[2016-12-20] MEDS: tiZANidine 4 MG TAB PO SCH ×3 (09:16→21:14)
[2016-12-20] MEDS: DICYCLOMINE 10 MG CAP PO SCH ×3 (09:17→21:14)
[2016-12-20] MEDS: LEVEMIR (INSULIN DETEMIR) 1 UNITS/0.01ML SC SCH ×2 (09:17→21:16)
[2016-12-20] MEDS: TAMSULOSIN 0.4 MG CAP PO SCH (09:17)
[2016-12-20] MEDS: SENOKOT S TAB PO SCH ×2 (09:17→21:14)
[2016-12-20] MEDS: MIRALAX *UNIT DOSE* 17GM PACKET PO SCH ×2 (09:17→21:14)
[2016-12-20] MEDS: HumaLOG INSULIN (NovoLOG) PER UNIT SC SCH ×4 (09:18→20:34)
[2016-12-20] MEDS: oxyCODONE 5MG TAB PO PRN (09:28)
[2016-12-20] MEDS ORDERED: oxyCODONE 5MG TAB PO PRN (10:30)
[2016-12-20] MEDS: TORSEMIDE 20 MG TAB PO SCH (10:54)
[2016-12-20] MEDS: PREGABALIN 75 MG CAP(LYRICA) PO SCH ×2 (12:44→21:14)
[2016-12-20] MEDS: PANTOPRAZOLE 40MG INJ (PROTONIX) (C9113) IV SCH (12:44)
--- NOTE | 2016-12-20 13:25 | REP ---
CT RIGHT SHOULDER: CT right shoulder performed in the axial plane. Sagittal and coronal reconstruction images are performed. No fracture or dislocation is seen. There is moderate narrowing and spurring at the acromioclavicular joint. There is mild subacromial spurring. There is a small calcification in the distal supraspinatus tendon which may indicate calcific tendonitis. No gross soft tissue abnormality is seen. IMPRESSION: No acute fracture, dislocation, or bone lesion. Moderate degenerative changes acromioclavicular joint. Small calcification in the distal supraspinatus tendon may represent calcific tendonitis. Signed by Yosef Harris MD 12/20/2016 05:22 P
--- NOTE | 2016-12-20 13:28 | REP ---
CT CERVICAL SPINE WITHOUT CONTRAST: HISTORY: Neck pain. The examination is limited secondary to the patient's body habitus. 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 There is no acute fracture or subluxation. There is no definite disc bulge or herniation. The spinal canal and the neural foramina are patent. The intervertebral discs are normal in height. IMPRESSION: Limited examination demonstrating no acute fracture or subluxation. Signed by Sarabjit Hu MD 12/20/2016 01:34 P
--- NOTE | 2016-12-20 13:47 | IPNPDOC ---
Text Note Date of Service The patient was seen on 12/20/16. NOTE Subjective: States she has weakness in her RUE, and has pain with raising her arm, at the shoulder/neck level. Objective: Vitals: (see below) General: No acute distress, laying comfortably in bed. HEENT: Moist mucous membranes. Neck: No JVD or lymphadenopathy Cardiac: RRR, No murmurs Pulm: Clear to auscultation b/l. No wheezing, rhonchi Abd: NT/ND + BS. Obese Ext: Trace edema bilateral lower extremities. No cyanosis. Right upper extremity , flexed at the elbow; range of motion limited secondary to pain at the shoulder site. Distal pulses intact. Strength 3/5 RUE, 5/5 LUE. Labs (see below) Images: CT abdomen and pelvis on 12/09/16 IMPRESSION: 1. The liver is markedly lobulated compatible with cirrhosis. 2. The spleen is mildly enlarged measuring 13.5 cm. 3. The gallbladder is distended showing a single calcified gallstone measuring 5 mm. 4. The patient is status post complete hysterectomy. 5. Bibasilar opacities are noted compatible with multifocal pneumonia versus aspiration. 6. There is diffuse sigmoid diverticulosis without evidence of acute diverticulitis. Chest x-ray on 12/10/16 Impression: Interstitial coarsening compatible with interstitial infiltrates. Cardiomegaly. RUQ u/s 12/10/16 IMPRESSION:Moderately distended gallbladder contains mild sludge, but no stones. No gallbladder wall thickening, pericholecystic fluid or significant biliary dilatation. Common bile duct 7 mm, upper limits of normal in diameter. Doppler u/s 12/12/16 Impression: No deep vein thrombus in the right upper extremity. The study is technically difficult because of patient body habitus and difficulty positioning the patient. Shoulder x ray 12/12/16 Impression: Acromioclavicular osteoarthritis. Otherwise , negative limited right shoulder study. CT Shoulder 12/20/16 IMPRESSION: No acute fracture, dislocation, or bone lesion. Moderate degenerative changes acromioclavicular joint. Small calcification in the distal supraspinatus tendon may represent calcific tendonitis. CT Cervical 12/20/16 IMPRESSION: Limited examination demonstrating no acute fracture or subluxation. Assessment/Plan 1. S/p Septic shock secondary to Escherichia coli bacteremia- status post pressor therapy. Completed Rocephin. Also noted to have bibasilar opacities on CT. We'll continue antibiotics, last dose 12/20. Blood cultures with Escherichia coli, repeat blood cultures negative. Echocardiogram with no vegetations. 2. Metabolic encephalopathy- secondary to septic shock. Resolved. 3. Acute kidney injury on chronic kidney disease- Baseline CKD stage III. Resolved. Nephrology on board. 4. Urinary retention- 1.2 L retention. Will need outpatient urology follow-up. Continue flomax; voiding trial after Claire has been removed. Patient currently urinating well. 5. Transaminitis- secondary to #1. We'll continue to monitor. Abdominal ultrasound (see above). 6. Elevated cardiac enzymes likely secondary to demand ischemia from septic shock.- Cardiology has been consulted. On Plavix. Echocardiogram. 7. Rhabdomyolysis- improved with fluids 8. Right shoulder injury- patient unable to elevate her arm above her shoulder level. X rays with no dislocation. ?rotator cuff injury. Unable to obtain appropriate imaging secondary to positioning patient. Unable to obtain CAT scan today given her positioning unable of the CAT scan. Orthopedics consulted. No fluid aspirated. MRI of the shoulder ordered to rule out rotator cuff injury, however patient could not fit in MRI and need open MRI. CT Shoulder with ? calcific tendonitis - start prednisone. 9. History of CHF- diuretics initially held secondary to shock. Restarted on lower dose of torsemide. 10. Type 2 diabetes- continue insulin and diabetic diet. 11. Chronic hypoxemic history higher- on 2 L oxygen at home. 12. SHAWANDA- only tea CPAP at home. Will need outpatient pulmonary follow-up. 13. Hyperlipidemia- statin held secondary to transaminitis 14. Hypothyroidism- on Synthroid 15. History of CVA- on Plavix. Will need statin restarted once liver function improves 16 .History of COPD - restart home nebs. 17. Morbid obesity 18. Chronic pain on Lyrica DVT prophy: Heparin subcutaneous Continue to work with PT. VS,Fishbone, I+O VS, Fishbone, I+O Laboratory Tests 12/20/16 05:42 Red Blood Count 4.14, Mean Corpuscular Volume 84.7, Mean Corpuscular Hemoglobin 27.1, Mean Corpuscular Hemoglobin Concent 32.0, Red Cell Distribution Width 15.1 H, Calcium Level 9.3, Aspartate Amino Transf (AST/SGOT) 51 H, Alanine Aminotransferase (ALT/SGPT) 72, Alkaline Phosphatase 257 H, Total Bilirubin 0.6 , Total Protein 7.1, Albumin 2.3 L Vital Signs Date Time Temp Pulse Resp B/P (MAP) Pulse Ox O2 Delivery O2 Flow Rate FiO2 12/20/16 09:28 18 12/20/16 06:00 97.0 78 150/74 (99) 99 NIPPV (BIPAP/CPAP) 3.0 I&O- Last 24 Hours up to 6 AM 12/20/16 05:59 Intake Total 1340 ml Output Total 1250 ml Balance 90 ml YASMIN DICKERSON MD Dec 20, 2016 13:47
[2016-12-20 14:00] VITALS: BP 166/72
[2016-12-20] MEDS ORDERED: predniSONE 20 MG TAB PO ONE (14:30)
[2016-12-20] MEDS ORDERED: HEPARIN SOD (PORCINE) 5000 UNITS/ML VIAL As Ordered ONE (21:07)
[2016-12-20 22:00] VITALS: BP 136/64
--- NOTE | 2016-12-21 01:41 | IPN ---
DATE OF SERVICE: 12/20/2016 SUBJECTIVE: The patient is seen today at the bedside. She has no complaints except for mild dysuria with urination. She otherwise feels well. Continues to receive physical therapy. She requests to be resumed on her home inhalers, which she has been off of during the course of this admission. REVIEW OF SYSTEMS: Negative for headache, chest pain, palpitations, shortness of breath at rest, nausea, vomiting, diarrhea. Positive for dysuria. Negative for frequency of micturition. Remainder of review of systems is negative. VITAL SIGNS: Temperature 97.0, pulse 78, respiratory rate 18, blood pressure 150/74, pulse oximetry 99%. INTAKE AND OUTPUT: Oral intake 1290 mL. Patient appropriately fluid restricted. Urine output 1250, three recorded bowel movements. No recorded daily weight. PHYSICAL EXAMINATION: GENERAL: The patient is awake, alert, oriented, in no acute distress, morbidly obese, in bed. HEENT: Normocephalic. Moist mucous membranes. Extraocular muscles intact. On nasal cannula. NECK: Supple, thick, unable to assess neck veins. PULMONARY: Distant, bilateral air entry symmetric without appreciable wheeze or rhonchus. CARDIAC: S1, S2, 2+ radial pulse. ABDOMEN: Soft, obese, nontender pannus. GENITOURINARY: Without catheter. Unable to assess for urinary bladder secondary to the patient's body habitus. EXTREMITIES: Pedal edema, otherwise no significant sacral or dependent edema or edema in the legs. NEUROLOGIC: No focal deficits. MUSCULOSKELETAL: Right shoulder weakness. PSYCHIATRIC: Appropriate mood and affect. LABORATORY DATA: White count 9.5, hemoglobin 11.2, platelets 343. Glucose 241, sodium 144, potassium 4.4, bicarbonate 31, creatinine 1.1, BUN 18. Corrected calcium 10.6 with an elevated intact parathyroid hormone level of 101, magnesium 1.9. Microbiology: No new results noted except for a fluid culture from the right shoulder; however, her joint aspiration was reportedly unsuccessful, so I am not sure what this is a culture of. IMAGING: The patient is pending C-spine and shoulder CAT scan today. INPATIENT MEDICATIONS: Patient has completed a course of Rocephin. She has been resumed on her home inhalers and she is on torsemide 40 mg by mouth daily and her vitamin D has been discontinued. No other medication changes in the past 24 hours. ASSESSMENT AND PLAN: 1. Acute kidney injury ([place]) on chronic kidney disease (CKD) stage III. The patient's baseline creatinine is around 0.8 to low 1s on review of serial creatinines. She remains at her baseline renal function after being started on oral diuretics. She has no significant peripheral or dependent edema on exam. She does note some dyspnea on exertion and has been off of her home inhalers during the course of this admission. They have been resumed. We will gradually titrate her diuretics. Her home regimen is torsemide 100 every morning, 50 mg every evening. I will place her on torsemide 40 mg daily and monitor her urine output and renal function, as well as her volume status. 2. History of urinary retention requiring occasional self-catheterization at home reportedly once or twice a week. The patient is on Flomax and denies current issues voiding. I will have her double void this afternoon and then have her straight catheterized to confirm that she is not retaining. 3. Complaint of dysuria. Patient recently had urinary tract infection (UTI) urosepsis. Her last urinalysis did show large yeast cells. We will repeat urinalysis. She may need a one-time dose of Diflucan. 4. History of congestive heart failure. The patient is no longer polyuric. Her serum sodium is stable. She is fluid restricting. Respiratory snell, she does note dyspnea on exertion; however, she has been off of her home inhalers throughout the course of the admission. Those are resumed today. She is currently on torsemide 40 mg daily and her diuretics will be titrated based upon her clinical picture. 5. Hypercalcemia. Corrected calcium 10.4 yesterday, 10.6, not on calcium supplements. She was previously hypocalcemic. Her vitamin D is currently on hold. She does have an elevated parathyroid hormone level. It is a little bit higher than I would expect for CKD stage III. Further workup can be done as an outpatient for the same. 6. Escherichia (E) coli urosepsis. The patient has completed a course of Rocephin. 7. Right shoulder weakness. She is pending CAT scan for the same. 8. Elevated transaminases secondary to shock liver. Liver function tests (LFTs) continue to downtrend and improve. Plan of care discussed with Dr. Gerardo Brar.
[2016-12-21] MEDS: HEPARIN SOD (PORCINE) 5000 UNITS/ML VIAL SQ SCH ×3 (05:36→21:52)
[2016-12-21] MEDS: LEVOTHYROXINE 88MCG TABLET (0.088 MG) PO SCH (05:36)
[2016-12-21 05:39] LABS: MEAN CORPUSCULAR HGB CONC 31.9 g/dl (32.0-36.5); MEAN CORPUSCULAR VOLUME 84.6 fl (80.0-96.0); RED CELL DISTRIBUTION WIDTH 14.5 % (11.5-14.5); WHITE BLOOD COUNT 8.3 K/mm3 (4.0-10.0)
[2016-12-21 05:57] LABS: ALBUMIN 2.4 GM/DL (3.2-5.2); ALBUMIN/GLOBULIN RATIO 0.5 (1.00-1.93); BILIRUBIN,TOTAL 0.6 MG/DL (0.2-1.0); CREATININE FOR GFR 1.07 MG/DL (0.55-1.02); GLOMERULAR FILTRATION RATE 55.5 (>45); MAGNESIUM LEVEL 2.2 MG/DL (1.8-2.4); TOTAL PROTEIN 7.2 GM/DL (6.4-8.2)
[2016-12-21 06:00] VITALS: BP 136/61
[2016-12-21 06:15] LABS: POTASSIUM SERUM 5.5 MEQ/L (3.5-5.1)
[2016-12-21] MEDS ORDERED: TORSEMIDE 20 MG TAB PO SCH (09:00)
[2016-12-21] MEDS: SENOKOT S TAB PO SCH ×2 (09:02→21:00)
[2016-12-21] MEDS: PREGABALIN 75 MG CAP(LYRICA) PO SCH ×2 (09:02→21:51)
[2016-12-21] MEDS: CLOPIDOGREL 75 MG TAB PO SCH (09:02)
[2016-12-21] MEDS: HumaLOG INSULIN (NovoLOG) PER UNIT SC SCH ×4 (09:02→21:53)
[2016-12-21] MEDS: predniSONE 20 MG TAB PO SCH (09:02)
[2016-12-21] MEDS: TORSEMIDE 20 MG TAB PO SCH ×2 (09:03→17:09)
[2016-12-21] MEDS: TAMSULOSIN 0.4 MG CAP PO SCH (09:03)
[2016-12-21] MEDS: MIRALAX *UNIT DOSE* 17GM PACKET PO SCH ×2 (09:03→21:00)
[2016-12-21] MEDS: tiZANidine 4 MG TAB PO SCH ×3 (09:03→21:51)
[2016-12-21] MEDS: DICYCLOMINE 10 MG CAP PO SCH ×3 (09:03→21:55)
[2016-12-21] MEDS: LEVEMIR (INSULIN DETEMIR) 1 UNITS/0.01ML SC SCH ×2 (09:04→21:53)
[2016-12-21] MEDS: PANTOPRAZOLE 40MG INJ (PROTONIX) (C9113) IV SCH (10:12)
[2016-12-21 14:00] VITALS: BP 124/59
--- NOTE | 2016-12-21 14:23 | IPNPDOC ---
Text Note Date of Service The patient was seen on 12/21/16. NOTE Subjective: States her ROM of right shoulder. Objective: Vitals: (see below) General: No acute distress, laying comfortably in bed. HEENT: Moist mucous membranes. Neck: No JVD or lymphadenopathy Cardiac: RRR, No murmurs Pulm: Clear to auscultation b/l. No wheezing, rhonchi Abd: NT/ND + BS. Obese Ext: Trace edema bilateral lower extremities. No cyanosis. Right upper extremity , flexed at the elbow; range of motion improved since yesterday. Pain to palpation at the shoulder site. Distal pulses intact. Strength 4/5 RUE, 5/5 LUE. Labs (see below) Images: CT abdomen and pelvis on 12/09/16 IMPRESSION: 1. The liver is markedly lobulated compatible with cirrhosis. 2. The spleen is mildly enlarged measuring 13.5 cm. 3. The gallbladder is distended showing a single calcified gallstone measuring 5 mm. 4. The patient is status post complete hysterectomy. 5. Bibasilar opacities are noted compatible with multifocal pneumonia versus aspiration. 6. There is diffuse sigmoid diverticulosis without evidence of acute diverticulitis. Chest x-ray on 12/10/16 Impression: Interstitial coarsening compatible with interstitial infiltrates. Cardiomegaly. RUQ u/s 12/10/16 IMPRESSION:Moderately distended gallbladder contains mild sludge, but no stones. No gallbladder wall thickening, pericholecystic fluid or significant biliary dilatation. Common bile duct 7 mm, upper limits of normal in diameter. Doppler u/s 12/12/16 Impression: No deep vein thrombus in the right upper extremity. The study is technically difficult because of patient body habitus and difficulty positioning the patient. Shoulder x ray 12/12/16 Impression: Acromioclavicular osteoarthritis. Otherwise , negative limited right shoulder study. CT Shoulder 12/20/16 IMPRESSION: No acute fracture, dislocation, or bone lesion. Moderate degenerative changes acromioclavicular joint. Small calcification in the distal supraspinatus tendon may represent calcific tendonitis. CT Cervical 12/20/16 IMPRESSION: Limited examination demonstrating no acute fracture or subluxation. Assessment/Plan 1. S/p Septic shock secondary to Escherichia coli bacteremia- status post pressor therapy. Completed Rocephin. Also noted to have bibasilar opacities on CT. We'll continue antibiotics, last dose 12/20. Blood cultures with Escherichia coli, repeat blood cultures negative. Echocardiogram with no vegetations. 2. Metabolic encephalopathy- secondary to septic shock. Resolved. 3. Acute kidney injury on chronic kidney disease- Baseline CKD stage III. Resolved. Nephrology on board. 4. Urinary retention- 1.2 L retention. Will need outpatient urology follow-up. Continue flomax; voiding trial after Claire has been removed. Patient currently urinating well. 5. Transaminitis- secondary to #1. We'll continue to monitor. Abdominal ultrasound (see above). 6. Elevated cardiac enzymes likely secondary to demand ischemia from septic shock.- Cardiology has been consulted. On Plavix. Echocardiogram. 7. Rhabdomyolysis- improved with fluids 8. Right shoulder injury- patient unable to elevate her arm above her shoulder level. X rays with no dislocation. ?rotator cuff injury. Unable to obtain appropriate imaging secondary to positioning patient. Unable to obtain CAT scan today given her positioning unable of the CAT scan. Orthopedics consulted. No fluid aspirated. MRI of the shoulder ordered to rule out rotator cuff injury, however patient could not fit in MRI and need open MRI. CT Shoulder with ? calcific tendonitis - started prednisone with improvement of pain and ROM. 9. History of CHF- diuretics initially held secondary to shock. Restarted on lower dose of torsemide. 10. Type 2 diabetes- continue insulin and diabetic diet. 11. Chronic hypoxemic history higher- on 2 L oxygen at home. 12. SHAWANDA- only tea CPAP at home. Will need outpatient pulmonary follow-up. 13. Hyperlipidemia- statin held secondary to transaminitis 14. Hypothyroidism- on Synthroid 15. History of CVA- on Plavix. Will need statin restarted once liver function improves 16 .History of COPD - restart home nebs. 17. Morbid obesity 18. Chronic pain on Lyrica DVT prophy: Heparin subcutaneous Continue to work with PT. VS,Fishbone, I+O VS, Fishbone, I+O Laboratory Tests 12/21/16 04:57 Red Blood Count 4.13, Mean Corpuscular Volume 84.6, Mean Corpuscular Hemoglobin 27.0, Mean Corpuscular Hemoglobin Concent 31.9 L, Red Cell Distribution Width 14.5, Calcium Level 9.0, Aspartate Amino Transf (AST/SGOT) 52 H, Alanine Aminotransferase (ALT/SGPT) 72, Alkaline Phosphatase 273 H, Total Bilirubin 0.6 , Total Protein 7.2, Albumin 2.4 L 12/21/16 07:08 Vital Signs Date Time Temp Pulse Resp B/P (MAP) Pulse Ox O2 Delivery O2 Flow Rate FiO2 12/21/16 06:00 96.4 80 18 136/61 (86) 93 Nasal Cannula 2.0 I&O- Last 24 Hours up to 6 AM 12/21/16 06:00 Intake Total 1040 ml Output Total 475 ml Balance 565 ml YASMIN DICKERSON MD Dec 21, 2016 14:23
[2016-12-21] MEDS: SYMBICORT 160/4.5MCG INHALER 6GM INH SCH (20:11)
--- NOTE | 2016-12-21 21:21 | IPN ---
DATE: 12/21/2016 SUBJECTIVE: Patient was seen and examined at the bedside today morning. She denies any active complaints apart from pain in the right shoulder. She is hemodynamically stable. The urine function is also stable with a creatinine of 1.07 today. REVIEW OF SYSTEMS: Patient denies any fever or chills, rigors, headache, nausea, vomiting, chest pain. She does report a little bit of wheezing and she reports that she has not been able to get her home inhalers so far. She denies any abdominal pain, constipation or diarrhea, and she reports a moderate amount of pain in the right shoulder. The rest of the review of systems is negative. OBJECTIVE: VITAL SIGNS: Temperature 96.4 degrees Fahrenheit, blood pressure 136/61, pulse 80, respiratory rate 18, saturating 93% on nasal cannula at 2 liters. INTAKE AND OUTPUT (I AND O): Urine output recorded is 775 mL yesterday, 800 mL so far today. Patient is 500 mL positive for the last two days. Weight in the bed scale is not available. PHYSICAL EXAMINATION: GENERAL: Patient is awake, alert, oriented times three. Laying in bed. She is obese. No apparent distress. HEAD AND NECK EXAM: Extraocular muscles intact. Pupils equal, round, and reactive to light. Mucous membranes are moist. Neck is supple. There is no jugular venous distention (JVD). CARDIOVASCULAR: S1, S2. Regular rate. No murmurs, rubs or gallops. RESPIRATORY: Decreased breath sounds at the bases with mild respiratory rhonchi at the bases. ABDOMEN: Obese, soft. Positive bowel sounds. No organomegaly was appreciated because of patient's body habitus. MUSCULOSKELETAL: Trace pedal edema. Otherwise, no clubbing or cyanosis. CENTRAL NERVOUS SYSTEM: No focal neurological deficits. Power is 5/5 in all extremities, but there is decreased range of movement in the right shoulder because of pain. PSYCHIATRIC: Normal mood and affect. LABORATORY REVIEW: Complete blood count (CBC) showed a WBC of 8.3, hemoglobin 11.1, platelets 328. Basic metabolic panel (BMP) showed sodium 139, potassium 5.5, chloride 104, bicarbonate 29, BUN 20, creatinine 1.07, magnesium 2.2. C-reactive protein 2.9. AST 52, ALT 72, alkaline phosphatase 273. IMAGING: A CAT scan of the shoulder was done. It showed no acute fracture, dislocation or bone lesion. A CAT scan of the cervical (C) spine was done which showed no acute fracture or subluxation. CURRENT INPATIENT MEDICATIONS: Patient's medications were all reviewed by me. I have changed her torsemide dose to 40 mg by mouth twice a day instead of once a day, because she is in positive fluid balance. ASSESSMENT: A 61-year-old female with past medical history of chronic kidney disease stage III, history of congestive heart failure, admitted this time because of septic shock secondary to Escherichia (E) coli urinary tract infection (UTI) causing acute renal failure. PLAN: 1. Acute kidney injury superimposed on chronic kidney disease. Patient had acute tubular necrosis (ATN) secondary to sepsis and hypotension. Her renal function is improving now. Creatinine is down to 1.07. Continue to monitor for renal improvement. 2. History of congestive heart failure. Patient was initially having post-ATN diuresis. Now the urine output has decreased. Her home dose of torsemide was 100 mg in the morning and 50 mg in the evening. She is in positive fluid balance for the last two days. I have increased her torsemide to 40 mg by mouth twice a day. Continue to monitor intake and output. 3. History or urinary retention. Claire catheter has been removed. Continue the voiding trial. Patient denies any retention at this time. 4. Hyperkalemia. Patient's potassium is 5.5 today morning. Repeat potassium is 5, which is acceptable at this time. Further diuresis with also help bring the potassium down. 5. Pain right shoulder. Patient reports that when she was septic and when she was being transferred to the hospital, she fell and hurt her shoulder. CAT scan did not show any fracture. Continue the pain medication and physical therapy.
[2016-12-21 22:00] VITALS: BP 142/69
[2016-12-22 06:00] VITALS: BP 142/74
[2016-12-22] MEDS: HEPARIN SOD (PORCINE) 5000 UNITS/ML VIAL SQ SCH ×3 (06:03→22:13)
[2016-12-22] MEDS: LEVOTHYROXINE 88MCG TABLET (0.088 MG) PO SCH (06:03)
[2016-12-22 06:16] LABS: MEAN CORPUSCULAR HEMOGLOBIN 27.2 pg (27.0-33.0); MEAN CORPUSCULAR HGB CONC 32.6 g/dl (32.0-36.5); MEAN CORPUSCULAR VOLUME 83.6 fl (80.0-96.0); RED CELL DISTRIBUTION WIDTH 14.4 % (11.5-14.5); WHITE BLOOD COUNT 7.3 K/mm3 (4.0-10.0)
[2016-12-22 06:50] LABS: ALBUMIN 2.6 GM/DL (3.2-5.2); ALBUMIN/GLOBULIN RATIO 0.6 (1.00-1.93); BILIRUBIN,TOTAL 0.5 MG/DL (0.2-1.0); CALCIUM LEVEL 8.6 MG/DL (8.8-10.2); MAGNESIUM LEVEL 2.1 MG/DL (1.8-2.4); POTASSIUM SERUM 4.2 MEQ/L (3.5-5.1); TOTAL PROTEIN 6.9 GM/DL (6.4-8.2)
[2016-12-22] MEDS: SYMBICORT 160/4.5MCG INHALER 6GM INH SCH ×2 (07:52→19:58)
[2016-12-22] MEDS: LEVEMIR (INSULIN DETEMIR) 1 UNITS/0.01ML SC SCH ×2 (09:19→22:13)
[2016-12-22] MEDS: MIRALAX *UNIT DOSE* 17GM PACKET PO SCH ×2 (09:19→21:00)
[2016-12-22] MEDS: HumaLOG INSULIN (NovoLOG) PER UNIT SC SCH ×4 (09:19→21:00)
[2016-12-22] MEDS: TORSEMIDE 20 MG TAB PO SCH ×2 (09:20→17:14)
[2016-12-22] MEDS: tiZANidine 4 MG TAB PO SCH ×3 (09:20→22:12)
[2016-12-22] MEDS: CLOPIDOGREL 75 MG TAB PO SCH (09:20)
[2016-12-22] MEDS: SENOKOT S TAB PO SCH ×2 (09:20→22:12)
[2016-12-22] MEDS: TAMSULOSIN 0.4 MG CAP PO SCH (09:20)
[2016-12-22] MEDS: PREGABALIN 75 MG CAP(LYRICA) PO SCH ×2 (09:20→22:11)
[2016-12-22] MEDS: predniSONE 20 MG TAB PO SCH (09:21)
[2016-12-22] MEDS: DICYCLOMINE 10 MG CAP PO SCH ×3 (09:21→22:12)
[2016-12-22] MEDS: PANTOPRAZOLE 40MG TAB (PROTONIX) PO SCH (09:21)
--- NOTE | 2016-12-22 12:04 | IPNPDOC ---
Text Note Date of Service The patient was seen on 12/22/16. NOTE Subjective: States her ROM of right shoulder has improved. Objective: Vitals: (see below) General: No acute distress, laying comfortably in bed. HEENT: Moist mucous membranes. Neck: No JVD or lymphadenopathy Cardiac: RRR, No murmurs Pulm: Clear to auscultation b/l. No wheezing, rhonchi Abd: NT/ND + BS. Obese Ext: Trace edema bilateral lower extremities. No cyanosis. Right upper extremity , flexed at the elbow; range of motion improved since yesterday. Pain to palpation at the shoulder site. Distal pulses intact. Strength 4/5 RUE, 5/5 LUE. Improved since yesterday. Labs (see below) Images: CT abdomen and pelvis on 12/09/16 IMPRESSION: 1. The liver is markedly lobulated compatible with cirrhosis. 2. The spleen is mildly enlarged measuring 13.5 cm. 3. The gallbladder is distended showing a single calcified gallstone measuring 5 mm. 4. The patient is status post complete hysterectomy. 5. Bibasilar opacities are noted compatible with multifocal pneumonia versus aspiration. 6. There is diffuse sigmoid diverticulosis without evidence of acute diverticulitis. Chest x-ray on 12/10/16 Impression: Interstitial coarsening compatible with interstitial infiltrates. Cardiomegaly. RUQ u/s 12/10/16 IMPRESSION:Moderately distended gallbladder contains mild sludge, but no stones. No gallbladder wall thickening, pericholecystic fluid or significant biliary dilatation. Common bile duct 7 mm, upper limits of normal in diameter. Doppler u/s 12/12/16 Impression: No deep vein thrombus in the right upper extremity. The study is technically difficult because of patient body habitus and difficulty positioning the patient. Shoulder x ray 12/12/16 Impression: Acromioclavicular osteoarthritis. Otherwise , negative limited right shoulder study. CT Shoulder 12/20/16 IMPRESSION: No acute fracture, dislocation, or bone lesion. Moderate degenerative changes acromioclavicular joint. Small calcification in the distal supraspinatus tendon may represent calcific tendonitis. CT Cervical 12/20/16 IMPRESSION: Limited examination demonstrating no acute fracture or subluxation. Assessment/Plan 1. S/p Septic shock secondary to Escherichia coli bacteremia- status post pressor therapy. Completed Rocephin. Also noted to have bibasilar opacities on CT. We'll continue antibiotics, last dose 12/20. Blood cultures with Escherichia coli, repeat blood cultures negative. Echocardiogram with no vegetations. 2. Metabolic encephalopathy- secondary to septic shock. Resolved. 3. Acute kidney injury on chronic kidney disease- Baseline CKD stage III. Resolved. Nephrology on board. 4. Urinary retention- 1.2 L retention. Will need outpatient urology follow-up. Continue flomax; voiding trial after Claire has been removed. Patient currently urinating well. 5. Transaminitis- secondary to #1. We'll continue to monitor. Abdominal ultrasound (see above). 6. Elevated cardiac enzymes likely secondary to demand ischemia from septic shock.- Cardiology has been consulted. On Plavix. Echocardiogram. 7. Rhabdomyolysis- improved with fluids 8. Right shoulder injury- patient unable to elevate her arm above her shoulder level. X rays with no dislocation. ?rotator cuff injury. Unable to obtain appropriate imaging secondary to positioning patient. Unable to obtain CAT scan today given her positioning unable of the CAT scan. Orthopedics consulted. No fluid aspirated. MRI of the shoulder ordered to rule out rotator cuff injury, however patient could not fit in MRI and need open MRI. CT Shoulder with ? calcific tendonitis - started prednisone with improvement of pain and ROM. 9. History of CHF- diuretics initially held secondary to shock. Restarted on lower dose of torsemide. 10. Type 2 diabetes- continue insulin and diabetic diet. 11. Chronic hypoxemic history higher- on 2 L oxygen at home. 12. SHAWANDA- only tea CPAP at home. Will need outpatient pulmonary follow-up. 13. Hyperlipidemia- statin held secondary to transaminitis 14. Hypothyroidism- on Synthroid 15. History of CVA- on Plavix. Will need statin restarted once liver function improves 16 .History of COPD - restart home nebs. 17. Morbid obesity 18. Chronic pain on Lyrica DVT prophy: Heparin subcutaneous Continue to work with PT. VS,Fishbone, I+O VS, Fishbone, I+O Laboratory Tests 12/22/16 05:52 Red Blood Count 4.26, Mean Corpuscular Volume 83.6, Mean Corpuscular Hemoglobin 27.2, Mean Corpuscular Hemoglobin Concent 32.6, Red Cell Distribution Width 14.4 , Calcium Level 8.6 L, Aspartate Amino Transf (AST/SGOT) 53 H, Alanine Aminotransferase (ALT/SGPT) 79 H, Alkaline Phosphatase 266 H, Total Bilirubin 0.5, Total Protein 6.9, Albumin 2.6 L Vital Signs Date Time Temp Pulse Resp B/P (MAP) Pulse Ox O2 Delivery O2 Flow Rate FiO2 12/22/16 06:00 97.4 69 18 142/74 (96) 98 NIPPV (BIPAP/CPAP) 3.0 I&O- Last 24 Hours up to 6 AM 12/22/16 06:00 Intake Total 1560 ml Output Total 1700 ml Balance -140 ml YASMIN DICKERSON MD Dec 22, 2016 12:04
[2016-12-22 14:00] VITALS: BP 143/76
--- NOTE | 2016-12-22 16:38 | IPN ---
DATE: 12/22/2016 SUBJECTIVE: Patient was seen and examined at the bedside today morning. Her diuretic dose was increased yesterday. She diuresed well with her twice a day dose of torsemide. She denies any shortness of breath. Renal function is stable at this time. She continues to complain of moderate amount of pain in the right shoulder. REVIEW OF SYSTEMS: Patient denies any fever or chills, rigors, headache, nausea, vomiting, chest pain, shortness of breath, abdominal pain, constipation or diarrhea. She does report a moderate amount of pain in the right shoulder. The rest of the review of systems is negative. OBJECTIVE: VITAL SIGNS: Temperature 97.4 degrees Fahrenheit, blood pressure 142/74, pulse 69, respiratory rate 18, saturating 98% on room air. INTAKE AND OUTPUT: Urine output recorded was 1700 mL yesterday. There is no urine output recorded today. Weight in the bed scale is not available. PHYSICAL EXAMINATION: GENERAL: Patient is awake, alert, oriented times three. She is laying in bed in no apparent distress. She is morbidly obese. HEAD AND NECK EXAM: Extraocular muscles intact. Pupils equal, round, and reactive to light. Mucous membranes are moist. Neck is supple. There is no jugular venous distention (JVD). CARDIOVASCULAR: S1, S2. Regular rate. No murmurs, rubs or gallops. RESPIRATORY: Mildly decreased breath sounds at the bases. Otherwise, no rales or rhonchi at this time. ABDOMEN: Soft, obese. Positive bowel sounds. No organomegaly was appreciated because of obesity. MUSCULOSKELETAL: No edema of the extremities at this time. No clubbing or cyanosis. Decreased range of movement of the right shoulder because of pain. CENTRAL NERVOUS SYSTEM: No focal neurological deficits. Patient follows commands. PSYCHIATRIC: Normal mood and affect. LABORATORY REVIEW: Complete blood count (CBC) showed WBC 7.3, hemoglobin 11.6, platelets 324. Basic metabolic panel (BMP) showed sodium 142, potassium 4.2, chloride 103, bicarbonate 29, BUN 24, creatinine 1, glucose 281, calcium 8.6, magnesium 2.1. AST 53, ALT 79, alkaline phosphatase 266, albumin 2.6. CURRENT INPATIENT MEDICATIONS: Patient's medications were all reviewed by me. Her torsemide dose was increased to 40 mg by mouth twice a day yesterday. Protonix has been changed to 40 mg by mouth daily. Levemir dose has been changed to 70 units subcutaneously twice a day. No other change in the medications today as compared with yesterday. ASSESSMENT: A 61-year-old female with past medical history of morbid obesity, chronic kidney disease stage III, history of congestive heart failure, admitted this time because of septic shock secondary to Escherichia (E) coli, pyelonephritis, and causing acute renal failure. PLAN: 1. Acute kidney injury superimposed on chronic kidney disease. Patient had acute tubular necrosis (ATN). She has recovered. Her renal function is stable. Creatinine is down to 1. Okay to continue diuretics at this time. 2. History of congestive heart failure. Patient's volume status is optimized. Her diuretics were increased yesterday. Continue current dose of torsemide 40 mg by mouth twice a day. She is having good diuretic response with the current dose. Continue to monitor daily weight and Intake and output. 3. History of urinary retention. Patient denies any retention at this time. Claire catheter has been out. Continue the Flomax 0.8 mg by mouth daily. 4. Hypocalcemia. Calcium level is 8.6, which is acceptable, because her albumin level is 2.6. DISCHARGE PLANNING: It is okay to discharge the patient from a nephrology standpoint whenever she is cleared from physical therapy.
[2016-12-22 22:00] VITALS: BP 155/67
[2016-12-22] MEDS ORDERED: HumaLOG INSULIN (NovoLOG) PER UNIT SC ONE (22:45)
[2016-12-23 06:00] VITALS: BP 115/69
[2016-12-23] MEDS: LEVOTHYROXINE 88MCG TABLET (0.088 MG) PO SCH (06:13)
[2016-12-23] MEDS: HEPARIN SOD (PORCINE) 5000 UNITS/ML VIAL SQ SCH ×3 (06:13→21:39)
[2016-12-23 06:21] LABS: ALBUMIN 2.7 GM/DL (3.2-5.2); ALBUMIN/GLOBULIN RATIO 0.56 (1.00-1.93); BILIRUBIN,TOTAL 0.5 MG/DL (0.2-1.0); CALCIUM LEVEL 8.9 MG/DL (8.8-10.2); CREATININE FOR GFR 1.18 MG/DL (0.55-1.02); GLOMERULAR FILTRATION RATE 49.6 (>45); TOTAL PROTEIN 7.5 GM/DL (6.4-8.2)
[2016-12-23] MEDS: SYMBICORT 160/4.5MCG INHALER 6GM INH SCH ×2 (08:00→19:49)
[2016-12-23] MEDS: HumaLOG INSULIN (NovoLOG) PER UNIT SC SCH ×4 (08:25→21:40)
[2016-12-23] MEDS: PREGABALIN 75 MG CAP(LYRICA) PO SCH ×2 (08:26→21:41)
[2016-12-23] MEDS: SENOKOT S TAB PO SCH (08:26)
[2016-12-23] MEDS: LEVEMIR (INSULIN DETEMIR) 1 UNITS/0.01ML SC SCH ×2 (08:26→21:39)
[2016-12-23] MEDS: TAMSULOSIN 0.4 MG CAP PO SCH (08:26)
[2016-12-23] MEDS: DICYCLOMINE 10 MG CAP PO SCH (08:27)
[2016-12-23] MEDS: TORSEMIDE 20 MG TAB PO SCH ×2 (08:27→17:06)
[2016-12-23] MEDS: tiZANidine 4 MG TAB PO SCH ×3 (08:27→21:41)
[2016-12-23] MEDS: PANTOPRAZOLE 40MG TAB (PROTONIX) PO SCH (08:27)
[2016-12-23] MEDS: MIRALAX *UNIT DOSE* 17GM PACKET PO SCH (08:28)
[2016-12-23] MEDS: CLOPIDOGREL 75 MG TAB PO SCH (08:28)
[2016-12-23] MEDS: predniSONE 5 MG TAB PO SCH (08:34)
[2016-12-23] MEDS ORDERED: DEMA20TA6 PO (10:50)
[2016-12-23] MEDS ORDERED: PRED5TA PO (10:50)
[2016-12-23] MEDS ORDERED: FLOM5CAP PO (10:50)
--- NOTE | 2016-12-23 13:15 | IPN ---
DATE: 12/23/2016 SUBJECTIVE: Patient was seen and examined at the bedside today morning. She is afebrile, hemodynamically stable. Patient reports that she was unable to sleep at night because of pain in the right shoulder. Otherwise, her renal function is stable at this time. REVIEW OF SYSTEMS: Patient denies any fevers, chills, rigors, headache, nausea, vomiting, chest pain, shortness of breath, pain in abdomen, constipation or diarrhea. Patient reports a moderate amount of pain in the right shoulder. Rest of the review of system is negative. OBJECTIVE: VITAL SIGNS: Temperature is 98 degrees Fahrenheit. Blood pressure is 115/69. Pulse is 80. Respiratory rate of 18. Saturating 96% on room air. INTAKE AND OUTPUT: Urine output recorded as 1300 mL. There is no bedside weight available. PHYSICAL EXAMINATION: GENERAL: Patient is awake, alert, oriented times three, morbidly obese, laying in bed, in no apparent distress. HEAD AND NECK EXAM: Extraocular muscles intact. Pupils equally round and reactive to light. Mucous membranes are moist. Neck is supple. There is no jugular venous distention (JVD). CARDIOVASCULAR: S1, S2. Regular rate. No murmur, rub or gallop. RESPIRATORY: Chest is clear to auscultation bilaterally. Bilateral equal air entry. No rales or rhonchi. ABDOMEN: Is soft, obese. Positive bowel sounds. No organomegaly. MUSCULOSKELETAL: No edema of the extremities. No clubbing or cyanosis. Decreased range of movement of the right shoulder because of pain. CENTRAL NERVOUS SYSTEM (SYSTEMS MANAGER): No focal neurological deficit. PSYCHIATRIC: Normal mood and affect. LABORATORY REVIEW: CBC showed WBC 7.3, hemoglobin 11.6, platelets 324. BMP showed sodium 141, potassium 4, chloride 101, bicarbonate 30, BUN 27, creatinine is 1.1, albumin 2.7. CURRENT INPATIENT MEDICATIONS: Patient's medications were all reviewed by me. Prednisone is being tapered down. She is on 5 mg by mouth daily now. Vitamin D has been stopped and Tylenol was stopped today morning by me because of elevated liver enzymes. ASSESSMENT: 61-year-old female with past medical history of morbid obesity, chronic kidney disease stage III, history of congestive heart failure, admitted this time because of septic shock secondary to Escherichia (E) coli, pyelonephritis causing acute renal failure. PLAN: 1. Acute kidney injury superimposed on chronic kidney disease. Acute kidney injury ([place]) was secondary to acute tubular necrosis (ATN). Patient is making good amount of urine. Renal function has come to baseline. Creatinine is around 1.1 now. 2. History of congestive heart failure. Patient is diuresing well with current dose of torsemide 40 mg by mouth twice a day. Her home dose of torsemide was higher than this. Continue to monitor daily Intake and output. Volume status is optimized at this time. 3. Shock liver. Patient has history of fatty liver and he had shock liver because of septic shock. Liver function tests (LFTs) are improving. I have stopped the Tylenol at this time, and I will hold all the hepatotoxic medications until patient's liver function is back to baseline. 4. Pain in right shoulder. Imaging was negative so far. Avoid Tylenol at this time because of liver injury. Patient is on prednisone taper at this time.
[2016-12-23 14:00] VITALS: BP 129/61
--- NOTE | 2016-12-23 15:07 | IPNPDOC ---
Text Note Date of Service The patient was seen on 12/23/16. NOTE PROCEDURES PERFORMED DURING STAY: None. ADMITTING/DISCHARGE DIAGNOSES: 1. Status post septic shock secondary to Escherichia coli bacteremia, resolved 2. Metabolic encephalopathy, resolved 3. Acute kidney injury and chronic disease, resolved 4. Transaminitis, improved 5. Elevated cardiac enzymes, resolved will need outpatient follow-up. 6. Rhabdomyolysis, resolved 7. Right shoulder calcific tendinitis 8. Diabetes mellitus 9. Congestive heart failure 10. Hyperlipidemia 11. Hypothyroidism 12. History of CVA 13. History of COPD on 2 L home oxygen 14. Morbid obesity 15. Chronic pain COMPLICATIONS/CHIEF COMPLAINT: Lethargy HISTORY OF PRESENT ILLNESS/HOSPITAL COURSE: This is a 61-year-old female with a past history of CHF, diabetes, COPD on 2 L home O2, history of CVA, hypothyroidism who presents with decreased mental status and found to be septic. Patient was started on antibiotics and further required pressor therapy. Patient tolerated therapy well and was noted to have Escherichia coli bacteremia which has since been treated with Rocephin. Over the course of Hospitalization, , patient had urinary retention for which a Claire catheters placed and was subsequently discontinued, and patient will need to follow-up outpatient with urology. Patient was also noted to have acute kidney injury secondary to septic shock and has significantly improved. In addition, patient was noted to have right shoulder pain and was evaluated by orthopedics. Patient had extensive workup and was noted to have calcific tendinitis for which she was started on steroids. Her blood sugars were elevated secondary to this, and as her range of motion in the right upper extremity improved, her prednisone has been tapered down. The patient has also been constipated for 10 days and was started on a bowel regimen for which she now has loose stools. The bowel regimen has been discontinued. Patient will have an increased dosage of her Levemir, for which she will need to monitor her blood sugars 3 times a day as directed. Patient is now hemodynamically stable and ready to be discharged home. DISCHARGE MEDICATIONS: Please see below. ALLERGIES: Please see below. PHYSICAL EXAMINATION ON DISCHARGE: Vitals: (see below) General: No acute distress, laying comfortably in bed. HEENT: Moist mucous membranes. Neck: No JVD or lymphadenopathy Cardiac: RRR, No murmurs Pulm: Clear to auscultation b/l. No wheezing, rhonchi Abd: NT/ND + BS. Obese Ext: Trace edema bilateral lower extremities. No cyanosis. Right upper extremity , flexed at the elbow; range of motion improved since yesterday. Pain to palpation at the shoulder site. Distal pulses intact. Strength 5/5 RUE, 5/5 LUE. Improved since yesterday. LABORATORY DATA: Please see below. IMAGING: CT abdomen and pelvis on 12/09/16 IMPRESSION: 1. The liver is markedly lobulated compatible with cirrhosis. 2. The spleen is mildly enlarged measuring 13.5 cm. 3. The gallbladder is distended showing a single calcified gallstone measuring 5 mm. 4. The patient is status post complete hysterectomy. 5. Bibasilar opacities are noted compatible with multifocal pneumonia versus aspiration. 6. There is diffuse sigmoid diverticulosis without evidence of acute diverticulitis. Chest x-ray on 12/10/16 Impression: Interstitial coarsening compatible with interstitial infiltrates. Cardiomegaly. RUQ u/s 12/10/16 IMPRESSION:Moderately distended gallbladder contains mild sludge, but no stones. No gallbladder wall thickening, pericholecystic fluid or significant biliary dilatation. Common bile duct 7 mm, upper limits of normal in diameter. Doppler u/s 12/12/16 Impression: No deep vein thrombus in the right upper extremity. The study is technically difficult because of patient body habitus and difficulty positioning the patient. Shoulder x ray 12/12/16 Impression: Acromioclavicular osteoarthritis. Otherwise , negative limited right shoulder study. CT Shoulder 12/20/16 IMPRESSION: No acute fracture, dislocation, or bone lesion. Moderate degenerative changes acromioclavicular joint. Small calcification in the distal supraspinatus tendon may represent calcific tendonitis. CT Cervical 12/20/16 IMPRESSION: Limited examination demonstrating no acute fracture or subluxation. PROGNOSIS: Fair ACTIVITY: As tolerated. DIET: Renal diet DISCHARGE PLAN/DISPOSITION: Home with home services DISCHARGE INSTRUCTIONS: 1. Patient is to follow-up with PCP, nephrology, urology, and orthopedics in 1- 2 weeks. Patient is to return to the ED if symptoms worsen. DISCHARGE CONDITION: Stable. TIME SPENT ON DISCHARGE: Greater than 30 minutes. VS,Fishbone, I+O VS, Fishbone, I+O Laboratory Tests 12/23/16 05:44 Calcium Level 8.9, Aspartate Amino Transf (AST/SGOT) 67 H, Alanine Aminotransferase (ALT/SGPT) 91 H, Alkaline Phosphatase 255 H, Total Bilirubin 0.5, Total Protein 7.5, Albumin 2.7 L Vital Signs Date Time Temp Pulse Resp B/P (MAP) Pulse Ox O2 Delivery O2 Flow Rate FiO2 12/23/16 10:28 Nasal Cannula 2.0 12/23/16 06:00 98.0 80 18 115/69 (84) 96 I&O- Last 24 Hours up to 6 AM 12/23/16 06:00 Intake Total 2430 ml Output Total 1300 ml Balance 1130 ml YASMIN DICKERSON MD Dec 23, 2016 15:07
[2016-12-23 22:00] VITALS: BP 132/66
[2016-12-24 06:00] VITALS: BP 127/60
[2016-12-24] MEDS: HEPARIN SOD (PORCINE) 5000 UNITS/ML VIAL SQ SCH ×3 (06:00→21:25)
[2016-12-24] MEDS: LEVOTHYROXINE 88MCG TABLET (0.088 MG) PO SCH (06:00)
[2016-12-24] MEDS: LEVEMIR (INSULIN DETEMIR) 1 UNITS/0.01ML SC SCH ×2 (07:58→21:26)
[2016-12-24] MEDS: HumaLOG INSULIN (NovoLOG) PER UNIT SC SCH ×4 (07:58→21:26)
[2016-12-24] MEDS: PANTOPRAZOLE 40MG TAB (PROTONIX) PO SCH (08:00)
[2016-12-24] MEDS: TORSEMIDE 20 MG TAB PO SCH ×2 (08:00→16:59)
[2016-12-24] MEDS: tiZANidine 4 MG TAB PO SCH ×3 (08:00→21:25)
[2016-12-24] MEDS: predniSONE 5 MG TAB PO SCH (08:00)
[2016-12-24] MEDS: TAMSULOSIN 0.4 MG CAP PO SCH (08:00)
[2016-12-24] MEDS: PREGABALIN 75 MG CAP(LYRICA) PO SCH ×2 (08:00→21:25)
[2016-12-24] MEDS: CLOPIDOGREL 75 MG TAB PO SCH (08:00)
[2016-12-24] MEDS: SYMBICORT 160/4.5MCG INHALER 6GM INH SCH ×2 (08:04→19:49)
[2016-12-24 14:00] VITALS: BP 136/65
--- NOTE | 2016-12-24 16:59 | IPN ---
DATE: 12/24/2016 SUBJECTIVE: The patient was seen and examined at the bedside today morning. She reported that she was supposed to be discharged but she was having pain in the right shoulder so she did not leave the hospital yet. her renal function is stable. There are no laboratories available today. REVIEW OF SYSTEMS: The patient denies any fevers, chills, rigors, headache, nausea, vomiting, chest pain, shortness of breath. She does report right shoulder pain and decreased range of movement. The patient also reports that she has fecal incontinence and she is requesting to be evaluated for fecal incontinence. OBJECTIVE: VITAL SIGNS: Temperature is 97.8 degrees Fahrenheit, blood pressure is 136/65, pulse is 97, respiratory rate of 16, saturating 98% on nasal cannula. INTAKE AND OUTPUT: Urine output recorded so far as 425 mL. Weight on the bed scale is 137.3 kg. PHYSICAL EXAMINATION: GENERAL: The patient is awake, alert and oriented times three, morbidly obese, laying in bed, in no apparent distress. HEAD AND NECK EXAMINATION: Extraocular muscles intact. Pupils are equally round and reactive to light. Mucous membranes are moist. Neck is supple. There is no jugular venous distention (JVD). CARDIOVASCULAR: S1, S2. Regular rate. No murmur, rub or gallop. RESPIRATORY: Chest is clear to auscultation bilaterally. Bilateral equal air entry. No rales or rhonchi. ABDOMEN: Soft, obese. Positive bowel sounds. No organomegaly. MUSCULOSKELETAL: No edema of the extremities. No clubbing or cyanosis. Decreased range of movement of the right shoulder. CENTRAL NERVOUS SYSTEM (TRACK PRODUCTION ENGINEER): No focal neurological deficit. Power is 5/5 in bilateral upper extremities and lower extremities. PSYCHIATRIC: Normal mood and affect. LABORATORY REVIEW: No recent laboratories are available. CURRENT INPATIENT MEDICATIONS: The patient's medications were all reviewed by me. There is no change in the medications today as compared with yesterday. ASSESSMENT: A 61-year-old female with past medical history of morbid obesity, chronic kidney disease (CKD) stage III, history of congestive heart failure, admitted this time because of septic shock secondary to Escherichia (E) coli, pyelonephritis causing acute renal failure. PLAN: 1. Acute kidney injury. The patient's renal function has significant improved. Creatinine is fluctuating around 1.1, stable at this time. 2. History of congestive heart failure. Continue current dose of torsemide 40 mg by mouth twice a day. 3. Discharge planning. It is okay to discharge the patient from nephrology standpoint. Nephrology service will sign off at this moment. The patient needs to followup in nephrology clinic as outpatient once she is discharged from the hospital.
--- NOTE | 2016-12-24 21:14 | IPN ---
DATE: 12/24/2016 Ms. Wood is feeling weak and tired today. She is complaining of fecal incontinence which is continuing. Her last bowel movement was apparently yesterday, but she was not aware that she was having a bowel movement. She is not describing any chest pain or shortness of breath. She has some mild right lower quadrant discomfort. Temperature is 97.1, pulse 71, respiratory rate 18, blood pressure 127/68, pulse oximetry 95%. Intake and output notable for a negative fluid status of minus 300, two bowel movements noted yesterday. Body mass index is 42.2. She is awake, appropriately interactive, pleasantly conversant, sitting at bedside. Mucous membranes moist. Neck supple, thick. Breathing is symmetrical and rested, I:E ratio is 1:3. No costovertebral angle (CVA) tenderness. Heart is distant sounding, normal S1, S2. No significant lower extremity on the physical exam. White cell count 7.3, hemoglobin 11.6, platelets of 323 as of 12/22/2016. As of 12/23/2016, creatinine 1.18. Blood sugar at 12 noon today was 277, which is improved from the previous day. My assessment is as follows: This is a 61-year-old status post Escherichia (E) coli bacteremia with continuing weakness and fecal incontinence. Plan is as follows: 1. Escherichia (E) coli bacteremia, resolved. 2. Acute kidney injury. Would appear to be at baseline. If the patient stays in the hospital much longer, will need to repeat the labs. She has had urinary retention. 3. The patient has mild abdominal pain without significant finding on physical exam and is having fecal incontinence. Has been hospitalized and received antibiotics. Will check stool studies. 4. The patient has morbid obesity which complicates care.
[2016-12-24 21:17] VITALS: BP 131/60
[2016-12-25] MEDS: LEVOTHYROXINE 88MCG TABLET (0.088 MG) PO SCH (05:39)
[2016-12-25] MEDS: HEPARIN SOD (PORCINE) 5000 UNITS/ML VIAL SQ SCH ×3 (05:39→20:56)
[2016-12-25 06:00] VITALS: BP 131/58
[2016-12-25] MEDS: SYMBICORT 160/4.5MCG INHALER 6GM INH SCH ×2 (08:22→21:47)
[2016-12-25] MEDS: LEVEMIR (INSULIN DETEMIR) 1 UNITS/0.01ML SC SCH ×2 (08:36→20:55)
[2016-12-25] MEDS: TORSEMIDE 20 MG TAB PO SCH ×2 (08:39→18:04)
[2016-12-25] MEDS: predniSONE 5 MG TAB PO SCH (08:39)
[2016-12-25] MEDS: PANTOPRAZOLE 40MG TAB (PROTONIX) PO SCH (08:39)
[2016-12-25] MEDS: HumaLOG INSULIN (NovoLOG) PER UNIT SC SCH ×4 (08:39→20:56)
[2016-12-25] MEDS: tiZANidine 4 MG TAB PO SCH ×3 (08:39→20:55)
[2016-12-25] MEDS: PREGABALIN 75 MG CAP(LYRICA) PO SCH ×2 (08:39→20:55)
[2016-12-25] MEDS: CLOPIDOGREL 75 MG TAB PO SCH (08:39)
[2016-12-25] MEDS: TAMSULOSIN 0.4 MG CAP PO SCH (08:39)
[2016-12-25 14:00] VITALS: BP 145/66
--- NOTE | 2016-12-25 15:44 | IPN ---
DATE: 12/25/2016 Ms. Wood is nervous about going home today. She is not having fecal incontinence or diarrhea any longer. No chest pain. Tolerating a diet. Apparently, at home, her is not ready for her return. Temperature is 97, pulse 88, respiratory rate 18, blood pressure 145/66, pulse oximetry 96% on two liters. Intake and output notable for a positive fluid balance of 1015. Body mass index is 42.2. She is awake, appropriately interactive, pleasantly conversant. Breathing is symmetrical and rested. Heart is in a regular rate and rhythm. Abdomen is soft, doughy, nontender. She is wearing pajamas covered in sheep. LABORATORY DATA: White cell count is 7.3, hemoglobin is 11.6, and platelets 324. Creatinine is 1.18. ASSESSMENT: This is a 61-year-old status post Escherichia (E) coli bacteremia with continuing weakness and resolved fecal incontinence. PLAN: 1. Escherichia (E) coli bacteremia, resolved. 2. Acute kidney injury. The patient has been followed by renal. She is likely close to baseline. 3. The patient has no further abdominal pain. No longer having fecal incontinence. Stool studies not sent as she has not had any loose stools. 4. The patient has morbid obesity which complicates care. 5. We plan to discharge her tomorrow.
[2016-12-25 21:00] VITALS: BP 150/64
[2016-12-26 06:00] VITALS: BP 146/67
[2016-12-26] MEDS: LEVOTHYROXINE 88MCG TABLET (0.088 MG) PO SCH (06:13)
[2016-12-26] MEDS: HEPARIN SOD (PORCINE) 5000 UNITS/ML VIAL SQ SCH (06:14)
[2016-12-26] MEDS: SYMBICORT 160/4.5MCG INHALER 6GM INH SCH (08:28)
[2016-12-26] MEDS: HumaLOG INSULIN (NovoLOG) PER UNIT SC SCH ×2 (08:43→13:00)
[2016-12-26] MEDS: LEVEMIR (INSULIN DETEMIR) 1 UNITS/0.01ML SC SCH (08:43)
[2016-12-26] MEDS: TAMSULOSIN 0.4 MG CAP PO SCH (08:44)
[2016-12-26] MEDS: tiZANidine 4 MG TAB PO SCH (08:44)
[2016-12-26] MEDS: CLOPIDOGREL 75 MG TAB PO SCH (08:44)
[2016-12-26] MEDS: predniSONE 5 MG TAB PO SCH (08:44)
[2016-12-26] MEDS: PANTOPRAZOLE 40MG TAB (PROTONIX) PO SCH (08:44)
[2016-12-26] MEDS: PREGABALIN 75 MG CAP(LYRICA) PO SCH (08:44)
[2016-12-26] MEDS: TORSEMIDE 20 MG TAB PO SCH (08:44)
--- NOTE | 2016-12-30 16:05 | DSES ---
DATE OF ADMISSION: 12/09/2016 DATE OF DISCHARGE: 12/26/2016 Please refer to the interim discharge summary as dictated 12/23/2016. The patient's hospital stay was prolonged, as she was having some loose stools, which resolved. Most likely, it was related to antibiotic-associated diarrhea. Gastrointestinal (GI) panel was repeated and remained negative. On date of discharge, she was feeling well. She had no complaints of pain, chest pain, shortness of breath, and felt closer to her baseline. Temperature 96.9, pulse 83, respiratory rate 18, blood pressure 146/67, 98% on room air. Awake and alert. Sitting upright in bedside. Mucous membranes moist. Neck supple, thick. Breathing symmetrical and rested. Heart: Distant sounding. Abdomen: Soft, doughy, nontender. Discharge orders as previously listed.
[2017-01-03] MEDS ORDERED: VITAMIN D 50,000 UNITS CAPSULE (ERGOCALCIFEROL 1.25MG) PO SCH (09:00)
== END 2016-12-26 13:06 | disposition home or self-care (01) | DRG 710 ==
LOC: EDBD 18:47 → M ED 18:47 → M ED INP 20:28 → M ICU 12-10 00:31 → M MSPAV 12-14 12:25
PROVIDERS: ADMIT General Practice; ATTEND Internal Medicine
PROC: 04HK3DZ Insertion of Intraluminal Device into Right Femoral Artery, Percutaneous Approach (ICD-10-PCS; principal; 2016-12-10)
DX: A41.51 Sepsis due to Escherichia coli [E. coli] (principal); R65.21 Severe sepsis with septic shock; K72.00 Acute and subacute hepatic failure without coma; G93.40 Encephalopathy, unspecified; J96.11 Chronic respiratory failure with hypoxia; N17.9 Acute kidney failure, unspecified; N18.3 Chronic kidney disease, stage 3 (moderate); E87.0 Hyperosmolality and hypernatremia; I13.0 Hypertensive heart and chronic kidney disease with heart failure and stage 1 through stage 4 chronic kidney disease, or unspecified chronic kidney disease; I50.32 Chronic diastolic (congestive) heart failure; M62.82 Rhabdomyolysis; E66.01 Morbid (severe) obesity due to excess calories; Z68.43 Body mass index [BMI] 50.0-59.9, adult; J44.9 Chronic obstructive pulmonary disease, unspecified; E83.51 Hypocalcemia; E87.5 Hyperkalemia; N39.0 Urinary tract infection, site not specified; K59.00 Constipation, unspecified; E11.9 Type 2 diabetes mellitus without complications; G47.33 Obstructive sleep apnea (adult) (pediatric); M10.9 Gout, unspecified; E03.9 Hypothyroidism, unspecified; M19.90 Unspecified osteoarthritis, unspecified site; E78.5 Hyperlipidemia, unspecified; Z86.73 Personal history of transient ischemic attack (TIA), and cerebral infarction without residual deficits; Z79.899 Other long term (current) drug therapy; Z79.4 Long term (current) use of insulin; Z88.8 Allergy status to other drugs, medicaments and biological substances; Z88.6 Allergy status to analgesic agent; Z91.041 Radiographic dye allergy status; Z91.19 Patient's noncompliance with other medical treatment and regimen; B96.29 Other Escherichia coli [E. coli] as the cause of diseases classified elsewhere; R19.7 Diarrhea, unspecified; K80.20 Calculus of gallbladder without cholecystitis without obstruction; Z87.891 Personal history of nicotine dependence; R33.8 Other retention of urine

== ENCOUNTER 2017-01-04 14:28 | Emergency (ER) | payer OTHER ==
[~2017-01-04] VITALS: Ht 165.1 cm; Wt 139.0 kg
[~2017-01-04 14:28] MED LIST changes: +AMLO5TAB2 PO; +CLEADRO8 OU; +DEMA20TA6 PO; +FLOM5CAP PO; +FLON1SPR; +LOSA25TA8 PO; +METO10TA2 PO; +PRED5TA PO; +SYNT88TA2 PO; +TOUJ1.2I SC
[2017-01-04] MEDS ORDERED: POTA1TAB23 (15:01)
[2017-01-04 15:50] LABS: BASO % 0.4 % (0.0-1.0); EOS # 0.2 K/mm3 (0.0-0.50); EOS % 2.9 % (0.0-3.0); LARGE UNSTAINED CELL # 0.2 K/mm3 (0.0-0.4); LARGE UNSTAINED CELL % 2.6 % (0.0-4.0); LYMPH # 2.1 K/mm3 (1.5-4.5); MEAN CORPUSCULAR HEMOGLOBIN 27.3 pg (27.0-33.0); MEAN CORPUSCULAR HGB CONC 31.7 g/dl (32.0-36.5); MEAN CORPUSCULAR VOLUME 86.3 fl (80.0-96.0); MONO # 0.4 K/mm3 (0.0-0.8); NEUTROPHILS # 3.3 K/mm3 (1.8-7.7); NEUTROPHILS % 54.9 % (36.0-66.0); PLATELET COUNT, AUTOMATED 245 k/mm3 (150-450); RED CELL DISTRIBUTION WIDTH 15.3 % (11.5-14.5); WHITE BLOOD COUNT 5.9 K/mm3 (4.0-10.0)
[2017-01-04 16:10] LABS: ANION GAP 8 MEQ/L (8-16); BLOOD UREA NITROGEN 31 MG/DL (7-18); CALCIUM LEVEL 8.4 MG/DL (8.8-10.2); CARBON DIOXIDE LEVEL 31 MEQ/L (21-32); CHLORIDE LEVEL 105 MEQ/L (98-107); GLOMERULAR FILTRATION RATE 48.6 (>45); GLUCOSE, FASTING 74 MG/DL (80-110); POTASSIUM SERUM 3.6 MEQ/L (3.5-5.1); SODIUM LEVEL 144 MEQ/L (136-145)
[2017-01-04] MEDS ORDERED: TORS100T (17:27)
[2017-01-04] MEDS ORDERED: ATEN25TA PO (17:29)
[2017-01-04] MEDS ORDERED: TORS100T PO (17:29)
[2017-01-04 18:48] VITALS: BP 143/72
--- NOTE | 2017-01-06 08:18 | ECGEPIP ---
Stationary ECG Study [facility] - ED Test Date: 2017-01-04 Pat Name: NU WOODARD Department: Room: - Gender: F [employer] Past[employer] Baker: jose maria : 1955 Requested By: Nathaniel Jones Order Number: [id number] Reading MD: Lise Ignacio Measurements Intervals Jelm Rate: 63 P: 51 OH: 191 QRS: -42 QRSD: 122 T: 25 QT: 434 QTc: 445 Interpretive Statements SINUS RHYTHM MARKED LEFT AXIS DEVIATION MODERATE INTRAVENTRICULAR CONDUCTION DELAY LAFB PRWP Electronically Signed On 01-05-2017 7:34:50 EDT by Lise Ignacio
== END 2017-01-04 18:49 | disposition home or self-care (01) ==
LOC: EDBD 14:28 → M ED 14:28
DX: I95.9 Hypotension, unspecified (principal); N18.9 Chronic kidney disease, unspecified; E11.9 Type 2 diabetes mellitus without complications; I50.9 Heart failure, unspecified; I25.10 Atherosclerotic heart disease of native coronary artery without angina pectoris; J44.9 Chronic obstructive pulmonary disease, unspecified

== ENCOUNTER → 2017-01-09 | Outpatient (REF) | payer OTHER ==
[~2017-01-09] MED LIST changes: +ATEN25TA PO; +LINZ290C PO; +NITRO10CA PO; +POTA1TAB23; +TORS100T
[2017-01-09 19:33] LABS: WBC, URINE TNTC /hpf (0-3)
[2017-01-09 19:34] LABS: BACTERIA, URINE LARGE AMOUNT; HYALINE CAST, URINE NONE SEEN /lpf (0-1); MICROSCOPIC EXAM PERFORMED; RBC, URINE 0-1 /hpf (0-3); SQUAMOUS EPITHELIAL CELL URINE MOD AMOUNT /hpf (SMALL AMT)
== END ==
LOC: M LAB REF 17:09
PROVIDERS: ATTEND Internal Medicine Nephrology
DX: N39.0 Urinary tract infection, site not specified (principal)

== ENCOUNTER 2017-01-21 13:25 | Outpatient (RCR) | payer OTHER ==
[~2017-01-21 13:25] MED LIST changes: -LINZ290C PO; -NITRO10CA PO
[2017-01-23] MEDS ORDERED: NITRO10CA PO (10:38)
[2017-01-23] MEDS ORDERED: ATEN25TA PO (16:23)
[2017-01-23] MEDS ORDERED: FLOM5CAP PO (16:23)
[2017-01-23] MEDS ORDERED: LINZ290C PO (16:23)
[2017-01-23] MEDS ORDERED: DICY1CAP8 PO (16:23)
[2017-01-23] MEDS ORDERED: TORS100T PO (16:23)
== END 2017-01-25 ==
LOC: M PT 13:25
PROVIDERS: ATTEND Physician Assistant Medical
DX: Z51.89 Encounter for other specified aftercare (principal); R26.89 Other abnormalities of gait and mobility; M75.41 Impingement syndrome of right shoulder

== ENCOUNTER 2017-01-23 09:30 | Inpatient (IN) | payer OTHER ==
[~2017-01-23] VITALS: Ht 165.1 cm; Wt 140.1 kg
[2017-01-23] MEDS ORDERED: NITRO10CA PO (10:38)
[2017-01-23] MEDS ORDERED: ONDANSETRON 4MG/2ML VIAL (J2405) IV ONE ×2 (11:00→14:45)
[2017-01-23 11:08] LABS: BASO % 0.4 % (0.0-1.0); EOS # 0.1 10^3/uL (0.0-0.50); EOS % 1.7 % (0.0-3.0); IMMATURE GRANULOCYTE % 0.7 % (0-0); LYMPH # 1.4 10^3/uL (1.5-4.5); LYMPH % 20.1 % (24.0-44.0); MEAN CORPUSCULAR HEMOGLOBIN 27.5 pg (27.0-33.0); MEAN CORPUSCULAR HGB CONC 31.6 g/dl (32.0-36.5); MEAN CORPUSCULAR VOLUME 87.1 fl (80.0-96.0); MONO # 0.5 10^3/uL (0.0-0.8); MONO % 7.3 % (0.0-5.0); NEUTROPHILS # 4.9 10^3/uL (1.8-7.7); NEUTROPHILS % 69.8 % (36.0-66.0); PLATELET COUNT, AUTOMATED 286 10^3/uL (150-450); RED CELL DISTRIBUTION WIDTH 15.8 % (11.5-14.5)
[2017-01-23] MEDS ORDERED: PANTOPRAZOLE 40MG INJ (PROTONIX) (C9113) IV ONE (14:45)
[2017-01-23 14:56] LABS: ALBUMIN 3.2 GM/DL (3.2-5.2); ALBUMIN/GLOBULIN RATIO 0.74 (1.00-1.93); ALKALINE PHOSPHATASE 206 U/L (45-117); ALT/SGPT 49 U/L (12-78); ANION GAP 7 MEQ/L (8-16); AST/SGOT 60 U/L (15-37); BILIRUBIN,DIRECT 0.4 MG/DL (0.0-0.2); BILIRUBIN,TOTAL 0.8 MG/DL (0.2-1.0); BLOOD UREA NITROGEN 19 MG/DL (7-18); CALCIUM LEVEL 9.5 MG/DL (8.8-10.2); CARBON DIOXIDE LEVEL 29 MEQ/L (21-32); CHLORIDE LEVEL 105 MEQ/L (98-107); CREATININE FOR GFR 0.99 MG/DL (0.55-1.02); GLOMERULAR FILTRATION RATE > 60.0 (>45); GLUCOSE, FASTING 280 MG/DL (80-110); POTASSIUM SERUM 4.2 MEQ/L (3.5-5.1); SODIUM LEVEL 141 MEQ/L (136-145); TOTAL PROTEIN 7.5 GM/DL (6.4-8.2)
[2017-01-23] MEDS ORDERED: cefTRIAXone SOD 1 GM in D5W 50 ML IV ONE (15:45)
[2017-01-23] MEDS ORDERED: LINZ290C PO (16:23)
[2017-01-23] MEDS ORDERED: FLOM5CAP PO (16:23)
[2017-01-23] MEDS ORDERED: DICY1CAP8 PO (16:23)
[2017-01-23] MEDS ORDERED: TORS100T PO (16:23)
[2017-01-23] MEDS ORDERED: ATEN25TA PO (16:23)
--- NOTE | 2017-01-23 17:53 | HPEPDOC ---
General Date of Admission 01-23-17 Primary Care Physician: A Chief Complaint The patient is a 61-year-old female admitted with a reason for visit of N/V. History of Present Illness 61 y/o female with past medical history of chronic kidney disease stage III, diabetes type 2, hypertension, SHAWANDA with CPAP, morbid obesity with BMI 51.7, hypothyroidism, liver cirrhosis secondary to nonalcoholic fatty liver disease, COPD, chronic hypoxic respiratory failure on 2 L of oxygen at home as needed, coronary artery disease status post cardiac cath 2 years ago with no stent placement, history of CVA, osteoarthritis, CHF, diverticulosis, gout, history of pituitary tumor and past UTI causing septic shock. The patient presents today with a chief complaint of nausea and vomiting. The patient states that she has been on a course of antibiotics for a UTI that began ine early Dec., which has consisted of Macrobid for 14 days, nitrofurantoin for 7 days and has been tolerating these well. She states that yesterday she was prescribed another course of nitrofurantoin interrupted the first pill in the morning and 4 hours later acutely began vomiting nonbloody/nonbilious clear food containing vomitus. She states she vomited at least 10 times day ago. Denies experiencing chills, muscle aches, fever nor diarrhea, blood in stool or constipation. She does admit that she also noted epigastric and lower abdomen pain starting a couple days ago, achy in nature. The patient also states that she is continuing to have burning with urination, blood in the urine and foul-smelling urine. She states that yesterday she did not have an appetite and could not even stand the smell of meal because it made her nauseous but that currently in the ED she feels hungry. Denied any vomiting while in the ED. Of note she did have a lengthy stay in the hospital in November which included a stay in the ICU for septic shock secondary to a UTI which required vasopressor therapy for hypotension. She denies any recent changes in her medications and states she has regular follow up with her kidney, heart, GI and PCP. Home Medications Scheduled (Incruse Ellipta) 62.5 Mcg/Inh Inh, 62.5 MCG INH DAILY, (Reported) (Toujeo Solostar) 300 Unit/Ml Inj, 100 UNIT SC BID, (Reported) Allopurinol (Zyloprim) 300 Mg Tab, 300 MG PO DAILY, (Reported) Atenolol (Atenolol) 25 Mg Tab, 25 MG PO BID, (Reported) Calcitriol (Calcitriol) 0.25 Mcg Cap, 0.25 MG PO DAILY, (Reported) Clopidogrel Bisulfate (Clopidogrel) 75 Mg Tab, 75 MG PO DAILY, (Reported) Ergocalciferol (Vitamin D) 50,000 Unit Cap, 50,000 UNIT PO MTHLY, (Reported) Friday OF EACH MONTH Fluticasone/Vilanterol (Breo Ellipta 200-25 Mcg/INH) 1 Inh Inh, 1 INH INH DAILY, (Reported) Levothyroxine Sodium (Synthroid) 88 Mcg Tab, 88 MCG PO DAILY, (Reported) Nitrofurantoin Macrocrystals (Nitrofurantoin Monohydrate Macrocryst) 100 Mg Cap , 100 MG PO DAILY, (Reported) FILLED 01/21/17 FOR 14 DAYS Pregabalin (Lyrica) 150 Mg Cap, 300 MG PO DAILY, (Reported) Pregabalin (Lyrica) 150 Mg Cap, 150 MG PO QHS, (Reported) Simvastatin - High Dose (Zocor) 80 Mg Tab, 80 MG PO QHS, (Reported) Tamsulosin Hydrochloride (Flomax) 0.4 Mg Cap, 0.8 MG PO DAILY, (Reported) Tizanidine Hydrochloride (Tizanidine HCl) 4 Mg Cap, 4 MG PO TID, (Reported) Torsemide (Torsemide) 100 Mg Tab, 50 MG PO BID, (Reported) Scheduled PRN (Clear Eyes For Dry Eyes 1-0.25 %) 1 Escobar Escobar, 1 DROP OU TID PRN for REDNESS/ IRRITATION, (Reported) (Flonase Allergy Relief) 50 Mcg/Act Spr, 100 MCG NA DAILY PRN for NASAL CONGESTION, (Reported) Dicyclomine HCl (Dicyclomine HCl) 10 Mg Cap, 10 MG PO TID PRN for CRAMPS, ( Reported) Insulin (Humulin R U-500 (Concentr) 1 Units/0.002 Ml Inj, 0 SC Q3HP PRN for HIGH BLOOD SUGAR, (Reported) PER SLIDING SCALE Linaclotide Base (Linzess) 290 Mcg Cap, 290 MCG PO DAILY PRN for CONSTIPATION, ( Reported) Meclizine HCl (Meclizine HCl) 25 Mg Tab, 25 MG PO Q8H PRN for VERTIGO/DIZZINESS, (Reported) Allergies Coded Allergies: Aspirin (Verified Allergy, Severe, RASH,HIVES, 07/28/12) Quinolones (Verified Allergy, Intermediate, FACIAL REDNESS AND ITCHING ON NECK, 07/28/12) Beef Allergy (Verified Allergy, Unknown, "bad skin rash", 12/11/16) Contrast Media (Verified Adverse Reaction, Intermediate, KIDNEY FAILURE, 02/09/15) Levofloxacin (Verified Adverse Reaction, Intermediate, KIDNEY FAILURE, ) Metronidazole (Verified Adverse Reaction, Intermediate, KIDNEY FAILURE, ) Nalbuphine (Verified Adverse Reaction, Intermediate, HYPER, 07/28/12) Sulfamethoxazole w/Trimethoprim (Verified Adverse Reaction, Intermediate, KIDNEY FAILURE, 02/09/15) Past Medical History Medical History Chronic kidney disease stage III, hypertension, SHAWANDA with CPAP, morbid obesity with BMI 51.7, hypothyroid, COPD, chronic hypoxic respiratory failure, CAD status post cardiac cath 2 years ago, history of CVA, osteoarthritis, CHF, history of pituitary tumor, diverticulosis, history of liver abscess status post drainage and 2016, liver cirrhosis secondary to nonalcoholic fatty liver disease. Social History * Smoker: Denies Alcohol: rarely Psychosocial History: No pertinent psych hx Review of Symptoms Constitutional: Reports: Malaise, Weakness, Fatigue, Denies: Chills, Fever, Night Sweats, Weight Loss Eyes: Denies: Pain, Vision change, Conjunctivae inflammation Skin: Denies: Rash, Lesions Pulmonary: Denies: Dyspnea, Cough Cardiovascular: Reports: Edema (chronic edema in legs, not worsened as of late) , Denies: Chest Pain, Palpitations, Orthopnea, Paroxysmal Noc. Dyspnea Gastrointestinal: Reports: Nausea, Vomiting, Abdominal Pain, Denies: Diarrhea, Constipation Genitourinary: Reports: Dysuria, Frequency, Hematuria, Denies: Incontinence, Retention Hematologic: Denies: Bruising Musculoskeletal: Denies: Neck Pain Neurological: Reports: Weakness, Denies: Numbness Psych: Reports: Mood Normal Physical Examination General Exam: Positive: Alert, Cooperative, No Acute Distress Eye Exam: Positive: Conjunctiva & lids normal, EOMI, Negative: Sclera icteric, Ptosis Neck Exam: Positive: Supple Chest Exam: Positive: Clear to auscultation, Diminished, Negative: Rales, Rhonchi, Wheezing Heart Exam: Positive: Rate Normal, Normal S1, Normal S2, Negative: Gallops, Murmurs, Rubs Telemetry: Positive: No significant arrhythmia Abdomen Exam: Positive: Normal bowel sounds, Soft, Tenderness (epigastric and lower abdomen b/l), Negative: Hepatospenomegaly Extremity Exam: Positive: Edema (+1 trace pitting b/l LE), Negative: Clubbing, Cyanosis Skin Exam: Negative: Rash, Breakdown Neuro Exam: Positive: Normal Speech Psych Exam: Positive: Mental status NL, Oriented x 3, Negative: Anxiety Vital Signs Vital Signs Date Time Temp Pulse Resp B/P (MAP) Pulse Ox O2 Delivery O2 Flow Rate FiO2 01/23/17 16:56 84 95 01/23/17 16:41 160/74 (102) 01/23/17 13:38 99.0 01/23/17 10:31 18 Room Air Laboratory Data Labs 24H Laboratory Tests 2 01/23/17 10:47: White Blood Count 7.0, Red Blood Count 4.11, Hemoglobin 11.3L, Hematocrit 35.8L , Mean Corpuscular Volume 87.1, Mean Corpuscular Hemoglobin 27.5, Mean Corpuscular Hemoglobin Concent 31.6L, Red Cell Distribution Width 15.8H, Platelet Count 286, Neutrophils (%) (Auto) 69.8H, Lymphocytes (%) (Auto) 20.1L, Monocytes (%) (Auto) 7.3H, Eosinophils (%) (Auto) 1.7, Basophils (%) (Auto) 0.4 , Neutrophils # (Auto) 4.9, Lymphocytes # (Auto) 1.4L, Monocytes # (Auto) 0.5, Eosinophils # (Auto) 0.1, Basophils # (Auto) 0.0, Immature Granulocyte # (Auto) 0.1H, Nucleated Red Blood Cells % (auto) 0.0, Anion Gap 7L, Glomerular Filtration Rate > 60.0, Lactic Acid Level 2.3*H, Calcium Level 9.5, Aspartate Amino Transf (AST/SGOT) 60H, Alanine Aminotransferase (ALT/SGPT) 49, Alkaline Phosphatase 206H, Total Bilirubin 0.8, Direct Bilirubin 0.4H, Total Creatine Kinase 49, Creatine Kinase MB 1.0, Creatine Kinase MB Relative Index 2.04, Troponin I < 0.02, Total Protein 7.5, Albumin 3.2, Albumin/Globulin Ratio 0.74L , Lipase 747H 01/23/17 13:25: Urine Appearance CLOUDYH, Urine Color YELLOW, Urine pH 7.0, Urine Specific [place] 1.012, Urine Protein NEGATIVE, Urine Glucose (UA) NEGATIVE, Urine Ketones NEGATIVE, Urine Urobilinogen 0.2, Urine Bilirubin NEGATIVE, Urine Leukocyte Esterase 3+H, Urine Blood NEGATIVE, Urine Nitrite NEGATIVE, Urine WBC (Auto) 101H, Urine RBC (Auto) 4H, Urine Hyaline Casts (Auto) 0, Urine Bacteria ( Auto) 3+H, Urine Squamous Epithelial Cells 2, Urine Sperm (Auto) 01/23/17 16:26: Lactic Acid Followup at 4 Hours 2.2*H CBC/BMP Laboratory Tests 01/23/17 10:47 Red Blood Count 4.11, Mean Corpuscular Volume 87.1, Mean Corpuscular Hemoglobin 27.5, Mean Corpuscular Hemoglobin Concent 31.6 L, Red Cell Distribution Width 15.8 H, Neutrophils (%) (Auto) 69.8 H, Lymphocytes (%) (Auto) 20.1 L, Monocytes (%) (Auto) 7.3 H, Eosinophils (%) (Auto) 1.7, Basophils (%) (Auto) 0.4, Neutrophils # (Auto) 4.9, Lymphocytes # (Auto) 1.4 L, Monocytes # (Auto) 0.5, Eosinophils # (Auto) 0.1, Basophils # (Auto) 0.0 Microbiology Microbiology 01/23/17 Blood Culture, Received Pending 01/23/17 Urine Culture, Received Pending Problems (1) N&V (nausea and vomiting) Status: Acute Response to Treatment: Stable Problem Text: Difficult to determine if from UTI (U/A in ED concerning for infection) or from pancreatitis picture-pt lipase elevated with abdominal pain and vomiting, lactic 2.2 pt is morbidly obese and may not be able to obtain CT scan of abdomen as such will treat prophylactically now, if pt were to develop fever could potentially consider imaging for pancreatic infection, pt currently afebrile & denied hx of fevers with n/v will make pt NPO and begin fluids NS at 125 with careful attention to volume status with strict I&O due to pt history of CHF. Will begin Meropenem 1 g IVq8h based on prior urine culture sensitivities of pts past urinary infections and her numerous drug allergy. Will order blood cx (2) COPD (chronic obstructive pulmonary disease) Status: Chronic Response to Treatment: Stable Problem Text: Aittokv1t will c/w home spiriva and advair c/w home flonase c/w O2 titrate 88-92% (3) CAD (coronary artery disease) Status: Chronic Response to Treatment: Stable Problem Text: stable, no CP NSR in ED s/p cardiac cath 2 years ago (4) Hyperlipidemia Status: Chronic Response to Treatment: Stable Problem Text: slight elevation in liver enzymes will hold home statin for now (5) Hypothyroidism Status: Chronic Response to Treatment: Stable Problem Text: c/w home synthroid (6) Diabetes mellitus, type 2 Status: Chronic Response to Treatment: Stable Problem Text: pt receives Toujeo 100 BID, will begin Levemir BID 50 as pt is NPO she states she takes her own Humilin RU 500 at home and that "you guys always screw up my insulin", as such will as nursing staff to obtain exact sliding scale the pt uses and will input this for her coverage presentation glucose 280 (7) SHAWANDA (obstructive sleep apnea) Status: Chronic Response to Treatment: Stable Problem Text: c/w pts home CPAP at night (8) Chronic respiratory failure with hypoxia Status: Chronic Response to Treatment: Stable Problem Text: pt did not appear SOB on exam nor did she complain of difficulty breathing, could consider CXR if she does will continue home O2 at 2 L with titrate to 88-92% (9) H/O CHF Status: Chronic Response to Treatment: Stable Problem Text: pt does not appear volume overloaded on physical exam Last Echo showed moderate LVH with normal LV systolic and diastolic function will holds pt home torsemide in light of vomiting and the fact that her last admission she had a significant problem with hypotension requiring ICU and vasopressor therapy (10) CKD (chronic kidney disease), stage III Status: Chronic Response to Treatment: Stable Problem Text: pt creatine seems to be at baseline she will be receiving IV fluid hydration stable (11) History of CVA (cerebrovascular accident) Status: Resolved Response to Treatment: Stable Problem Text: c/w home plavix (12) HTN (hypertension) Status: Chronic Response to Treatment: Stable Problem Text: pts BP is stable in ED and a bit elevated will c/w home atenolol 25 BID (13) DVT prophylaxis Status: Acute Response to Treatment: Stable Problem Text: Renal dose Lovenox 30 sq daily Plan / VTE VTE Prophylaxis Ordered?: Yes GME ATTESTATION GME ATTESTATION My preceptor for this patient encounter was physically present in the building during the encounter and was fully available. As needed, all aspects of the patient interview, examination, medical decision making process, and medical care plan development were reviewed and approved by the preceptor. Preceptor is aware and concurs with the plan as stated in the body of this note and will attest to such by his/her cosignature. Attending Note Attending Note I have seen and examined the above patient and agree with the H and P as documented above. SRIDHAR BLACK DO Jan 23, 2017 17:53 WILLIE LUI Jan 23, 2017 20:41
[2017-01-23] MEDS ORDERED: FLUTICASONE PROP 0.05% NASAL SPRAY 16 GM (FLONASE) PRN (19:30)
[2017-01-23] MEDS ORDERED: DICYCLOMINE 10 MG CAP PO PRN (19:30)
[2017-01-23] MEDS ORDERED: MECLIZINE 25 MG TABLET PO PRN (19:30)
[2017-01-23] MEDS ORDERED: POLYVINYL ALCOHOL OPHTH SOLN 15 ML(LIQUITEARS) OU PRN (19:30)
[2017-01-23 19:41] VITALS: BP 137/80
[2017-01-23] MEDS: ADVAIR HFA 230/21MCG INHALER INH SCH (20:21)
--- NOTE | 2017-01-23 20:50 | ECGEPIP ---
Stationary ECG Study [facility] - ED Test Date: 2017-01-23 Pat Name: NU WOODARD Department: Room: - Gender: F Onsite Case Manager: YAA : 1955 Requested By: JEAN PIERRE Mckenna Order Number: [id number] Reading MD: Lise Ignacio Measurements Intervals Lucien Rate: 79 P: 57 OR: 181 QRS: -51 QRSD: 120 T: 48 QT: 418 QTc: 480 Interpretive Statements SINUS RHYTHM LEFT ANTERIOR FASCICULAR BLOCK NSTTW ABNORMALITY PRWP INCREASED RATE 01/04/17 Electronically Signed On 01-23-2017 20:50:32 EDT by Lise Ignacio
[2017-01-23] MEDS ORDERED: LEVEMIR (INSULIN DETEMIR) 1 UNITS/0.01ML SC SCH (21:00)
[2017-01-23] MEDS: MEROPENEM INJ 1 GM in D5W MINI-BAG PLUS 100 ML IV SCH (21:01)
[2017-01-23] MEDS: NS 1,000 ML IV SCH (21:01)
[2017-01-23] MEDS: ATENOLOL 25 MG TAB PO SCH (22:01)
[2017-01-23] MEDS: tiZANidine 4 MG TAB PO SCH (22:01)
[2017-01-23] MEDS: PREGABALIN 75 MG CAP(LYRICA) PO SCH (22:02)
[2017-01-23] MEDS: HUMULIN R U INSULIN SC SCH (22:02)
[2017-01-23] MEDS: TOUJEO 300 UNIT/ML SC SCH (22:03)
[2017-01-24] MEDS: MEROPENEM INJ 1 GM in D5W MINI-BAG PLUS 100 ML IV SCH ×3 (04:12→22:26)
[2017-01-24] MEDS ORDERED: GLUCOSE 4 GM CHEW TABLET PO PRN (04:30)
[2017-01-24] MEDS ORDERED: DEXTROSE 50% 50 ML SYRINGE IV ONE ×2 (04:30→06:45)
[2017-01-24] MEDS ORDERED: GLUCAGON FOR INJ 1 MG VIAL (J1610) SC PRN (04:30)
[2017-01-24] MEDS ORDERED: DEXTROSE 50% 50 ML SYRINGE IV PRN (04:30)
[2017-01-24] MEDS: NS 1,000 ML IV SCH ×3 (05:36→22:27)
[2017-01-24] MEDS: LEVOTHYROXINE 88MCG TABLET (0.088 MG) PO SCH (05:36)
[2017-01-24 06:00] VITALS: BP 118/65
[2017-01-24 06:20] LABS: BASO % 0.3 % (0.0-1.0); EOS # 0.2 10^3/uL (0.0-0.50); EOS % 3.1 % (0.0-3.0); IMMATURE GRANULOCYTE % 0.7 % (0-0); LYMPH # 1.3 10^3/uL (1.5-4.5); LYMPH % 18.5 % (24.0-44.0); MEAN CORPUSCULAR HEMOGLOBIN 27.6 pg (27.0-33.0); MEAN CORPUSCULAR HGB CONC 31.2 g/dl (32.0-36.5); MEAN CORPUSCULAR VOLUME 88.5 fl (80.0-96.0); MONO # 0.6 10^3/uL (0.0-0.8); MONO % 8.8 % (0.0-5.0); NEUTROPHILS # 4.7 10^3/uL (1.8-7.7); NEUTROPHILS % 68.6 % (36.0-66.0); PLATELET COUNT, AUTOMATED 271 10^3/uL (150-450); RED CELL DISTRIBUTION WIDTH 15.6 % (11.5-14.5); WHITE BLOOD COUNT 6.9 10^3/uL (4.0-10.0)
[2017-01-24 06:41] LABS: ANION GAP 6 MEQ/L (8-16); BLOOD UREA NITROGEN 16 MG/DL (7-18); CARBON DIOXIDE LEVEL 30 MEQ/L (21-32); CHLORIDE LEVEL 108 MEQ/L (98-107); GLOMERULAR FILTRATION RATE > 60.0 (>45); GLUCOSE, FASTING 64 MG/DL (80-110); MAGNESIUM LEVEL 2.5 MG/DL (1.8-2.4); POTASSIUM SERUM 3.7 MEQ/L (3.5-5.1); SODIUM LEVEL 144 MEQ/L (136-145)
[2017-01-24] MEDS: ADVAIR HFA 230/21MCG INHALER INH SCH ×2 (07:46→20:07)
[2017-01-24] MEDS: TIOTROPIUM INHALER/CAPSULE (SPIRIVA) INH SCH (07:46)
[2017-01-24] MEDS: tiZANidine 4 MG TAB PO SCH ×3 (08:28→22:28)
[2017-01-24] MEDS: CALCITRIOL 0.25 MCG CAP (S0169) PO SCH (08:28)
[2017-01-24] MEDS: ATENOLOL 25 MG TAB PO SCH ×2 (08:28→22:28)
[2017-01-24] MEDS: PREGABALIN 75 MG CAP(LYRICA) PO SCH ×2 (08:28→22:27)
[2017-01-24] MEDS: HUMULIN R U INSULIN SC SCH ×4 (08:29→22:19)
[2017-01-24] MEDS: TAMSULOSIN 0.4 MG CAP PO SCH (08:29)
[2017-01-24] MEDS: ENOXAPARIN 30 MG/0.3 ML SYR (J1650) SC SCH (08:29)
[2017-01-24] MEDS: ALLOPURINOL 300 MG TAB PO SCH (08:29)
[2017-01-24] MEDS: TOUJEO 300 UNIT/ML SC SCH ×2 (08:30→22:20)
[2017-01-24] MEDS: CLOPIDOGREL 75 MG TAB PO SCH (08:31)
--- NOTE | 2017-01-24 15:45 | IPN ---
DATE: 01/23/2017 Ms. Wood is feeling well today. She has no complaints of pain, chest pain, shortness of breath. Would like a diet. She feels better than yesterday at this point that she is in the hospital again. Temperature is 97.5, pulse 71, respiratory rate 20, blood pressure 118/65, 93%. Intake and output notable for a negative fluid balance of -250. No bowel movements. Body mass index 51.2. She is awake, appropriately interactive, pleasantly conversant, Breathing is symmetrical. Neck is thick. Inspiratory to expiratory (I-to-E) ratio is 1:3. Heart is distant sounding. Not tachycardic. Abdomen soft, distended, nontender. White cell count 6.9, hemoglobin 10.5, platelets of 271. BUN is 16, creatinine 0.9, magnesium is 2.5. ASSESSMENT: This is a 61-year-old with recurrent urinary tract infection, admitted for the same. Patient required 2-midnight hospital stay. PLAN: 1. Infectious disease. Patient has a urinary tract infection. She has previously had pcfak-kdgy-iiilyrflz organism. She was started on appropriate antibiotics. Will await culture results and monitor her clinically. She seems to be improving. 2. Patient had elevated lipase, possibly related to nausea and vomiting. She has no abdominal pain. Will advance her diet. I believe this is unlikely pancreatitis. 3. Patient has history of chronic obstructive pulmonary disease (COPD), which appears to be compensated. 4. Patient has a history of coronary artery disease, status post cardiac catheterization. 5. Patient has diabetes. Is on a relatively aggressive insulin dosing. I have placed her on a consistent-carbohydrate diet.
[2017-01-24 22:00] VITALS: BP 103/54
[2017-01-25] MEDS: MEROPENEM INJ 1 GM in D5W MINI-BAG PLUS 100 ML IV SCH ×3 (04:03→20:57)
[2017-01-25] MEDS: NS 1,000 ML IV SCH (04:03)
[2017-01-25] MEDS: LEVOTHYROXINE 88MCG TABLET (0.088 MG) PO SCH (05:32)
[2017-01-25 06:00] VITALS: BP 108/58
[2017-01-25 06:13] LABS: BASO % 0.3 % (0.0-1.0); EOS # 0.2 10^3/uL (0.0-0.50); EOS % 3.2 % (0.0-3.0); IMMATURE GRANULOCYTE % 0.6 % (0-0); LYMPH # 1.4 10^3/uL (1.5-4.5); LYMPH % 19.3 % (24.0-44.0); MEAN CORPUSCULAR HEMOGLOBIN 27.2 pg (27.0-33.0); MEAN CORPUSCULAR HGB CONC 30.6 g/dl (32.0-36.5); MEAN CORPUSCULAR VOLUME 88.9 fl (80.0-96.0); MONO # 0.6 10^3/uL (0.0-0.8); MONO % 8.2 % (0.0-5.0); NEUTROPHILS # 4.9 10^3/uL (1.8-7.7); NEUTROPHILS % 68.4 % (36.0-66.0); PLATELET COUNT, AUTOMATED 253 10^3/uL (150-450); RED CELL DISTRIBUTION WIDTH 15.5 % (11.5-14.5); WHITE BLOOD COUNT 7.2 10^3/uL (4.0-10.0)
[2017-01-25 07:21] LABS: CALCIUM LEVEL 9.1 MG/DL (8.8-10.2); CREATININE FOR GFR 1.02 MG/DL (0.55-1.02); GLOMERULAR FILTRATION RATE 58.7 (>45); MAGNESIUM LEVEL 2.4 MG/DL (1.8-2.4); POTASSIUM SERUM 4.4 MEQ/L (3.5-5.1)
[2017-01-25] MEDS: TIOTROPIUM INHALER/CAPSULE (SPIRIVA) INH SCH (07:37)
[2017-01-25] MEDS: ADVAIR HFA 230/21MCG INHALER INH SCH ×2 (07:37→19:28)
[2017-01-25] MEDS: TOUJEO 300 UNIT/ML SC SCH ×2 (09:00→20:56)
[2017-01-25] MEDS: CLOPIDOGREL 75 MG TAB PO SCH (09:00)
[2017-01-25] MEDS: PREGABALIN 75 MG CAP(LYRICA) PO SCH ×2 (09:42→20:58)
[2017-01-25] MEDS: tiZANidine 4 MG TAB PO SCH ×3 (09:42→20:58)
[2017-01-25] MEDS: TAMSULOSIN 0.4 MG CAP PO SCH (09:42)
[2017-01-25] MEDS: CALCITRIOL 0.25 MCG CAP (S0169) PO SCH (09:42)
[2017-01-25] MEDS: ENOXAPARIN 30 MG/0.3 ML SYR (J1650) SC SCH (09:43)
[2017-01-25] MEDS: ALLOPURINOL 300 MG TAB PO SCH (09:43)
[2017-01-25] MEDS: ATENOLOL 25 MG TAB PO SCH ×2 (09:43→21:00)
[2017-01-25] MEDS: HUMULIN R U INSULIN SC SCH ×4 (09:48→20:58)
[2017-01-25] MEDS: TORSEMIDE 100 MG TAB PO SCH ×2 (12:35→20:57)
[2017-01-25 14:00] VITALS: BP 124/70
[2017-01-25] MEDS: IPRATROPIUM 0.5MG/ALBUTEROL 2.5MG INH SOL UD 3ML (DUONEB)(J7620) NEB PRN ×2 (15:43→22:05)
[2017-01-25 22:00] VITALS: BP 130/56
--- NOTE | 2017-01-26 04:01 | IPN ---
DATE OF SERVICE: 01/25/2017 Ms. Wood is feeling well today, is interested in getting back on her torsemide, is concerned about fingerstick, which is currently 125, which is too low for her. Temperature is 97, pulse 54, respiratory rate 18, blood pressure 108/58, 94% on room air. Intake and output notable for a positive fluid balance of 2227. Weight is 164 kg, which is up 23 kg from yesterday. She is awake, appropriately interactive, pleasantly conversant. Breathing is symmetrical and rested. Heart is in a regular rate and rhythm. Abdomen is soft, doughy, nontender. White cell count 7.2, hemoglobin 10, platelets of 253. BUN 19, creatinine 1.02. My assessment is as follows: 61-year-old with recurrent urinary tract infection, admitted for the same. Plan is as follows: 1. Infectious disease. Patient has a urinary tract infection, previously had multi-drug resistant organism. She is on broad-spectrum antibiotics awaiting cultures. She is improving clinically. 2. Patient had elevated lipase, it is now without nausea, vomiting, no abdominal pain, is tolerating a diet. 3. Patient has history of chronic obstructive pulmonary disease (COPD), which is compensated. 4. Patient has coronary artery disease status post cardiac catheterization. 5. Patient has diabetes, is on aggressive insulin dosing. Her baseline fingerstick is approximately around 200. She has had fingersticks as low as 62 this morning, which is likely too low for her. Will adjust her long-acting insulin.
[2017-01-26] MEDS: MEROPENEM INJ 1 GM in D5W MINI-BAG PLUS 100 ML IV SCH ×3 (04:14→20:04)
[2017-01-26 06:00] VITALS: BP 138/63
[2017-01-26 06:14] LABS: BASO % 0.6 % (0.0-1.0); EOS # 0.2 10^3/uL (0.0-0.50); EOS % 2.6 % (0.0-3.0); IMMATURE GRANULOCYTE % 0.9 % (0-0); LYMPH # 1.4 10^3/uL (1.5-4.5); LYMPH % 21.2 % (24.0-44.0); MEAN CORPUSCULAR HEMOGLOBIN 27.2 pg (27.0-33.0); MEAN CORPUSCULAR VOLUME 87.6 fl (80.0-96.0); MONO # 0.6 10^3/uL (0.0-0.8); MONO % 8.8 % (0.0-5.0); NEUTROPHILS # 4.3 10^3/uL (1.8-7.7); NEUTROPHILS % 65.9 % (36.0-66.0); PLATELET COUNT, AUTOMATED 266 10^3/uL (150-450); RED CELL DISTRIBUTION WIDTH 15.3 % (11.5-14.5); WHITE BLOOD COUNT 6.6 10^3/uL (4.0-10.0)
[2017-01-26] MEDS: LEVOTHYROXINE 88MCG TABLET (0.088 MG) PO SCH (06:17)
[2017-01-26 06:23] LABS: ANION GAP 4 MEQ/L (8-16); BLOOD UREA NITROGEN 19 MG/DL (7-18); CALCIUM LEVEL 10.1 MG/DL (8.8-10.2); CARBON DIOXIDE LEVEL 30 MEQ/L (21-32); CHLORIDE LEVEL 108 MEQ/L (98-107); CREATININE FOR GFR 0.84 MG/DL (0.55-1.02); GLOMERULAR FILTRATION RATE > 60.0 (>45); GLUCOSE, FASTING 62 MG/DL (80-110); MAGNESIUM LEVEL 2.2 MG/DL (1.8-2.4); POTASSIUM SERUM 4.2 MEQ/L (3.5-5.1); SODIUM LEVEL 142 MEQ/L (136-145)
[2017-01-26] MEDS: TIOTROPIUM INHALER/CAPSULE (SPIRIVA) INH SCH (07:21)
[2017-01-26] MEDS: ADVAIR HFA 230/21MCG INHALER INH SCH ×2 (07:22→21:28)
[2017-01-26] MEDS: HUMULIN R U INSULIN SC SCH ×4 (07:30→21:12)
[2017-01-26] MEDS: TOUJEO 300 UNIT/ML SC SCH ×2 (09:00→21:12)
[2017-01-26] MEDS: CLOPIDOGREL 75 MG TAB PO SCH (09:00)
[2017-01-26] MEDS: PREGABALIN 75 MG CAP(LYRICA) PO SCH ×2 (09:35→21:13)
[2017-01-26] MEDS: TAMSULOSIN 0.4 MG CAP PO SCH (09:36)
[2017-01-26] MEDS: CALCITRIOL 0.25 MCG CAP (S0169) PO SCH (09:36)
[2017-01-26] MEDS: ALLOPURINOL 300 MG TAB PO SCH (09:36)
[2017-01-26] MEDS: ATENOLOL 25 MG TAB PO SCH ×2 (09:36→21:14)
[2017-01-26] MEDS: tiZANidine 4 MG TAB PO SCH ×3 (09:36→21:13)
[2017-01-26] MEDS: TORSEMIDE 100 MG TAB PO SCH ×2 (09:37→21:14)
[2017-01-26] MEDS: ENOXAPARIN 30 MG/0.3 ML SYR (J1650) SC SCH (09:40)
[2017-01-26 14:00] VITALS: BP 149/82
--- NOTE | 2017-01-26 14:48 | IPN ---
DATE OF SERVICE: 01/26/2017 Ms. Wood is feeling well today. She got up, had a shower. There is no chest pain. Is somewhat short of breath with activity which is not unusual for her. She says she is not too much different from her baseline at this point. Tolerating diet. Temperature 96.9, pulse 76, respiratory rate 17, blood pressure 138/63, 93% on room air. Input and output notable for a positive fluid balance of 2985. No bowel movements noted yesterday. Body mass index 54.1. She is awake, appropriately interactive. Pleasantly conversant. Breathing is symmetrical. I:E ratio is 1:3, somewhat diminished throughout. Heart is distant sounding. Normal S1, S2. Abdomen: Soft, doughy, nontender. White cell count 6.6, hemoglobin 10.3, platelets 266. BUN 19, creatinine 0.8. Urine has grown ESBL Klebsiella sensitive to meropenem. ASSESSMENT: 61-year-old with recurrent urinary tract infection, this time with ESBL Klebsiella. PLAN: 1. Infectious disease. Patient has urinary tract infection with a multi-resistant organism. She is on meropenem which is appropriate. Plan for at least a total of 5 days of IV antibiotics. 2. Patient has history of chronic obstructive pulmonary disease (COPD) which is compensated, has breathing treatments as necessary. Does not appear to be in any sort of distress at this point. 3. Patient has coronary artery disease status post cardiac catheterization. 4. Patient has diabetes on aggressive insulin dosing. Did discuss this at length with the pharmacist yesterday. 5. Patient has been picked up by physical therapy and was not yet deemed safe for discharge.
[2017-01-26 22:00] VITALS: BP 128/56
[2017-01-27] MEDS: IPRATROPIUM 0.5MG/ALBUTEROL 2.5MG INH SOL UD 3ML (DUONEB)(J7620) NEB PRN (02:59)
[2017-01-27] MEDS: MEROPENEM INJ 1 GM in D5W MINI-BAG PLUS 100 ML IV SCH ×3 (04:10→20:45)
[2017-01-27] MEDS: LEVOTHYROXINE 88MCG TABLET (0.088 MG) PO SCH (05:30)
[2017-01-27 06:00] VITALS: BP 140/65
[2017-01-27 06:35] LABS: BASO % 0.3 % (0.0-1.0); EOS # 0.2 10^3/uL (0.0-0.50); EOS % 2.6 % (0.0-3.0); LYMPH # 1.4 10^3/uL (1.5-4.5); LYMPH % 21.2 % (24.0-44.0); MEAN CORPUSCULAR HEMOGLOBIN 27.1 pg (27.0-33.0); MEAN CORPUSCULAR HGB CONC 31.1 g/dl (32.0-36.5); MEAN CORPUSCULAR VOLUME 87.3 fl (80.0-96.0); MONO # 0.6 10^3/uL (0.0-0.8); MONO % 9.1 % (0.0-5.0); NEUTROPHILS # 4.5 10^3/uL (1.8-7.7); NEUTROPHILS % 65.8 % (36.0-66.0); PLATELET COUNT, AUTOMATED 271 10^3/uL (150-450); RED CELL DISTRIBUTION WIDTH 15.5 % (11.5-14.5); WHITE BLOOD COUNT 6.8 10^3/uL (4.0-10.0)
[2017-01-27 07:04] LABS: CALCIUM LEVEL 10.7 MG/DL (8.8-10.2); MAGNESIUM LEVEL 2.3 MG/DL (1.8-2.4); POTASSIUM SERUM 3.7 MEQ/L (3.5-5.1)
[2017-01-27] MEDS: HUMULIN R U INSULIN SC SCH ×4 (07:30→20:48)
[2017-01-27] MEDS: TIOTROPIUM INHALER/CAPSULE (SPIRIVA) INH SCH (08:02)
[2017-01-27] MEDS: ADVAIR HFA 230/21MCG INHALER INH SCH ×2 (08:03→19:53)
[2017-01-27] MEDS: TORSEMIDE 100 MG TAB PO SCH ×2 (08:54→20:45)
[2017-01-27] MEDS: CALCITRIOL 0.25 MCG CAP (S0169) PO SCH (08:55)
[2017-01-27] MEDS: PREGABALIN 75 MG CAP(LYRICA) PO SCH ×2 (08:56→20:46)
[2017-01-27] MEDS: ALLOPURINOL 300 MG TAB PO SCH (08:56)
[2017-01-27] MEDS: tiZANidine 4 MG TAB PO SCH ×3 (08:56→20:46)
[2017-01-27] MEDS: ATENOLOL 25 MG TAB PO SCH ×2 (08:56→20:46)
[2017-01-27] MEDS: CLOPIDOGREL 75 MG TAB PO SCH (08:57)
[2017-01-27] MEDS: TAMSULOSIN 0.4 MG CAP PO SCH (08:58)
[2017-01-27] MEDS: TOUJEO 300 UNIT/ML SC SCH ×3 (09:00→20:47)
[2017-01-27] MEDS: ENOXAPARIN 30 MG/0.3 ML SYR (J1650) SC SCH (09:00)
--- NOTE | 2017-01-27 11:20 | IPNPDOC ---
Subjective Date Seen The patient was seen on 01/27/17. Subjective Chief Complaint/HPI The patient is a 61-year-old female admitted with a reason for visit of Nausea And Vomiting,Uti. Events since last encounter still complains of dysuria. says was very tired this am and could not wake up her sugars were very low in 50s and 60s. Better after breakfast. conscerned about the correct dosage of her u 500 insulin . discussed with nurse regarding the patient's concerns. Objective Physical Examination General Exam: Positive: Alert, Cooperative, No Acute Distress Eye Exam: Positive: Conjunctiva & lids normal, EOMI, Negative: Sclera icteric, Ptosis Neck Exam: Positive: Supple Chest Exam: Positive: Clear to auscultation, Diminished, Negative: Rales, Rhonchi, Wheezing Heart Exam: Positive: Rate Normal, Normal S1, Normal S2, Negative: Gallops, Murmurs, Rubs Telemetry: Positive: No significant arrhythmia Abdomen Exam: Positive: Normal bowel sounds, Soft, Tenderness (epigastric and lower abdomen b/l), Negative: Hepatospenomegaly Extremity Exam: Positive: Edema (+1 trace pitting b/l LE), Negative: Clubbing, Cyanosis Skin Exam: Negative: Rash, Breakdown Neuro Exam: Positive: Normal Speech Psych Exam: Positive: Mental status NL, Oriented x 3, Negative: Anxiety Assessment /Plan Problems (1) UTI (urinary tract infection) Status: Acute Problem Text: with ESBL klebsiella will continue with meropenem (2) COPD (chronic obstructive pulmonary disease) Status: Chronic Response to Treatment: Stable Problem Text: Not in any exacerbation [id number] prn will c/w home spiriva and advair c/w home flonase (3) CAD (coronary artery disease) Status: Chronic Response to Treatment: Stable Problem Text: stable, s/p cardiac cath 2 years ago continue with beta dina, plavix, statin. (4) Hyperlipidemia Status: Chronic Response to Treatment: Stable Problem Text: will restart statin. 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 will continue U- 500 AC and HS as per Patient's home sliding scale. (7) SHAWANDA (obstructive sleep apnea) Status: Chronic Response to Treatment: Stable Problem Text: c/w pts home CPAP at night (8) CKD (chronic kidney disease), stage III Status: Chronic Response to Treatment: Stable Problem Text: pt creatine seems to be at baseline she will be receiving IV fluid hydration stable (9) History of CVA (cerebrovascular accident) Status: Resolved Response to Treatment: Stable Problem Text: c/w home plavix (10) HTN (hypertension) Status: Chronic Response to Treatment: Stable Problem Text: pts BP is stable in ED and a bit elevated will c/w home atenolol 25 BID (11) DVT prophylaxis Status: Acute Response to Treatment: Stable Problem Text: Renal dose Lovenox 30 sq daily (12) Morbid obesity Status: Chronic (13) GERD (gastroesophageal reflux disease) Status: Chronic (14) Diastolic CHF Status: Chronic Response to Treatment: Stable Problem Text: Not in any fluid overload at this point will continue with torsemide (15) Gout Status: Chronic Response to Treatment: Stable Problem Text: continue allopurinol. (16) Urinary retention with incomplete bladder emptying Status: Chronic Response to Treatment: Stable Problem Text: will continue with flomax. Plan/VTE VTE Prophylaxis Ordered?: Yes VS, I&O, 24H, Fishbone Vital Signs/I&O Vital Signs Date Time Temp Pulse Resp B/P (MAP) Pulse Ox O2 Delivery O2 Flow Rate FiO2 01/27/17 06:00 96.8 87 16 140/65 (90) 94 Room Air I&O- Last 24 Hours up to 6 AM 01/28/17 06:00 Intake Total 360 ml Output Total 700 ml Balance -340 ml Laboratory Data 24H LABS Laboratory Tests 2 01/26/17 12:00: Bedside Glucose (Misc Panel) 172H 01/26/17 16:29: Bedside Glucose (Misc Panel) 218H 01/26/17 20:09: Bedside Glucose (Misc Panel) 174H 01/27/17 06:22: Immature Granulocyte % (Auto) 1.0H, White Blood Count 6.8, Red Blood Count 3.87L , Hemoglobin 10.5L, Hematocrit 33.8L, Mean Corpuscular Volume 87.3, Mean Corpuscular Hemoglobin 27.1, Mean Corpuscular Hemoglobin Concent 31.1L, Red Cell Distribution Width 15.5H, Platelet Count 271, Neutrophils (%) (Auto) 65.8, Lymphocytes (%) (Auto) 21.2L, Monocytes (%) (Auto) 9.1H, Eosinophils (%) (Auto) 2.6, Basophils (%) (Auto) 0.3, Neutrophils # (Auto) 4.5, Lymphocytes # (Auto) 1.4L, Monocytes # (Auto) 0.6, Eosinophils # (Auto) 0.2, Basophils # (Auto) 0.0, Immature Granulocyte # (Auto) 0.1H, Nucleated Red Blood Cells % (auto) 0.0, Anion Gap 5L, Glomerular Filtration Rate 60.0, Blood Urea Nitrogen 23H, Creatinine 1.00, Sodium Level 139, Potassium Level 3.7, Chloride Level 103, Carbon Dioxide Level 31, Calcium Level 10.7H, Magnesium Level 2.3 01/27/17 07:33: Bedside Glucose (Misc Panel) 58L 01/27/17 08:54: Bedside Glucose (Misc Panel) 105 CBC/BMP Laboratory Tests 01/27/17 06:22 Red Blood Count 3.87 L, Mean Corpuscular Volume 87.3, Mean Corpuscular Hemoglobin 27.1, Mean Corpuscular Hemoglobin Concent 31.1 L, Red Cell Distribution Width 15.5 H, Neutrophils (%) (Auto) 65.8, Lymphocytes (%) (Auto) 21.2 L, Monocytes (%) (Auto) 9.1 H, Eosinophils (%) (Auto) 2.6, Basophils (%) ( Auto) 0.3, Neutrophils # (Auto) 4.5, Lymphocytes # (Auto) 1.4 L, Monocytes # ( Auto) 0.6, Eosinophils # (Auto) 0.2, Basophils # (Auto) 0.0, Calcium Level 10.7 H Microbiology Microbiology 01/25/17 Blood Culture - Preliminary, Resulted No Growth after 48 hours. All Specime... 01/24/17 Blood Culture - Preliminary, Resulted No Growth after 72 hours. All specime... 01/23/17 Blood Culture - Preliminary, Resulted No Growth after 72 hours. All specime... 01/23/17 Urine Culture - Final, Complete Klebsiella Pneumoniae Esbl ISMAEL GAMA MD Jan 27, 2017 11:20
[2017-01-27] MEDS: SENOKOT S TAB PO SCH ×2 (13:27→20:45)
[2017-01-27 14:00] VITALS: BP 142/70
[2017-01-27] MEDS ORDERED: ENTER DRUG NAME HERE (PATIENT'S OWN MED) SC SCH (21:00)
[2017-01-27 22:00] VITALS: BP 132/64
[2017-01-28] MEDS: MEROPENEM INJ 1 GM in D5W MINI-BAG PLUS 100 ML IV SCH ×3 (03:58→20:52)
[2017-01-28] MEDS: LEVOTHYROXINE 88MCG TABLET (0.088 MG) PO SCH (05:52)
[2017-01-28 06:00] VITALS: BP 132/60
[2017-01-28 06:18] LABS: BASO % 0.3 % (0.0-1.0); EOS # 0.2 10^3/uL (0.0-0.50); EOS % 2.6 % (0.0-3.0); IMMATURE GRANULOCYTE % 0.9 % (0-0); LYMPH # 1.5 10^3/uL (1.5-4.5); LYMPH % 22.3 % (24.0-44.0); MEAN CORPUSCULAR HEMOGLOBIN 26.9 pg (27.0-33.0); MEAN CORPUSCULAR HGB CONC 31.1 g/dl (32.0-36.5); MEAN CORPUSCULAR VOLUME 86.4 fl (80.0-96.0); MONO # 0.6 10^3/uL (0.0-0.8); MONO % 9.1 % (0.0-5.0); NEUTROPHILS # 4.4 10^3/uL (1.8-7.7); NEUTROPHILS % 64.8 % (36.0-66.0); PLATELET COUNT, AUTOMATED 272 10^3/uL (150-450); RED CELL DISTRIBUTION WIDTH 15.1 % (11.5-14.5); WHITE BLOOD COUNT 6.9 10^3/uL (4.0-10.0)
[2017-01-28 06:32] LABS: CALCIUM LEVEL 11.2 MG/DL (8.8-10.2); CREATININE FOR GFR 1.43 MG/DL (0.55-1.02); GLOMERULAR FILTRATION RATE 39.7 (>45); MAGNESIUM LEVEL 2.4 MG/DL (1.8-2.4); POTASSIUM SERUM 4.1 MEQ/L (3.5-5.1)
[2017-01-28] MEDS: ADVAIR HFA 230/21MCG INHALER INH SCH ×2 (07:15→19:30)
[2017-01-28] MEDS: TIOTROPIUM INHALER/CAPSULE (SPIRIVA) INH SCH (07:15)
[2017-01-28] MEDS: HUMULIN R U INSULIN SC SCH ×4 (08:38→20:54)
[2017-01-28 08:45] VITALS: BP 129/74
[2017-01-28] MEDS: TOUJEO 300 UNIT/ML SC SCH ×2 (09:00→20:54)
[2017-01-28] MEDS ORDERED: ENOXAPARIN 40 MG/0.4 ML SYRINGE (J1650) SC SCH (09:00)
[2017-01-28] MEDS: CLOPIDOGREL 75 MG TAB PO SCH (09:42)
[2017-01-28] MEDS: TAMSULOSIN 0.4 MG CAP PO SCH (09:43)
[2017-01-28] MEDS: SENOKOT S TAB PO SCH ×2 (09:43→20:53)
[2017-01-28] MEDS: ACETAMINOPHEN 500 MG TAB PO PRN (09:43)
[2017-01-28] MEDS: ATENOLOL 25 MG TAB PO SCH ×2 (09:43→20:54)
[2017-01-28] MEDS: tiZANidine 4 MG TAB PO SCH ×3 (09:43→20:53)
[2017-01-28] MEDS: ALLOPURINOL 300 MG TAB PO SCH (09:44)
[2017-01-28] MEDS: PREGABALIN 75 MG CAP(LYRICA) PO SCH ×2 (10:41→20:53)
--- NOTE | 2017-01-28 10:54 | IPNPDOC ---
Subjective Date Seen The patient was seen on 01/28/17. Subjective Chief Complaint/HPI The patient is a 61-year-old female admitted with a reason for visit of Nausea And Vomiting,Uti. Events since last encounter patient again had hypoglycemia this am , will hold off on night dose of tojeo insulin , complaining of headache and right shoulder pain Objective Physical Examination General Exam: Positive: Alert, Cooperative, No Acute Distress Eye Exam: Positive: Conjunctiva & lids normal, EOMI, Negative: Sclera icteric, Ptosis Neck Exam: Positive: Supple Chest Exam: Positive: Clear to auscultation, Diminished, Negative: Rales, Rhonchi, Wheezing Heart Exam: Positive: Rate Normal, Normal S1, Normal S2, Negative: Gallops, Murmurs, Rubs Telemetry: Positive: No significant arrhythmia Abdomen Exam: Positive: Normal bowel sounds, Soft, Tenderness (epigastric and lower abdomen b/l), Negative: Hepatospenomegaly Extremity Exam: Positive: Edema (+1 trace pitting b/l LE), Negative: Clubbing, Cyanosis Skin Exam: Negative: Rash, Breakdown Neuro Exam: Positive: Normal Speech Psych Exam: Positive: Mental status NL, Oriented x 3, Negative: Anxiety Assessment /Plan Problems (1) UTI (urinary tract infection) Status: Acute Problem Text: with ESBL klebsiella will continue with meropenem (2) COPD (chronic obstructive pulmonary disease) Status: Chronic Response to Treatment: Stable Problem Text: Not in any exacerbation [id number] prn will c/w home spiriva and advair c/w home flonase (3) CAD (coronary artery disease) Status: Chronic Response to Treatment: Stable Problem Text: stable, s/p cardiac cath 2 years ago continue with beta dina, plavix, statin. (4) Hyperlipidemia Status: Chronic Response to Treatment: Stable Problem Text: will restart statin. 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 will continue U- 500 AC and HS as per Patient's home sliding scale. (7) SHAWANDA (obstructive sleep apnea) Status: Chronic Response to Treatment: Stable Problem Text: c/w pts home CPAP at night (8) CKD (chronic kidney disease), stage III Status: Chronic Response to Treatment: Stable Problem Text: creatinine a little worse today will hold diuretics today. (9) History of CVA (cerebrovascular accident) Status: Resolved Response to Treatment: Stable Problem Text: c/w home plavix (10) HTN (hypertension) Status: Chronic Response to Treatment: Stable Problem Text: pts BP is stable in ED and a bit elevated will c/w home atenolol 25 BID (11) DVT prophylaxis Status: Acute Response to Treatment: Stable Problem Text: Renal dose Lovenox 30 sq daily (12) Morbid obesity Status: Chronic (13) GERD (gastroesophageal reflux disease) Status: Chronic (14) Diastolic CHF Status: Chronic Response to Treatment: Stable Problem Text: Not in any fluid overload at this point but creatinine worse today ] will hold diuretics today. (15) Gout Status: Chronic Response to Treatment: Stable Problem Text: continue allopurinol. (16) Urinary retention with incomplete bladder emptying Status: Chronic Response to Treatment: Stable Problem Text: will continue with flomax. (17) Hypercalcemia Status: Acute Problem Text: will stop calcitriol for now. hold diuretics. Plan/VTE VTE Prophylaxis Ordered?: Yes VS, I&O, 24H, Fishbone Vital Signs/I&O Vital Signs Date Time Temp Pulse Resp B/P (MAP) Pulse Ox O2 Delivery O2 Flow Rate FiO2 01/28/17 09:43 86 129/74 01/28/17 08:45 Room Air 01/28/17 08:45 97.2 16 93 I&O- Last 24 Hours up to 6 AM 01/29/17 06:00 Intake Total 240 ml Output Total 0 ml Balance 240 ml Laboratory Data 24H LABS Laboratory Tests 2 01/27/17 11:41: Bedside Glucose (Misc Panel) 240H 01/27/17 16:51: Bedside Glucose (Misc Panel) 335H 01/27/17 20:29: Bedside Glucose (Misc Panel) 225H 01/28/17 05:52: Immature Granulocyte % (Auto) 0.9H, White Blood Count 6.9, Red Blood Count 3.83L , Hemoglobin 10.3L, Hematocrit 33.1L, Mean Corpuscular Volume 86.4, Mean Corpuscular Hemoglobin 26.9L, Mean Corpuscular Hemoglobin Concent 31.1L, Red Cell Distribution Width 15.1H, Platelet Count 272, Neutrophils (%) (Auto) 64.8, Lymphocytes (%) (Auto) 22.3L, Monocytes (%) (Auto) 9.1H, Eosinophils (%) (Auto) 2.6, Basophils (%) (Auto) 0.3, Neutrophils # (Auto) 4.4, Lymphocytes # (Auto) 1.5, Monocytes # (Auto) 0.6, Eosinophils # (Auto) 0.2, Basophils # (Auto) 0.0, Immature Granulocyte # (Auto) 0.1H, Nucleated Red Blood Cells % (auto) 0.0, Anion Gap 5L, Glomerular Filtration Rate 39.7L, Blood Urea Nitrogen 32H, Creatinine 1.43H, Sodium Level 138, Potassium Level 4.1, Chloride Level 100, Carbon Dioxide Level 33H, Calcium Level 11.2H, Magnesium Level 2.4 01/28/17 05:53: Bedside Glucose (Misc Panel) 62L 01/28/17 06:30: Bedside Glucose (Misc Panel) 74L 01/28/17 08:37: Bedside Glucose (Misc Panel) 117H CBC/BMP Laboratory Tests 01/28/17 05:52 Red Blood Count 3.83 L, Mean Corpuscular Volume 86.4, Mean Corpuscular Hemoglobin 26.9 L, Mean Corpuscular Hemoglobin Concent 31.1 L, Red Cell Distribution Width 15.1 H, Neutrophils (%) (Auto) 64.8, Lymphocytes (%) (Auto) 22.3 L, Monocytes (%) (Auto) 9.1 H, Eosinophils (%) (Auto) 2.6, Basophils (%) ( Auto) 0.3, Neutrophils # (Auto) 4.4, Lymphocytes # (Auto) 1.5, Monocytes # (Auto ) 0.6, Eosinophils # (Auto) 0.2, Basophils # (Auto) 0.0, Calcium Level 11.2 H Microbiology Microbiology 01/25/17 Blood Culture - Preliminary, Resulted No Growth after 72 hours. All specime... 01/24/17 Blood Culture - Preliminary, Resulted No Growth after 72 hours. All specime... 01/23/17 Blood Culture - Preliminary, Resulted No Growth after 72 hours. All specime... 01/23/17 Urine Culture - Final, Complete Klebsiella Pneumoniae Esbl ISMAEL GAMA MD Jan 28, 2017 10:54
[2017-01-28 14:00] VITALS: BP 118/61
[2017-01-28 22:00] VITALS: BP 143/67
[2017-01-29] MEDS: MEROPENEM INJ 1 GM in D5W MINI-BAG PLUS 100 ML IV SCH (04:33)
[2017-01-29] MEDS: LEVOTHYROXINE 88MCG TABLET (0.088 MG) PO SCH (05:26)
[2017-01-29 06:00] VITALS: BP 135/65
[2017-01-29 06:12] LABS: BASO % 0.4 % (0.0-1.0); EOS # 0.1 10^3/uL (0.0-0.50); EOS % 1.8 % (0.0-3.0); IMMATURE GRANULOCYTE % 0.6 % (0-0); LYMPH # 1.6 10^3/uL (1.5-4.5); LYMPH % 23.4 % (24.0-44.0); MEAN CORPUSCULAR HEMOGLOBIN 26.9 pg (27.0-33.0); MEAN CORPUSCULAR VOLUME 86.8 fl (80.0-96.0); MONO # 0.7 10^3/uL (0.0-0.8); MONO % 10.4 % (0.0-5.0); NEUTROPHILS # 4.3 10^3/uL (1.8-7.7); NEUTROPHILS % 63.4 % (36.0-66.0); PLATELET COUNT, AUTOMATED 276 10^3/uL (150-450); RED CELL DISTRIBUTION WIDTH 15.1 % (11.5-14.5); WHITE BLOOD COUNT 6.7 10^3/uL (4.0-10.0)
[2017-01-29 06:37] LABS: CALCIUM LEVEL 10.9 MG/DL (8.8-10.2); CREATININE FOR GFR 2.15 MG/DL (0.55-1.02); GLOMERULAR FILTRATION RATE 24.8 (>45); POTASSIUM SERUM 4.5 MEQ/L (3.5-5.1)
[2017-01-29] MEDS: HUMULIN R U INSULIN SC SCH ×4 (07:30→21:00)
[2017-01-29] MEDS: TIOTROPIUM INHALER/CAPSULE (SPIRIVA) INH SCH (07:47)
[2017-01-29] MEDS: ADVAIR HFA 230/21MCG INHALER INH SCH ×2 (07:48→19:16)
[2017-01-29] MEDS: ATENOLOL 25 MG TAB PO SCH ×2 (08:58→21:32)
[2017-01-29] MEDS: ENOXAPARIN 30 MG/0.3 ML SYR (J1650) SC SCH (08:58)
[2017-01-29] MEDS: CLOPIDOGREL 75 MG TAB PO SCH (08:58)
[2017-01-29] MEDS: PREGABALIN 75 MG CAP(LYRICA) PO SCH ×2 (08:59→21:25)
[2017-01-29] MEDS: tiZANidine 4 MG TAB PO SCH ×3 (08:59→21:24)
[2017-01-29] MEDS: ALLOPURINOL 300 MG TAB PO SCH (08:59)
[2017-01-29] MEDS: TAMSULOSIN 0.4 MG CAP PO SCH (09:00)
[2017-01-29] MEDS: TOUJEO 300 UNIT/ML SC SCH ×2 (09:00→21:00)
[2017-01-29] MEDS: TORSEMIDE 100 MG TAB PO SCH (09:00)
[2017-01-29] MEDS: SENOKOT S TAB PO SCH ×2 (09:00→21:24)
--- NOTE | 2017-01-29 11:21 | IPNPDOC ---
Subjective Date Seen The patient was seen on 01/29/17. Subjective Chief Complaint/HPI The patient is a 61-year-old female admitted with a reason for visit of Nausea And Vomiting,Uti. Events since last encounter patient feeling more tired today , also complaining of leg swelling , her sugars however are better controlled . did not have any hypoglycemia this am . Objective Physical Examination General Exam: Positive: Alert, Cooperative, No Acute Distress Eye Exam: Positive: Conjunctiva & lids normal, EOMI, Negative: Sclera icteric, Ptosis Neck Exam: Positive: Supple Chest Exam: Positive: Clear to auscultation, Diminished, Negative: Rales, Rhonchi, Wheezing Heart Exam: Positive: Rate Normal, Normal S1, Normal S2, Negative: Gallops, Murmurs, Rubs Abdomen Exam: Positive: Normal bowel sounds, Soft, Tenderness (epigastric and lower abdomen b/l), Negative: Hepatospenomegaly Extremity Exam: Positive: Edema (+2 pitting b/l LE), Negative: Clubbing, Cyanosis Skin Exam: Negative: Rash, Breakdown Neuro Exam: Positive: Normal Speech Psych Exam: Positive: Mental status NL, Oriented x 3, Negative: Anxiety Assessment /Plan Problems (1) Acute kidney injury superimposed on CKD Status: Acute Problem Text: possibly due to fluid retension , has gained weight in the hospital and also edema greater. was restarted on home diuretics yesterday after being on hold for 2 days will give one dose of IV lasix today to mobilize the fluids. Has ckd stage 3 (2) UTI (urinary tract infection) Status: Acute Problem Text: with ESBL klebsiella will continue with meropenem (3) COPD (chronic obstructive pulmonary disease) Status: Chronic Response to Treatment: Stable Problem Text: Not in any exacerbation [id number] prn will c/w home spiriva and advair c/w home flonase (4) CAD (coronary artery disease) Status: Chronic Response to Treatment: Stable Problem Text: stable, s/p cardiac cath 2 years ago continue with beta dina, plavix, statin. (5) Hyperlipidemia Status: Chronic Response to Treatment: Stable Problem Text: will restart statin. 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 will continue U- 500 AC and HS as per Patient's home sliding scale. (8) SHAWANDA (obstructive sleep apnea) Status: Chronic Response to Treatment: Stable Problem Text: c/w pts home CPAP at night (9) History of CVA (cerebrovascular accident) Status: Resolved Response to Treatment: Stable Problem Text: c/w home plavix (10) HTN (hypertension) Status: Chronic Response to Treatment: Stable Problem Text: pts BP is stable in ED and a bit elevated will c/w home atenolol 25 BID (11) DVT prophylaxis Status: Acute Response to Treatment: Stable Problem Text: Renal dose Lovenox 30 sq daily (12) Morbid obesity Status: Chronic (13) GERD (gastroesophageal reflux disease) Status: Chronic (14) Diastolic CHF Status: Chronic Response to Treatment: Stable Problem Text: Has some fluid overload at this point was restarted on home diuretics. will give one dose of IV lasix today. (15) Gout Status: Chronic Response to Treatment: Stable Problem Text: continue allopurinol. (16) Urinary retention with incomplete bladder emptying Status: Chronic Response to Treatment: Stable Problem Text: will continue with flomax. (17) Hypercalcemia Status: Acute Problem Text: stop calcitriol and give lasix. Plan/VTE VTE Prophylaxis Ordered?: Yes VS, I&O, 24H, Fishbone Vital Signs/I&O Vital Signs Date Time Temp Pulse Resp B/P (MAP) Pulse Ox O2 Delivery O2 Flow Rate FiO2 01/29/17 06:00 98.5 79 20 135/65 (88) 94 01/28/17 21:00 Room Air I&O- Last 24 Hours up to 6 AM 01/30/17 06:00 Intake Total 480 ml Balance 480 ml Laboratory Data 24H LABS Laboratory Tests 2 01/28/17 11:40: Bedside Glucose (Misc Panel) 188H 01/28/17 16:46: Bedside Glucose (Misc Panel) 227H 01/28/17 20:30: Bedside Glucose (Misc Panel) 267H 01/29/17 02:55: Bedside Glucose (Misc Panel) 115 01/29/17 05:38: Immature Granulocyte % (Auto) 0.6H, White Blood Count 6.7, Red Blood Count 3.79L , Hemoglobin 10.2L, Hematocrit 32.9L, Mean Corpuscular Volume 86.8, Mean Corpuscular Hemoglobin 26.9L, Mean Corpuscular Hemoglobin Concent 31.0L, Red Cell Distribution Width 15.1H, Platelet Count 276, Neutrophils (%) (Auto) 63.4, Lymphocytes (%) (Auto) 23.4L, Monocytes (%) (Auto) 10.4H, Eosinophils (%) (Auto ) 1.8, Basophils (%) (Auto) 0.4, Neutrophils # (Auto) 4.3, Lymphocytes # (Auto) 1.6, Monocytes # (Auto) 0.7, Eosinophils # (Auto) 0.1, Basophils # (Auto) 0.0, Immature Granulocyte # (Auto) 0.0, Nucleated Red Blood Cells % (auto) 0.0, Anion Gap 8, Glomerular Filtration Rate 24.8L, Blood Urea Nitrogen 39H, Creatinine 2.15#H, Sodium Level 139, Potassium Level 4.5, Chloride Level 100, Carbon Dioxide Level 31, Calcium Level 10.9H, Magnesium Level 3.0H CBC/BMP Laboratory Tests 01/29/17 05:38 Red Blood Count 3.79 L, Mean Corpuscular Volume 86.8, Mean Corpuscular Hemoglobin 26.9 L, Mean Corpuscular Hemoglobin Concent 31.0 L, Red Cell Distribution Width 15.1 H, Neutrophils (%) (Auto) 63.4, Lymphocytes (%) (Auto) 23.4 L, Monocytes (%) (Auto) 10.4 H, Eosinophils (%) (Auto) 1.8, Basophils (%) ( Auto) 0.4, Neutrophils # (Auto) 4.3, Lymphocytes # (Auto) 1.6, Monocytes # (Auto ) 0.7, Eosinophils # (Auto) 0.1, Basophils # (Auto) 0.0, Calcium Level 10.9 H Microbiology Microbiology 01/25/17 Blood Culture - Preliminary, Resulted No Growth after 72 hours. All specime... 01/24/17 Blood Culture - Final, Complete NO GROWTH AFTER 5 DAYS 01/23/17 Blood Culture - Final, Complete NO GROWTH AFTER 5 DAYS 01/23/17 Urine Culture - Final, Complete Klebsiella Pneumoniae Esbl ISMAEL GAMA MD Jan 29, 2017 11:21
[2017-01-29] MEDS ORDERED: FUROSEMIDE 100 MG/10 ML VIAL (J1940) IV ONE (13:00)
[2017-01-29 14:00] VITALS: BP 161/70
[2017-01-29] MEDS ORDERED: MEROPENEM INJ 1 GM in D5W MINI-BAG PLUS 100 ML IV SCH (16:00)
[2017-01-29] MEDS ORDERED: TOUJEO SOLOSTAR (PATIENT'S OWN MED) SC SCH (21:00)
[2017-01-29 22:00] VITALS: BP 130/61
[2017-01-30] MEDS: LEVOTHYROXINE 88MCG TABLET (0.088 MG) PO SCH (05:57)
[2017-01-30 06:00] VITALS: BP 123/62
[2017-01-30] MEDS: ADVAIR HFA 230/21MCG INHALER INH SCH ×2 (06:26→20:06)
[2017-01-30] MEDS: TIOTROPIUM INHALER/CAPSULE (SPIRIVA) INH SCH (06:27)
[2017-01-30 06:30] LABS: BASO % 0.4 % (0.0-1.0); EOS # 0.2 10^3/uL (0.0-0.50); IMMATURE GRANULOCYTE % 0.8 % (0-0); LYMPH # 1.7 10^3/uL (1.5-4.5); MEAN CORPUSCULAR HEMOGLOBIN 27.2 pg (27.0-33.0); MEAN CORPUSCULAR HGB CONC 31.3 g/dl (32.0-36.5); MEAN CORPUSCULAR VOLUME 86.8 fl (80.0-96.0); MONO # 0.8 10^3/uL (0.0-0.8); MONO % 9.7 % (0.0-5.0); NEUTROPHILS # 5.2 10^3/uL (1.8-7.7); NEUTROPHILS % 66.1 % (36.0-66.0); PLATELET COUNT, AUTOMATED 306 10^3/uL (150-450); RED CELL DISTRIBUTION WIDTH 15.2 % (11.5-14.5); WHITE BLOOD COUNT 7.9 10^3/uL (4.0-10.0)
[2017-01-30 06:36] LABS: CALCIUM LEVEL 10.6 MG/DL (8.8-10.2); CREATININE FOR GFR 3.05 MG/DL (0.55-1.02); GLOMERULAR FILTRATION RATE 16.6 (>45); MAGNESIUM LEVEL 3.3 MG/DL (1.8-2.4); POTASSIUM SERUM 4.2 MEQ/L (3.5-5.1)
[2017-01-30] MEDS: HUMULIN R U INSULIN SC SCH ×4 (07:30→20:21)
[2017-01-30] MEDS ORDERED: FUROSEMIDE 100 MG/10 ML VIAL (J1940) IV SCH ×2 (08:00→16:00)
[2017-01-30] MEDS: ENOXAPARIN 30 MG/0.3 ML SYR (J1650) SC SCH (08:16)
[2017-01-30] MEDS: SENOKOT S TAB PO SCH (08:16)
[2017-01-30] MEDS: TAMSULOSIN 0.4 MG CAP PO SCH (08:17)
[2017-01-30] MEDS: tiZANidine 4 MG TAB PO SCH ×3 (08:19→20:20)
[2017-01-30] MEDS: PREGABALIN 75 MG CAP(LYRICA) PO SCH ×2 (08:19→20:20)
[2017-01-30] MEDS: CLOPIDOGREL 75 MG TAB PO SCH (08:21)
[2017-01-30] MEDS: ATENOLOL 25 MG TAB PO SCH ×2 (08:27→20:21)
[2017-01-30] MEDS: ACETAMINOPHEN 500 MG TAB PO PRN (08:27)
[2017-01-30] MEDS: TOUJEO 300 UNIT/ML SC SCH ×2 (09:00→20:30)
[2017-01-30] MEDS ORDERED: ALLOPURINOL 100 MG TAB PO SCH (09:00)
--- NOTE | 2017-01-30 11:39 | IPNPDOC ---
Subjective Date Seen The patient was seen on 01/30/17. Subjective Chief Complaint/HPI The patient is a 61-year-old female admitted with a reason for visit of Nausea And Vomiting,Uti. Events since last encounter patient feeling extremely tired and slow today , again had hypoglycemia this am. also has incresed leg swelling, says that did not have any urine output since last night. Had 3 loose bowel movements yesterday and 2 this am. Denies any abdominal pain , nausea or vomiting , denies any dysuria. denies any sob or chest pain o cough Objective Physical Examination General Exam: Positive: Alert, Cooperative, No Acute Distress Eye Exam: Positive: Conjunctiva & lids normal, EOMI, Negative: Sclera icteric, Ptosis Neck Exam: Positive: Supple Chest Exam: Positive: Clear to auscultation, Diminished, Negative: Rales, Rhonchi, Wheezing Heart Exam: Positive: Rate Normal, Normal S1, Normal S2, Negative: Gallops, Murmurs, Rubs Abdomen Exam: Positive: Normal bowel sounds, Soft, Tenderness (epigastric and lower abdomen b/l), Negative: Hepatospenomegaly Extremity Exam: Positive: Edema (+2 pitting b/l LE), Negative: Clubbing, Cyanosis Skin Exam: Negative: Rash, Breakdown Neuro Exam: Positive: Normal Speech Psych Exam: Positive: Mental status NL, Oriented x 3, Negative: Anxiety Assessment /Plan Problems (1) Acute kidney injury superimposed on CKD Status: Acute Problem Text: possibly due to fluid retension , has gained weight in the hospital and also edema greater. will start IV lasix , hod po torsemide. will adjust all meds according to GFR. Has LINCOLN on ckd stage 3 will get bladder scan (2) UTI (urinary tract infection) Status: Resolved Problem Text: with ESBL klebsiella finished 7 days of meropenem (3) COPD (chronic obstructive pulmonary disease) Status: Chronic Response to Treatment: Stable Problem Text: Not in any exacerbation [id number] prn will c/w home spiriva and advair c/w home flonase (4) CAD (coronary artery disease) Status: Chronic Response to Treatment: Stable Problem Text: stable, s/p cardiac cath 2 years ago continue with beta dina, plavix, statin. (5) Hyperlipidemia Status: Chronic Response to Treatment: Stable Problem Text: will restart statin. 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 will continue U- 500 AC and HS as per Patient's home sliding scale. (8) SHAWANDA (obstructive sleep apnea) Status: Chronic Response to Treatment: Stable Problem Text: c/w pts home CPAP at night (9) History of CVA (cerebrovascular accident) Status: Resolved Response to Treatment: Stable Problem Text: c/w home plavix (10) HTN (hypertension) Status: Chronic Response to Treatment: Stable Problem Text: pts BP is stable in ED and a bit elevated will c/w home atenolol 25 BID (11) DVT prophylaxis Status: Acute Response to Treatment: Stable Problem Text: Renal dose Lovenox 30 sq daily (12) Morbid obesity Status: Chronic (13) GERD (gastroesophageal reflux disease) Status: Chronic (14) Diastolic CHF Status: Chronic Response to Treatment: Stable Problem Text: Has some fluid overload at this point was restarted on home diuretics. will give one dose of IV lasix today. (15) Gout Status: Chronic Response to Treatment: Stable Problem Text: continue allopurinol. (16) Urinary retention with incomplete bladder emptying Status: Chronic Response to Treatment: Stable Problem Text: will continue with flomax. (17) Hypercalcemia Status: Acute Problem Text: stop calcitriol and give lasix. Plan/VTE VTE Prophylaxis Ordered?: Yes VS, I&O, 24H, Fishbone Vital Signs/I&O Vital Signs Date Time Temp Pulse Resp B/P (MAP) Pulse Ox O2 Delivery O2 Flow Rate FiO2 01/30/17 08:27 85 115/61 01/30/17 06:00 97.8 19 91 Room Air I&O- Last 24 Hours up to 6 AM 01/31/17 06:00 Intake Total 240 ml Output Total 300 ml Balance -60 ml Laboratory Data 24H LABS Laboratory Tests 2 01/29/17 16:47: Bedside Glucose (Misc Panel) 283H 01/29/17 20:16: Bedside Glucose (Misc Panel) 321H 01/30/17 03:24: Bedside Glucose (Misc Panel) 104 01/30/17 05:54: Immature Granulocyte % (Auto) 0.8H, White Blood Count 7.9, Red Blood Count 3.64L , Hemoglobin 9.9L, Hematocrit 31.6L, Mean Corpuscular Volume 86.8, Mean Corpuscular Hemoglobin 27.2, Mean Corpuscular Hemoglobin Concent 31.3L, Red Cell Distribution Width 15.2H, Platelet Count 306, Neutrophils (%) (Auto) 66.1H , Lymphocytes (%) (Auto) 21.0L, Monocytes (%) (Auto) 9.7H, Eosinophils (%) (Auto ) 2.0, Basophils (%) (Auto) 0.4, Neutrophils # (Auto) 5.2, Lymphocytes # (Auto) 1.7, Monocytes # (Auto) 0.8, Eosinophils # (Auto) 0.2, Basophils # (Auto) 0.0, Immature Granulocyte # (Auto) 0.1H, Nucleated Red Blood Cells % (auto) 0.0, Anion Gap 13, Glomerular Filtration Rate 16.6L, Blood Urea Nitrogen 55H, Creatinine 3.05H, Sodium Level 137, Potassium Level 4.2, Chloride Level 98, Carbon Dioxide Level 26, Calcium Level 10.6H, Magnesium Level 3.3H 01/30/17 07:09: Bedside Glucose (Misc Panel) 95 CBC/BMP Laboratory Tests 01/30/17 05:54 Red Blood Count 3.64 L, Mean Corpuscular Volume 86.8, Mean Corpuscular Hemoglobin 27.2, Mean Corpuscular Hemoglobin Concent 31.3 L, Red Cell Distribution Width 15.2 H, Neutrophils (%) (Auto) 66.1 H, Lymphocytes (%) (Auto ) 21.0 L, Monocytes (%) (Auto) 9.7 H, Eosinophils (%) (Auto) 2.0, Basophils (%) (Auto) 0.4, Neutrophils # (Auto) 5.2, Lymphocytes # (Auto) 1.7, Monocytes # ( Auto) 0.8, Eosinophils # (Auto) 0.2, Basophils # (Auto) 0.0, Calcium Level 10.6 H Microbiology Microbiology 01/25/17 Blood Culture - Final, Complete NO GROWTH AFTER 5 DAYS 01/24/17 Blood Culture - Final, Complete NO GROWTH AFTER 5 DAYS 01/23/17 Blood Culture - Final, Complete NO GROWTH AFTER 5 DAYS 01/23/17 Urine Culture - Final, Complete Klebsiella Pneumoniae Esbl RAY,ISMAEL MD Jan 30, 2017 11:39
[2017-01-30 14:00] VITALS: BP 129/66
[2017-01-30] MEDS ORDERED: NS 1,000 ML IV SCH (16:45)
--- NOTE | 2017-01-30 20:20 | REP ---
CHEST: Frontal view of the chest is performed and compared to prior studies dating back to 01/13/2016. There is cardiomegaly. There is no definite acute infiltrate. There is bibasilar fibroatelectatic change which is stable compared to the prior study. The mediastinal silhouette is unchanged. IMPRESSION: Cardiomegaly. Chronic bibasilar fibroatelectatic change. No definite acute infiltrate or pulmonary edema. Signed by Yosef Harris MD 01/31/2017 02:43 P
[2017-01-30] MEDS ORDERED: ENTER DRUG NAME HERE (PATIENT'S OWN MED) SC SCH (21:00)
--- NOTE | 2017-01-30 21:51 | CR ---
DATE OF CONSULTATION: 01/30/2017 REQUESTING PHYSICIAN; Dr. Negrita Watson REASON FOR CONSULT: Acute kidney injury on chronic kidney disease. CHIEF COMPLAINT: The patient is admitted for intractable nausea and vomiting, found to have a urinary tract infection and subsequently developed acute kidney injury. HISTORY OF PRESENT ILLNESS: Ms. Wood is a 61-year-old female well known to the nephrology service with past medical history of morbid obesity and multiple chronic medical problems including a history of diabetes, chronic obstructive pulmonary disease, with use of home oxygen, coronary artery disease, history of prior stroke, history of kidney stones, recurrent urinary tract infections with history of urosepsis and recurrent acute kidney injury, history of congestive heart failure, obstructive sleep apnea, hypothyroidism, chronic hypoxic respiratory failure. The patient was admitted on 01/23 with chief complaint with intractable nausea and vomiting. She reported prolonged course of antibiotics for a lingering urinary tract infection as an outpatient and inability to tolerate all antibiotics due to recurrent nausea and vomiting and complaint of dysuria and frequency. The patient's urine culture grew ESBL Klebsiella. She completed a 7 day course of meropenem. During the course of the admission the patient received her oral dose of oral diuretic torsemide 50 mg by mouth twice a day. Her renal function was initially at her known baseline until 01/27 when it began to trend up. During that time she was receiving oral diuretics and making greater than 3 liters of urine per day and a net negative fluid balance. This morning she complains or profuse recurrent watery diarrhea. The patient does have a known prior history of C. Difficile. The patient is seen this morning at the bed side, she is lying completely flat in bed without any pillow on her head. She is seen on room air without any complaints of shortness of breath. She does have mild pitting edema in the lower extremities. PAST MEDICAL HISTORY: Significant for type 2 diabetes, hypertension, chronic obstructive pulmonary disease, chronic respiratory failure on home oxygen, obstructive sleep apnea on continuous positive airway pressure (CPAP), coronary artery disease, history of recurrent urinary tract infections, history of urosepsis, history of recurrent acute kidney injury, history of congestive heart failure, history of prior cerebrovascular accident (CVA), history of kidney stones, history of spinal stenosis, history of pituitary tumor, history of C. difficile infection. SURGICAL HISTORY: Significant for hysterectomy, appendectomy, tubal ligation, bladder suspension surgery, ureteral stent for stones and a breast lump removal. PERSONAL AND SOCIAL HISTORY: The patient lives at home. She is an exam-smoker. There is no history of drug or alcohol abuse. FAMILY HISTORY: Family has lung disease and her paternal aunt had breast cancer. There is no family history for end stage renal disease. REVIEW OF SYSTEMS: The patient denies headache, chest pain, palpitations, shortness of breath, dyspnea on exertion, proximal nocturnal dyspnea. Denies vomiting. Review of systems positive for recurrent watery diarrhea, nausea, lower extremity edema. ALLERGIES: ASPIRIN, BEEF, CONTRAST, LEVOFLOXACIN, METRONIDAZOLE, NALBUPHINE, QUINOLONES, BACTRIM PHYSICAL EXAMINATION: Temperature 97.8, pulse 83, respiratory rate 19, blood pressure 115/61 saturating 96% on room air. INTAKE AND OUTPUT: Serial intake and output over the last four days during which acute kidney injury evolved is reviewed by myself. GENERAL: The patient is lying down flat in bed without elevation of the head of the bed and without pillow underneath her head in no acute respiratory distress. HEAD AND NECK: Extraocular muscles intact. Moist mucous membranes. Neck has marked adipose tissue. Unable to assess the jugular veins. CHEST: S1, S2, 2+ radial pulse. RESPIRATORY: No crackles, no rales, symmetric air entry. ABDOMEN: Soft, obese, non-tender. EXTREMITIES: 1+ edema present in the lower extremities to just above the knees. IMAGING: Chest x-ray 01/30 no acute infiltrate or pulmonary edema. INPATIENT MEDICATIONS: Patients diuretics are discontinued by myself and she is started on normal saline at 50 mL an hour. She is also on DuoNeb's, allopurinol 100 mg by mouth daily, atenolol 25 mg by mouth twice a day, Plavix 75 mg by mouth daily, Lovenox 30 mg subcutaneously, Synthroid 88 mcg daily, insulin, pregabalin, Flomax 0.8 mg daily. ASSESSMENT AND PLAN: 1. Acute kidney injury on chronic kidney disease. Patient's baseline creatinine is about 1. She has a history of recurrent acute kidney injury. Initially on this admission her renal function was at baseline. She was on her home diuretic regimen and 01/26 made close to 4 liters of urine, 10 3 liters of urine with a concomitant deterioration in glomerular filtration rate (GFR). Labs are notable for alkalosis despite renal insufficiency suggestive of volume contraction and also for significant hypercalcemia and hypermagnesemia. Also suggestive of volume depletion. Additionally the patient was seen today lying flat in bed without elevation of the head of the bed without pillow underneath her head and in no respiratory distress. At home, she is on home oxygen and here she is saturating well on room air. Chest x-ray does not reveal pulmonary edema or infiltrates. She does have minimal edema in the extremities at present, however at this time I will discontinue her diuretics and start her on gentle IV hydration and we will reassess her renal function in 24 hours. The patient does have a history of urinary retention. Bladder scanned showed 115 mL and subsequent straight catheter had less than 100 mL urine output. No need for Claire catheter at this time. We will continue with Flomax. 2. Recurrent watery diarrhea. The patient does have a history of C. difficile in the past and a PCR is currently pending. 3. Recurrent urinary tract infection. The patient is admitted again with urinary tract infection. She has completed 7 days of meropenem for ESBL Klebsiella. 4. History of diastolic congestive heart failure. Minimal lower extremity edema one exam, however patient with significant deterioration and renal function despite diuretics with concomitant recurrent watery diarrhea and labs suggestive of intravascular volume depletion with hypercalcemia and hypermagnesemia. Discontinue diuretics at this time and start gentle hydration with close attention to volume status and respiratory status. 5. Hypertension well controlled on current regimen at this time. 6. History of urinary retention. Patient intermittent straight catheterizes at home for recurrent urinary retention. She remains on Flomax. Due to the acute kidney injury she was straight cathed today and had no significant retention. No need for Claire catheter at this time. Thank you for involving us in the care of this patient. We will follow the patient along with you.
[2017-01-30 22:00] VITALS: BP 142/65
[2017-01-31] MEDS: LEVOTHYROXINE 88MCG TABLET (0.088 MG) PO SCH (05:42)
[2017-01-31] MEDS: HEPARIN SOD (PORCINE) 5000 UNITS/ML VIAL SQ SCH ×3 (05:42→21:32)
[2017-01-31 06:00] VITALS: BP 121/62
[2017-01-31] MEDS: HUMULIN R U INSULIN SC SCH ×4 (07:30→21:00)
[2017-01-31] MEDS: TIOTROPIUM INHALER/CAPSULE (SPIRIVA) INH SCH (07:58)
[2017-01-31] MEDS: ADVAIR HFA 230/21MCG INHALER INH SCH ×2 (07:58→19:35)
[2017-01-31] MEDS: TOUJEO 300 UNIT/ML SC SCH ×2 (09:00→21:00)
[2017-01-31 09:15] LABS: MEAN CORPUSCULAR HEMOGLOBIN 27.7 pg (27.0-33.0); MEAN CORPUSCULAR HGB CONC 31.8 g/dl (32.0-36.5); MEAN CORPUSCULAR VOLUME 87.1 fl (80.0-96.0); RED CELL DISTRIBUTION WIDTH 15.2 % (11.5-14.5); WHITE BLOOD COUNT 8.7 10^3/uL (4.0-10.0)
[2017-01-31] MEDS: TAMSULOSIN 0.4 MG CAP PO SCH (09:30)
[2017-01-31] MEDS: PREGABALIN 75 MG CAP(LYRICA) PO SCH (09:31)
[2017-01-31] MEDS: CLOPIDOGREL 75 MG TAB PO SCH (09:31)
[2017-01-31] MEDS: ALLOPURINOL 100 MG TAB PO SCH (09:31)
[2017-01-31] MEDS: ATENOLOL 25 MG TAB PO SCH ×2 (09:32→21:32)
[2017-01-31] MEDS: tiZANidine 4 MG TAB PO SCH ×3 (09:32→21:32)
[2017-01-31] MEDS: ACETAMINOPHEN 500 MG TAB PO PRN ×2 (09:39→21:41)
[2017-01-31 09:52] LABS: CREATININE FOR GFR 2.66 MG/DL (0.55-1.02); GLOMERULAR FILTRATION RATE 19.4 (>45); MAGNESIUM LEVEL 3.4 MG/DL (1.8-2.4); POTASSIUM SERUM 4.3 MEQ/L (3.5-5.1)
--- NOTE | 2017-01-31 11:17 | IPNPDOC ---
Subjective Date Seen The patient was seen on 01/31/17. Subjective Chief Complaint/HPI The patient is a 61-year-old female admitted with a reason for visit of Nausea And Vomiting,Uti. Events since last encounter continues to feel very tired and slow, says not making much urine. no fever or chills,no chest pain or sob , no nausea or vomiting or abdominal pain Objective Physical Examination General Exam: Positive: Alert, Cooperative, No Acute Distress Eye Exam: Positive: Conjunctiva & lids normal, EOMI, Negative: Sclera icteric, Ptosis Neck Exam: Positive: Supple Chest Exam: Positive: Clear to auscultation, Diminished, Negative: Rales, Rhonchi, Wheezing Heart Exam: Positive: Rate Normal, Normal S1, Normal S2, Negative: Gallops, Murmurs, Rubs Abdomen Exam: Positive: Normal bowel sounds, Soft, Tenderness (epigastric and lower abdomen b/l), Negative: Hepatospenomegaly Extremity Exam: Positive: Edema (+2 pitting b/l LE), Negative: Clubbing, Cyanosis Skin Exam: Negative: Rash, Breakdown Neuro Exam: Positive: Normal Speech Psych Exam: Positive: Mental status NL, Oriented x 3, Negative: Anxiety Assessment /Plan Problems (1) Acute kidney injury superimposed on CKD Status: Acute Response to Treatment: Improving Problem Text: Has LINCOLN on ckd stage 3 worsened with lasix so was stopped. At this point it is felt that though patient has bipedal edema but she is intravascularly contracted so is on gentle hydration. creatinine did improve today. Calcium has improved also. (2) UTI (urinary tract infection) Status: Resolved Problem Text: with ESBL klebsiella finished 7 days of meropenem (3) COPD (chronic obstructive pulmonary disease) Status: Chronic Response to Treatment: Stable Problem Text: Not in any exacerbation [id number] prn will c/w home spiriva and advair c/w home flonase uses oxygen at home , not needing any here. (4) CAD (coronary artery disease) Status: Chronic Response to Treatment: Stable Problem Text: stable, s/p cardiac cath 2 years ago continue with beta dina, plavix, statin. (5) Hyperlipidemia Status: Chronic Response to Treatment: Stable Problem Text: will restart statin. 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 will continue U- 500 AC and HS as per Patient's home sliding scale. (8) SHAWANDA (obstructive sleep apnea) Status: Chronic Response to Treatment: Stable Problem Text: c/w pts home CPAP at night (9) History of CVA (cerebrovascular accident) Status: Resolved Response to Treatment: Stable Problem Text: c/w home plavix (10) HTN (hypertension) Status: Chronic Response to Treatment: Stable Problem Text: pts BP is stable in ED and a bit elevated will c/w home atenolol 25 BID (11) DVT prophylaxis Status: Acute Response to Treatment: Stable Problem Text: Renal dose Lovenox 30 sq daily (12) Morbid obesity Status: Chronic (13) GERD (gastroesophageal reflux disease) Status: Chronic (14) Diastolic CHF Status: Chronic Response to Treatment: Stable Problem Text: though has some bipedal chronic edema but no other signs of fluid overload . Infact patient may be intravascularly depleted as calcium was high and bicarb was high. So started on gentle hydration . Diuretics on hold. (15) Gout Status: Chronic Response to Treatment: Stable Problem Text: continue allopurinol. (16) Urinary retention with incomplete bladder emptying Status: Chronic Response to Treatment: Stable Problem Text: Had bladder scan yesterday showed 115 straight cath produced only 100 ml . No urinary retention at this point will continue with flomax. (17) Hypercalcemia Status: Acute Response to Treatment: Improving Problem Text: stopped calcitriol on ivf (18) Hypermagnesemia Status: Acute Plan/VTE VTE Prophylaxis Ordered?: Yes Plan/Urinary Catheter Reason for insertion/continuin: Other-document below VS, I&O, 24H, Fishbone Vital Signs/I&O Vital Signs Date Time Temp Pulse Resp B/P (MAP) Pulse Ox O2 Delivery O2 Flow Rate FiO2 01/31/17 09:32 87 133/66 01/31/17 06:00 97.8 19 99 Room Air I&O- Last 24 Hours up to 6 AM 02/01/17 06:00 Intake Total 600 ml Balance 600 ml Laboratory Data 24H LABS Laboratory Tests 2 01/30/17 11:24: Bedside Glucose (Misc Panel) 132H 01/30/17 16:21: Bedside Glucose (Misc Panel) 189H 01/30/17 19:58: Bedside Glucose (Misc Panel) 275H 01/31/17 07:50: Bedside Glucose (Misc Panel) 70L 01/31/17 09:09: Anion Gap 10, Glomerular Filtration Rate 19.4L, Blood Urea Nitrogen 65H, Creatinine 2.66H, Sodium Level 136, Potassium Level 4.3, Chloride Level 99, Carbon Dioxide Level 27, Calcium Level 10.0, Magnesium Level 3.4H CBC/BMP Laboratory Tests 01/31/17 09:09 Red Blood Count 3.50 L, Mean Corpuscular Volume 87.1, Mean Corpuscular Hemoglobin 27.7, Mean Corpuscular Hemoglobin Concent 31.8 L, Red Cell Distribution Width 15.2 H, Calcium Level 10.0 Microbiology Microbiology 01/25/17 Blood Culture - Final, Complete NO GROWTH AFTER 5 DAYS 01/24/17 Blood Culture - Final, Complete NO GROWTH AFTER 5 DAYS 01/23/17 Blood Culture - Final, Complete NO GROWTH AFTER 5 DAYS 01/23/17 Urine Culture - Final, Complete Klebsiella Pneumoniae Esbl ISMAEL GAMA MD Jan 31, 2017 11:17
[2017-01-31 14:00] VITALS: BP 131/66
--- NOTE | 2017-01-31 16:09 | IPN ---
DATE: 01/31/2017 SUBJECTIVE: The patient is seen this morning at the bedside. She is seen ambulating in the room, as well as sitting at the edge of the bed with legs dangling. She received gentle hydration overnight. Her creatinine has improved with the same, but the patient does complain of increased lower extremity edema. She continues to saturate very well on room air and denies shortness of breath at rest, but does note dyspnea on exertion which is close to her baseline. She complains of tremors and jittery-ness in her hands which is new, and she also complains of increasing dysuria. She has not had any recurrent watery diarrhea. REVIEW OF SYSTEMS: Positive for dysuria, tremors in the hands, and increase in lower extremity edema. Negative for chest pain, palpitations, shortness of breath at rest, nausea, vomiting, diarrhea. The patient denies symptoms of urinary retention. OBJECTIVE: VITAL SIGNS: Temperature 97.8, pulse 80, respiratory rate 19, blood pressure 121/62, saturating 99% on room air. INTAKE AND OUTPUT: Urine output yesterday 825 mL. Weight in the bed scale increased from prior, 150 kg. PHYSICAL EXAMINATION: GENERAL: The patient is awake, alert, and oriented times three in no acute distress. She is seen ambulating in the room as well as sitting at the edge of the bed. HEENT: Extraocular muscles are intact. NECK: Neck has significant adipose tissue. It is difficult to assess the neck veins. CHEST: There is distant bilateral symmetric air entry without appreciable rhonchi or rale. HEART: S1, S2. Two + radial pulse. She has 2+ pitting edema present in the bilateral lower extremities to above the knees. ABDOMEN: Soft, obese, nontender. NEUROLOGIC: No focal deficits. Appropriately interactive and conversational. Patient mentions tremor in the hands, but none seen on physical exam. PSYCHIATRIC: Appropriate mood and affect. LABORATORY DATA: Sodium 136, potassium 4.3, bicarbonate 27, creatinine 2.6. Magnesium 3.4, calcium 10. WBC 8.7, hemoglobin 9.7, platelets 266. IMAGING: Chest x-ray 01/30: Cardiomegaly and chronic bibasilar fibroatelectasis. No acute infiltrate or pulmonary edema. INPATIENT MEDICATIONS: I have discontinued the patient's pregabalin. Discontinue intravenous (IV) fluids. Discontinue Lovenox. She is started on heparin subcutaneous. There are no other changes in the past 24 hours. ASSESSMENT AND PLAN: 1. Acute kidney injury on chronic kidney disease: Suspect prerenal state, given glomerular filtration rate (GFR) was deteriorating on diuretics, and patient was significantly hypercalcemic and hypermagnesemic. She received gentle hydration with just under one liter of normal saline, and her IV fluids are discontinued at this time. Her creatinine did improve, although she does have increase in her daily weights and lower extremity edema. We will check a urine sodium as she is currently not on diuretics. She will be reassessed daily for diuretic resumption. She will also be daily assessed for urinary retention, as she has a strong history of the same. 2. Tremor in the hands: We will hold her Lyrica while she has an acute kidney injury. 3. Recurrent dysuria: The patient recently completed a seven-day course of meropenem for extended-spectrum beta-lactamase (ESBL) Klebsiella. She has a history of recurrent urinary tract infections (UTIs) and she does intermittently straight catheterize at home for recurrent urinary retention. Repeat urine culture. 4. History of urinary retention: The patient remains on Flomax. If she has any deterioration in renal function, we would likely place a Claire catheter. 5. History of diastolic congestive heart failure: Daily weights are increased and the patient has lower extremity edema present on exam. She remains stable from a respiratory point of view, saturating well on room air. She received less than a liter of IV fluids. IV fluids are discontinued. She will be reassessed daily for resumption of diuretic regimen. She is counseled regarding fluid restriction. 6. Chronic obstructive pulmonary disease (COPD): No signs of exacerbation. Continue her home inhalers and DuoNeb. Has not been requiring any oxygen use in the hospital. 7. Hypertension: Well controlled with no documented hypotensive episodes here. 8. Hypermagnesemia: Medication list is reviewed through the course of her stay here, and I do not see that she has received magnesium. Despite this, her magnesium level has risen daily with use of diuretics again suggestive of intravascular volume depletion. Plan of care is discussed in detail with Dr. Negrita Watson and with the patient at the bedside. JAYDEN
[2017-01-31 22:00] VITALS: BP 123/84
[2017-02-01 06:00] VITALS: BP 140/65
[2017-02-01] MEDS: HEPARIN SOD (PORCINE) 5000 UNITS/ML VIAL SQ SCH ×3 (06:00→22:15)
[2017-02-01] MEDS: LEVOTHYROXINE 88MCG TABLET (0.088 MG) PO SCH (06:00)
[2017-02-01 06:24] LABS: ALBUMIN 2.8 GM/DL (3.2-5.2); ALBUMIN/GLOBULIN RATIO 0.58 (1.00-1.93); BILIRUBIN,TOTAL 0.6 MG/DL (0.2-1.0); CALCIUM LEVEL 10.2 MG/DL (8.8-10.2); CREATININE FOR GFR 1.68 MG/DL (0.55-1.02); POTASSIUM SERUM 4.7 MEQ/L (3.5-5.1); TOTAL PROTEIN 7.6 GM/DL (6.4-8.2)
[2017-02-01] MEDS: HUMULIN R U INSULIN SC SCH ×3 (07:27→17:55)
[2017-02-01] MEDS: TIOTROPIUM INHALER/CAPSULE (SPIRIVA) INH SCH (08:13)
[2017-02-01] MEDS: ADVAIR HFA 230/21MCG INHALER INH SCH ×2 (08:14→19:45)
[2017-02-01] MEDS: ALLOPURINOL 100 MG TAB PO SCH (09:07)
[2017-02-01] MEDS: CLOPIDOGREL 75 MG TAB PO SCH (09:07)
[2017-02-01] MEDS: tiZANidine 4 MG TAB PO SCH (09:07)
[2017-02-01] MEDS: TAMSULOSIN 0.4 MG CAP PO SCH (09:07)
[2017-02-01] MEDS: TOUJEO 300 UNIT/ML SC SCH ×2 (09:08→20:14)
[2017-02-01] MEDS: ATENOLOL 25 MG TAB PO SCH ×2 (09:08→20:19)
--- NOTE | 2017-02-01 10:49 | IPNPDOC ---
Subjective Date Seen The patient was seen on 02/01/17. Subjective Chief Complaint/HPI The patient is a 61-year-old female admitted with a reason for visit of Nausea And Vomiting,Uti. Events since last encounter feeling more short of breath today , extremely weak this am . Difficulty in getting out of bed this am with unstable gait. usually patient has good mobility and no isues with ambulation. sugars still below her usual numbers though no bon hypoglycemia, used oxygen overnight. Objective Physical Examination General Exam: Positive: Alert, Cooperative, No Acute Distress Eye Exam: Positive: Conjunctiva & lids normal, EOMI, Negative: Sclera icteric, Ptosis Neck Exam: Positive: Supple Chest Exam: Positive: Clear to auscultation, Diminished, Negative: Rales, Rhonchi, Wheezing Heart Exam: Positive: Rate Normal, Normal S1, Normal S2, Negative: Gallops, Murmurs, Rubs Abdomen Exam: Positive: Normal bowel sounds, Soft, Tenderness (epigastric and lower abdomen b/l), Negative: Hepatospenomegaly Extremity Exam: Positive: Edema (+2 pitting b/l LE), Negative: Clubbing, Cyanosis Skin Exam: Negative: Rash, Breakdown Neuro Exam: Positive: Normal Speech Psych Exam: Positive: Mental status NL, Oriented x 3, Negative: Anxiety Assessment /Plan Problems (1) Acute kidney injury superimposed on CKD Status: Acute Response to Treatment: Improving Problem Text: Has LINCOLN on ckd stage 3 worsened with lasix so was stopped. At this point it is felt that though patient has bipedal edema but she is intravascularly contracted so is on gentle hydration. creatinine did improve today. Calcium has improved also. (2) UTI (urinary tract infection) Status: Resolved Problem Text: with ESBL klebsiella finished 7 days of meropenem (3) COPD (chronic obstructive pulmonary disease) Status: Chronic Response to Treatment: Stable Problem Text: Not in any exacerbation [id number] prn will c/w home spiriva and advair c/w home flonase uses oxygen at home , not needing any here. (4) CAD (coronary artery disease) Status: Chronic Response to Treatment: Stable Problem Text: stable, s/p cardiac cath 2 years ago continue with beta dina, plavix, statin. (5) Hyperlipidemia Status: Chronic Response to Treatment: Stable Problem Text: will restart statin. 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 will continue U- 500 AC and HS as per Patient's home sliding scale. (8) SHAWANDA (obstructive sleep apnea) Status: Chronic Response to Treatment: Stable Problem Text: c/w pts home CPAP at night (9) History of CVA (cerebrovascular accident) Status: Resolved Response to Treatment: Stable Problem Text: c/w home plavix (10) HTN (hypertension) Status: Chronic Response to Treatment: Stable Problem Text: pts BP is stable in ED and a bit elevated will c/w home atenolol 25 BID (11) DVT prophylaxis Status: Acute Response to Treatment: Stable Problem Text: Renal dose Lovenox 30 sq daily (12) Morbid obesity Status: Chronic (13) GERD (gastroesophageal reflux disease) Status: Chronic (14) Diastolic CHF Status: Chronic Response to Treatment: Stable Problem Text: though has some bipedal edema. Patient seems to be geting fluid overloaded as more sob today . off ivf now will probably need to restart her diuretics today . Will leave it to nephrology to adjust her diuretics. (15) Gout Status: Chronic Response to Treatment: Stable Problem Text: continue allopurinol. (16) Urinary retention with incomplete bladder emptying Status: Chronic Response to Treatment: Stable Problem Text: Had bladder scan yesterday showed 115 straight cath produced only 100 ml . No urinary retention at this point will continue with flomax. Pateint does self catheterize about 3 to 4 times per week , ofter she would get 400 to 600 ml of urine. (17) Hypercalcemia Status: Acute Response to Treatment: Improving Problem Text: stopped calcitriol on ivf (18) Hypermagnesemia Status: Acute Plan/VTE VTE Prophylaxis Ordered?: Yes Plan/Urinary Catheter Reason for insertion/continuin: Other-document below VS, I&O, 24H, Fishbone Vital Signs/I&O Vital Signs Date Time Temp Pulse Resp B/P (MAP) Pulse Ox O2 Delivery O2 Flow Rate FiO2 02/01/17 09:08 84 140/65 02/01/17 06:00 98.4 20 96 Nasal Cannula 3.0 Laboratory Data 24H LABS Laboratory Tests 2 01/31/17 11:56: Bedside Glucose (Misc Panel) 140H 01/31/17 15:19: Urine Random Sodium 20 01/31/17 16:54: Bedside Glucose (Misc Panel) 274H 01/31/17 20:37: Bedside Glucose (Misc Panel) 351H 02/01/17 00:38: Magnesium Level 2.9H 02/01/17 05:30: Anion Gap 8, Glomerular Filtration Rate 33.0L, Blood Urea Nitrogen 55H, Creatinine 1.68H, Sodium Level 141, Potassium Level 4.7, Chloride Level 106, Carbon Dioxide Level 27, Calcium Level 10.2, Aspartate Amino Transf (AST/SGOT) 39H, Alanine Aminotransferase (ALT/SGPT) 38, Alkaline Phosphatase 232H, Total Bilirubin 0.6, Total Protein 7.6, Albumin 2.8L, Albumin/Globulin Ratio 0.58L CBC/BMP Laboratory Tests 02/01/17 05:30 Calcium Level 10.2, Aspartate Amino Transf (AST/SGOT) 39 H, Alanine Aminotransferase (ALT/SGPT) 38, Alkaline Phosphatase 232 H, Total Bilirubin 0.6 , Total Protein 7.6, Albumin 2.8 L Microbiology Microbiology 01/25/17 Blood Culture - Final, Complete NO GROWTH AFTER 5 DAYS 01/24/17 Blood Culture - Final, Complete NO GROWTH AFTER 5 DAYS 01/23/17 Blood Culture - Final, Complete NO GROWTH AFTER 5 DAYS 01/31/17 Urine Culture, Received Pending 01/23/17 Urine Culture - Final, Complete Klebsiella Pneumoniae Esbl ISMAEL GAMA MD Feb 01, 2017 10:48
[2017-02-01] MEDS ORDERED: FUROSEMIDE 100 MG/10 ML VIAL (J1940) IV ONE (13:15)
[2017-02-01 14:00] VITALS: BP 135/75
[2017-02-01] MEDS ORDERED: FUROSEMIDE 40 MG/4 ML VIAL (J1940) IV SCH (20:00)
[2017-02-01] MEDS: ACETAMINOPHEN 500 MG TAB PO PRN (20:15)
--- NOTE | 2017-02-01 21:35 | IPN ---
DATE: 02/01/2017 SUBJECTIVE: The patient is seen this morning at the bedside. She complains of dyspnea on exertion and is feeling weak. She had difficulty ambulating due to unsteady legs. She is going to have her family bring in her continuous positive airway pressure (CPAP) tonight. She complains of ongoing dysuria but denies any symptoms of retention. Her creatinine has come down to 1.6 this morning. She has significant oral intake with 2.7 liters recorded in the past 24 hours. REVIEW OF SYSTEMS: Positive for weakness, fatigue, unsteady gait, dyspnea on exertion, dysuria, and an increase in lower extremity edema. Remainder of review of systems is negative. VITAL SIGNS: Temperature 98.4, pulse 84, respiratory rate 20, blood pressure 140/65, saturating 96% on 3 liters nasal cannula. Intake and output: Oral intake yesterday 2.7 liters. Urine output 1850 mL, net positive 1.4 liters. PHYSICAL EXAMINATION: GENERAL: The patient is seen lying down in bed. She is awake, alert, oriented in no acute distress. HEAD AND NECK: Extraocular muscles are intact. Mucous membranes are moist. Her neck has significant adipose tissue. I am unable to assess her jugular veins. CHEST: There are diminished breath sounds at the bilateral bases. She is seen on room air and on nasal cannula today. There is no wheeze appreciated. CARDIOVASCULAR: S1, S2, regular rate. She has 2+ pitting edema in the bilateral lower extremities. ABDOMEN: Soft, morbidly obese, nontender. NEUROLOGIC: No focal deficits. PSYCHIATRIC: She appears anxious. LABORATORY DATA: Sodium 141, potassium 4.7, bicarbonate 27, BUN 55, creatinine 1.6, corrected calcium 11.1. Most recent magnesium 2.9. White count 8.7, hemoglobin 9.7, platelets 266. Glucose 233, Microbiology: Urine culture drawn yesterday was no growth. Blood cultures January 25 are no growth for 5 days. IMAGING: Renal ultrasound was done today. Report is pending. INPATIENT MEDICATIONS: I gave the patient a one-time dose of Lasix 60 mg IV today. I have discontinued her tizanidine along with her Lyrica. There are no other changes in her medications. ASSESSMENT AND PLAN: 1. Acute kidney injury on chronic kidney disease, stage III. The patient's renal function has been improving over the last 48 hours. Her hypermagnesemia and hypercalcemia are improving as well, although corrected calcium is still 11.1, and most recent magnesium was 2.9. I do not recall her being hypercalcemic on previous admission. At that time her parathyroid hormone (PTH) was about 100. We will send off a PTH level in the morning. On serial exam, her lower extremity edema has increased. I have given her a dose of Lasix 60 mg IV times one today, and we will reassess her renal function in the morning. She also had a renal ultrasound done today, and the report is pending. 2. Unsteady gait, tremor in the hands. Patient's Lyrica has been discontinued yesterday. Today I have discontinued her tizanidine as well. 3. Recurrent dysuria. A repeat urine culture was negative. 4. History of diastolic congestive heart failure. Patient has increased edema on exam and complains of increased dyspnea on exertion. I have given her a one-time dose of Lasix 60 mg IV today for diuresis, and we will reassess her renal function in the morning. 5. Hypertension. Blood pressure is controlled at this time without documented hypotension. 6. Morbid obesity, complicating her care. edited: 02/03/2017 1336 tkf MTDD
[2017-02-01 22:00] VITALS: BP 152/67
[2017-02-02] MEDS: HEPARIN SOD (PORCINE) 5000 UNITS/ML VIAL SQ SCH ×3 (05:44→21:38)
[2017-02-02] MEDS: LEVOTHYROXINE 88MCG TABLET (0.088 MG) PO SCH (05:44)
[2017-02-02 06:00] VITALS: BP 145/74
[2017-02-02 06:42] LABS: ALBUMIN 2.7 GM/DL (3.2-5.2); ALBUMIN/GLOBULIN RATIO 0.54 (1.00-1.93); BILIRUBIN,TOTAL 0.6 MG/DL (0.2-1.0); CALCIUM LEVEL 10.6 MG/DL (8.8-10.2); CREATININE FOR GFR 1.07 MG/DL (0.55-1.02); GLOMERULAR FILTRATION RATE 55.5 (>45); MAGNESIUM LEVEL 2.3 MG/DL (1.8-2.4); POTASSIUM SERUM 3.9 MEQ/L (3.5-5.1); TOTAL PROTEIN 7.7 GM/DL (6.4-8.2); URIC ACID 6.5 MG/DL (2.6-6.0)
[2017-02-02] MEDS: TIOTROPIUM INHALER/CAPSULE (SPIRIVA) INH SCH (07:16)
[2017-02-02] MEDS: ADVAIR HFA 230/21MCG INHALER INH SCH ×2 (07:17→19:49)
[2017-02-02] MEDS: HUMULIN R U INSULIN SC SCH ×3 (07:30→18:14)
[2017-02-02] MEDS: ALLOPURINOL 100 MG TAB PO SCH (09:16)
[2017-02-02] MEDS: TAMSULOSIN 0.4 MG CAP PO SCH (09:16)
[2017-02-02] MEDS: FUROSEMIDE 40 MG/4 ML VIAL (J1940) IV SCH ×2 (09:16→18:13)
[2017-02-02] MEDS: ATENOLOL 25 MG TAB PO SCH ×2 (09:16→21:39)
[2017-02-02] MEDS: CLOPIDOGREL 75 MG TAB PO SCH (09:16)
[2017-02-02] MEDS: TOUJEO 300 UNIT/ML SC SCH (09:17)
--- NOTE | 2017-02-02 10:33 | IPNPDOC ---
Subjective Date Seen The patient was seen on 02/02/17. Subjective Chief Complaint/HPI The patient is a 61-year-old female admitted with a reason for visit of Nausea And Vomiting,Uti. Events since last encounter says could not sleep last night has had to go to the bathroom innumerable times , denies any sob , leg swelling better. used her CPAP last night. Objective Physical Examination General Exam: Positive: Alert, Cooperative, No Acute Distress Eye Exam: Positive: Conjunctiva & lids normal, EOMI, Negative: Sclera icteric, Ptosis Neck Exam: Positive: Supple Chest Exam: Positive: Clear to auscultation, Diminished, Negative: Rales, Rhonchi, Wheezing Heart Exam: Positive: Rate Normal, Normal S1, Normal S2, Negative: Gallops, Murmurs, Rubs Abdomen Exam: Positive: Normal bowel sounds, Soft, Tenderness (epigastric and lower abdomen b/l), Negative: Hepatospenomegaly Extremity Exam: Positive: Edema (+2 pitting b/l LE), Negative: Clubbing, Cyanosis Skin Exam: Negative: Rash, Breakdown Neuro Exam: Positive: Normal Speech Psych Exam: Positive: Mental status NL, Oriented x 3, Negative: Anxiety Assessment /Plan Problems (1) Acute kidney injury superimposed on CKD Status: Acute Response to Treatment: Improving Problem Text: Has LINCOLN on ckd stage 3 worsened with lasix so was stopped. At this point it is felt that though patient has bipedal edema but she is intravascularly contracted so is on gentle hydration. creatinine did improve today. Calcium has improved also. (2) UTI (urinary tract infection) Status: Resolved Problem Text: with ESBL klebsiella finished 7 days of meropenem repeat ua and culture negative. (3) COPD (chronic obstructive pulmonary disease) Status: Chronic Response to Treatment: Stable Problem Text: Not in any exacerbation [id number] prn will c/w home spiriva and advair c/w home flonase uses oxygen at home (4) CAD (coronary artery disease) Status: Chronic Response to Treatment: Stable Problem Text: stable, s/p cardiac cath 2 years ago continue with beta dina, plavix, statin. (5) Hyperlipidemia Status: Chronic Response to Treatment: Stable Problem Text: will restart statin. (6) Hypothyroidism Status: Chronic Response to Treatment: Stable Problem Text: c/w home synthroid (7) Diabetes mellitus, type 2 Status: Chronic Response to Treatment: Stable Problem Text: decrease Toujeo to 20 units only in AM. 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 will continue U- 500 AC as per Patient's home sliding scale. (8) SHAWANDA (obstructive sleep apnea) Status: Chronic Response to Treatment: Stable Problem Text: c/w pts home CPAP at night (9) History of CVA (cerebrovascular accident) Status: Resolved Response to Treatment: Stable Problem Text: c/w home plavix (10) HTN (hypertension) Status: Chronic Response to Treatment: Stable Problem Text: pts BP is stable in ED and a bit elevated will c/w home atenolol 25 BID (11) DVT prophylaxis Status: Acute Response to Treatment: Stable Problem Text: Renal dose Lovenox 30 sq daily (12) Morbid obesity Status: Chronic (13) GERD (gastroesophageal reflux disease) Status: Chronic (14) Diastolic CHF Status: Chronic Response to Treatment: Stable Problem Text: fluid status a little better than yesterday . got 1 dose of lasix . (15) Gout Status: Chronic Response to Treatment: Stable Problem Text: continue allopurinol. (16) Urinary retention with incomplete bladder emptying Status: Chronic Response to Treatment: Stable Problem Text: Had bladder scan yesterday showed 115 straight cath produced only 100 ml . No urinary retention at this point will continue with flomax. Patient does self catheterize about 3 to 4 times per week , often she would get 400 to 600 ml of urine. (17) Hypercalcemia Status: Acute Response to Treatment: Improving Problem Text: stopped calcitriol on ivf (18) Hypermagnesemia Status: Acute Plan/VTE VTE Prophylaxis Ordered?: Yes Plan/Urinary Catheter Reason for insertion/continuin: Other-document below VS, I&O, 24H, Fishbone Vital Signs/I&O Vital Signs Date Time Temp Pulse Resp B/P (MAP) Pulse Ox O2 Delivery O2 Flow Rate FiO2 02/02/17 09:16 82 145/74 02/02/17 06:00 98.9 20 91 NIPPV (BIPAP/CPAP) 02/01/17 20:30 3.0 I&O- Last 24 Hours up to 6 AM 02/03/17 06:00 Intake Total 0 ml Output Total 400 ml Balance -400 ml Laboratory Data 24H LABS Laboratory Tests 2 02/01/17 11:50: Bedside Glucose (Misc Panel) 103 02/01/17 16:41: Bedside Glucose (Misc Panel) 233H 02/01/17 20:14: Bedside Glucose (Misc Panel) 302H 02/02/17 05:45: Anion Gap 6L, Glomerular Filtration Rate 55.5, Blood Urea Nitrogen 42H, Creatinine 1.07H, Sodium Level 142, Potassium Level 3.9, Chloride Level 106, Carbon Dioxide Level 30, Calcium Level 10.6H, Aspartate Amino Transf (AST/SGOT) 31, Alanine Aminotransferase (ALT/SGPT) 36, Alkaline Phosphatase 213H, Total Bilirubin 0.6, Uric Acid 6.5H, Total Protein 7.7, Albumin 2.7L, Magnesium Level 2.3, PL-Rfm-H-Type Natriuretic Peptide 1158H, Albumin/Globulin Ratio 0.54L CBC/BMP Laboratory Tests 02/02/17 05:45 Calcium Level 10.6 H, Aspartate Amino Transf (AST/SGOT) 31, Alanine Aminotransferase (ALT/SGPT) 36, Alkaline Phosphatase 213 H, Total Bilirubin 0.6 , Uric Acid 6.5 H, Total Protein 7.7, Albumin 2.7 L Microbiology Microbiology 01/25/17 Blood Culture - Final, Complete NO GROWTH AFTER 5 DAYS 01/24/17 Blood Culture - Final, Complete NO GROWTH AFTER 5 DAYS 01/23/17 Blood Culture - Final, Complete NO GROWTH AFTER 5 DAYS 01/31/17 Urine Culture - Final, Complete 01/23/17 Urine Culture - Final, Complete Klebsiella Pneumoniae Esbl ISMAEL GAMA MD Feb 02, 2017 10:33
--- NOTE | 2017-02-02 11:39 | REP ---
REASON: Renal failure. The right kidney measures 11.4 x 6.4 x 6 cm and the left 10.1 x 5.4 x 5.6 cm. The renal cortex is hyperechoic bilaterally and there is less than optimal cortical medullary differentiation. There is no hydronephrosis or solid masses. The exam is limited by the patient's body habitus. IMPRESSION: No evidence of acute disease. Findings as described above. Signed by Eric Matias DO 02/02/2017 09:46 A
--- NOTE | 2017-02-02 11:43 | REP ---
REASON: Dyspnea. COMPARISON: 3 days ago. There is cardiomegaly status quo. There is interstitial fibrotic change, status quo. There are no acute patchy parenchymal opacities or pleural effusions. There is evidence of pulmonary vascular redistribution status quo. The pleural angles are sharp. The osseous structures are stable and intact. IMPRESSION: No significant change from the prior exam. Chronic changes suspected as described above. Signed by Eric Matias DO 02/02/2017 11:08 A
[2017-02-02] MEDS: NYSTATIN 100,000 UNITS/GM TOPICAL PWD 15 GM TOP SCH ×2 (12:35→21:39)
[2017-02-02 14:00] VITALS: BP 145/71
--- NOTE | 2017-02-02 21:20 | IPN ---
DATE: 02/02/2017 SUBJECTIVE: The patient is seen this morning at the bedside. She states she did not sleep that much last night as she had multiple trips to the bathroom to urinate. She received Lasix 60 mg intravenous (IV) times one yesterday, and her urine output was three liters. She is ambulating today with improvement in shortness of breath. She used her continuous positive airway pressure (CPAP) last night while she slept. REVIEW OF SYSTEMS: Positive for dyspnea on exertion, fatigue. Negative for chest pain, palpitations , nausea, vomiting, diarrhea. Positive for improving lower extremity edema. Remainder of review of systems is negative. PHYSICAL EXAMINATION: VITAL SIGNS: Temperature 98.9, pulse 82, respiratory rate 20, blood pressure 145/74 on room air and three liters nasal cannula, saturating 93%. INTAKE AND OUTPUT: Urine output yesterday 3050 mL. Oral intake 1440 mL. Weight in the bed scale today 148.3 kg. Net negative 1.6 liters in the last 24 hours. GENERAL: The patient is seen lying in bed in no acute distress. Awake, alert, and oriented. HEAD/NECK: Extraocular muscles are intact. Moist mucous membranes. Neck is obese. Unable to assess jugular veins. CHEST: Distant heart sounds, S1, S2. Two pulse radial pulse, 2+ pitting edema in the lower extremities. LUNGS: Diminished at the bases; otherwise clear to auscultation without wheeze. ABDOMEN: Soft, obese, nontender. EXTREMITIES: 2+ pitting edema in the lower extremities bilaterally. NEUROLOGIC: No focal deficits. PSYCHIATRIC: Appropriate mood and affect. GENITOURINARY: No Claire catheter. LABORATORY DATA: White count 8.7, hemoglobin 9.7, platelets 266. Sodium 142, potassium 3.9, bicarbonate, 30, creatinine 1.0, correct calcium 11.7, magnesium 2.3. BNP 1158. IMAGING: Renal ultrasound 02/01: Hyperechoic kidneys with no obstruction. Chest x-ray 02/02: Cardiomegaly unchanged from prior. No pleural effusion. Sharp pleural angles. INPATIENT MEDICATIONS: Reviewed by myself. The patient's insulin was adjusted by the primary team. She was started by myself on Lasix 40 mg IV twice a day. There are no other changes in the past 24 hours. ASSESSMENT AND PLAN: 1. Acute kidney injury on chronic kidney disease stage III: The patient's renal function has steadily improved over the past 72 hours. Creatinine is now 1.0, close to the patient's baseline. Her renal ultrasound was unremarkable. Her volume status is improving on IV Lasix. 2. Hypercalcemia, correct calcium 11.7 today. Parathyroid hormone (PTH) pending. The patient is not on any calcium supplementation. Will continue Lasix for now and consider calcitonin if her calcium rises above 12. 3. Hypermagnesemia has significantly improved, closed to normal now. Her hypermagnesemia was likely due to intravascular volume depletion. 4. 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 A repeat urine culture is negative. 5. History of diastolic congestive heart failure. The patient is resumed on intravenous diuretics with satisfactory diuresis. Will plan to resume her on her oral home diuretic regimen, likely in the next 24-48 hours. 6. Hypertension. Blood pressure is controlled at this time. 7. Morbid obesity complicating her care. 8. Chronic obstructive pulmonary disease (COPD). She continues with her home regimen. 9. History of urinary retention with incomplete bladder emptying. She continues on Flomax. No signs of retention at present. MTDD
[2017-02-02] MEDS: ACETAMINOPHEN 500 MG TAB PO PRN (21:41)
[2017-02-02 22:00] VITALS: BP 148/80
[2017-02-03] MEDS: HEPARIN SOD (PORCINE) 5000 UNITS/ML VIAL SQ SCH ×3 (05:45→21:08)
[2017-02-03] MEDS: LEVOTHYROXINE 88MCG TABLET (0.088 MG) PO SCH (05:45)
[2017-02-03 06:00] VITALS: BP 154/77
[2017-02-03 06:22] LABS: MEAN CORPUSCULAR HEMOGLOBIN 27.2 pg (27.0-33.0); MEAN CORPUSCULAR HGB CONC 30.9 g/dl (32.0-36.5); MEAN CORPUSCULAR VOLUME 88.2 fl (80.0-96.0); RED CELL DISTRIBUTION WIDTH 14.8 % (11.5-14.5); WHITE BLOOD COUNT 6.8 10^3/uL (4.0-10.0)
[2017-02-03 06:37] LABS: INR 1.15
[2017-02-03 06:43] LABS: ANION GAP 5 MEQ/L (8-16); BLOOD UREA NITROGEN 32 MG/DL (7-18); CALCIUM LEVEL 9.8 MG/DL (8.8-10.2); CARBON DIOXIDE LEVEL 32 MEQ/L (21-32); CHLORIDE LEVEL 106 MEQ/L (98-107); CREATININE FOR GFR 0.96 MG/DL (0.55-1.02); GLOMERULAR FILTRATION RATE > 60.0 (>45); GLUCOSE, FASTING 102 MG/DL (80-110); POTASSIUM SERUM 3.6 MEQ/L (3.5-5.1); SODIUM LEVEL 143 MEQ/L (136-145)
[2017-02-03] MEDS: HUMULIN R U INSULIN SC SCH ×4 (07:30→17:30)
[2017-02-03] MEDS: TOUJEO 300 UNIT/ML SC SCH (09:00)
[2017-02-03] MEDS: TIOTROPIUM INHALER/CAPSULE (SPIRIVA) INH SCH (09:04)
[2017-02-03] MEDS: ADVAIR HFA 230/21MCG INHALER INH SCH ×2 (09:04→19:39)
[2017-02-03] MEDS: TAMSULOSIN 0.4 MG CAP PO SCH (09:14)
[2017-02-03] MEDS: ATENOLOL 25 MG TAB PO SCH ×2 (09:15→21:08)
[2017-02-03] MEDS: CLOPIDOGREL 75 MG TAB PO SCH (09:15)
[2017-02-03] MEDS: ALLOPURINOL 100 MG TAB PO SCH (09:15)
[2017-02-03] MEDS: NYSTATIN 100,000 UNITS/GM TOPICAL PWD 15 GM TOP SCH ×2 (09:16→21:08)
[2017-02-03] MEDS: FUROSEMIDE 40 MG/4 ML VIAL (J1940) IV SCH ×2 (09:16→17:59)
--- NOTE | 2017-02-03 13:11 | IPNPDOC ---
Subjective Date Seen The patient was seen on 02/03/17. Subjective Chief Complaint/HPI The patient is a 61-year-old female admitted with a reason for visit of Nausea And Vomiting,Uti. Events since last encounter No new complaints today , still feeling very weak but less tired today. Has been able to get out of bed to go to the bathroom but feels very shaky and feels her legs are going to give way. no fever or chills, no chest pain or sob , no nuasea or vomiting or diarrhea, no hypoglycemia this am Objective Physical Examination General Exam: Positive: Alert, Cooperative, No Acute Distress Eye Exam: Positive: Conjunctiva & lids normal, EOMI, Negative: Sclera icteric, Ptosis Neck Exam: Positive: Supple Chest Exam: Positive: Clear to auscultation, Diminished, Negative: Rales, Rhonchi, Wheezing Heart Exam: Positive: Rate Normal, Normal S1, Normal S2, Negative: Gallops, Murmurs, Rubs Abdomen Exam: Positive: Normal bowel sounds, Soft, Tenderness (epigastric and lower abdomen b/l), Negative: Hepatospenomegaly Extremity Exam: Positive: Edema (+2 pitting b/l LE), Negative: Clubbing, Cyanosis Skin Exam: Negative: Rash, Breakdown Neuro Exam: Positive: Normal Speech Psych Exam: Positive: Mental status NL, Oriented x 3, Negative: Anxiety Assessment /Plan Problems (1) Acute kidney injury superimposed on CKD Status: Resolved Problem Text: Had LINCOLN on ckd stage 3 worsened with lasix so was stopped. Got some ivf with improvement of renal function but developed fluid overload so started back on iv lasix. renal function now back to normal will continue with lasix. (2) UTI (urinary tract infection) Status: Resolved Problem Text: with ESBL klebsiella finished 7 days of meropenem repeat ua and culture negative. Patient self catheterizes intermittently at home has intermittent retention causing recurrent infection (3) COPD (chronic obstructive pulmonary disease) Status: Chronic Response to Treatment: Stable Problem Text: Not in any exacerbation [id number] prn will c/w home spiriva and advair c/w home flonase uses oxygen at home (4) CAD (coronary artery disease) Status: Chronic Response to Treatment: Stable Problem Text: stable, s/p cardiac cath 2 years ago continue with beta dina, plavix, statin. (5) Hyperlipidemia Status: Chronic Response to Treatment: Stable Problem Text: will restart statin. (6) Hypothyroidism Status: Chronic Response to Treatment: Stable Problem Text: c/w home synthroid (7) Diabetes mellitus, type 2 Status: Chronic Response to Treatment: Stable Problem Text: decreased Toujeo to 20 units only in AM. 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 will continue U- 500 AC as per Patient's home sliding scale. discontinued bed time dose of u 500 (8) SHAWANDA (obstructive sleep apnea) Status: Chronic Response to Treatment: Stable Problem Text: c/w pts home CPAP at night needs oxygen with cpap. (9) History of CVA (cerebrovascular accident) Status: Resolved Response to Treatment: Stable Problem Text: c/w home plavix (10) HTN (hypertension) Status: Chronic Response to Treatment: Stable Problem Text: pts BP is stable in ED and a bit elevated will c/w home atenolol 25 BID (11) DVT prophylaxis Status: Acute Response to Treatment: Stable Problem Text: Renal dose Lovenox 30 sq daily (12) Morbid obesity Status: Chronic (13) GERD (gastroesophageal reflux disease) Status: Chronic (14) Diastolic CHF Status: Chronic Response to Treatment: Stable Problem Text: fluid status a little better than yesterday . got 1 dose of lasix . (15) Gout Status: Chronic Response to Treatment: Stable Problem Text: continue allopurinol. (16) Urinary retention with incomplete bladder emptying Status: Chronic Response to Treatment: Stable Problem Text: Had bladder scan yesterday showed 115 straight cath produced only 100 ml . No urinary retention at this point will continue with flomax. Patient does self catheterize about 3 to 4 times per week , often she would get 400 to 600 ml of urine. (17) Hypercalcemia Status: Resolved Response to Treatment: Improving Problem Text: stopped calcitriol (18) Hypermagnesemia Status: Resolved (19) Chronic respiratory failure with hypoxia Status: Chronic Response to Treatment: Stable Problem Text: uses oxygen at night mostly and during naps with cpap. will continue to maintain sats between 88 to 92 Plan/VTE VTE Prophylaxis Ordered?: Yes Plan/Urinary Catheter Reason for insertion/continuin: Other-document below VS, I&O, 24H, Fishbone Vital Signs/I&O Vital Signs Date Time Temp Pulse Resp B/P (MAP) Pulse Ox O2 Delivery O2 Flow Rate FiO2 10/9/17 12:17 Nasal Cannula 3.0 02/03/17 06:00 97.0 73 17 154/77 (102) 94 I&O- Last 24 Hours up to 6 AM 02/04/17 06:00 Intake Total 240 ml Output Total 625 ml Balance -385 ml Laboratory Data 24H LABS Laboratory Tests 2 02/02/17 16:58: Bedside Glucose (Misc Panel) 198H 02/02/17 20:23: Bedside Glucose (Misc Panel) 96 02/03/17 05:39: Prothrombin Time 14.9H, Prothromb Time International Ratio 1.15, Anion Gap 5L, Glomerular Filtration Rate > 60.0, Blood Urea Nitrogen 32H, Creatinine 0.96, Sodium Level 143, Potassium Level 3.6, Chloride Level 106, Carbon Dioxide Level 32, Calcium Level 9.8 02/03/17 12:31: Bedside Glucose (Misc Panel) 209H CBC/BMP Laboratory Tests 02/03/17 05:39 Red Blood Count 3.56 L, Mean Corpuscular Volume 88.2, Mean Corpuscular Hemoglobin 27.2, Mean Corpuscular Hemoglobin Concent 30.9 L, Red Cell Distribution Width 14.8 H, Calcium Level 9.8 Microbiology Microbiology 01/25/17 Blood Culture - Final, Complete NO GROWTH AFTER 5 DAYS 01/24/17 Blood Culture - Final, Complete NO GROWTH AFTER 5 DAYS 01/31/17 Urine Culture - Final, Complete ISMAEL GAMA MD Feb 03, 2017 13:10
[2017-02-03 14:00] VITALS: BP 122/53
--- NOTE | 2017-02-03 20:23 | IPN ---
DATE: 02/03/2017 SUBJECTIVE: The patient is seen this morning at the bedside. She reports her shortness of breath has improved. She is feeling fatigued. Did not sleep well last night. Denies dyspnea on exertion. Has ambulated to the bathroom. Urine output in the past 24 hours 1250 mL. REVIEW OF SYSTEMS: Negative for headache, dizziness, negative for chest pain, palpations, shortness of breath at rest, nausea, vomiting, diarrhea, positive for fatigue, weakness, deconditioning. VITAL SIGNS: Temperature 97.0, pulse 73, respiratory rate 17, blood pressure 154/77, saturating 93% on room air. Intake and output. Oral intake yesterday 973 ml. Urine output 1250 mL. Net negative 280 mL. Weight on the bed scale today 143.2 kg. General: The patient is seen lying in bed, in no acute distress. is present at the bedside. Head and neck: Extraocular muscles are intact. Moist mucous membranes. No significant adipose tissue. Unable to assess jugular veins. Chest: S1, S2, 2+ radial pulses, 2+ pitting edema in the lower extremities. Respiratory: Diminished at the bases, otherwise clear. Abdomen: Soft, obese, nontender. Extremities: 2+ pitting edema in the lower extremities. No edema in the upper extremities. Skin: No rashes. Neurologic: No focal deficits. Appropriately interactive and conversational. Psychiatric: Appropriate mood and affect. LABS: White count 6.8, hemoglobin 9.7, platelet 260. Sodium 143, potassium 3.6, bicarbonate 32, creatinine 0.9. BUN 32, calcium 9.8, glucose 209. INPATIENT MEDICATIONS: Reviewed by myself. The patient continues on Lasix 40 mg IV twice a day. Her insulin was adjusted per the primary team. There are no other changes in her medications in the past 24 hours. ASSESSMENT AND PLAN: 1. Resolved acute kidney injury. The patient's renal function has returned to her baseline. She remains with hypervolemia and is receiving IV diuretics. She is seen saturating well on room air. She should hopefully be back on her oral home regimen in the next 24 to 48 hours. 2. History of diastolic congestive heart failure. Continue with IV diuretics for a net negative fluid balance. 3. Hypertension. Blood pressure is well controlled at this time. 4. Morbid obesity complicating her care. 5. Deconditioning. The patient is pending physical therapy, occupational therapy evaluation. 6. Hypercalcemia. Improving from prior. PTH is appropriately suppressed. 7. Hypermagnesemia. Improved with diuresis. Plan of care is discussed with Dr. Negrita Watson.
[2017-02-03] MEDS: ACETAMINOPHEN 500 MG TAB PO PRN (21:09)
[2017-02-03 22:00] VITALS: BP 155/89
[2017-02-04] MEDS: LEVOTHYROXINE 88MCG TABLET (0.088 MG) PO SCH (05:41)
[2017-02-04] MEDS: HEPARIN SOD (PORCINE) 5000 UNITS/ML VIAL SQ SCH ×3 (05:41→21:04)
[2017-02-04 06:00] VITALS: BP 146/66
[2017-02-04 06:13] LABS: MEAN CORPUSCULAR HEMOGLOBIN 27.5 pg (27.0-33.0); MEAN CORPUSCULAR HGB CONC 31.7 g/dl (32.0-36.5); MEAN CORPUSCULAR VOLUME 86.8 fl (80.0-96.0); RED CELL DISTRIBUTION WIDTH 14.6 % (11.5-14.5); WHITE BLOOD COUNT 6.9 10^3/uL (4.0-10.0)
[2017-02-04 06:26] LABS: ANION GAP 6 MEQ/L (8-16); BLOOD UREA NITROGEN 25 MG/DL (7-18); CALCIUM LEVEL 9.7 MG/DL (8.8-10.2); CARBON DIOXIDE LEVEL 31 MEQ/L (21-32); CHLORIDE LEVEL 107 MEQ/L (98-107); CREATININE FOR GFR 0.92 MG/DL (0.55-1.02); GLOMERULAR FILTRATION RATE > 60.0 (>45); GLUCOSE, FASTING 88 MG/DL (80-110); POTASSIUM SERUM 3.6 MEQ/L (3.5-5.1); SODIUM LEVEL 144 MEQ/L (136-145)
[2017-02-04] MEDS: HUMULIN R U INSULIN SC SCH ×3 (07:30→17:30)
[2017-02-04] MEDS: TIOTROPIUM INHALER/CAPSULE (SPIRIVA) INH SCH (07:32)
[2017-02-04] MEDS: ADVAIR HFA 230/21MCG INHALER INH SCH ×2 (07:32→19:35)
[2017-02-04] MEDS: TOUJEO 300 UNIT/ML SC SCH (08:06)
[2017-02-04] MEDS: CLOPIDOGREL 75 MG TAB PO SCH (09:00)
[2017-02-04] MEDS: ONDANSETRON 4MG/2ML VIAL (J2405) IV PRN ×2 (09:00→20:09)
[2017-02-04] MEDS: FUROSEMIDE 40 MG/4 ML VIAL (J1940) IV SCH (09:01)
[2017-02-04] MEDS: ALLOPURINOL 100 MG TAB PO SCH (09:01)
[2017-02-04] MEDS: TAMSULOSIN 0.4 MG CAP PO SCH (09:01)
[2017-02-04] MEDS: ATENOLOL 25 MG TAB PO SCH ×2 (09:01→21:04)
[2017-02-04] MEDS: NYSTATIN 100,000 UNITS/GM TOPICAL PWD 15 GM TOP SCH ×2 (09:01→21:05)
[2017-02-04] MEDS ORDERED: POTASSIUM CHLORIDE 10 MEQ SR TABLET PO ONE (12:45)
[2017-02-04 14:00] VITALS: BP 143/66
[2017-02-04] MEDS ORDERED: FUROSEMIDE 40 MG/4 ML VIAL (J1940) IV SCH (17:00)
--- NOTE | 2017-02-04 17:42 | IPNPDOC ---
Date Seen The patient was seen on 02/04/17. Progress Note Hospitalist Progress Note Subjective: Patient states she is nauseated today, but has not vomited Objective: Physical Exam: Vitals: Vital Sign - Last 24 Hours 02/03/17 02/03/17 02/03/17 02/04/17 21:00 21:08 22:00 06:00 Temp 97.8 97.2 Pulse 82 82 72 Resp 18 17 B/P (MAP) 155/89 155/89 (111) 146/66 (92) Pulse Ox 95 95 O2 Delivery Room Air Room Air Room Air 02/04/17 02/04/17 09:00 14:00 Temp 97.5 Pulse 72 Resp 16 B/P (MAP) 143/66 (91) Pulse Ox 96 O2 Delivery Room Air Room Air General: Awake, alert, no acute distress HEENT: Normocephalic, atraumatic, extraocular movements intact CV: Regular rate and rhythm Lungs: Clear to auscultation bilaterally Abd: Obese, soft, nontender Extremities: 1+ edema in bilateral lower extremities Neuro: Alert and oriented 3, normal speech Psych:Normal Mood and affect Labs and Imaging: Laboratory Tests 02/04/17 05:50 Red Blood Count 3.71 L, Mean Corpuscular Volume 86.8, Mean Corpuscular Hemoglobin 27.5, Mean Corpuscular Hemoglobin Concent 31.7 L, Red Cell Distribution Width 14.6 H, Calcium Level 9.7 Assessment and Plan: 61-year-old female with chronic kidney disease stage III, diabetes mellitus type 2, hypertension, SHAWANDA on CPAP, morbid obesity, hypothyroidism, liver 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 1. UTI: Urine culture grew ESBL Klebsiella. She is now status post 7 days of Merrem with a negative repeat urine culture. The recurrence of UTI is likely secondary to her chronic intermittent urinary retention, which causes her to need to self cath intermittently at home. Continue Flomax. 2. Acute on chronic kidney disease stage III: Lasix was initially held, and mild improvement in renal function was seen, but then she developed fluid overload. She is now being diuresed as per nephrology. Currently on IV diuretics. 3. Diabetes mellitus type 2: Continue patient's home Toujeo. She was initially taking 100 units twice a day, and now secondary to hypoglycemia, has been backed down to 20 units daily. Continue home sliding scale of U-500. No a.m. hypoglycemia today. 4. Hypertension: Continue home atenolol. 5. Hypothyroidism: Continue home Synthroid. 6. COPD with chronic hypoxic respiratory failure on 2 L of oxygen: Continue home Spiriva and Advair, as well as as needed DuoNeb's. 7. CAD: No current chest pain. Continue home beta dina, Plavix. We will restart home statin at discharge. 8. Morbid obesity: Complicating care 9. History of CVA: Continue aspirin and blood pressure control. We will restart home statin at discharge. 10. CHF: The type is unspecified, but the patient at home takes torsemide. This is currently on hold while she is being diuresed with IV Lasix. 11. Gout: Continue home allopurinol DVT prophylaxis: Heparin Dispo: pending clearance by PT, as well as being able to be changed back to oral diuretics at nephrology's discretion VS, I&O, 24H, Fishbone Vital Signs/I&O Vital Signs Date Time Temp Pulse Resp B/P (MAP) Pulse Ox O2 Delivery O2 Flow Rate FiO2 02/04/17 14:00 97.5 72 16 143/66 (91) 96 Room Air 02/03/17 12:17 3.0 I&O- Last 24 Hours up to 6 AM 02/05/17 05:59 Intake Total 120 ml Output Total 200 ml Balance -80 ml Laboratory Data 24H LABS Laboratory Tests 2 02/03/17 20:30: Bedside Glucose (Misc Panel) 282H 02/04/17 05:50: Anion Gap 6L, Glomerular Filtration Rate > 60.0, Blood Urea Nitrogen 25H, Creatinine 0.92, Sodium Level 144, Potassium Level 3.6, Chloride Level 107, Carbon Dioxide Level 31, Calcium Level 9.7 02/04/17 12:08: Bedside Glucose (Misc Panel) 148H CBC/BMP Laboratory Tests 02/04/17 05:50 Red Blood Count 3.71 L, Mean Corpuscular Volume 86.8, Mean Corpuscular Hemoglobin 27.5, Mean Corpuscular Hemoglobin Concent 31.7 L, Red Cell Distribution Width 14.6 H, Calcium Level 9.7 Microbiology Microbiology 01/25/17 Blood Culture - Final, Complete NO GROWTH AFTER 5 DAYS 01/31/17 Urine Culture - Final, Complete WILLIE LUI Feb 04, 2017 17:42
[2017-02-04 21:04] VITALS: BP 157/86
[2017-02-04] MEDS: ACETAMINOPHEN 500 MG TAB PO PRN (21:05)
[2017-02-05] MEDS: LEVOTHYROXINE 88MCG TABLET (0.088 MG) PO SCH (05:37)
[2017-02-05] MEDS: HEPARIN SOD (PORCINE) 5000 UNITS/ML VIAL SQ SCH (05:37)
--- NOTE | 2017-02-05 05:41 | IPN ---
DATE: 02/04/2017 SUBJECTIVE: The patient is seen this morning at the bedside. Her breathing has continued to improve. She is ambulating. She complains of nausea this morning. She has not vomited. She denies any diarrhea. REVIEW OF SYSTEMS: Positive for nausea. Negative for headache, dizziness, chest pain, palpitations, shortness of breath, vomiting, diarrhea, abdominal pain. Review of systems positive for lower extremity edema improved from prior. OBJECTIVE: VITAL SIGNS: Temperature 97.2, pulse 72, respiratory rate 17, blood pressure 146/66, saturating 95% on room air. INTAKE AND OUTPUT: Urine output yesterday 1475 mL. No weight recorded in the bed scale today. PHYSICAL EXAMINATION: The patient is seen lying in bed. Family is at bedside. She is in no acute distress. HEAD/NECK: Extraocular muscles are intact. Mucous membranes are moist. The neck is obese. Jugular veins cannot be assessed. CARDIAC: S1, S2. Distant, regular. 2+ radial pulse. 1+ pitting edema in the lower extremities below the knees. LUNGS: Clear to auscultation bilaterally. The patient is seen on room air in no acute distress. ABDOMEN: Soft, obese, nontender. NEUROLOGIC: No focal deficits. PSYCHIATRIC: Appropriate mood and affect. LABORATORY DATA: White count 6.9, hemoglobin 10.2, platelets 271. Sodium 144, potassium 3.6, bicarbonate 31, creatinine 0.9, BUN 25, calcium 9.7. INPATIENT MEDICATIONS: The patient received a dose of potassium today. She remains on Lasix 40 intravenous (IV) twice a day. The remainder of medications are unchanged from prior. ASSESSMENT AND PLAN: 1. Resolved acute kidney injury. The patient's renal function remains at known baseline. Her hypervolemia is improving. She will be switched back to oral diuretics in the morning. She is saturating well on room air and ambulating. 2. History of diastolic congestive heart failure. The patient is appropriately fluid restricting. Her peripheral edema has improved on serial exam and she is diuresing well on IV Lasix. Her home diuretics regimen is torsemide 50 mg by mouth twice a day, and she can resume that on discharge. 3. Hypertension. Blood pressure is well controlled at this time. 4. Hypercalcemia, resolved. Parathyroid hormone (PTH) is appropriately suppressed at this time. Review of home medications shows the patient is on calcitriol 0.25 mcg daily. Would continue to hold, and she can be reassessed for resumption once seen as an outpatient. DISCHARGE PLANNING: The patient should followup in one week of discharge with her primary special delivery mail carrier, Dr. Gutiérrez.
[2017-02-05 06:00] VITALS: BP 145/78
[2017-02-05 06:54] LABS: BASO % 0.4 % (0.0-1.0); EOS # 0.2 10^3/uL (0.0-0.50); EOS % 2.7 % (0.0-3.0); IMMATURE GRANULOCYTE % 0.4 % (0-0); LYMPH # 1.6 10^3/uL (1.5-4.5); MEAN CORPUSCULAR HEMOGLOBIN 26.5 pg (27.0-33.0); MEAN CORPUSCULAR HGB CONC 30.5 g/dl (32.0-36.5); MEAN CORPUSCULAR VOLUME 86.8 fl (80.0-96.0); MONO # 0.4 10^3/uL (0.0-0.8); MONO % 6.5 % (0.0-5.0); NEUTROPHILS # 4.5 10^3/uL (1.8-7.7); PLATELET COUNT, AUTOMATED 265 10^3/uL (150-450); RED CELL DISTRIBUTION WIDTH 14.6 % (11.5-14.5); WHITE BLOOD COUNT 6.7 10^3/uL (4.0-10.0)
[2017-02-05 07:07] LABS: ALBUMIN 2.8 GM/DL (3.2-5.2); ALBUMIN/GLOBULIN RATIO 0.55 (1.00-1.93); BILIRUBIN,TOTAL 0.7 MG/DL (0.2-1.0); CALCIUM LEVEL 8.7 MG/DL (8.8-10.2); CREATININE FOR GFR 1.04 MG/DL (0.55-1.02); GLOMERULAR FILTRATION RATE 57.4 (>45); MAGNESIUM LEVEL 1.9 MG/DL (1.8-2.4); POTASSIUM SERUM 4.3 MEQ/L (3.5-5.1); TOTAL PROTEIN 7.9 GM/DL (6.4-8.2)
[2017-02-05] MEDS: HUMULIN R U INSULIN SC SCH ×2 (07:30→12:00)
[2017-02-05] MEDS: TIOTROPIUM INHALER/CAPSULE (SPIRIVA) INH SCH (07:36)
[2017-02-05] MEDS: ADVAIR HFA 230/21MCG INHALER INH SCH (07:36)
[2017-02-05] MEDS: TOUJEO 300 UNIT/ML SC SCH (09:00)
[2017-02-05] MEDS: CLOPIDOGREL 75 MG TAB PO SCH (09:07)
[2017-02-05] MEDS: ALLOPURINOL 100 MG TAB PO SCH (09:07)
[2017-02-05] MEDS: ONDANSETRON 4MG/2ML VIAL (J2405) IV PRN (09:07)
[2017-02-05] MEDS: ATENOLOL 25 MG TAB PO SCH (09:08)
[2017-02-05] MEDS: NYSTATIN 100,000 UNITS/GM TOPICAL PWD 15 GM TOP SCH (09:08)
[2017-02-05] MEDS: TAMSULOSIN 0.4 MG CAP PO SCH (09:08)
[2017-02-05] MEDS ORDERED: TORSEMIDE 20 MG TAB PO SCH (10:00)
[2017-02-05] MEDS ORDERED: TOUJ1.2I SC (12:00)
--- NOTE | 2017-02-05 14:13 | DS.PDOC ---
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 1. UTI: Urine culture grew ESBL Klebsiella. She is now status post 7 days of Merrem with a negative repeat urine culture. The recurrence of UTI is likely secondary to her chronic intermittent urinary retention, which causes her to need to self cath intermittently at home. Continue Flomax. 2. Acute on chronic kidney disease stage III: Lasix was initially held, and mild improvement in renal function was seen, but then she developed fluid overload. She was then diuresed as per nephrology. Changing back to home PO diuretics at discharge. 3. Diabetes mellitus type 2: Continue patient's home Toujeo. She was initially taking 100 units twice a day, and now secondary to hypoglycemia, has been backed down to 20 units daily. Continue home sliding scale of U-500. No a.m. hypoglycemia today. She will need follow up with PCP for further adjustment. 4. Hypertension: Continue home atenolol. 5. Hypothyroidism: Continue home Synthroid. 6. COPD with chronic hypoxic respiratory failure on 2 L of oxygen: Continue home Spiriva and Advair, as well as as needed DuoNeb's. 7. CAD: No current chest pain. Continue home beta dina, Plavix. We will restart home statin at discharge. 8. Morbid obesity: Complicating care 9. History of CVA: Continue aspirin and blood pressure control. We will restart home statin at discharge. 10. CHF: The type is unspecified, but the patient at home takes torsemide. Changing back to this at discharge. 11. Gout: Continue home allopurinol DVT prophylaxis: Heparin PHYSICAL EXAMINATION ON DISCHARGE: VITAL SIGNS: Vital Signs Date Time Temp Pulse Resp B/P (MAP) Pulse Ox O2 Delivery O2 Flow Rate FiO2 02/05/17 09:00 Room Air 02/05/17 06:00 96.8 71 18 145/78 (100) 100 02/03/17 12:17 3.0 General: Awake, alert, no acute distress HEENT: Normocephalic, atraumatic, extraocular movements intact CV: Regular rate and rhythm Lungs: Clear to auscultation bilaterally Abd: Obese, soft, nontender Extremities: 1+ edema in bilateral lower extremities Neuro: Alert and oriented 3, normal speech Psych:Normal Mood and affect DISPOSITION: Home DISCHARGE INSTRUCTIONS: Follow-up PCP within one week Follow-up Dr. Gutiérrez in one week. Fluid restrict to 1500 mL daily If symptoms return, or if you experience worsening of your symptoms, please call your doctor or return to the emergency department. ITEMS THAT NEED OUTPATIENT FOLLOWUP: Further adjustment of insulin Patient was seen and examined by me on the day of discharge, and I spent a total time of greater than 30 minutes on this discharge. Vital Signs/I&Os Vital Signs Date Time Temp Pulse Resp B/P (MAP) Pulse Ox O2 Delivery O2 Flow Rate FiO2 02/05/17 09:00 Room Air 02/05/17 06:00 96.8 71 18 145/78 (100) 100 02/03/17 12:17 3.0 I&O- Last 24 Hours up to 6 AM 02/06/17 06:00 Intake Total 240 ml Output Total 100 ml Balance 140 ml Laboratory Data Labs 24H Laboratory Tests 2 02/04/17 16:53: Bedside Glucose (Misc Panel) 151H 02/04/17 20:22: Bedside Glucose (Misc Panel) 210H 02/05/17 05:56: Immature Granulocyte % (Auto) 0.4H, White Blood Count 6.7, Red Blood Count 3.93L , Hemoglobin 10.4L, Hematocrit 34.1L, Mean Corpuscular Volume 86.8, Mean Corpuscular Hemoglobin 26.5L, Mean Corpuscular Hemoglobin Concent 30.5L, Red Cell Distribution Width 14.6H, Platelet Count 265, Neutrophils (%) (Auto) 67.0H , Lymphocytes (%) (Auto) 23.0L, Monocytes (%) (Auto) 6.5H, Eosinophils (%) (Auto ) 2.7, Basophils (%) (Auto) 0.4, Neutrophils # (Auto) 4.5, Lymphocytes # (Auto) 1.6, Monocytes # (Auto) 0.4, Eosinophils # (Auto) 0.2, Basophils # (Auto) 0.0, Immature Granulocyte # (Auto) 0.0, Nucleated Red Blood Cells % (auto) 0.0, Anion Gap 4L, Glomerular Filtration Rate 57.4, Blood Urea Nitrogen 21H, Creatinine 1.04H, Sodium Level 141, Potassium Level 4.3, Chloride Level 105, Carbon Dioxide Level 32, Calcium Level 8.7L, Aspartate Amino Transf (AST/SGOT) 49H, Alanine Aminotransferase (ALT/SGPT) 43, Alkaline Phosphatase 209H, Total Bilirubin 0.7, Total Protein 7.9, Albumin 2.8L, Magnesium Level 1.9, Albumin/ Globulin Ratio 0.55L 02/05/17 07:15: Bedside Glucose (Misc Panel) 186H 02/05/17 11:55: Bedside Glucose (Misc Panel) 211H CBC/BMP Laboratory Tests 02/05/17 05:56 Red Blood Count 3.93 L, Mean Corpuscular Volume 86.8, Mean Corpuscular Hemoglobin 26.5 L, Mean Corpuscular Hemoglobin Concent 30.5 L, Red Cell Distribution Width 14.6 H, Neutrophils (%) (Auto) 67.0 H, Lymphocytes (%) (Auto ) 23.0 L, Monocytes (%) (Auto) 6.5 H, Eosinophils (%) (Auto) 2.7, Basophils (%) (Auto) 0.4, Neutrophils # (Auto) 4.5, Lymphocytes # (Auto) 1.6, Monocytes # ( Auto) 0.4, Eosinophils # (Auto) 0.2, Basophils # (Auto) 0.0, Calcium Level 8.7 L , Aspartate Amino Transf (AST/SGOT) 49 H, Alanine Aminotransferase (ALT/SGPT) 43 , Alkaline Phosphatase 209 H, Total Bilirubin 0.7, Total Protein 7.9, Albumin 2.8 L FSBS Laboratory Tests Test 02/04/17 16:53 02/04/17 20:22 02/05/17 07:15 02/05/17 11:55 Range/Units Bedside Glucose (Misc Panel) 151 210 186 211 80-115 MG/DL Microbiology Microbiology 01/31/17 Urine Culture - Final, Complete Discharge Medications Scheduled (Incruse Ellipta) 62.5 Mcg/Inh Inh, 62.5 MCG INH DAILY, (Reported) (Toujeo Solostar) 300 Unit/Ml Inj, 20 UNIT SC DAILY Allopurinol (Zyloprim) 300 Mg Tab, 300 MG PO DAILY, (Reported) Atenolol (Atenolol) 25 Mg Tab, 25 MG PO BID, (Reported) Calcitriol (Calcitriol) 0.25 Mcg Cap, 0.25 MG PO DAILY, (Reported) Clopidogrel Bisulfate (Clopidogrel) 75 Mg Tab, 75 MG PO DAILY, (Reported) Ergocalciferol (Vitamin D) 50,000 Unit Cap, 50,000 UNIT PO MTHLY, (Reported) Friday OF EACH MONTH Fluticasone/Vilanterol (Breo Ellipta 200-25 Mcg/INH) 1 Inh Inh, 1 INH INH DAILY, (Reported) Levothyroxine Sodium (Synthroid) 88 Mcg Tab, 88 MCG PO DAILY, (Reported) Pregabalin (Lyrica) 150 Mg Cap, 300 MG PO DAILY, (Reported) Pregabalin (Lyrica) 150 Mg Cap, 150 MG PO QHS, (Reported) Simvastatin - High Dose (Zocor) 80 Mg Tab, 80 MG PO QHS, (Reported) Tamsulosin Hydrochloride (Flomax) 0.4 Mg Cap, 0.8 MG PO DAILY, (Reported) Tizanidine Hydrochloride (Tizanidine HCl) 4 Mg Cap, 4 MG PO TID, (Reported) Torsemide (Torsemide) 100 Mg Tab, 50 MG PO BID, (Reported) Scheduled PRN (Clear Eyes For Dry Eyes 1-0.25 %) 1 Escobar Escobar, 1 DROP OU TID PRN for REDNESS/ IRRITATION, (Reported) (Flonase Allergy Relief) 50 Mcg/Act Spr, 100 MCG NA DAILY PRN for NASAL CONGESTION, (Reported) Dicyclomine HCl (Dicyclomine HCl) 10 Mg Cap, 10 MG PO TID PRN for CRAMPS, ( Reported) Insulin (Humulin R U-500 (Concentr) 1 Units/0.002 Ml Inj, 0 SC Q3HP PRN for HIGH BLOOD SUGAR, (Reported) PER SLIDING SCALE Linaclotide Base (Linzess) 290 Mcg Cap, 290 MCG PO DAILY PRN for CONSTIPATION, ( Reported) Meclizine HCl (Meclizine HCl) 25 Mg Tab, 25 MG PO Q8H PRN for VERTIGO/DIZZINESS, (Reported) Allergies Coded Allergies: Aspirin (Verified Allergy, Severe, RASH,HIVES, 07/28/12) Quinolones (Verified Allergy, Intermediate, FACIAL REDNESS AND ITCHING ON NECK, 07/28/12) Beef Allergy (Verified Allergy, Unknown, "bad skin rash", 12/11/16) Contrast Media (Verified Adverse Reaction, Intermediate, KIDNEY FAILURE, 02/09/15) Levofloxacin (Verified Adverse Reaction, Intermediate, KIDNEY FAILURE, ) Metronidazole (Verified Adverse Reaction, Intermediate, KIDNEY FAILURE, ) Nalbuphine (Verified Adverse Reaction, Intermediate, HYPER, 07/28/12) Sulfamethoxazole w/Trimethoprim (Verified Adverse Reaction, Intermediate, KIDNEY FAILURE, 02/09/15) WILLIE LUI Feb 05, 2017 14:13
--- NOTE | 2017-02-06 06:44 | IPN ---
DATE: 02/05/2017 SUBJECTIVE: The patient is seen this morning at the bedside. She states her shortness of breath has significantly improvement. She reports ambulation without significant dyspnea on exertion. Her lower extremity edema has improved on serial days. She inquires as to when she can be discharge. REVIEW OF SYSTEMS: Negative for headache, dizziness, chest pain, palpitations, shortness of breath at rest, vomiting, diarrhea. Review of systems is positive for nausea today. OBJECTIVE: VITAL SIGNS: Temperature 97.5, pulse 72, respiratory rate 16, blood pressure 143/66, saturating 96% on room air. INTAKE AND OUTPUT: Urine output yesterday was not fully reported. PHYSICAL EXAMINATION: GENERAL: The patient is seen out of bed to the chair in no acute respiratory distress. HEAD/NECK: Extraocular muscles are intact. Mucous membranes are moist. The neck is supple. Jugular veins cannot be assessed due to significantly thick neck. CARDIAC: S1, S2. Distant but regular. 2+ radial pulse. 1+ pitting edema in the lower extremities below the knees. LUNGS: Clear to auscultation bilaterally with crackle. The patient is seen on room air, comfortable. ABDOMEN: Soft, obese, doughy, nontender. PSYCHIATRIC: Appropriate mood and affect. NEUROLOGIC: No focal deficits. LABORATORY DATA: White count 6.7, hemoglobin 10.4, platelets 265. Sodium 141, potassium 4.3, bicarbonate 32, creatinine 1.0, BUN 21, calcium corrected for albumin 9.6, magnesium 1.9. INPATIENT MEDICATIONS: Reviewed by myself. The patient is resumed on oral torsemide today. There are no other significant changes in the past 24 hours. ASSESSMENT AND PLAN: 1. Resolved acute kidney injury (LINCOL[place]) in the setting of extended-spectrum beta-lactamase (ESBL) urinary tract infection (UTI). The patient's renal function has since returned to baseline. Her hypervolemia also continues to improve. She is resumed on oral diuretics this morning. She is saturating well on room air and ambulating. I discussed her home diuretic regimen with her at the bedside. 2. History of diastolic congestive heart failure. The patient has lower extremity pitting edema just below the knees. However, lungs are clear and she is saturating well on room air. She is discharge pending per the primary team. She will resume her home diuretic regimen today with slight decrease in dose to torsemide 40 mg by mouth twice a day. She is instructed to followup in the nephrology office in one week for close monitoring of volume status, electrolytes, and lab work. 3. Hypertension. Blood pressure is well controlled at this time. 4. Hypercalcemia, resolved. 5. Secondary hyperparathyroidism. The patient is resumed on calcitriol at home. Monitor iPTH, Ca X phos as outpatient. DISCHARGE PLANNING: Discussed with Dr. Karyn Velazco and with the patient at the bedside. JAYDEN
== END 2017-02-05 13:57 | disposition home or self-care (01) | DRG 463 ==
LOC: EDUNIT# 10:17 → EDBD 10:19 → M ED 12:09 → M ED INP 18:03 → M MSPAV 19:41
PROVIDERS: ADMIT Hospitalist; ATTEND Hospitalist
DX: N39.0 Urinary tract infection, site not specified (principal); J96.11 Chronic respiratory failure with hypoxia; N17.9 Acute kidney failure, unspecified; I13.0 Hypertensive heart and chronic kidney disease with heart failure and stage 1 through stage 4 chronic kidney disease, or unspecified chronic kidney disease; I50.32 Chronic diastolic (congestive) heart failure; N18.3 Chronic kidney disease, stage 3 (moderate); E11.649 Type 2 diabetes mellitus with hypoglycemia without coma; K74.60 Unspecified cirrhosis of liver; K75.81 Nonalcoholic steatohepatitis (NASH); E66.01 Morbid (severe) obesity due to excess calories; J44.9 Chronic obstructive pulmonary disease, unspecified; Z68.43 Body mass index [BMI] 50.0-59.9, adult; E83.52 Hypercalcemia; E83.42 Hypomagnesemia; N25.81 Secondary hyperparathyroidism of renal origin; G47.33 Obstructive sleep apnea (adult) (pediatric); M19.90 Unspecified osteoarthritis, unspecified site; M10.9 Gout, unspecified; I25.10 Atherosclerotic heart disease of native coronary artery without angina pectoris; E03.9 Hypothyroidism, unspecified; Z86.73 Personal history of transient ischemic attack (TIA), and cerebral infarction without residual deficits; B96.1 Klebsiella pneumoniae [K. pneumoniae] as the cause of diseases classified elsewhere; Z79.899 Other long term (current) drug therapy; Z88.6 Allergy status to analgesic agent; Z88.2 Allergy status to sulfonamides; Z88.8 Allergy status to other drugs, medicaments and biological substances; Z91.041 Radiographic dye allergy status; Z91.018 Allergy to other foods; K57.30 Diverticulosis of large intestine without perforation or abscess without bleeding; K21.9 Gastro-esophageal reflux disease without esophagitis; R30.0 Dysuria

== ENCOUNTER → 2017-03-06 | Outpatient (CLI) | payer OTHER ==
[~2017-03-06] MED LIST changes: +LINZ290C PO; +NITRO10CA PO
[2017-03-06 12:46] LABS: BASO % 0.3 % (0.0-1.0); EOS # 0.2 10^3/uL (0.0-0.50); EOS % 2.2 % (0.0-3.0); IMMATURE GRANULOCYTE % 0.4 % (0-0); LYMPH # 1.6 10^3/uL (1.5-4.5); LYMPH % 17.5 % (24.0-44.0); MEAN CORPUSCULAR HEMOGLOBIN 26.7 pg (27.0-33.0); MEAN CORPUSCULAR HGB CONC 31.1 g/dl (32.0-36.5); MONO # 0.7 10^3/uL (0.0-0.8); MONO % 7.1 % (0.0-5.0); NEUTROPHILS # 6.8 10^3/uL (1.8-7.7); NEUTROPHILS % 72.5 % (36.0-66.0); PLATELET COUNT, AUTOMATED 301 10^3/uL (150-450); RED CELL DISTRIBUTION WIDTH 14.6 % (11.5-14.5); WHITE BLOOD COUNT 9.4 10^3/uL (4.0-10.0)
[2017-03-06 13:09] LABS: ALBUMIN 3.4 GM/DL (3.2-5.2); CALCIUM LEVEL 9.9 MG/DL (8.8-10.2); CREATININE FOR GFR 1.06 MG/DL (0.55-1.02); GLOMERULAR FILTRATION RATE 56.1 (>45); PHOSPHORUS LEVEL 4.1 MG/DL (2.5-4.9); POTASSIUM SERUM 4.6 MEQ/L (3.5-5.1); URIC ACID 6.8 MG/DL (2.6-6.0)
== END ==
LOC: M LAB 11:55
PROVIDERS: ATTEND Internal Medicine Nephrology
DX: N18.3 Chronic kidney disease, stage 3 (moderate) (principal)

== ENCOUNTER → 2017-03-13 | Outpatient (CLI) | payer OTHER ==
--- NOTE | 2017-03-28 00:47 | ECWPNPC ---
PATIENT NAME: NU WOODARD : 1955 GENDER: FEMALE VISIT DATE: 03/13/2017 DISCHARGE DATE: 03/13/17 1114 VISIT LOCKED DATE TIME: PHYSICIAN: LEAH ANDERS RESOURCE: LEAH ANDERS REASON FOR APPOINTMENT 1. POST INJECTION HISTORY OF PRESENT ILLNESS FALL RISK SCREENING: SCREENING :NO FALLS IN THE PAST YEAR PAIN SCREENING: PATIENT HAS A COMPLAINT OF ACUTE OR CHRONIC PAIN :YES TODAY'S VISIT: NOTES: WAS HOSPITALIZED FOR SEPTIC SHOCK FOLLOWING AFTER A BOUT OF UTI. DEVELOPED ARF BUT HAS RECOVED MOST FUNCTION. BACK PAIN HAS RETURNED ACROSS THE LOW BACK TO THE RIGHT HIP. BAN NOT WALK ANY DISTANCE. DID FALL OFF STRETHER ON WAY TO HOSPITAL AND DID FALL IN SHOWER AFTER DISCHRGE. HAS PERSISTANT NEUROPATHIC CHANGE IN LOWER EXTREMITIES - NO NEW CHANGES IN THIS. IS BEING EVALUATED FOR RIGHT SHOULDER ISSUES FOR DR Zara HILTON.. CURRENT MEDICATIONS TAKING INCRUSE ELLIPTA 62.5 MCG/INH AEROSOL POWDER BREATH ACTIVATED 1 PUFF INHALATION ONCE A DAY, NOTES: 11-27-162099 TAKING SYNTHROID 88 MCG TABLET 1 TABLET EVERY MORNING ON AN EMPTY STOMACH ORALLY ONCE A DAY, NOTES: 11-27-16899 TAKING LYRICA 150 MG CAPSULE 1 CAPSULE ORALLY THREE TIMES A DAY, NOTES: 11-27-162099 TAKING ATENOLOL 50 50MG TABLET 1 ORAL TWO TIMES DAILY, NOTES: 11-27-162099 TAKING ANTIVERT 25 MG TABLET 1 TABLET ORALLY ONCE A DAY NEEDED, NOTES: 11-27-162099 TAKING ALLOPURINOL 300 MG TABLETS 1 TAB ORALLY DAILY, NOTES: 11-27-16899 TAKING TORSEMIDE 150 TABLET 100 IN AM/ 50 PM ORALLY DIVIDED DAILY, NOTES: 11-27-162099 TAKING BETADINE SWABSTICKS 10 % SWAB DIRECTED EXTERNALLY QID- WITH CIC, NOTES: NA TAKING LATEX GLOVES LARGE 1 BOX MISCELLANEOUS DIRECTED NEEDED FOR CIC TAKING CATHETERS 14 FR MISCELLANEOUS DIRECTED TID TAKING BREO ELLIPTA 200-25 MCG/INH AEROSOL POWDER BREATH ACTIVATED 1 PUFF INHALATION ONCE A DAY, NOTES: 11-27-16899 TAKING ZOCOR 80 MG TABLET 1 TABLET IN THE EVENING ORALLY ONCE A DAY, NOTES: 11-27-162099 TAKING LINZESS 290 MCG CAPSULE 1 CAPSULE ORALLY ONCE A DAY PRN, NOTES: NOT LATELY TAKING POTASSIUM CHLORIDE 10 MEQ CAPSULE EXTENDED RELEASE 1 CAPSULE WITH FOOD ORALLY TWO TIMES A DAY, NOTES: 11-27-16899 TAKING CALCITRIOL 0.25 MCG CAPSULE 1 CAPSULE ORALLY ONCE A DAY, NOTES: 11-27-16899 TAKING BENTYL 20 MG TABLET 1 CAPSULE ORALLY NEEDED, NOTES: 11-27-162099 TAKING TIZANIDINE HCL 4 MG TABLET 1 TABLET NEEDED ORALLY EVERY 8 HRS, NOTES: 11-27-162099 TAKING PLAVIX 75 MG TABLET 1 TABLET ORALLY ONCE A DAY, NOTES: 11-20-16899 TAKING HUMULIN R U-500 (CONCENTRATED) 500 UNIT/ML SOLUTION DIRECTED SLIDING SCALE BETWEEN 18 AND 27 UNITS SUBCUTANEOUS EVERY 3 HRS., NOTES: 11-27-162099 TAKING TOUJEO SOLOSTAR 300 UNIT/ML SOLUTION PEN-INJECTOR 100 SUBCUTANEOUS BID, NOTES: 11-27-16899 TAKING POISE MAXIMUM ABSORBENCY . PAD DIRECTED CHANGE NEEDED, DX CODE- N39.46 TAKING REGLAN 10 MG TABLET 1 TAB ORALLY THREE TIMES DAILY NEEDED, NOTES: 11-27-162099 TAKING SIMVASTATIN 80 MG TABLET 1 TABLET IN THE EVENING ORALLY ONCE A DAY, NOTES: 899 TAKING VITAMIN D (ERGOCALCIFEROL) 98051 UNIT CAPSULE 1 CAPSULE ORALLY MONTHLY, NOTES: 11-09-16899 TAKING AMPICILLIN 500 MG CAPSULE ORALLY 14 DAY SCRIPT TAKING NYSTATIN POWDER 6 MU/GM POWDER DIRECTED TWICE A DAY, NOTES: 09-12-15 AM TAKING VOLTAREN 1 % GEL 3 CC AT [facility] HIP AREA TRANSDERMAL TID PRN FOR PAIN NOT-TAKING AMLODIPINE BESYLATE 10 MG TABLET 1 TABLET ORALLY ONCE A DAY MEDICATION LIST REVIEWED AND RECONCILED WITH THE PATIENT PAST MEDICAL HISTORY 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 DR HAYNES KIDNEY DISEASE/FAILURE 2007 DR KNUTSON HYPERTENSION HYPOTHYROIDISM HYPERCHOLESTEROLEMIA ASTHMA COPD [facility] GOUT BRAIN STROKE-07/06 PITUITARY TUMOR-2007 SLEEP APNEA/CPAP 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 GASTROPARESIS KIDNEY STAGE IV 2017 ALLERGIES ASPIRIN: ANAPHYLAXIS: ALLERGY BEEF FLAVOR: SWELLING/FEVER: ALLERGY LEVAQUIN: KIDNEY FAILURE BACTRIM: KIDNEY FAILURE FLAGYL: KIDNEY FAILURE IVP DYE, IODINE: KIDNEY FAILURE SURGICAL HISTORY SHANELLE AND BSO 12/15/1996 COLONOSCOPY X 5 ,8 POLYPS BEIGN 2007,11/2015 BREAST BIOPSY/MASS REMOVED-RIGHT BREAST 06/24/2002 APPENDECTOMY 10/09/2002 LEFT URETERAL STONE 01/29/1979 BRAIN TUMOR TUBAL LIGATION 10/30/1975 WART REMOVAL - EYES VAGINAL BLADDER LIFT - SLING & CYSTOCELE REPAIR 1998 URETHERAL DILATION 11/15/1999 RIGHT METAL PLATE INSERTED INTO RIGHT LEG - "TUMOR FROM FALL" CYSTOSCOPY 09/24/13 SOCIAL HISTORY GENERAL: TOBACCO USE ARE YOU A:FORMER SMOKER HOW LONG HAS IT BEEN SINCE YOU LAST SMOKED?> 10 YEARS CAFFEINE CAFFEINE USE?NO PAIN CLINIC PFS, CLERGY, PUBLIC HEALTH REFERRALS PFS REFERRAL NEEDED?NO CLERGY REFERRAL NEEDED?NO PUBLIC HEALTH REFERRAL NEEDED?NO WAS THE PROVIDER NOTIFIED OF ANY PERTINENT INFO?YES HAS THE PATIENT BEEN EDUCATED REGARDING HIS/HER PLAN OF CARE?YES HAS THE PATIENT BEEN EDUCATED REGARDING PAIN, THE RISK FOR PAIN, THE IMPORTANCE OF EFFECTIVE PAIN MANAGEMENT, AND THE PAIN ASSESSMENT PROCESS?YES REVIEWED BY: ELÍAS. PATIENT: ____. HOSPITALIZATION/MAJOR DIAGNOSTIC PROCEDURE SURGICAL RELATED CVA KIDNEY FAILURE [facility] 09[facility]30/13-10/06/13 KIDNEY FAILURE 01/05/11 OF 2013 ABDOMINAL PAIN-LIVER BIOPSY-CYST 08/2015 AND 09/2015 RENAL FAILURE/UTI 01/2017 &02/2017 REVIEW OF SYSTEMS REVIEWED BY: PROVIDER: . CONSTITUTIONAL: ANY CHANGE IN YOUR MEDICAL CONDITION? YES, SEVERE RENAL FAILURE IN JANUARY . CHILLS NO . FEVER NO . INFECTION: DO YOU HAVE NEW INFECTIONS? NO . DO YOU HAVE HISTORY OF MRSA? NO . MUSCULOSKELETAL: ANY NEW PATTERNS OF PAIN OR NUMBNESS? NO . SYTEMIC LUPUS NO . GASTROENTEROLOGY: GENERAL HAS ENLARGED LIVER AND GALL BLADDER - FOR ENDOSCOPY WITH DR SMITH EARLY MAR . ANY NEW CHANGE IN BOWEL CONTROL? NO . BARRETTS ESOPHAGUS NO . CIRRHOSIS NO . HEPATITIS NO . LIVER FAILURE NO . ACID REFLUX NO . UNEXPLAINED WEIGHT LOSS NO . GENITOURINARY: ANY NEW CHANGE IN BLADDER CONTROL? NO . IS THERE A CHANCE YOU COULD BE ? NO . HEMATOLOGY/LYMPH: DO YOU TAKE ANY BLOOD THINNERS? (FOR EXAMPLE- COUMADIN, PLAVIX, AGGRENOX, PLATEL, PRADAXA, OR XARELTO) YES, PLAVIX . WHEN WAS YOUR LAST DOSE? DATE: TIME: . LOW PLATELET COUNT NO . SICKLE CELL DISEASE NO . VON WILLIEBRANDS NO . FACTOR V LEIDEN NO . THALLASEMIA NO . ANEMIA NO . EASY BRUISING NO . NEUROLOGY: HAVE YOU FALLEN IN THE PAST 6 MONTHS? NO . ANY NEW EXTREMITY NUMBNESS OR WEAKNESS? NO . HEAD INJURY NO . DEMENTIA NO . CEREBRAL PALSY YES, PT STATES THAT SHE FELL WHILE BEING TRANSFERRED TO STRETCHER WITH AMBULANCE STAFF. INJURED ARM IN FALL, PHYSICAL THERAPY NOW ON ARM. PAIN IN BACK INTENSIFIED . MULTIPLE SCLEROSIS NO . DIZZINESS NO . HEADACHE NO . STROKES NO . VERTIGO NO . CARDIOLOGY: DO YOU HAVE A PACEMAKER OR DEFIBRILLATOR? NO . ANGINA NO . HEART ATTACK NO . HEART SURGERY NO . CONGESTIVE HEART FAILURE/FLUID OVERLOAD NO . CHEST PAIN NO . HIGH BLOOD PRESSURE NO . IRREGULAR HEART BEAT NO . RESPIRATORY: HAVE YOU BEEN SICK IN THE PAST WEEK? NO . FEVER NO . FLU LIKE SYMPTOMS? NO . CPAP NO . BYPAP NO . ASTHMA NO . EMPHYSEMA NO . CHRONIC LUNG DISEASES NO . SHORTNESS OF BREATH ON EXERTION NO . COUGH NO . SNORING NO . INTEGUMENTARY: DO YOU HAVE ANY RASHES OR OPEN SORES? NO . ALLERGIC/IMMUNO: ARE YOU ALLERGIC TO SHELLFISH OR IV DYE? YES . ANY NEW ALLERGIES? NO . PSYCHIATRIC: DO YOU HAVE THOUGHTS OF HURTING YOURSELF OR SOMEONE ELSE? NO . ARE YOU ABUSED, NEGLECTED, OR IN AN UNSAFE ENVIRONMENT? NO . ENDOCRINOLOGY: ARE YOU DIABETIC? YES, MANAGED WELL . THYROID DISORDER NO . OTHER: DO YOU NEED ANY PRESCRIPTIONS? NO . IF YES, PLEASE LIST: ____ . ANY NEW PROBLEMS WITH YOUR MEDICATIONS? NO . WHEN DID YOU LAST EAT? ____ . WHEN DID YOU LAST DRINK? ____ . WHAT DID YOU LAST DRINK? ____ . NAME OF PERSON DRIVING YOU HOME? ____ . DO YOU HAVE ANY OTHER QUESTIONS OR CONCERNS NO . VITAL SIGNS WT 308.5 LBS, HT 65.5 IN, BMI 50.55 INDEX, BP 123/64 MM HG, HR 79 /MIN, RR 18 /MIN, TEMP 97.6 F, OXYGEN SAT % 94%, BLOOD GLUCOSE LEVEL 325, SAFE IN ENV? (Y/N) Y, NA INITIALS TL 8941, REVIEWED BY: ELÍAS. EXAMINATION GENERAL EXAMINATION: PSYCHALERT , ORIENTED X 3 , APPROPRIATE MOOD AND AFFECT , VERY TALKATIVE. LUNGS:CLEAR TO AUSCULTATION BILATERALLY. HEART:HEART RATE REGULAR, NORMAL S1S2. MUSCULOSKELETAL:RIGHT QUAD WEAKNESS. POINT TENDERNESS OVER LUMBAR SPINOUS PROCESSES, AND ACROSS THE LUMBOSACRAL AXIS. AND RIGHT PARAVERTERBRAL MUSCULATURES. . ASSESSMENTS NEURALGIA AND NEURITIS, UNSPECIFIED - M79.2 (PRIMARY) SPONDYLOSIS WITHOUT MYELOPATHY OR RADICULOPATHY, LUMBAR REGION - M47.816 TREATMENT NEURALGIA AND NEURITIS, UNSPECIFIED INJECTION FACET JOINT/NERVE LUMBAR/SACRALLEAH ANDERS 03/13/2017 10:59:54 AM > DIAGNOSTIC RIGHT L4-5 AND L5-S1 NOTES: HOLD DIABETES MEDS AND PAIN MEDS AM OF PROCEDURE. HOLD PLAVIX FOR 7 DAYS, PROCEDURE ON DAY 8 (IS NOT CURRENTLY TAKING PLAVIX)WILL REPEAT DIAGNSTIC LUMBAR FACET BLOCK IN PREP FOR REPEAT RADIOFREQUENCY DENERVATION TREATMENT. THIS HAS PROVIDED 50-75% IMPROVEMENT TO THE RIGHT SIDE FOR GREATER THAN 6 MONTHS. PREVENTIVE MEDICINE PAIN CLINIC TEACHING: PROCEDURE TEACHING PRE-PROCEDURE TEACHING DONE. PATIENT VERBALIZES UNDERSTANDING.. PROCEDURE CODES FA211 ESTABILISHED PATIENT [facility] CHARGE DISPOSITION & COMMUNICATION FOLLOW UP AFTER INJECTION (REASON: CHECK AUTH FOR DIAGNOSTIC LUMBAR FACET BLOCK RIGHT L4-5 AND L5-S1) ELECTRONICALLY SIGNED BY GEOVANY SLAUGHTER ON 03/27/2017 AT 09:35 AM EST DISCLAIMER : THIS IS A VISIT SUMMARY EXTRACTED FROM THE [employer] CHART. IT IS NOT A COPY OF THE [employer] PROGRESS NOTE. JAYDEN
== END ==
LOC: M PAIN 10:00
PROVIDERS: ATTEND Nurse Practitioner Family
DX: G89.29 Other chronic pain (principal); M79.2 Neuralgia and neuritis, unspecified; M47.816 Spondylosis without myelopathy or radiculopathy, lumbar region; E11.9 Type 2 diabetes mellitus without complications; E50.9 Vitamin A deficiency, unspecified; N18.4 Chronic kidney disease, stage 4 (severe); I13.0 Hypertensive heart and chronic kidney disease with heart failure and stage 1 through stage 4 chronic kidney disease, or unspecified chronic kidney disease; E03.9 Hypothyroidism, unspecified; E78.00 Pure hypercholesterolemia, unspecified; J44.9 Chronic obstructive pulmonary disease, unspecified; M10.9 Gout, unspecified; G47.30 Sleep apnea, unspecified; Z86.73 Personal history of transient ischemic attack (TIA), and cerebral infarction without residual deficits; Z79.4 Long term (current) use of insulin; Z79.01 Long term (current) use of anticoagulants; Z79.51 Long term (current) use of inhaled steroids; Z79.899 Other long term (current) drug therapy; Z87.891 Personal history of nicotine dependence; Z88.6 Allergy status to analgesic agent; Z88.8 Allergy status to other drugs, medicaments and biological substances; Z88.1 Allergy status to other antibiotic agents; Z91.041 Radiographic dye allergy status; Z91.018 Allergy to other foods

== ENCOUNTER 2017-03-14 09:42 | Emergency (ER) | payer OTHER ==
[2017-03-14 10:40] LABS: BASO % 0.4 % (0.0-1.0); EOS # 0.2 10^3/uL (0.0-0.50); EOS % 1.7 % (0.0-3.0); IMMATURE GRANULOCYTE % 0.8 % (0-0); LYMPH # 1.6 10^3/uL (1.5-4.5); LYMPH % 14.7 % (24.0-44.0); MEAN CORPUSCULAR HEMOGLOBIN 26.3 pg (27.0-33.0); MEAN CORPUSCULAR HGB CONC 31.2 g/dl (32.0-36.5); MEAN CORPUSCULAR VOLUME 84.3 fl (80.0-96.0); MONO # 0.8 10^3/uL (0.0-0.8); MONO % 7.7 % (0.0-5.0); NEUTROPHILS # 7.9 10^3/uL (1.8-7.7); NEUTROPHILS % 74.7 % (36.0-66.0); PLATELET COUNT, AUTOMATED 292 10^3/uL (150-450); RED CELL DISTRIBUTION WIDTH 14.1 % (11.5-14.5); WHITE BLOOD COUNT 10.6 10^3/uL (4.0-10.0)
--- NOTE | 2017-03-14 10:41 | REP ---
Clinical: Acute epigastric pain. Comparison: 12/09/2016. Findings: Lung bases demonstrate moderate fibroatelectatic changes. Visualized portions of the heart and pericardium are normal. Hepatomegaly and macrolobulated liver contour suggests cirrhosis and should be correlated clinically. Splenomegaly noted without obvious splenic lesion by noncontrast evaluation. Pancreas, gallbladder, bilateral adrenal glands and kidneys are normal for noncontrast evaluation. Previously identified gallstone is not visualized on current examination and there is no evidence for gallbladder wall thickening or pericholecystic fluid. The enteric system including stomach, small and large bowel is without obstruction or acute inflammatory process. Colonic and sigmoid diverticulosis noted without acute diverticulitis. Pelvis demonstrates normal bladder and evidence for prior hysterectomy. No pelvic fluid or ascites. No significant adenopathy. No free air. No obvious solitary mass. Atherosclerotic changes of the aorta and vasculature noted without aneurysm. Musculoskeletal structures demonstrate age-related degenerative change without focal osseous abnormality. Impression: 1. Moderate bibasilar atelectasis. 2. Hepatic splenomegaly and findings to suggest cirrhosis warrant correlation. 3. Sigmoid diverticula without acute diverticulitis. 4. No further acute abdominopelvic pathology appreciated. No free fluid or adenopathy identified. Signed by Jamar Naranjo MD 03/14/2017 10:32 A
[2017-03-14 11:09] LABS: ALBUMIN 3.4 GM/DL (3.2-5.2); ALBUMIN/GLOBULIN RATIO 0.76 (1.00-1.93); ALKALINE PHOSPHATASE 222 U/L (45-117); ALT/SGPT 41 U/L (12-78); ANION GAP 8 MEQ/L (8-16); AST/SGOT 40 U/L (7-37); BILIRUBIN,DIRECT 0.4 MG/DL (0.0-0.2); BILIRUBIN,TOTAL 0.8 MG/DL (0.2-1.0); BLOOD UREA NITROGEN 22 MG/DL (7-18); CALCIUM LEVEL 9.5 MG/DL (8.8-10.2); CARBON DIOXIDE LEVEL 30 MEQ/L (21-32); CHLORIDE LEVEL 100 MEQ/L (98-107); CREATININE FOR GFR 1.04 MG/DL (0.55-1.02); GLOMERULAR FILTRATION RATE 57.4 (>45); GLUCOSE, FASTING 179 MG/DL (80-110); POTASSIUM SERUM 4.3 MEQ/L (3.5-5.1); SODIUM LEVEL 138 MEQ/L (136-145); TOTAL PROTEIN 7.9 GM/DL (6.4-8.2)
[2017-03-14] MEDS ORDERED: PANTOPRAZOLE 40MG TAB (PROTONIX) PO ONE (12:30)
[2017-03-14] MEDS ORDERED: GI COCKTAIL 50ML BTL(HYOSCYAMINE/MAALOX/LIDOCAINE VISCOUS)(1:3:1) PO ONE (12:30)
[2017-03-14] MEDS ORDERED: KETOROLAC 30 MG/ML VIAL (J1885) IV ONE (13:30)
[2017-03-14 13:58] VITALS: BP 157/71
--- NOTE | 2017-03-15 08:26 | ECGEPIP ---
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
== END 2017-03-14 14:00 | disposition home or self-care (01) ==
LOC: EDBD 09:42 → M ED 09:42
DX: R10.13 Epigastric pain (principal); E11.9 Type 2 diabetes mellitus without complications; I11.0 Hypertensive heart disease with heart failure; E03.9 Hypothyroidism, unspecified; J45.909 Unspecified asthma, uncomplicated; I50.9 Heart failure, unspecified; N18.3 Chronic kidney disease, stage 3 (moderate); K74.69 Other cirrhosis of liver; E66.8 Other obesity; R51 Headache; Z86.73 Personal history of transient ischemic attack (TIA), and cerebral infarction without residual deficits; Z87.19 Personal history of other diseases of the digestive system
CPT/HCPCS: 36415; 74176; 80048; 80076; 81001; 82550; 82553; 83605; 83690; 85025; 93000; 93041; 96374; 99285; J1885

== ENCOUNTER 2017-03-28 07:36 | Day surgery (SDC) | payer MEDICAID, OTHER, SELFPAY ==
[~2017-03-28] VITALS: Ht 165.1 cm; Wt 140.6 kg
[2017-03-28] MEDS ORDERED: NS 1,000 ML IV ONE (07:45)
[2017-03-28] MEDS ORDERED: DEXTROSE 50% 50 ML SYRINGE As Ordered ONE (09:04)
[2017-03-28] MEDS ORDERED: DEXTROSE 50% 50 ML SYRINGE IV ONE (09:30)
[2017-03-28] MEDS ORDERED: PROPOFOL 200 MG/20 ML VIAL As Ordered ONE (09:52)
[2017-03-28] MEDS ORDERED: LIDOCAINE 2% INJ 100 MG/5 ML SDV (FOR ANES.) As Ordered ONE (09:52)
--- NOTE | 2017-03-28 09:56 | ROOR ---
Patient Name: Gia Wood Procedure Date: 03/28/2017 9:41 AM Date of : 1955 Age: 61 Room: [facility] Gender: Female Note Status: Finalized Procedure: Upper GI endoscopy Indications: Cirrhosis rule out esophageal varices, Exclusion of gastric varices Providers: Rm MCINTYRE MD Referring MD: SOSA MARIA Requesting Provider: Medicines: Monitored Anesthesia Care Complications: No immediate complications. Procedure: Pre-Anesthesia Assessment: - The heart rate, respiratory rate, oxygen saturations, blood pressure, adequacy of pulmonary ventilation, and response to care were monitored throughout the procedure. The Endoscope was introduced through the mouth, and advanced to the second part of duodenum. The upper GI endoscopy was accomplished without difficulty. The patient tolerated the procedure well. Findings: The examined esophagus was normal. Mild inflammation characterized by friability was found in the gastric antrum. Biopsies were taken with a cold forceps for histology. The exam of the stomach was otherwise normal. The examined duodenum was normal. Impression: - Normal esophagus. - No varices seen today - Mild nodular gastritis. Biopsied. - Stomach is otherwise normal. - no varices seen today. - Normal examined duodenum. Recommendation: - Observe patient's clinical course. - Repeat upper endoscopy in 1 year for surveillance. Rm Mcintyre MD Rm MCINTYRE MD 03/28/2017 9:56:32 AM This report has been signed electronically. Number of Addenda: 0 Note Initiated On: 03/28/2017 9:41 AM Estimated Blood Loss: Estimated blood loss: none.
[2017-03-28 10:15] VITALS: BP 186/84
== END 2017-03-28 10:31 | disposition home or self-care (01) ==
LOC: M OPP 07:36
PROVIDERS: ATTEND Internal Medicine Gastroenterology
DX: K74.60 Unspecified cirrhosis of liver (principal); K31.89 Other diseases of stomach and duodenum; K29.70 Gastritis, unspecified, without bleeding; K25.9 Gastric ulcer, unspecified as acute or chronic, without hemorrhage or perforation; N18.2 Chronic kidney disease, stage 2 (mild); I50.9 Heart failure, unspecified; J44.9 Chronic obstructive pulmonary disease, unspecified; J45.909 Unspecified asthma, uncomplicated; M10.9 Gout, unspecified; I11.0 Hypertensive heart disease with heart failure; E78.00 Pure hypercholesterolemia, unspecified; E11.9 Type 2 diabetes mellitus without complications; E03.9 Hypothyroidism, unspecified; Z88.8 Allergy status to other drugs, medicaments and biological substances; Z88.1 Allergy status to other antibiotic agents; Z91.018 Allergy to other foods; Z91.041 Radiographic dye allergy status; Z88.2 Allergy status to sulfonamides; Z79.899 Other long term (current) drug therapy

== ENCOUNTER → 2017-04-18 | Outpatient (CLI) | payer MEDICAID ==
[2017-04-18 11:24] LABS: BASO % 0.3 % (0.0-1.0); EOS # 0.2 10^3/uL (0.0-0.50); EOS % 2.1 % (0.0-3.0); IMMATURE GRANULOCYTE % 0.4 % (0-0); LYMPH # 1.6 10^3/uL (1.5-4.5); LYMPH % 17.2 % (24.0-44.0); MEAN CORPUSCULAR HEMOGLOBIN 25.8 pg (27.0-33.0); MEAN CORPUSCULAR HGB CONC 31.1 g/dl (32.0-36.5); MEAN CORPUSCULAR VOLUME 82.8 fl (80.0-96.0); MONO # 0.7 10^3/uL (0.0-0.8); MONO % 7.3 % (0.0-5.0); NEUTROPHILS # 6.6 10^3/uL (1.8-7.7); NEUTROPHILS % 72.7 % (36.0-66.0); PLATELET COUNT, AUTOMATED 299 10^3/uL (150-450); RED CELL DISTRIBUTION WIDTH 14.6 % (11.5-14.5); WHITE BLOOD COUNT 9.1 10^3/uL (4.0-10.0)
[2017-04-18 11:49] LABS: ALBUMIN 3.5 GM/DL (3.2-5.2); CALCIUM LEVEL 9.6 MG/DL (8.8-10.2); CREATININE FOR GFR 1.01 MG/DL (0.55-1.02); GLOMERULAR FILTRATION RATE 59.3 (>45); MAGNESIUM LEVEL 2.4 MG/DL (1.8-2.4); PHOSPHORUS LEVEL 3.5 MG/DL (2.5-4.9); POTASSIUM SERUM 4.4 MEQ/L (3.5-5.1); URIC ACID 6.8 MG/DL (2.6-6.0)
== END ==
LOC: M LAB 10:47
PROVIDERS: ATTEND Internal Medicine Nephrology
DX: N18.3 Chronic kidney disease, stage 3 (moderate) (principal); M10.9 Gout, unspecified; E11.22 Type 2 diabetes mellitus with diabetic chronic kidney disease; I15.0 Renovascular hypertension

== ENCOUNTER → 2017-04-18 | Outpatient (CLI) | payer MEDICAID, OTHER ==
[~2017-04-18] MED LIST changes: -/MOXI40TA OR; -/PANT40TA PO; -ADV250INH INH; -ALBU17IN2 IN; -ALBU2TA INH; -ALLO100T PO; -ALLO10TA PO; -AMLO5TAB2 PO; -ANTI25TA OR; -ANTI25TA PO; -ANUSHCSU PR; -ATEN25TA PO; -ATEN50TA2 OR; -ATEN50TA2 PO; -AUGM500T34 PO; -AUGM875T28 PO; -AVEL1TAB3 PO; -AZIT500T2 PO; -BACITAB PO; -BACT800T5 PO; -BENT10CA PO; -BENZ100C5 PO; -BREO1INH3 INH; -BUDE0.254 INH; -CALC1CAP31 PO; -CARD120T6 OR; -CEFD1CAP8 PO; -CIPR-249 PO; -CLEADRO8 OU; -CLIN200T OR; -CLIN300C OR; -CLOP75TA2 PO; -COLC0.6T OR; -COLC0.6T34 PO; -CRES40TA PO; -DALI500T PO; -DELTASONE PO; -DEMA100T PO; -DEMA20TA6 PO; -DICY1CAP8 PO; -DICY20TA11 PO; -DIFL150T PO; -DILA2TAB OR; -DOCU10ELUD PO; -DOXY100T OR; -FAMO40TA2 PO; -FAMO40TA3 PO; -FENO145T PO; -FENO160T10 PO; -FLAG500T PO; -FLOM5CAP PO; -FLON1SPR; -FLUC10TA PO; -HEPA1INJ4 IV; -HUMUINJ3 SC; -INCR1INH INH; -INSUHUMDS SC; -INSULANT SC; -INSUN SC; -INSUR50VL SC; -INVA1INJ IV; -Insulin; -KLOR1TAB69 PO; -LASI80TA OR; -LEVA1TAB2 PO; -LEVO75TA4 PO; +LIDOCAINE 1% MDV 20ML VIAL As Ordered; -LINZ145C PO; -LINZ290C PO; -LISI10TA4 OR; -LISI2.5T PO; -LOFI160T PO; -LOSA25TA8 PO; -LYRI150C PO; -LYRI75CA OR; -MACR100C43 PO; -MECL-68 PO; -METO10TA2 PO; -MIRA3350 PO; -NEUR300C OR; -NITR PO; -NITRO10CA PO; -NOVO70VL SC; -NYAM10003 EXT; -NYST10PW EXT; -OSPH1TAB PO; -OXYB5TAB10 PO; -PANT40TA2 PO; -PEPC40SU PO; -PERC7.5T8 OR; -PLAV75TA2 PO; -POTA10CA PO; -POTA1TAB23; -POTA20PO4 PO; -PRED10TA PO; -PRED5TA PO; -PRIL20CA OR; -ROXI1TAB2 PO; -SALI0.9I2 IV; -SENN1TAB10 PO; -SENO8.6T10 PO; -SENO8.6T9 PO; -SYNT75TA PO; -SYNT88TA2 PO; -TENO50TA PO; -TIZA4CAP3 PO; -TORS100T; -TORS100T PO; -TORS100T12 PO; -TORS20TA2 PO; -TOUJ1.2I SC; -TRAM50TA2 OR; -TUMS500C PO; -TYLE325T5 PO; -VENTAER INH; -VICO5TAB OR; -VITA1CAP40 PO; -ZANA4CAP PO; -ZOCO80TA PO; -ZOFR8TAB PO; -ZYLO300T4 PO; -[UNRECOGNIZED DRUG - CODE] SC; -[UNRECOGNIZED DRUG - REMARK] PO; -[UNRECOGNIZED DRUG - REMARK] PO; -albuterol inhaler INH
== END ==
LOC: M RADPRO 09:31
DX: N63.10 Unspecified lump in the right breast, unspecified quadrant (principal); Z79.4 Long term (current) use of insulin; Z79.899 Other long term (current) drug therapy; I12.9 Hypertensive chronic kidney disease with stage 1 through stage 4 chronic kidney disease, or unspecified chronic kidney disease; E78.00 Pure hypercholesterolemia, unspecified; G47.30 Sleep apnea, unspecified; J44.9 Chronic obstructive pulmonary disease, unspecified; N18.4 Chronic kidney disease, stage 4 (severe); E03.9 Hypothyroidism, unspecified; E11.9 Type 2 diabetes mellitus without complications; M10.9 Gout, unspecified; M79.7 Fibromyalgia; N10 Acute pyelonephritis; M85.80 Other specified disorders of bone density and structure, unspecified site; Z91.041 Radiographic dye allergy status; Z91.018 Allergy to other foods
CPT/HCPCS: 19083

== ENCOUNTER → 2017-05-05 | Outpatient (REF) | payer SELFPAY ==
[2017-05-05 13:34] LABS: APPEARANCE, URINE CLOUDY (CLEAR); BACTERIA, URINE AUTO NEGATIVE (NEGATIVE); BILIRUBIN, URINE AUTO NEGATIVE (NEGATIVE); BLOOD, URINE BLOOD NEGATIVE (NEGATIVE); COLOR, URINE AMBER (YELLOW); GLUCOSE, URINE (UA) AUTO NEGATIVE (NEGATIVE); KETONE, URINE AUTO NEGATIVE (NEGATIVE); LEUKOCYTE ESTERASE, URINE AUTO 3+ (NEGATIVE); MUCUS, URINE SMALL (NEGATIVE); NITRITE, URINE AUTO NEGATIVE (NEGATIVE); PROTEIN, URINE AUTO NEGATIVE (NEGATIVE); RBC, URINE AUTO 1 /HPF (0-3); SPECIFIC GRAVITY URINE AUTO 1.013 (1.002-1.035); SQUAMOUS EPITHELIAL CELL UR AU 2 /HPF (0-6); WBC, URINE AUTO 161 /HPF (0-3)
== END ==
LOC: M SMT 12:58
DX: Z87.440 Personal history of urinary (tract) infections (principal); R33.9 Retention of urine, unspecified

== ENCOUNTER → 2017-05-13 | Outpatient (CLI) | payer MEDICAID, OTHER ==
[~2017-05-13] MED LIST changes: +BUPIVACAINE HCL 0.25% 30 ML VIAL As Ordered; +ISOVUE-M 300 61% 15ML VIAL (Q9967) As Ordered; -LIDOCAINE 1% MDV 20ML VIAL As Ordered; +LIDOCAINE 1% SDV INJ 30 ML VIAL As Ordered
== END ==
LOC: M PAIN 08:30
DX: G89.29 Other chronic pain (principal); M47.816 Spondylosis without myelopathy or radiculopathy, lumbar region; E11.22 Type 2 diabetes mellitus with diabetic chronic kidney disease; E11.43 Type 2 diabetes mellitus with diabetic autonomic (poly)neuropathy; I11.9 Hypertensive heart disease without heart failure; N18.4 Chronic kidney disease, stage 4 (severe); E03.9 Hypothyroidism, unspecified; E78.00 Pure hypercholesterolemia, unspecified; J44.9 Chronic obstructive pulmonary disease, unspecified; M10.9 Gout, unspecified; G47.30 Sleep apnea, unspecified; Z88.1 Allergy status to other antibiotic agents; Z88.6 Allergy status to analgesic agent; Z88.8 Allergy status to other drugs, medicaments and biological substances; Z91.02 Food additives allergy status; Z91.041 Radiographic dye allergy status; Z79.01 Long term (current) use of anticoagulants; Z79.51 Long term (current) use of inhaled steroids; Z79.4 Long term (current) use of insulin; Z79.899 Other long term (current) drug therapy; Z86.73 Personal history of transient ischemic attack (TIA), and cerebral infarction without residual deficits
CPT/HCPCS: Q9967

== ENCOUNTER → 2017-05-14 | Outpatient (CLI) | payer MEDICAID | LOC: M LAB 11:19 | DX: N39.0 Urinary tract infection, site not specified (principal) | CPT/HCPCS: 36415 ==

== ENCOUNTER 2017-05-16 09:46 | Day surgery (SDC) | payer MEDICAID ==
[2017-05-16] MEDS ORDERED: LIDOCAINE 5% (LIDODERM) PATCH As Ordered (10:38)
[2017-05-16 11:06] LABS: BEDSIDE GLUCOSE 190 MG/DL (80-115)
[2017-05-16] MEDS ORDERED: LIDOCAINE 2% MDV 20 ML VIAL As Ordered (11:11)
[2017-05-16] MEDS: LR 1,000 ML IV (12:41)
[2017-05-16] MEDS: LIDOCAINE 5% (LIDODERM) PATCH TD (12:42)
[2017-05-16] MEDS: LIDOCAINE 1% SDV INJ 30 ML VIAL As Ordered (13:06)
[2017-05-16 13:13] LABS: BEDSIDE GLUCOSE 186 MG/DL (80-115)
[2017-05-16] MEDS: METOPROLOL TART 25 MG TABLET PO (13:18)
[2017-05-16] MEDS ORDERED: METOCLOPRAMIDE INJ 10MG/2ML VIAL (J2765) As Ordered (13:32)
[2017-05-16] MEDS ORDERED: PROPOFOL 200 MG/20 ML VIAL As Ordered (13:32)
[2017-05-16] MEDS ORDERED: LIDOCAINE 2% INJ 100 MG/5 ML SDV (FOR ANES.) As Ordered (13:32)
[2017-05-16] MEDS ORDERED: ONDANSETRON 4MG/2ML VIAL (J2405) As Ordered (13:32)
[2017-05-16] MEDS ORDERED: fentaNYL 100 MCG/2 ML INJECTION (J3010) As Ordered (13:33)
[2017-05-16] MEDS ORDERED: MIDAZOLAM INJ 2 MG/2 ML VIAL (J2250) As Ordered (13:33)
[2017-05-16] MEDS ORDERED: ROCURONIUM BROMIDE 50 MG/5 ML VIAL As Ordered (13:33)
[2017-05-16] MEDS ORDERED: SUCCINYLCHOLINE 100 MG/5 ML SYRINGE (J0330) As Ordered (13:33)
[2017-05-16] MEDS ORDERED: PHENYLEPHRINE INJ 10MG/ML VIAL (J2370) As Ordered (15:24)
[2017-05-16] MEDS: BUPIVACAINE HCL 0.25% 30 ML VIAL As Ordered (15:45)
[2017-05-16] MEDS ORDERED: SUGAMMADEX SODIUM 500 MG/5 ML VIAL (BRIDION) As Ordered (15:53)
[2017-05-16] MEDS ORDERED: LR 1,000 ML IV (16:15)
[2017-05-16] MEDS ORDERED: fentaNYL 100 MCG/2 ML INJECTION (J3010) IV (16:15)
[2017-05-16] MEDS ORDERED: PERCOCET 5MG/325MG TAB PO (16:15)
[2017-05-16] MEDS ORDERED: ONDANSETRON 4MG/2ML VIAL (J2405) IV (16:15)
[2017-05-16] MEDS ORDERED: NORCO, ANEXSIA 5/325MG TABLET (HYDROcodone/ACETAMINOPHEN) PO (16:15)
[2017-05-16] MEDS ORDERED: METOCLOPRAMIDE INJ 10MG/2ML VIAL (J2765) IV (16:15)
== END 2017-05-16 16:46 | disposition home or self-care (01) ==
LOC: M SDC 09:46
DX: C50.911 Malignant neoplasm of unspecified site of right female breast (principal); N18.2 Chronic kidney disease, stage 2 (mild); J44.9 Chronic obstructive pulmonary disease, unspecified; J45.909 Unspecified asthma, uncomplicated; E78.00 Pure hypercholesterolemia, unspecified; E66.01 Morbid (severe) obesity due to excess calories; I50.32 Chronic diastolic (congestive) heart failure; R60.0 Localized edema; E10.40 Type 1 diabetes mellitus with diabetic neuropathy, unspecified; E03.9 Hypothyroidism, unspecified; K76.0 Fatty (change of) liver, not elsewhere classified; M15.0 Primary generalized (osteo)arthritis; M06.9 Rheumatoid arthritis, unspecified; M54.9 Dorsalgia, unspecified; M81.0 Age-related osteoporosis without current pathological fracture; G47.33 Obstructive sleep apnea (adult) (pediatric); T88.59XD Other complications of anesthesia, subsequent encounter; Z88.1 Allergy status to other antibiotic agents; Z88.6 Allergy status to analgesic agent; Z88.8 Allergy status to other drugs, medicaments and biological substances; Z91.018 Allergy to other foods; Z91.041 Radiographic dye allergy status; Z79.899 Other long term (current) drug therapy; Z79.4 Long term (current) use of insulin; Z90.710 Acquired absence of both cervix and uterus; Z86.73 Personal history of transient ischemic attack (TIA), and cerebral infarction without residual deficits; Z98.51 Tubal ligation status; Z87.440 Personal history of urinary (tract) infections; Z86.718 Personal history of other venous thrombosis and embolism; Z87.891 Personal history of nicotine dependence
CPT/HCPCS: 19125

== ENCOUNTER → 2017-05-27 | Outpatient (CLI) | payer MEDICAID ==
[2017-05-27 11:36] LABS: BASO % 0.3 % (0.0-1.0); EOS # 0.1 10^3/uL (0.0-0.50); EOS % 1.8 % (0.0-3.0); HEMATOCRIT 35.5 % (36.0-47.0); HEMOGLOBIN 10.9 g/dl (12.0-16.0); IMMATURE GRANULOCYTE % 0.6 % (0-0); LYMPH # 1.4 10^3/uL (1.5-4.5); LYMPH % 18.7 % (24.0-44.0); MEAN CORPUSCULAR HEMOGLOBIN 25.8 pg (27.0-33.0); MEAN CORPUSCULAR HGB CONC 30.7 g/dl (32.0-36.5); MEAN CORPUSCULAR VOLUME 83.9 fl (80.0-96.0); MONO # 0.5 10^3/uL (0.0-0.8); MONO % 6.8 % (0.0-5.0); NEUTROPHILS # 5.2 10^3/uL (1.8-7.7); NEUTROPHILS % 71.8 % (36.0-66.0); PLATELET COUNT, AUTOMATED 252 10^3/uL (150-450); RED BLOOD COUNT 4.23 10^6/uL (4.00-5.40); RED CELL DISTRIBUTION WIDTH 14.8 % (11.5-14.5); WHITE BLOOD COUNT 7.2 10^3/uL (4.0-10.0)
[2017-05-27 11:38] LABS: APPEARANCE, URINE CLEAR (CLEAR); BILIRUBIN, URINE AUTO NEGATIVE (NEGATIVE); BLOOD, URINE BLOOD NEGATIVE (NEGATIVE); COLOR, URINE YELLOW (YELLOW); GLUCOSE, URINE (UA) AUTO NEGATIVE (NEGATIVE); KETONE, URINE AUTO NEGATIVE (NEGATIVE); LEUKOCYTE ESTERASE, URINE AUTO NEGATIVE (NEGATIVE); NITRITE, URINE AUTO NEGATIVE (NEGATIVE); PROTEIN, URINE AUTO NEGATIVE (NEGATIVE); SPECIFIC GRAVITY URINE AUTO 1.008 (1.002-1.035); UROBILINOGEN, URINE AUTO 0.2 mg/dL (0.0-2.0)
[2017-05-27 12:18] LABS: ALBUMIN 3.3 GM/DL (3.2-5.2); ANION GAP 8 MEQ/L (8-16); BLOOD UREA NITROGEN 33 MG/DL (7-18); CALCIUM LEVEL 9.4 MG/DL (8.8-10.2); CARBON DIOXIDE LEVEL 31 MEQ/L (21-32); CHLORIDE LEVEL 101 MEQ/L (98-107); GLOMERULAR FILTRATION RATE 53.6 (>45); GLUCOSE, FASTING 217 MG/DL (70-100); PHOSPHORUS LEVEL 4.2 MG/DL (2.5-4.9); POTASSIUM SERUM 4.7 MEQ/L (3.5-5.1); SODIUM LEVEL 140 MEQ/L (136-145)
[2017-05-27 12:19] LABS: PTH INTACT 127.9 PG/ML (14.0-72.0)
[2017-05-27 12:38] LABS: BACTERIA, URINE AUTO NEGATIVE (NEGATIVE); RBC, URINE AUTO 0 /HPF (0-3); WBC, URINE AUTO 1 /HPF (0-3)
[2017-05-27 13:14] LABS: CREATININE, URINE 40.8 MG/DL; MALB URINE SIEMENS 7.8 MG/L; MAU/CREAT RATIO 19.1 MCG/MG (0.0-30.0)
== END ==
LOC: M LAB 11:03
DX: N18.3 Chronic kidney disease, stage 3 (moderate) (principal)
CPT/HCPCS: 80069

== ENCOUNTER → 2017-06-03 | Outpatient (CLI) | payer OTHER, MEDICAID | LOC: M PAIN 09:45 | DX: M47.816 Spondylosis without myelopathy or radiculopathy, lumbar region (principal); E11.22 Type 2 diabetes mellitus with diabetic chronic kidney disease; I13.0 Hypertensive heart and chronic kidney disease with heart failure and stage 1 through stage 4 chronic kidney disease, or unspecified chronic kidney disease; I50.32 Chronic diastolic (congestive) heart failure; N18.3 Chronic kidney disease, stage 3 (moderate); E03.9 Hypothyroidism, unspecified; E78.00 Pure hypercholesterolemia, unspecified; J44.9 Chronic obstructive pulmonary disease, unspecified; M10.9 Gout, unspecified; G47.30 Sleep apnea, unspecified; Z79.01 Long term (current) use of anticoagulants; Z79.51 Long term (current) use of inhaled steroids; Z79.4 Long term (current) use of insulin; Z79.899 Other long term (current) drug therapy; Z88.1 Allergy status to other antibiotic agents; Z88.6 Allergy status to analgesic agent; Z88.8 Allergy status to other drugs, medicaments and biological substances; Z91.041 Radiographic dye allergy status; Z91.018 Allergy to other foods; Z86.73 Personal history of transient ischemic attack (TIA), and cerebral infarction without residual deficits | CPT/HCPCS: G0463 ==

== ENCOUNTER → 2017-06-16 | Outpatient (REF) | payer MEDICAID, OTHER ==
[2017-06-16 19:24] LABS: APPEARANCE, URINE TURBID (CLEAR); BACTERIA, URINE AUTO 3+ (NEGATIVE); BILIRUBIN, URINE AUTO NEGATIVE (NEGATIVE); BLOOD, URINE BLOOD NEGATIVE (NEGATIVE); COLOR, URINE YELLOW (YELLOW); GLUCOSE, URINE (UA) AUTO NEGATIVE (NEGATIVE); KETONE, URINE AUTO NEGATIVE (NEGATIVE); LEUKOCYTE ESTERASE, URINE AUTO 3+ (NEGATIVE); MUCUS, URINE SMALL (NEGATIVE); NITRITE, URINE AUTO NEGATIVE (NEGATIVE); PROTEIN, URINE AUTO NEGATIVE (NEGATIVE); RBC, URINE AUTO 1 /HPF (0-3); SPECIFIC GRAVITY URINE AUTO 1.011 (1.002-1.035); SQUAMOUS EPITHELIAL CELL UR AU 64 /HPF (0-6); UROBILINOGEN, URINE AUTO 0.2 mg/dL (0.0-2.0); WBC, URINE AUTO TNTC /HPF (0-3)
== END ==
LOC: M SMT 16:59
DX: Z87.440 Personal history of urinary (tract) infections (principal)

== ENCOUNTER → 2017-07-17 | Outpatient (CLI) | payer OTHER, MEDICAID ==
[~2017-07-17] MED LIST changes: +TRIAMCINOLONE ACETONIDE SUSP 40 MG/ML VIAL (J3301) As Ordered
== END ==
LOC: M PAIN 13:00
DX: G89.29 Other chronic pain (principal); M47.816 Spondylosis without myelopathy or radiculopathy, lumbar region; E11.9 Type 2 diabetes mellitus without complications; I50.9 Heart failure, unspecified; I11.0 Hypertensive heart disease with heart failure; J44.9 Chronic obstructive pulmonary disease, unspecified; N18.4 Chronic kidney disease, stage 4 (severe); E78.00 Pure hypercholesterolemia, unspecified; Z79.899 Other long term (current) drug therapy; Z79.4 Long term (current) use of insulin; Z87.891 Personal history of nicotine dependence; Z88.8 Allergy status to other drugs, medicaments and biological substances; Z91.018 Allergy to other foods; Z91.041 Radiographic dye allergy status
CPT/HCPCS: J3301

== ENCOUNTER → 2017-07-18 | Outpatient (REF) | payer OTHER, MEDICAID ==
[2017-07-18 17:49] LABS: APPEARANCE, URINE HAZY (CLEAR); BACTERIA, URINE AUTO 1+ (NEGATIVE); BILIRUBIN, URINE AUTO NEGATIVE (NEGATIVE); BLOOD, URINE BLOOD NEGATIVE (NEGATIVE); COLOR, URINE YELLOW (YELLOW); GLUCOSE, URINE (UA) AUTO NEGATIVE (NEGATIVE); KETONE, URINE AUTO NEGATIVE (NEGATIVE); LEUKOCYTE ESTERASE, URINE AUTO 3+ (NEGATIVE); NITRITE, URINE AUTO NEGATIVE (NEGATIVE); PROTEIN, URINE AUTO NEGATIVE (NEGATIVE); RBC, URINE AUTO 1 /HPF (0-3); SPECIFIC GRAVITY URINE AUTO 1.006 (1.002-1.035); SQUAMOUS EPITHELIAL CELL UR AU 0 /HPF (0-6); UROBILINOGEN, URINE AUTO 0.2 mg/dL (0.0-2.0); WBC, URINE AUTO 45 /HPF (0-3)
== END ==
LOC: M SMT 17:05
DX: R82.90 Unspecified abnormal findings in urine (principal)

== ENCOUNTER → 2017-08-07 | Outpatient (CLI) | payer OTHER, MEDICAID | LOC: M PAIN 13:30 | DX: M47.816 Spondylosis without myelopathy or radiculopathy, lumbar region (principal); M79.2 Neuralgia and neuritis, unspecified; E11.9 Type 2 diabetes mellitus without complications; I11.0 Hypertensive heart disease with heart failure; E03.9 Hypothyroidism, unspecified; E78.00 Pure hypercholesterolemia, unspecified; J44.9 Chronic obstructive pulmonary disease, unspecified; N18.4 Chronic kidney disease, stage 4 (severe); I50.9 Heart failure, unspecified; Z79.4 Long term (current) use of insulin; Z79.01 Long term (current) use of anticoagulants; Z79.899 Other long term (current) drug therapy; Z88.8 Allergy status to other drugs, medicaments and biological substances; Z91.018 Allergy to other foods; Z91.041 Radiographic dye allergy status; Z86.011 Personal history of benign neoplasm of the brain; Z96.7 Presence of other bone and tendon implants; Z87.891 Personal history of nicotine dependence | CPT/HCPCS: G0463 ==

== ENCOUNTER → 2017-08-11 | Outpatient (REF) | payer MEDICAID ==
[2017-08-11 18:25] LABS: BASO % 0.3 % (0.0-1.0); EOS # 0.1 10^3/uL (0.0-0.50); EOS % 1.5 % (0.0-3.0); HEMATOCRIT 38.8 % (36.0-47.0); HEMOGLOBIN 11.9 g/dl (12.0-15.5); IMMATURE GRANULOCYTE % 0.4 % (0-3.0); LYMPH # 1.7 10^3/uL (1.5-4.5); LYMPH % 18.3 % (24.0-44.0); MEAN CORPUSCULAR HEMOGLOBIN 25.2 pg (27.0-33.0); MEAN CORPUSCULAR HGB CONC 30.7 g/dl (32.0-36.5); MONO # 0.6 10^3/uL (0.0-0.8); MONO % 6.6 % (0.0-5.0); NEUTROPHILS # 6.9 10^3/uL (1.8-7.7); NEUTROPHILS % 72.9 % (36.0-66.0); PLATELET COUNT, AUTOMATED 285 10^3/uL (150-450); RED BLOOD COUNT 4.73 10^6/uL (4.00-5.40); RED CELL DISTRIBUTION WIDTH 14.6 % (11.5-14.5); WHITE BLOOD COUNT 9.5 10^3/uL (4.0-10.0)
[2017-08-11 18:27] LABS: APPEARANCE, URINE CLEAR (CLEAR); BACTERIA, URINE AUTO NEGATIVE (NEGATIVE); BILIRUBIN, URINE AUTO NEGATIVE (NEGATIVE); BLOOD, URINE BLOOD NEGATIVE (NEGATIVE); COLOR, URINE STRAW (YELLOW); GLUCOSE, URINE (UA) AUTO NEGATIVE (NEGATIVE); KETONE, URINE AUTO NEGATIVE (NEGATIVE); LEUKOCYTE ESTERASE, URINE AUTO NEGATIVE (NEGATIVE); NITRITE, URINE AUTO NEGATIVE (NEGATIVE); PROTEIN, URINE AUTO NEGATIVE (NEGATIVE); RBC, URINE AUTO 0 /HPF (0-3); SPECIFIC GRAVITY URINE AUTO 1.006 (1.002-1.035); SQUAMOUS EPITHELIAL CELL UR AU 0 /HPF (0-6); UROBILINOGEN, URINE AUTO 0.2 mg/dL (0.0-2.0); WBC, URINE AUTO 0 /HPF (0-3)
[2017-08-11 18:37] LABS: ALBUMIN 3.3 GM/DL (3.2-5.2); ANION GAP 6 MEQ/L (8-16); BLOOD UREA NITROGEN 28 MG/DL (7-18); CALCIUM LEVEL 9.2 MG/DL (8.8-10.2); CARBON DIOXIDE LEVEL 32 MEQ/L (21-32); CHLORIDE LEVEL 102 MEQ/L (98-107); GLOMERULAR FILTRATION RATE 53.6 (>45); GLUCOSE, FASTING 221 MG/DL (70-100); MAGNESIUM LEVEL 2.6 MG/DL (1.8-2.4); PHOSPHORUS LEVEL 2.8 MG/DL (2.5-4.9); POTASSIUM SERUM 4.1 MEQ/L (3.5-5.1); SODIUM LEVEL 140 MEQ/L (136-145); URIC ACID 5.1 MG/DL (2.6-6.0)
== END ==
LOC: M LAB REF 16:52
DX: N18.3 Chronic kidney disease, stage 3 (moderate) (principal); Z87.440 Personal history of urinary (tract) infections

== ENCOUNTER 2017-08-24 16:34 | Emergency (ER) | payer MEDICAID ==
[2017-08-24] MEDS: IPRATROPIUM 0.5MG/ALBUTEROL 2.5MG INH SOL UD 3ML (DUONEB)(J7620) NEB ×3 (17:48→18:25)
[2017-08-24 17:55] LABS: ABG BASE EXCESS 3.5 (-2.0-2.0); ABG HCO3 25.8 MEQ/L (22.0-26.0); ABG O2 SATURATION 97.3 % (95.0-99.0); ABG PARTIAL PRESSURE CO2 31.7 mmHg (35.0-45.0); ABG PARTIAL PRESSURE O2 84.2 mmHg (75.0-100.0); ABG STANDARD HCO3 27.6 MEQ/L (22.0-26.0); ABG TOTAL CO2 26.7 MEQ/L (23.0-31.0); ABG pH (ARTERIAL) 7.528 UNITS (7.350-7.450)
[2017-08-24] MEDS: methylPREDNISolone INJ 125 MG/2 ML VIAL (J2930) IV (17:55)
[2017-08-24 18:01] LABS: BASO % 0.3 % (0.0-1.0); EOS # 0.2 10^3/uL (0.0-0.50); EOS % 1.8 % (0.0-3.0); HEMATOCRIT 39.1 % (36.0-47.0); HEMOGLOBIN 12.3 g/dl (12.0-15.5); IMMATURE GRANULOCYTE % 0.5 % (0-3.0); LYMPH # 1.5 10^3/uL (1.5-4.5); LYMPH % 16.6 % (24.0-44.0); MEAN CORPUSCULAR HEMOGLOBIN 25.8 pg (27.0-33.0); MEAN CORPUSCULAR HGB CONC 31.5 g/dl (32.0-36.5); MEAN CORPUSCULAR VOLUME 82.1 fl (80.0-96.0); MONO # 0.5 10^3/uL (0.0-0.8); MONO % 5.2 % (0.0-5.0); NEUTROPHILS # 6.9 10^3/uL (1.8-7.7); NEUTROPHILS % 75.6 % (36.0-66.0); PLATELET COUNT, AUTOMATED 270 10^3/uL (150-450); RED BLOOD COUNT 4.76 10^6/uL (4.00-5.40); RED CELL DISTRIBUTION WIDTH 14.6 % (11.5-14.5); WHITE BLOOD COUNT 9.2 10^3/uL (4.0-10.0)
[2017-08-24 18:26] LABS: ANION GAP 6 MEQ/L (8-16); BLOOD UREA NITROGEN 25 MG/DL (7-18); CALCIUM LEVEL 9.6 MG/DL (8.8-10.2); CARBON DIOXIDE LEVEL 31 MEQ/L (21-32); CHLORIDE LEVEL 105 MEQ/L (98-107); CPK CREATINE PHOSPHOKINASE 47 U/L (26-192); CREATININE FOR GFR 1.08 MG/DL (0.55-1.30); GLOMERULAR FILTRATION RATE 54.7 (>45); GLUCOSE, FASTING 266 MG/DL (70-100); POTASSIUM SERUM 4.4 MEQ/L (3.5-5.1); SODIUM LEVEL 142 MEQ/L (136-145); TROPONIN I < 0.02 NG/ML (< 0.10)
[2017-08-24 18:32] LABS: CK-MB VALUE MASS < 1.0 NG/ML (<3.6); MB/CK RELATIVE INDEX 2.12 (< OR =4); NT-PRO BNP 78 PG/ML (<125)
== END 2017-08-24 19:01 | disposition home or self-care (01) ==
LOC: M ED 16:34
DX: J44.1 Chronic obstructive pulmonary disease with (acute) exacerbation (principal); I50.9 Heart failure, unspecified; I13.10 Hypertensive heart and chronic kidney disease without heart failure, with stage 1 through stage 4 chronic kidney disease, or unspecified chronic kidney disease; E11.9 Type 2 diabetes mellitus without complications; J45.909 Unspecified asthma, uncomplicated; G47.33 Obstructive sleep apnea (adult) (pediatric); N18.3 Chronic kidney disease, stage 3 (moderate); E66.01 Morbid (severe) obesity due to excess calories; K74.60 Unspecified cirrhosis of liver; Z87.891 Personal history of nicotine dependence; Z91.041 Radiographic dye allergy status; Z88.6 Allergy status to analgesic agent; Z88.8 Allergy status to other drugs, medicaments and biological substances; Z88.2 Allergy status to sulfonamides; Z88.1 Allergy status to other antibiotic agents; Z91.018 Allergy to other foods; Z79.899 Other long term (current) drug therapy; Z79.02 Long term (current) use of antithrombotics/antiplatelets; Z79.4 Long term (current) use of insulin; Z79.51 Long term (current) use of inhaled steroids
CPT/HCPCS: J2930

== ENCOUNTER 2017-09-07 08:12 | Emergency (ER) | payer MEDICAID ==
[2017-09-07 08:48] LABS: BASO % 0.2 % (0.0-1.0); EOS # 0.1 10^3/uL (0.0-0.50); EOS % 1.3 % (0.0-3.0); HEMATOCRIT 40.3 % (36.0-47.0); HEMOGLOBIN 12.6 g/dl (12.0-15.5); IMMATURE GRANULOCYTE % 0.4 % (0-3.0); LYMPH # 1.7 10^3/uL (1.5-4.5); LYMPH % 16.6 % (24.0-44.0); MEAN CORPUSCULAR HEMOGLOBIN 25.7 pg (27.0-33.0); MEAN CORPUSCULAR HGB CONC 31.3 g/dl (32.0-36.5); MEAN CORPUSCULAR VOLUME 82.1 fl (80.0-96.0); MONO # 0.6 10^3/uL (0.0-0.8); MONO % 6.4 % (0.0-5.0); NEUTROPHILS # 7.5 10^3/uL (1.8-7.7); NEUTROPHILS % 75.1 % (36.0-66.0); PLATELET COUNT, AUTOMATED 281 10^3/uL (150-450); RED BLOOD COUNT 4.91 10^6/uL (4.00-5.40); RED CELL DISTRIBUTION WIDTH 14.9 % (11.5-14.5)
[2017-09-07 09:12] LABS: LACTIC ACID SEPSIS PROTOCOL 1.2 MMOL/L (0.4-2.0)
[2017-09-07 09:13] LABS: ALBUMIN 3.2 GM/DL (3.2-5.2); ALBUMIN/GLOBULIN RATIO 0.73 (1.00-1.93); ALKALINE PHOSPHATASE 259 U/L (45-117); ALT/SGPT 52 U/L (12-78); AMYLASE 35 U/L (25-115); ANION GAP 6 MEQ/L (8-16); AST/SGOT 39 U/L (7-37); BILIRUBIN,DIRECT 0.2 MG/DL (0.0-0.2); BILIRUBIN,TOTAL 0.6 MG/DL (0.2-1.0); BLOOD UREA NITROGEN 19 MG/DL (7-18); CARBON DIOXIDE LEVEL 28 MEQ/L (21-32); CHLORIDE LEVEL 108 MEQ/L (98-107); CK-MB VALUE MASS < 1.0 NG/ML (<3.6); CPK CREATINE PHOSPHOKINASE 46 U/L (26-192); CREATININE FOR GFR 1.15 MG/DL (0.55-1.30); GLOMERULAR FILTRATION RATE 50.9 (>45); GLUCOSE, FASTING 145 MG/DL (70-100); LIPASE 136 U/L (73-393); MB/CK RELATIVE INDEX 2.17 (< OR =4); SODIUM LEVEL 142 MEQ/L (136-145); TOTAL PROTEIN 7.6 GM/DL (6.4-8.2); TROPONIN I < 0.02 NG/ML (< 0.10)
[2017-09-07 11:43] LABS: KETONE, URINE AUTO RFX NEGATIVE (NEGATIVE); NITRITE, URINE AUTO RFX NEGATIVE (NEGATIVE); RBC, URINE AUTO RFX 11 /HPF (0-3); SQUAM EPITHELIAL CELL UR AURFX 0 /HPF (0-6)
[2017-09-07 11:44] LABS: LEUKOCYTE ESTERASE UR AUTO RFX 1+ (NEGATIVE); WBC, URINE AUTO RFX 31 /HPF (0-3)
== END 2017-09-07 13:35 | disposition home or self-care (01) ==
LOC: M ED 08:12
DX: N39.0 Urinary tract infection, site not specified (principal); R53.1 Weakness; I44.4 Left anterior fascicular block; E10.9 Type 1 diabetes mellitus without complications; Z87.440 Personal history of urinary (tract) infections; Z79.4 Long term (current) use of insulin; Z79.899 Other long term (current) drug therapy; Z88.6 Allergy status to analgesic agent; Z88.8 Allergy status to other drugs, medicaments and biological substances; Z88.1 Allergy status to other antibiotic agents; Z91.041 Radiographic dye allergy status; Z91.018 Allergy to other foods
CPT/HCPCS: 71045

== ENCOUNTER → 2017-09-18 | Outpatient (CLI) | payer MEDICAID | LOC: M PAIN 09:45 | DX: G57.91 Unspecified mononeuropathy of right lower limb (principal); M46.96 Unspecified inflammatory spondylopathy, lumbar region; M46.97 Unspecified inflammatory spondylopathy, lumbosacral region; G89.29 Other chronic pain; E11.9 Type 2 diabetes mellitus without complications; I12.9 Hypertensive chronic kidney disease with stage 1 through stage 4 chronic kidney disease, or unspecified chronic kidney disease; N18.3 Chronic kidney disease, stage 3 (moderate); E03.9 Hypothyroidism, unspecified; E78.00 Pure hypercholesterolemia, unspecified; J44.9 Chronic obstructive pulmonary disease, unspecified; Z79.01 Long term (current) use of anticoagulants; Z79.51 Long term (current) use of inhaled steroids; Z79.4 Long term (current) use of insulin; Z79.899 Other long term (current) drug therapy; Z88.1 Allergy status to other antibiotic agents; Z88.6 Allergy status to analgesic agent; Z88.8 Allergy status to other drugs, medicaments and biological substances; Z91.041 Radiographic dye allergy status; Z91.02 Food additives allergy status; Z87.891 Personal history of nicotine dependence; Z87.39 Personal history of other diseases of the musculoskeletal system and connective tissue; Z86.79 Personal history of other diseases of the circulatory system | CPT/HCPCS: G0463 ==

== ENCOUNTER 2017-09-27 07:30 | Emergency (ER) | payer MEDICAID ==
[2017-09-27 08:51] LABS: BASO % 0.5 % (0.0-1.0); EOS # 0.1 10^3/uL (0.0-0.50); EOS % 1.5 % (0.0-3.0); HEMATOCRIT 40.2 % (36.0-47.0); HEMOGLOBIN 12.9 g/dl (12.0-15.5); IMMATURE GRANULOCYTE % 0.5 % (0-3.0); LYMPH # 1.4 10^3/uL (1.5-4.5); LYMPH % 17.6 % (24.0-44.0); MEAN CORPUSCULAR HEMOGLOBIN 25.6 pg (27.0-33.0); MEAN CORPUSCULAR HGB CONC 32.1 g/dl (32.0-36.5); MEAN CORPUSCULAR VOLUME 79.9 fl (80.0-96.0); MONO # 0.5 10^3/uL (0.0-0.8); MONO % 6.4 % (0.0-5.0); NEUTROPHILS # 5.8 10^3/uL (1.8-7.7); NEUTROPHILS % 73.5 % (36.0-66.0); PLATELET COUNT, AUTOMATED 302 10^3/uL (150-450); RED BLOOD COUNT 5.03 10^6/uL (4.00-5.40); RED CELL DISTRIBUTION WIDTH 15.2 % (11.5-14.5); WHITE BLOOD COUNT 7.8 10^3/uL (4.0-10.0)
[2017-09-27] MEDS: NS 500 ML IV (08:51)
[2017-09-27] MEDS: ONDANSETRON 4MG/2ML VIAL (J2405) IV (08:51)
[2017-09-27 09:01] LABS: INR 1.04; PROTHROMBIN TIME 13.7 SECONDS (12.4-14.5)
[2017-09-27 09:14] LABS: ALBUMIN 3.4 GM/DL (3.2-5.2); ALBUMIN/GLOBULIN RATIO 0.77 (1.00-1.93); ALKALINE PHOSPHATASE 250 U/L (45-117); ALT/SGPT 47 U/L (12-78); ANION GAP 11 MEQ/L (8-16); AST/SGOT 53 U/L (7-37); BILIRUBIN,DIRECT 0.3 MG/DL (0.0-0.2); BILIRUBIN,TOTAL 0.9 MG/DL (0.2-1.0); BLOOD UREA NITROGEN 15 MG/DL (7-18); CALCIUM LEVEL 9.3 MG/DL (8.8-10.2); CARBON DIOXIDE LEVEL 24 MEQ/L (21-32); CHLORIDE LEVEL 104 MEQ/L (98-107); CREATININE FOR GFR 1.13 MG/DL (0.55-1.30); GLOMERULAR FILTRATION RATE 51.9 (>45); GLUCOSE, FASTING 290 MG/DL (70-100); LIPASE 140 U/L (73-393); POTASSIUM SERUM 3.8 MEQ/L (3.5-5.1); SODIUM LEVEL 139 MEQ/L (136-145); TOTAL PROTEIN 7.8 GM/DL (6.4-8.2)
[2017-09-27] MEDS: METOCLOPRAMIDE INJ 10MG/2ML VIAL (J2765) IV (09:34)
[2017-09-27] MEDS: NS 1,000 ML IV (09:35)
[2017-09-27] MEDS: GI COCKTAIL 50ML BTL(HYOSCYAMINE/MAALOX/LIDOCAINE VISCOUS)(1:3:1) PO (10:16)
[2017-09-27] MEDS: SUCRALFATE SUSP 1GM/10ML UD PO (10:33)
== END 2017-09-27 11:09 | disposition home or self-care (01) ==
LOC: M ED 07:30
DX: R11.10 Vomiting, unspecified (principal); Z79.899 Other long term (current) drug therapy; Z79.01 Long term (current) use of anticoagulants; Z79.4 Long term (current) use of insulin; Z91.041 Radiographic dye allergy status; Z88.6 Allergy status to analgesic agent; Z88.3 Allergy status to other anti-infective agents; Z88.2 Allergy status to sulfonamides; Z88.1 Allergy status to other antibiotic agents; Z88.8 Allergy status to other drugs, medicaments and biological substances; Z91.018 Allergy to other foods
CPT/HCPCS: J2405

== ENCOUNTER → 2017-10-03 | Outpatient (REF) | payer MEDICAID ==
[2017-10-03 13:21] LABS: APPEARANCE, URINE HAZY (CLEAR); BACTERIA, URINE AUTO 2+ (NEGATIVE); BILIRUBIN, URINE AUTO NEGATIVE (NEGATIVE); BLOOD, URINE BLOOD NEGATIVE (NEGATIVE); COLOR, URINE YELLOW (YELLOW); GLUCOSE, URINE (UA) AUTO NEGATIVE (NEGATIVE); KETONE, URINE AUTO NEGATIVE (NEGATIVE); LEUKOCYTE ESTERASE, URINE AUTO 3+ (NEGATIVE); MUCUS, URINE SMALL (NEGATIVE); NITRITE, URINE AUTO NEGATIVE (NEGATIVE); PROTEIN, URINE AUTO NEGATIVE (NEGATIVE); RBC, URINE AUTO 3 /HPF (0-3); SPECIFIC GRAVITY URINE AUTO 1.006 (1.002-1.035); SQUAMOUS EPITHELIAL CELL UR AU 2 /HPF (0-6); UROBILINOGEN, URINE AUTO 0.2 mg/dL (0.0-2.0); WBC, URINE AUTO 150 /HPF (0-3)
== END ==
LOC: M SMT 12:56
DX: R82.90 Unspecified abnormal findings in urine (principal)

== ENCOUNTER → 2017-10-06 | Outpatient (CLI) | payer MEDICAID ==
[~2017-10-06] MED LIST changes: -TRIAMCINOLONE ACETONIDE SUSP 40 MG/ML VIAL (J3301) As Ordered
== END ==
LOC: M PAIN 11:00
DX: G89.29 Other chronic pain (principal); M47.816 Spondylosis without myelopathy or radiculopathy, lumbar region; E11.43 Type 2 diabetes mellitus with diabetic autonomic (poly)neuropathy; I50.9 Heart failure, unspecified; N18.4 Chronic kidney disease, stage 4 (severe); I13.0 Hypertensive heart and chronic kidney disease with heart failure and stage 1 through stage 4 chronic kidney disease, or unspecified chronic kidney disease; E03.9 Hypothyroidism, unspecified; E78.00 Pure hypercholesterolemia, unspecified; J45.909 Unspecified asthma, uncomplicated; J44.9 Chronic obstructive pulmonary disease, unspecified; M10.9 Gout, unspecified; G47.30 Sleep apnea, unspecified; Z87.891 Personal history of nicotine dependence; Z79.02 Long term (current) use of antithrombotics/antiplatelets; Z79.4 Long term (current) use of insulin; Z79.899 Other long term (current) drug therapy; Z88.6 Allergy status to analgesic agent; Z88.1 Allergy status to other antibiotic agents; Z91.018 Allergy to other foods; Z91.041 Radiographic dye allergy status
CPT/HCPCS: Q9967

== ENCOUNTER 2017-10-20 12:49 | Outpatient (RCR) | payer MEDICAID | END 2017-10-25 | LOC: M PT 12:49 | DX: Z47.89 Encounter for other orthopedic aftercare (principal); S46.011A Strain of muscle(s) and tendon(s) of the rotator cuff of right shoulder, initial encounter | CPT/HCPCS: 97162 ==

== ENCOUNTER → 2017-10-20 | Outpatient (CLI) | payer MEDICAID | LOC: M PAIN 14:30 | DX: G89.29 Other chronic pain (principal); G57.91 Unspecified mononeuropathy of right lower limb; M54.5 Low back pain; M46.96 Unspecified inflammatory spondylopathy, lumbar region; I50.9 Heart failure, unspecified; N18.4 Chronic kidney disease, stage 4 (severe); I13.0 Hypertensive heart and chronic kidney disease with heart failure and stage 1 through stage 4 chronic kidney disease, or unspecified chronic kidney disease; E03.9 Hypothyroidism, unspecified; E78.00 Pure hypercholesterolemia, unspecified; J45.909 Unspecified asthma, uncomplicated; J44.9 Chronic obstructive pulmonary disease, unspecified; G47.30 Sleep apnea, unspecified; E11.43 Type 2 diabetes mellitus with diabetic autonomic (poly)neuropathy; N39.46 Mixed incontinence; K31.84 Gastroparesis; N39.0 Urinary tract infection, site not specified; M10.9 Gout, unspecified; Z86.73 Personal history of transient ischemic attack (TIA), and cerebral infarction without residual deficits; Z87.891 Personal history of nicotine dependence; Z88.6 Allergy status to analgesic agent; Z91.018 Allergy to other foods; Z88.8 Allergy status to other drugs, medicaments and biological substances; Z88.1 Allergy status to other antibiotic agents; Z79.02 Long term (current) use of antithrombotics/antiplatelets; Z79.4 Long term (current) use of insulin; Z79.899 Other long term (current) drug therapy | CPT/HCPCS: G0463 ==

== ENCOUNTER → 2017-10-23 | Outpatient (CLI) | payer MEDICAID | LOC: M RAD 13:18 | DX: M25.551 Pain in right hip (principal) | CPT/HCPCS: 73502 ==

== ENCOUNTER → 2017-10-31 | Outpatient (REF) | payer MEDICAID ==
[2017-10-31 13:17] LABS: APPEARANCE, URINE HAZY (CLEAR); BACTERIA, URINE AUTO 3+ (NEGATIVE); BILIRUBIN, URINE AUTO NEGATIVE (NEGATIVE); BLOOD, URINE BLOOD NEGATIVE (NEGATIVE); COLOR, URINE YELLOW (YELLOW); GLUCOSE, URINE (UA) AUTO NEGATIVE (NEGATIVE); KETONE, URINE AUTO NEGATIVE (NEGATIVE); LEUKOCYTE ESTERASE, URINE AUTO 3+ (NEGATIVE); MUCUS, URINE SMALL (NEGATIVE); NITRITE, URINE AUTO NEGATIVE (NEGATIVE); PROTEIN, URINE AUTO NEGATIVE (NEGATIVE); RBC, URINE AUTO 3 /HPF (0-3); SQUAMOUS EPITHELIAL CELL UR AU 1 /HPF (0-6); UROBILINOGEN, URINE AUTO 0.2 mg/dL (0.0-2.0); WBC, URINE AUTO 83 /HPF (0-3)
== END ==
LOC: M SMT 12:52
DX: R30.0 Dysuria (principal)

== ENCOUNTER 2017-11-03 12:40 | Emergency (ER) | payer MEDICAID ==
[2017-11-03] MEDS: ONDANSETRON 4MG/2ML VIAL (J2405) IV (13:18)
[2017-11-03] MEDS: NS 1,000 ML IV (13:19)
[2017-11-03 13:24] LABS: BASO % 0.3 % (0.0-1.0); EOS # 0.1 10^3/uL (0.0-0.50); EOS % 1.3 % (0.0-3.0); HEMATOCRIT 41.8 % (36.0-47.0); HEMOGLOBIN 13.2 g/dl (12.0-15.5); IMMATURE GRANULOCYTE % 0.6 % (0-3.0); LYMPH # 1.8 10^3/uL (1.5-4.5); LYMPH % 18.9 % (24.0-44.0); MEAN CORPUSCULAR HEMOGLOBIN 25.9 pg (27.0-33.0); MEAN CORPUSCULAR HGB CONC 31.6 g/dl (32.0-36.5); MEAN CORPUSCULAR VOLUME 82.1 fl (80.0-96.0); MONO # 0.5 10^3/uL (0.0-0.8); MONO % 5.4 % (0.0-5.0); NEUTROPHILS # 7.1 10^3/uL (1.8-7.7); NEUTROPHILS % 73.5 % (36.0-66.0); PLATELET COUNT, AUTOMATED 320 10^3/uL (150-450); RED BLOOD COUNT 5.09 10^6/uL (4.00-5.40); RED CELL DISTRIBUTION WIDTH 15.1 % (11.5-14.5); WHITE BLOOD COUNT 9.7 10^3/uL (4.0-10.0)
[2017-11-03 13:47] LABS: ALBUMIN 3.7 GM/DL (3.2-5.2); ALBUMIN/GLOBULIN RATIO 0.95 (1.00-1.93); ALKALINE PHOSPHATASE 249 U/L (45-117); ALT/SGPT 42 U/L (12-78); ANION GAP 12 MEQ/L (8-16); AST/SGOT 70 U/L (7-37); BILIRUBIN,TOTAL 0.9 MG/DL (0.2-1.0); BLOOD UREA NITROGEN 20 MG/DL (7-18); CALCIUM LEVEL 9.6 MG/DL (8.8-10.2); CARBON DIOXIDE LEVEL 25 MEQ/L (21-32); CHLORIDE LEVEL 104 MEQ/L (98-107); CPK CREATINE PHOSPHOKINASE 41 U/L (26-192); CREATININE FOR GFR 1.19 MG/DL (0.55-1.30); GLOMERULAR FILTRATION RATE 48.9 (>45); GLUCOSE, FASTING 249 MG/DL (70-100); LIPASE 148 U/L (73-393); POTASSIUM SERUM 4.9 MEQ/L (3.5-5.1); SODIUM LEVEL 141 MEQ/L (136-145); TOTAL PROTEIN 7.6 GM/DL (6.4-8.2); TROPONIN I < 0.02 NG/ML (< 0.10)
[2017-11-03 13:48] LABS: CK-MB VALUE MASS < 1.0 NG/ML (<3.6); MB/CK RELATIVE INDEX 2.43 (< OR =4)
[2017-11-03] MEDS: GI COCKTAIL 50ML BTL(HYOSCYAMINE/MAALOX/LIDOCAINE VISCOUS)(1:3:1) PO (14:57)
[2017-11-03] MEDS: MORPHINE 4 MG/ML 1ML VIAL/SYRINGE (J2270) IV (15:02)
[2017-11-03] MEDS: PANTOPRAZOLE 40MG INJ (PROTONIX) (C9113) IV (15:02)
[2017-11-03] MEDS: METOCLOPRAMIDE INJ 10MG/2ML VIAL (J2765) IV (15:24)
[2017-11-03] MEDS: TRIMETHOBENZAMIDE HCL INJ 200 MG/2 ML VIAL (J3250) IM (16:07)
[2017-11-03 16:13] LABS: APPEARANCE, URINE HAZY (CLEAR); BACTERIA, URINE AUTO 1+ (NEGATIVE); BILIRUBIN, URINE AUTO NEGATIVE (NEGATIVE); BLOOD, URINE BLOOD NEGATIVE (NEGATIVE); COLOR, URINE YELLOW (YELLOW); GLUCOSE, URINE (UA) AUTO NEGATIVE (NEGATIVE); KETONE, URINE AUTO TRACE mg/dL (NEGATIVE); LEUKOCYTE ESTERASE, URINE AUTO 1+ (NEGATIVE); MUCUS, URINE SMALL (NEGATIVE); NITRITE, URINE AUTO NEGATIVE (NEGATIVE); PROTEIN, URINE AUTO NEGATIVE (NEGATIVE); RBC, URINE AUTO 3 /HPF (0-3); SPECIFIC GRAVITY URINE AUTO 1.011 (1.002-1.035); SQUAMOUS EPITHELIAL CELL UR AU 1 /HPF (0-6); UROBILINOGEN, URINE AUTO 0.2 mg/dL (0.0-2.0); WBC, URINE AUTO 19 /HPF (0-3)
[2017-11-04 10:59] LABS: BEDSIDE GLUCOSE 263 MG/DL (80-115)
== END 2017-11-03 17:11 | disposition home or self-care (01) ==
LOC: M ED 12:40
DX: N39.0 Urinary tract infection, site not specified (principal); R10.84 Generalized abdominal pain; K80.20 Calculus of gallbladder without cholecystitis without obstruction; R11.2 Nausea with vomiting, unspecified; I50.9 Heart failure, unspecified; J44.9 Chronic obstructive pulmonary disease, unspecified; N18.3 Chronic kidney disease, stage 3 (moderate); E11.40 Type 2 diabetes mellitus with diabetic neuropathy, unspecified; K21.9 Gastro-esophageal reflux disease without esophagitis; R56.9 Unspecified convulsions; Z86.73 Personal history of transient ischemic attack (TIA), and cerebral infarction without residual deficits; Z88.6 Allergy status to analgesic agent; Z88.2 Allergy status to sulfonamides; Z88.1 Allergy status to other antibiotic agents; Z88.8 Allergy status to other drugs, medicaments and biological substances; Z91.041 Radiographic dye allergy status; Z91.018 Allergy to other foods; Z79.899 Other long term (current) drug therapy; Z79.02 Long term (current) use of antithrombotics/antiplatelets; Z79.4 Long term (current) use of insulin
CPT/HCPCS: C9113

== ENCOUNTER 2017-11-07 08:46 | Inpatient (IN) | payer MEDICAID ==
[2017-11-07] MEDS: ONDANSETRON 4MG/2ML VIAL (J2405) IV ×2 (09:20→15:08)
[2017-11-07] MEDS: PANTOPRAZOLE 40MG INJ (PROTONIX) (C9113) IV (09:20)
[2017-11-07] MEDS: NS 500 ML IV (09:20)
[2017-11-07 09:29] LABS: BASO # 0.1 10^3/uL (0.0-0.2); BASO % 0.7 % (0.0-1.0); EOS # 0.1 10^3/uL (0.0-0.50); EOS % 1.7 % (0.0-3.0); HEMATOCRIT 39.5 % (36.0-47.0); HEMOGLOBIN 12.7 g/dl (12.0-15.5); IMMATURE GRANULOCYTE % 0.5 % (0-3.0); LYMPH # 1.5 10^3/uL (1.5-4.5); LYMPH % 20.5 % (24.0-44.0); MEAN CORPUSCULAR HEMOGLOBIN 25.8 pg (27.0-33.0); MEAN CORPUSCULAR HGB CONC 32.2 g/dl (32.0-36.5); MEAN CORPUSCULAR VOLUME 80.3 fl (80.0-96.0); MONO # 0.5 10^3/uL (0.0-0.8); MONO % 6.7 % (0.0-5.0); NEUTROPHILS # 5.2 10^3/uL (1.8-7.7); NEUTROPHILS % 69.9 % (36.0-66.0); PLATELET COUNT, AUTOMATED 294 10^3/uL (150-450); RED BLOOD COUNT 4.92 10^6/uL (4.00-5.40); RED CELL DISTRIBUTION WIDTH 15.1 % (11.5-14.5); WHITE BLOOD COUNT 7.5 10^3/uL (4.0-10.0)
[2017-11-07 09:54] LABS: INR 1.06; PARTIAL THROMBOPLASTIN TIME 28.7 SECONDS (25.4-37.6); PROTHROMBIN TIME 13.9 SECONDS (12.1-14.4)
[2017-11-07 09:55] LABS: ALBUMIN 3.5 GM/DL (3.2-5.2); ALBUMIN/GLOBULIN RATIO 0.78 (1.00-1.93); ALKALINE PHOSPHATASE 228 U/L (45-117); ALT/SGPT 39 U/L (12-78); AMYLASE 30 U/L (25-115); ANION GAP 13 MEQ/L (8-16); AST/SGOT 50 U/L (7-37); BILIRUBIN,DIRECT 0.4 MG/DL (0.0-0.2); BILIRUBIN,TOTAL 0.9 MG/DL (0.2-1.0); BLOOD UREA NITROGEN 19 MG/DL (7-18); CALCIUM LEVEL 9.2 MG/DL (8.8-10.2); CARBON DIOXIDE LEVEL 22 MEQ/L (21-32); CHLORIDE LEVEL 105 MEQ/L (98-107); CPK CREATINE PHOSPHOKINASE 37 U/L (26-192); CREATININE FOR GFR 1.32 MG/DL (0.55-1.30); GLOMERULAR FILTRATION RATE 43.4 (>45); GLUCOSE, FASTING 241 MG/DL (70-100); LIPASE 176 U/L (73-393); POTASSIUM SERUM 4.1 MEQ/L (3.5-5.1); SODIUM LEVEL 140 MEQ/L (136-145); TROPONIN I < 0.02 NG/ML (< 0.10)
[2017-11-07 09:56] LABS: CK-MB VALUE MASS < 1.0 NG/ML (<3.6)
[2017-11-07 11:25] LABS: LACTIC ACID SEPSIS PROTOCOL 1.5 MMOL/L (0.4-2.0)
[2017-11-07] MEDS ORDERED: MORPHINE 4 MG/ML 1ML VIAL/SYRINGE (J2270) IV (13:00)
[2017-11-07] MEDS ORDERED: [UNRECOGNIZED DRUG - OTHER] SC (13:00)
[2017-11-07] MEDS ORDERED: DEXTROSE 50% 50 ML SYRINGE IV (13:00)
[2017-11-07] MEDS ORDERED: GLUCOSE 4 GM CHEW TABLET PO (13:00)
[2017-11-07] MEDS ORDERED: GLUCAGON FOR INJ 1 MG VIAL (J1610) SC (13:00)
[2017-11-07] MEDS: METOCLOPRAMIDE INJ 10MG/2ML VIAL (J2765) IV ×2 (13:10→23:02)
[2017-11-07] MEDS: SYMBICORT 80/4.5MCG INHALER 6GM INH ×2 (15:05→19:52)
[2017-11-07] MEDS: TIOTROPIUM INHALER/CAPSULE (SPIRIVA) INH (15:05)
[2017-11-07] MEDS: CLOPIDOGREL 75 MG TAB PO (15:41)
[2017-11-07] MEDS: LEVOTHYROXINE 88MCG TABLET (0.088 MG) PO (15:41)
[2017-11-07] MEDS: ATENOLOL 25 MG TAB PO ×2 (15:41→23:01)
[2017-11-07] MEDS: ALLOPURINOL 300 MG TAB PO (15:42)
[2017-11-07] MEDS: LEVEMIR (INSULIN DETEMIR) 1 UNITS/0.01ML SC ×2 (15:42→23:02)
[2017-11-07] MEDS: NS 1,000 ML IV (15:43)
[2017-11-07 16:02] LABS: C REACTIVE PROTEIN QUANTITATIV 1.47 MG/DL (0.00-0.30)
[2017-11-07 17:22] LABS: APPEARANCE, URINE CLEAR (CLEAR); BACTERIA, URINE AUTO 1+ (NEGATIVE); BILIRUBIN, URINE AUTO NEGATIVE (NEGATIVE); BLOOD, URINE BLOOD NEGATIVE (NEGATIVE); COLOR, URINE YELLOW (YELLOW); GLUCOSE, URINE (UA) AUTO NEGATIVE (NEGATIVE); KETONE, URINE AUTO TRACE mg/dL (NEGATIVE); LEUKOCYTE ESTERASE, URINE AUTO 1+ (NEGATIVE); NITRITE, URINE AUTO NEGATIVE (NEGATIVE); PROTEIN, URINE AUTO NEGATIVE (NEGATIVE); RBC, URINE AUTO 0 /HPF (0-3); SPECIFIC GRAVITY URINE AUTO 1.011 (1.002-1.035); SQUAMOUS EPITHELIAL CELL UR AU 0 /HPF (0-6); UROBILINOGEN, URINE AUTO 0.2 mg/dL (0.0-2.0); WBC, URINE AUTO 20 /HPF (0-3)
[2017-11-07 18:34] LABS: BEDSIDE GLUCOSE 212 MG/DL (80-115)
[2017-11-07] MEDS ORDERED: HumaLOG INSULIN (NovoLOG) PER UNIT SC (21:45)
[2017-11-07] MEDS: ENOXAPARIN 40 MG/0.4 ML SYRINGE (J1650) SC (23:02)
[2017-11-08 00:19] LABS: BEDSIDE GLUCOSE 245 MG/DL (80-115)
[2017-11-08] MEDS: HumaLOG INSULIN (NovoLOG) PER UNIT SC ×2 (00:49→05:48)
[2017-11-08] MEDS: NS 1,000 ML IV ×3 (02:11→12:30)
[2017-11-08 05:40] LABS: BEDSIDE GLUCOSE 191 MG/DL (80-115)
[2017-11-08] MEDS: LEVOTHYROXINE 88MCG TABLET (0.088 MG) PO (05:47)
[2017-11-08] MEDS: METOCLOPRAMIDE INJ 10MG/2ML VIAL (J2765) IV ×3 (05:47→22:08)
[2017-11-08] MEDS: SYMBICORT 80/4.5MCG INHALER 6GM INH ×2 (07:39→19:31)
[2017-11-08] MEDS: TIOTROPIUM INHALER/CAPSULE (SPIRIVA) INH (07:39)
[2017-11-08 08:53] LABS: BASO % 0.3 % (0.0-1.0); EOS # 0.1 10^3/uL (0.0-0.50); EOS % 1.8 % (0.0-3.0); HEMATOCRIT 38.6 % (36.0-47.0); HEMOGLOBIN 12.3 g/dl (12.0-15.5); IMMATURE GRANULOCYTE % 0.6 % (0-3.0); LYMPH # 1.8 10^3/uL (1.5-4.5); LYMPH % 24.1 % (24.0-44.0); MEAN CORPUSCULAR HEMOGLOBIN 26.2 pg (27.0-33.0); MEAN CORPUSCULAR HGB CONC 31.9 g/dl (32.0-36.5); MEAN CORPUSCULAR VOLUME 82.1 fl (80.0-96.0); MONO # 0.6 10^3/uL (0.0-0.8); NEUTROPHILS # 4.8 10^3/uL (1.8-7.7); NEUTROPHILS % 65.2 % (36.0-66.0); PLATELET COUNT, AUTOMATED 279 10^3/uL (150-450); RED CELL DISTRIBUTION WIDTH 14.9 % (11.5-14.5); WHITE BLOOD COUNT 7.3 10^3/uL (4.0-10.0)
[2017-11-08 09:13] LABS: ALBUMIN 3.4 GM/DL (3.2-5.2); ALBUMIN/GLOBULIN RATIO 0.92 (1.00-1.93); ALKALINE PHOSPHATASE 207 U/L (45-117); ALT/SGPT 36 U/L (12-78); ANION GAP 8 MEQ/L (8-16); AST/SGOT 39 U/L (7-37); BILIRUBIN,TOTAL 0.7 MG/DL (0.2-1.0); BLOOD UREA NITROGEN 16 MG/DL (7-18); C REACTIVE PROTEIN QUANTITATIV 1.06 MG/DL (0.00-0.30); CALCIUM LEVEL 8.8 MG/DL (8.8-10.2); CARBON DIOXIDE LEVEL 25 MEQ/L (21-32); CHLORIDE LEVEL 114 MEQ/L (98-107); GLOMERULAR FILTRATION RATE 59.8 (>45); GLUCOSE, FASTING 183 MG/DL (70-100); MAGNESIUM LEVEL 2.3 MG/DL (1.8-2.4); POTASSIUM SERUM 4.2 MEQ/L (3.5-5.1); SODIUM LEVEL 147 MEQ/L (136-145); TOTAL PROTEIN 7.1 GM/DL (6.4-8.2)
[2017-11-08] MEDS: PANTOPRAZOLE 40MG INJ (PROTONIX) (C9113) IV (09:20)
[2017-11-08] MEDS: LEVEMIR (INSULIN DETEMIR) 1 UNITS/0.01ML SC ×3 (09:21→22:09)
[2017-11-08] MEDS: ALLOPURINOL 300 MG TAB PO (09:23)
[2017-11-08] MEDS: ATENOLOL 25 MG TAB PO ×2 (09:23→22:08)
[2017-11-08] MEDS: CLOPIDOGREL 75 MG TAB PO (09:23)
[2017-11-08] MEDS ORDERED: ENTER DRUG NAME HERE (PATIENT'S OWN MED) SQ (11:45)
[2017-11-08 11:53] LABS: BEDSIDE GLUCOSE 218 MG/DL (80-115)
[2017-11-08] MEDS: HUMULIN R U INSULIN SC ×2 (14:01→17:51)
[2017-11-08 17:49] LABS: BEDSIDE GLUCOSE 179 MG/DL (80-115)
[2017-11-08 21:45] LABS: BEDSIDE GLUCOSE 96 MG/DL (80-115)
[2017-11-08] MEDS: ENOXAPARIN 40 MG/0.4 ML SYRINGE (J1650) SC (22:08)
[2017-11-09 01:44] LABS: BEDSIDE GLUCOSE 50 MG/DL (80-115)
[2017-11-09 02:15] LABS: BEDSIDE GLUCOSE 74 MG/DL (80-115)
[2017-11-09 05:38] LABS: BEDSIDE GLUCOSE 59 MG/DL (80-115)
[2017-11-09] MEDS: METOCLOPRAMIDE INJ 10MG/2ML VIAL (J2765) IV ×3 (05:38→21:58)
[2017-11-09] MEDS: LEVOTHYROXINE 88MCG TABLET (0.088 MG) PO (05:38)
[2017-11-09 06:25] LABS: BASO % 0.5 % (0.0-1.0); EOS # 0.2 10^3/uL (0.0-0.50); EOS % 2.7 % (0.0-3.0); HEMATOCRIT 39.2 % (36.0-47.0); HEMOGLOBIN 12.5 g/dl (12.0-15.5); IMMATURE GRANULOCYTE % 0.3 % (0-3.0); LYMPH % 23.1 % (24.0-44.0); MEAN CORPUSCULAR HEMOGLOBIN 25.9 pg (27.0-33.0); MEAN CORPUSCULAR HGB CONC 31.9 g/dl (32.0-36.5); MEAN CORPUSCULAR VOLUME 81.3 fl (80.0-96.0); MONO # 0.7 10^3/uL (0.0-0.8); MONO % 8.4 % (0.0-5.0); NEUTROPHILS # 5.7 10^3/uL (1.8-7.7); PLATELET COUNT, AUTOMATED 287 10^3/uL (150-450); RED BLOOD COUNT 4.82 10^6/uL (4.00-5.40); RED CELL DISTRIBUTION WIDTH 14.9 % (11.5-14.5); WHITE BLOOD COUNT 8.8 10^3/uL (4.0-10.0)
[2017-11-09 06:31] LABS: BEDSIDE GLUCOSE 89 MG/DL (80-115)
[2017-11-09 06:34] LABS: ANION GAP 7 MEQ/L (8-16); BLOOD UREA NITROGEN 10 MG/DL (7-18); CALCIUM LEVEL 9.1 MG/DL (8.8-10.2); CARBON DIOXIDE LEVEL 24 MEQ/L (21-32); CHLORIDE LEVEL 113 MEQ/L (98-107); CREATININE FOR GFR 0.79 MG/DL (0.55-1.30); GLOMERULAR FILTRATION RATE > 60.0 (>45); GLUCOSE, FASTING 54 MG/DL (70-100); POTASSIUM SERUM 3.6 MEQ/L (3.5-5.1); SODIUM LEVEL 144 MEQ/L (136-145)
[2017-11-09] MEDS ORDERED: HUMULIN R U INSULIN SC (07:30)
[2017-11-09] MEDS: SYMBICORT 80/4.5MCG INHALER 6GM INH ×2 (07:49→20:51)
[2017-11-09] MEDS: TIOTROPIUM INHALER/CAPSULE (SPIRIVA) INH (07:49)
[2017-11-09] MEDS: CLOPIDOGREL 75 MG TAB PO (08:06)
[2017-11-09] MEDS: ALLOPURINOL 300 MG TAB PO (08:06)
[2017-11-09] MEDS: PANTOPRAZOLE 40MG INJ (PROTONIX) (C9113) IV (08:06)
[2017-11-09] MEDS: ATENOLOL 25 MG TAB PO ×2 (08:08→21:57)
[2017-11-09 11:38] LABS: BEDSIDE GLUCOSE 126 MG/DL (80-115)
[2017-11-09] MEDS ORDERED: AMPICILLIN SOD 1 GM in APPROPRIATE DILUENT 10 ML IV (12:00)
[2017-11-09] MEDS: AMPICILLIN SOD 1 GM in D5W MINI-BAG PLUS 50 ML IV ×2 (13:07→18:58)
[2017-11-09 16:28] LABS: BEDSIDE GLUCOSE 220 MG/DL (80-115)
[2017-11-09] MEDS ORDERED: DEXTROSE 50% 50 ML SYRINGE IV (17:15)
[2017-11-09] MEDS ORDERED: GLUCOSE 4 GM CHEW TABLET PO (17:15)
[2017-11-09] MEDS ORDERED: GLUCAGON FOR INJ 1 MG VIAL (J1610) SC (17:15)
[2017-11-09] MEDS: HumaLOG INSULIN (NovoLOG) PER UNIT SC ×2 (17:27→21:57)
[2017-11-09] MEDS: ONDANSETRON 4MG/2ML VIAL (J2405) IV (18:59)
[2017-11-09 20:34] LABS: BEDSIDE GLUCOSE 238 MG/DL (80-115)
[2017-11-09] MEDS: LEVEMIR (INSULIN DETEMIR) 1 UNITS/0.01ML SC (21:57)
[2017-11-09] MEDS: ENOXAPARIN 40 MG/0.4 ML SYRINGE (J1650) SC (21:58)
[2017-11-09 23:57] LABS: BEDSIDE GLUCOSE 246 MG/DL (80-115)
[2017-11-10] MEDS: AMPICILLIN SOD 1 GM in D5W MINI-BAG PLUS 50 ML IV ×4 (00:24→18:16)
[2017-11-10 04:12] LABS: BEDSIDE GLUCOSE 215 MG/DL (80-115)
[2017-11-10] MEDS: METOCLOPRAMIDE INJ 10MG/2ML VIAL (J2765) IV ×3 (06:02→20:35)
[2017-11-10] MEDS: LEVOTHYROXINE 88MCG TABLET (0.088 MG) PO (06:02)
[2017-11-10 06:25] LABS: BASO % 0.3 % (0.0-1.0); EOS # 0.2 10^3/uL (0.0-0.50); HEMATOCRIT 37.5 % (36.0-47.0); HEMOGLOBIN 12.1 g/dl (12.0-15.5); IMMATURE GRANULOCYTE % 0.4 % (0-3.0); LYMPH # 1.6 10^3/uL (1.5-4.5); LYMPH % 23.3 % (24.0-44.0); MEAN CORPUSCULAR HGB CONC 32.3 g/dl (32.0-36.5); MEAN CORPUSCULAR VOLUME 80.6 fl (80.0-96.0); MONO # 0.5 10^3/uL (0.0-0.8); MONO % 7.9 % (0.0-5.0); NEUTROPHILS # 4.4 10^3/uL (1.8-7.7); NEUTROPHILS % 65.1 % (36.0-66.0); PLATELET COUNT, AUTOMATED 232 10^3/uL (150-450); RED BLOOD COUNT 4.65 10^6/uL (4.00-5.40); RED CELL DISTRIBUTION WIDTH 14.7 % (11.5-14.5); WHITE BLOOD COUNT 6.7 10^3/uL (4.0-10.0)
[2017-11-10 06:44] LABS: ANION GAP 9 MEQ/L (8-16); BLOOD UREA NITROGEN 8 MG/DL (7-18); CALCIUM LEVEL 8.6 MG/DL (8.8-10.2); CARBON DIOXIDE LEVEL 23 MEQ/L (21-32); CHLORIDE LEVEL 111 MEQ/L (98-107); CREATININE FOR GFR 0.81 MG/DL (0.55-1.30); GLOMERULAR FILTRATION RATE > 60.0 (>45); GLUCOSE, FASTING 185 MG/DL (70-100); SODIUM LEVEL 143 MEQ/L (136-145)
[2017-11-10] MEDS: HumaLOG INSULIN (NovoLOG) PER UNIT SC ×4 (07:30→20:36)
[2017-11-10 07:52] LABS: BEDSIDE GLUCOSE 209 MG/DL (80-115)
[2017-11-10] MEDS: TIOTROPIUM INHALER/CAPSULE (SPIRIVA) INH (08:05)
[2017-11-10] MEDS: SYMBICORT 80/4.5MCG INHALER 6GM INH ×2 (08:05→21:00)
[2017-11-10] MEDS: ATENOLOL 25 MG TAB PO ×2 (08:28→20:38)
[2017-11-10] MEDS: ALLOPURINOL 300 MG TAB PO (08:29)
[2017-11-10] MEDS: PANTOPRAZOLE 40MG INJ (PROTONIX) (C9113) IV (08:29)
[2017-11-10] MEDS: ONDANSETRON 4MG/2ML VIAL (J2405) IV ×2 (08:29→18:17)
[2017-11-10] MEDS: CLOPIDOGREL 75 MG TAB PO (08:29)
[2017-11-10] MEDS: TORSEMIDE (DEMADEX) 50 MG PER 1/2 TAB PO ×2 (11:07→17:27)
[2017-11-10 11:42] LABS: BEDSIDE GLUCOSE 214 MG/DL (80-115)
[2017-11-10 17:07] LABS: BEDSIDE GLUCOSE 249 MG/DL (80-115)
[2017-11-10 20:23] LABS: BEDSIDE GLUCOSE 260 MG/DL (80-115)
[2017-11-10] MEDS: ENOXAPARIN 40 MG/0.4 ML SYRINGE (J1650) SC (20:36)
[2017-11-10] MEDS: LEVEMIR (INSULIN DETEMIR) 1 UNITS/0.01ML SC (20:37)
[2017-11-11] MEDS: AMPICILLIN SOD 1 GM in D5W MINI-BAG PLUS 50 ML IV ×4 (00:29→18:00)
[2017-11-11 00:33] LABS: BEDSIDE GLUCOSE 234 MG/DL (80-115)
[2017-11-11] MEDS: METOCLOPRAMIDE INJ 10MG/2ML VIAL (J2765) IV ×3 (04:15→21:38)
[2017-11-11 04:19] LABS: BEDSIDE GLUCOSE 211 MG/DL (80-115)
[2017-11-11] MEDS: LEVOTHYROXINE 88MCG TABLET (0.088 MG) PO (06:26)
[2017-11-11 06:28] LABS: BASO % 0.5 % (0.0-1.0); EOS # 0.2 10^3/uL (0.0-0.50); EOS % 2.6 % (0.0-3.0); HEMOGLOBIN 12.3 g/dl (12.0-15.5); IMMATURE GRANULOCYTE % 0.4 % (0-3.0); LYMPH # 1.7 10^3/uL (1.5-4.5); LYMPH % 22.2 % (24.0-44.0); MEAN CORPUSCULAR HEMOGLOBIN 26.3 pg (27.0-33.0); MEAN CORPUSCULAR HGB CONC 32.4 g/dl (32.0-36.5); MEAN CORPUSCULAR VOLUME 81.4 fl (80.0-96.0); MONO # 0.7 10^3/uL (0.0-0.8); MONO % 8.8 % (0.0-5.0); NEUTROPHILS % 65.5 % (36.0-66.0); PLATELET COUNT, AUTOMATED 254 10^3/uL (150-450); RED BLOOD COUNT 4.67 10^6/uL (4.00-5.40); RED CELL DISTRIBUTION WIDTH 14.8 % (11.5-14.5); WHITE BLOOD COUNT 7.6 10^3/uL (4.0-10.0)
[2017-11-11 06:41] LABS: ANION GAP 8 MEQ/L (8-16); BLOOD UREA NITROGEN 11 MG/DL (7-18); CALCIUM LEVEL 9.2 MG/DL (8.8-10.2); CARBON DIOXIDE LEVEL 30 MEQ/L (21-32); CHLORIDE LEVEL 104 MEQ/L (98-107); CREATININE FOR GFR 1.05 MG/DL (0.55-1.30); GLOMERULAR FILTRATION RATE 56.5 (>45); GLUCOSE, FASTING 210 MG/DL (70-100); POTASSIUM SERUM 4.2 MEQ/L (3.5-5.1); SODIUM LEVEL 142 MEQ/L (136-145)
[2017-11-11] MEDS: SYMBICORT 80/4.5MCG INHALER 6GM INH ×2 (07:23→20:43)
[2017-11-11] MEDS: TIOTROPIUM INHALER/CAPSULE (SPIRIVA) INH (07:23)
[2017-11-11 07:56] LABS: BEDSIDE GLUCOSE 223 MG/DL (80-115)
[2017-11-11] MEDS: HumaLOG INSULIN (NovoLOG) PER UNIT SC ×4 (08:14→21:37)
[2017-11-11] MEDS: CLOPIDOGREL 75 MG TAB PO (08:16)
[2017-11-11] MEDS: TORSEMIDE (DEMADEX) 50 MG PER 1/2 TAB PO ×2 (08:16→16:45)
[2017-11-11] MEDS: PANTOPRAZOLE 40MG INJ (PROTONIX) (C9113) IV (08:16)
[2017-11-11] MEDS: ALLOPURINOL 300 MG TAB PO (08:16)
[2017-11-11] MEDS: ATENOLOL 25 MG TAB PO ×2 (08:16→21:36)
[2017-11-11] MEDS: ONDANSETRON 4MG/2ML VIAL (J2405) IV (10:59)
[2017-11-11 11:40] LABS: BEDSIDE GLUCOSE 252 MG/DL (80-115)
[2017-11-11 16:36] LABS: BEDSIDE GLUCOSE 381 MG/DL (80-115)
[2017-11-11 20:44] LABS: BEDSIDE GLUCOSE 338 MG/DL (80-115)
[2017-11-11] MEDS: PREGABALIN 75 MG CAP(LYRICA) PO (21:35)
[2017-11-11] MEDS: SIMVASTATIN 40 MG TAB PO (21:36)
[2017-11-11] MEDS: LEVEMIR (INSULIN DETEMIR) 1 UNITS/0.01ML SC (21:38)
[2017-11-11] MEDS: ENOXAPARIN 40 MG/0.4 ML SYRINGE (J1650) SC (21:38)
[2017-11-12] MEDS: AMPICILLIN SOD 1 GM in D5W MINI-BAG PLUS 50 ML IV ×4 (00:17→18:50)
[2017-11-12] MEDS: LEVOTHYROXINE 88MCG TABLET (0.088 MG) PO (05:51)
[2017-11-12] MEDS: METOCLOPRAMIDE INJ 10MG/2ML VIAL (J2765) IV (05:51)
[2017-11-12 06:17] LABS: BASO % 0.4 % (0.0-1.0); EOS # 0.2 10^3/uL (0.0-0.50); EOS % 2.5 % (0.0-3.0); HEMATOCRIT 38.3 % (36.0-47.0); HEMOGLOBIN 12.1 g/dl (12.0-15.5); IMMATURE GRANULOCYTE % 0.4 % (0-3.0); LYMPH # 1.9 10^3/uL (1.5-4.5); LYMPH % 24.9 % (24.0-44.0); MEAN CORPUSCULAR HEMOGLOBIN 25.8 pg (27.0-33.0); MEAN CORPUSCULAR HGB CONC 31.6 g/dl (32.0-36.5); MEAN CORPUSCULAR VOLUME 81.7 fl (80.0-96.0); MONO # 0.6 10^3/uL (0.0-0.8); MONO % 8.3 % (0.0-5.0); NEUTROPHILS # 4.8 10^3/uL (1.8-7.7); NEUTROPHILS % 63.5 % (36.0-66.0); PLATELET COUNT, AUTOMATED 252 10^3/uL (150-450); RED BLOOD COUNT 4.69 10^6/uL (4.00-5.40); RED CELL DISTRIBUTION WIDTH 14.7 % (11.5-14.5); WHITE BLOOD COUNT 7.6 10^3/uL (4.0-10.0)
[2017-11-12 06:33] LABS: ANION GAP 9 MEQ/L (8-16); BLOOD UREA NITROGEN 17 MG/DL (7-18); CALCIUM LEVEL 9.3 MG/DL (8.8-10.2); CARBON DIOXIDE LEVEL 32 MEQ/L (21-32); CHLORIDE LEVEL 102 MEQ/L (98-107); CREATININE FOR GFR 1.34 MG/DL (0.55-1.30); GLOMERULAR FILTRATION RATE 42.7 (>45); GLUCOSE, FASTING 258 MG/DL (70-100); POTASSIUM SERUM 3.6 MEQ/L (3.5-5.1); SODIUM LEVEL 143 MEQ/L (136-145)
[2017-11-12] MEDS: PREGABALIN 100 MG CAP (LYRICA) PO (08:45)
[2017-11-12] MEDS: CLOPIDOGREL 75 MG TAB PO (08:45)
[2017-11-12] MEDS: ATENOLOL 25 MG TAB PO ×2 (08:45→21:34)
[2017-11-12] MEDS: PANTOPRAZOLE 40MG INJ (PROTONIX) (C9113) IV (08:46)
[2017-11-12] MEDS: ALLOPURINOL 300 MG TAB PO (08:46)
[2017-11-12] MEDS: HumaLOG INSULIN (NovoLOG) PER UNIT SC ×4 (08:47→21:36)
[2017-11-12] MEDS: SYMBICORT 80/4.5MCG INHALER 6GM INH ×2 (09:21→20:37)
[2017-11-12] MEDS: TIOTROPIUM INHALER/CAPSULE (SPIRIVA) INH (09:21)
[2017-11-12 11:36] LABS: BEDSIDE GLUCOSE 391 MG/DL (80-115)
[2017-11-12] MEDS: METOCLOPRAMIDE HCL LIQUID 10 MG/10 ML UDC PO ×3 (12:43→21:34)
[2017-11-12] MEDS: ACETAMINOPHEN TAB 650MG DOSE (2X325MG) PO (12:45)
[2017-11-12 15:36] LABS: BEDSIDE GLUCOSE 356 MG/DL (80-115)
[2017-11-12 16:34] LABS: BEDSIDE GLUCOSE 370 MG/DL (80-115)
[2017-11-12 20:25] LABS: BEDSIDE GLUCOSE 430 MG/DL (80-115)
[2017-11-12] MEDS: PREGABALIN 75 MG CAP(LYRICA) PO (21:35)
[2017-11-12] MEDS: SIMVASTATIN 40 MG TAB PO (21:35)
[2017-11-12] MEDS: ENOXAPARIN 40 MG/0.4 ML SYRINGE (J1650) SC (21:35)
[2017-11-12] MEDS: LEVEMIR (INSULIN DETEMIR) 1 UNITS/0.01ML SC (21:35)
[2017-11-13] MEDS: AMPICILLIN SOD 1 GM in D5W MINI-BAG PLUS 50 ML IV ×2 (00:51→06:01)
[2017-11-13] MEDS: LEVOTHYROXINE 88MCG TABLET (0.088 MG) PO (06:01)
[2017-11-13 06:04] LABS: BASO % 0.4 % (0.0-1.0); EOS # 0.2 10^3/uL (0.0-0.50); HEMATOCRIT 36.6 % (36.0-47.0); HEMOGLOBIN 11.9 g/dl (12.0-15.5); IMMATURE GRANULOCYTE % 0.5 % (0-3.0); LYMPH # 1.9 10^3/uL (1.5-4.5); LYMPH % 24.9 % (24.0-44.0); MEAN CORPUSCULAR HEMOGLOBIN 26.5 pg (27.0-33.0); MEAN CORPUSCULAR HGB CONC 32.5 g/dl (32.0-36.5); MEAN CORPUSCULAR VOLUME 81.5 fl (80.0-96.0); MONO # 0.6 10^3/uL (0.0-0.8); MONO % 8.5 % (0.0-5.0); NEUTROPHILS # 4.7 10^3/uL (1.8-7.7); NEUTROPHILS % 62.7 % (36.0-66.0); PLATELET COUNT, AUTOMATED 235 10^3/uL (150-450); RED BLOOD COUNT 4.49 10^6/uL (4.00-5.40); RED CELL DISTRIBUTION WIDTH 14.6 % (11.5-14.5); WHITE BLOOD COUNT 7.4 10^3/uL (4.0-10.0)
[2017-11-13 06:22] LABS: ANION GAP 7 MEQ/L (8-16); BLOOD UREA NITROGEN 23 MG/DL (7-18); CALCIUM LEVEL 9.1 MG/DL (8.8-10.2); CARBON DIOXIDE LEVEL 30 MEQ/L (21-32); CHLORIDE LEVEL 103 MEQ/L (98-107); CREATININE FOR GFR 1.19 MG/DL (0.55-1.30); GLOMERULAR FILTRATION RATE 48.9 (>45); GLUCOSE, FASTING 355 MG/DL (70-100); POTASSIUM SERUM 3.4 MEQ/L (3.5-5.1); SODIUM LEVEL 140 MEQ/L (136-145)
[2017-11-13] MEDS: TIOTROPIUM INHALER/CAPSULE (SPIRIVA) INH (07:58)
[2017-11-13] MEDS: SYMBICORT 80/4.5MCG INHALER 6GM INH ×2 (07:58→20:24)
[2017-11-13] MEDS: PREGABALIN 100 MG CAP (LYRICA) PO (08:36)
[2017-11-13] MEDS: METOCLOPRAMIDE HCL LIQUID 10 MG/10 ML UDC PO ×4 (08:36→21:55)
[2017-11-13] MEDS: PANTOPRAZOLE 40MG INJ (PROTONIX) (C9113) IV (08:38)
[2017-11-13] MEDS: CLOPIDOGREL 75 MG TAB PO (08:38)
[2017-11-13] MEDS: ALLOPURINOL 300 MG TAB PO (08:38)
[2017-11-13] MEDS: ATENOLOL 25 MG TAB PO ×2 (08:38→21:56)
[2017-11-13] MEDS: HumaLOG INSULIN (NovoLOG) PER UNIT SC (08:38)
[2017-11-13] MEDS: POTASSIUM CHLORIDE 10 MEQ SR TABLET PO (11:06)
[2017-11-13] MEDS: TORSEMIDE (DEMADEX) 50 MG PER 1/2 TAB PO ×2 (11:07→17:04)
[2017-11-13] MEDS ORDERED: ONDANSETRON 4 MG ORAL DISINTEGRATING TAB (Q0162 PER 1MG) PO (11:15)
[2017-11-13 11:28] LABS: BEDSIDE GLUCOSE 485 MG/DL (80-115)
[2017-11-13] MEDS: HUMULIN R U-500 KWIKPEN 500UNITS/ML 3ML SYRINGE (J1815 PER 5UNITS) SC ×3 (12:00→17:05)
[2017-11-13] MEDS: PEN NEEDLE (USE WITH HUMULIN U-500 INSULIN PEN) XX ×2 (12:09→17:05)
[2017-11-13] MEDS: AMOXICILLIN SUSP 250MG/5ML 100ML BOTTLE (FOR INPATIENT ORDERS) PO ×2 (13:36→21:56)
[2017-11-13 16:27] LABS: BEDSIDE GLUCOSE 339 MG/DL (80-115)
[2017-11-13 21:37] LABS: BEDSIDE GLUCOSE 213 MG/DL (80-115)
[2017-11-13] MEDS: SIMVASTATIN 40 MG TAB PO (21:55)
[2017-11-13] MEDS: ENOXAPARIN 40 MG/0.4 ML SYRINGE (J1650) SC (21:55)
[2017-11-13] MEDS: PREGABALIN 75 MG CAP(LYRICA) PO (21:55)
[2017-11-14 02:23] LABS: BEDSIDE GLUCOSE 189 MG/DL (80-115)
[2017-11-14] MEDS: LEVOTHYROXINE 88MCG TABLET (0.088 MG) PO (05:32)
[2017-11-14] MEDS: AMOXICILLIN SUSP 250MG/5ML 100ML BOTTLE (FOR INPATIENT ORDERS) PO ×3 (05:32→21:40)
[2017-11-14 06:44] LABS: BASO % 0.4 % (0.0-1.0); EOS # 0.3 10^3/uL (0.0-0.50); EOS % 3.3 % (0.0-3.0); HEMATOCRIT 37.6 % (36.0-47.0); HEMOGLOBIN 12.1 g/dl (12.0-15.5); IMMATURE GRANULOCYTE % 0.5 % (0-3.0); LYMPH # 2.4 10^3/uL (1.5-4.5); MEAN CORPUSCULAR HEMOGLOBIN 26.1 pg (27.0-33.0); MEAN CORPUSCULAR HGB CONC 32.2 g/dl (32.0-36.5); MEAN CORPUSCULAR VOLUME 81.2 fl (80.0-96.0); MONO # 0.8 10^3/uL (0.0-0.8); MONO % 8.2 % (0.0-5.0); NEUTROPHILS # 5.7 10^3/uL (1.8-7.7); NEUTROPHILS % 61.6 % (36.0-66.0); PLATELET COUNT, AUTOMATED 306 10^3/uL (150-450); RED BLOOD COUNT 4.63 10^6/uL (4.00-5.40); RED CELL DISTRIBUTION WIDTH 14.6 % (11.5-14.5); WHITE BLOOD COUNT 9.3 10^3/uL (4.0-10.0)
[2017-11-14 06:49] LABS: ANION GAP 9 MEQ/L (8-16); BLOOD UREA NITROGEN 24 MG/DL (7-18); CALCIUM LEVEL 9.4 MG/DL (8.8-10.2); CARBON DIOXIDE LEVEL 29 MEQ/L (21-32); CHLORIDE LEVEL 104 MEQ/L (98-107); CREATININE FOR GFR 1.23 MG/DL (0.55-1.30); GLOMERULAR FILTRATION RATE 47.1 (>45); GLUCOSE, FASTING 244 MG/DL (70-100); POTASSIUM SERUM 3.3 MEQ/L (3.5-5.1); SODIUM LEVEL 142 MEQ/L (136-145)
[2017-11-14] MEDS: SYMBICORT 80/4.5MCG INHALER 6GM INH ×2 (07:29→18:15)
[2017-11-14] MEDS: TIOTROPIUM INHALER/CAPSULE (SPIRIVA) INH (07:30)
[2017-11-14] MEDS: HUMULIN R U-500 KWIKPEN 500UNITS/ML 3ML SYRINGE (J1815 PER 5UNITS) SC ×3 (07:30→16:57)
[2017-11-14] MEDS: PEN NEEDLE (USE WITH HUMULIN U-500 INSULIN PEN) XX ×3 (07:54→16:57)
[2017-11-14] MEDS: PANTOPRAZOLE 40MG INJ (PROTONIX) (C9113) IV (07:56)
[2017-11-14] MEDS: ALLOPURINOL 300 MG TAB PO (07:56)
[2017-11-14] MEDS: METOCLOPRAMIDE HCL LIQUID 10 MG/10 ML UDC PO ×4 (07:56→21:38)
[2017-11-14] MEDS: CLOPIDOGREL 75 MG TAB PO (07:57)
[2017-11-14] MEDS: PREGABALIN 100 MG CAP (LYRICA) PO (07:57)
[2017-11-14] MEDS: TORSEMIDE (DEMADEX) 50 MG PER 1/2 TAB PO ×2 (07:57→16:55)
[2017-11-14] MEDS: ATENOLOL 25 MG TAB PO ×2 (07:57→21:39)
[2017-11-14] MEDS: TOUJEO 300 UNIT/ML SC ×2 (09:00→21:41)
[2017-11-14 11:52] LABS: BEDSIDE GLUCOSE 488 MG/DL (80-115)
[2017-11-14] MEDS: POTASSIUM CHLORIDE 10 MEQ SR TABLET PO ×2 (12:18→21:38)
[2017-11-14 16:43] LABS: BEDSIDE GLUCOSE 346 MG/DL (80-115)
[2017-11-14 19:57] LABS: BEDSIDE GLUCOSE 390 MG/DL (80-115)
[2017-11-14] MEDS: PREGABALIN 75 MG CAP(LYRICA) PO (21:38)
[2017-11-14] MEDS: SIMVASTATIN 40 MG TAB PO (21:39)
[2017-11-14] MEDS: ENOXAPARIN 40 MG/0.4 ML SYRINGE (J1650) SC (21:39)
[2017-11-15] MEDS: LEVOTHYROXINE 88MCG TABLET (0.088 MG) PO (05:45)
[2017-11-15] MEDS: AMOXICILLIN SUSP 250MG/5ML 100ML BOTTLE (FOR INPATIENT ORDERS) PO (05:45)
[2017-11-15 06:07] LABS: BASO % 0.4 % (0.0-1.0); EOS # 0.2 10^3/uL (0.0-0.50); EOS % 2.8 % (0.0-3.0); HEMATOCRIT 34.2 % (36.0-47.0); HEMOGLOBIN 11.2 g/dl (12.0-15.5); IMMATURE GRANULOCYTE % 0.4 % (0-3.0); LYMPH # 1.6 10^3/uL (1.5-4.5); LYMPH % 23.8 % (24.0-44.0); MEAN CORPUSCULAR HEMOGLOBIN 26.4 pg (27.0-33.0); MEAN CORPUSCULAR HGB CONC 32.7 g/dl (32.0-36.5); MEAN CORPUSCULAR VOLUME 80.7 fl (80.0-96.0); MONO # 0.6 10^3/uL (0.0-0.8); MONO % 8.7 % (0.0-5.0); NEUTROPHILS # 4.4 10^3/uL (1.8-7.7); NEUTROPHILS % 63.9 % (36.0-66.0); PLATELET COUNT, AUTOMATED 244 10^3/uL (150-450); RED BLOOD COUNT 4.24 10^6/uL (4.00-5.40); RED CELL DISTRIBUTION WIDTH 14.6 % (11.5-14.5); WHITE BLOOD COUNT 6.8 10^3/uL (4.0-10.0)
[2017-11-15 06:19] LABS: ANION GAP 9 MEQ/L (8-16); BLOOD UREA NITROGEN 26 MG/DL (7-18); CARBON DIOXIDE LEVEL 29 MEQ/L (21-32); CHLORIDE LEVEL 104 MEQ/L (98-107); CREATININE FOR GFR 1.18 MG/DL (0.55-1.30); GLOMERULAR FILTRATION RATE 49.4 (>45); POTASSIUM SERUM 3.8 MEQ/L (3.5-5.1); SODIUM LEVEL 142 MEQ/L (136-145)
[2017-11-15 06:20] LABS: GLUCOSE, FASTING 407 MG/DL (70-100)
[2017-11-15] MEDS: TIOTROPIUM INHALER/CAPSULE (SPIRIVA) INH (07:25)
[2017-11-15] MEDS: SYMBICORT 80/4.5MCG INHALER 6GM INH (07:25)
[2017-11-15] MEDS: PEN NEEDLE (USE WITH HUMULIN U-500 INSULIN PEN) XX (07:30)
[2017-11-15] MEDS: ALLOPURINOL 300 MG TAB PO (08:06)
[2017-11-15] MEDS: METOCLOPRAMIDE HCL LIQUID 10 MG/10 ML UDC PO (08:06)
[2017-11-15] MEDS: CLOPIDOGREL 75 MG TAB PO (08:06)
[2017-11-15] MEDS: POTASSIUM CHLORIDE 10 MEQ SR TABLET PO (08:07)
[2017-11-15] MEDS: ATENOLOL 25 MG TAB PO (08:11)
[2017-11-15] MEDS: PREGABALIN 100 MG CAP (LYRICA) PO (08:11)
[2017-11-15] MEDS: TORSEMIDE (DEMADEX) 50 MG PER 1/2 TAB PO (08:12)
[2017-11-15] MEDS: PANTOPRAZOLE 40MG INJ (PROTONIX) (C9113) IV (08:12)
[2017-11-15] MEDS: TOUJEO 300 UNIT/ML SC (08:15)
[2017-11-15] MEDS: HUMULIN R U-500 KWIKPEN 500UNITS/ML 3ML SYRINGE (J1815 PER 5UNITS) SC (08:16)
[2017-11-15] MEDS ORDERED: AMOXICILLIN 500 MG CAP PO (14:00)
== END 2017-11-15 09:29 | disposition home or self-care (01) | DRG 48 ==
LOC: M ED 08:46 → M ED INP 12:47 → M MSPAV 15:12
DX: E11.43 Type 2 diabetes mellitus with diabetic autonomic (poly)neuropathy (principal); J96.11 Chronic respiratory failure with hypoxia; N17.9 Acute kidney failure, unspecified; I13.0 Hypertensive heart and chronic kidney disease with heart failure and stage 1 through stage 4 chronic kidney disease, or unspecified chronic kidney disease; E11.22 Type 2 diabetes mellitus with diabetic chronic kidney disease; Z68.43 Body mass index [BMI] 50.0-59.9, adult; K56.7 Ileus, unspecified; I50.32 Chronic diastolic (congestive) heart failure; N18.3 Chronic kidney disease, stage 3 (moderate); K74.60 Unspecified cirrhosis of liver; E66.01 Morbid (severe) obesity due to excess calories; N39.0 Urinary tract infection, site not specified; K31.84 Gastroparesis; E03.9 Hypothyroidism, unspecified; J44.9 Chronic obstructive pulmonary disease, unspecified; G47.33 Obstructive sleep apnea (adult) (pediatric); I25.10 Atherosclerotic heart disease of native coronary artery without angina pectoris; M10.9 Gout, unspecified; R33.9 Retention of urine, unspecified; R32 Unspecified urinary incontinence; K57.30 Diverticulosis of large intestine without perforation or abscess without bleeding; K64.8 Other hemorrhoids; K64.4 Residual hemorrhoidal skin tags; Z86.73 Personal history of transient ischemic attack (TIA), and cerebral infarction without residual deficits; G89.29 Other chronic pain; Z88.6 Allergy status to analgesic agent; Z91.041 Radiographic dye allergy status; Z88.2 Allergy status to sulfonamides; Z88.8 Allergy status to other drugs, medicaments and biological substances; Z88.1 Allergy status to other antibiotic agents; Z79.4 Long term (current) use of insulin; Z79.899 Other long term (current) drug therapy; B95.2 Enterococcus as the cause of diseases classified elsewhere

== ENCOUNTER 2017-12-01 16:43 | Emergency (ER) | payer MEDICAID ==
[2017-12-01] MEDS: KETOROLAC 30 MG/ML VIAL (J1885) IV (18:15)
[2017-12-01] MEDS: METOCLOPRAMIDE INJ 10MG/2ML VIAL (J2765) IV (18:15)
[2017-12-01] MEDS: NS 1,000 ML IV (18:15)
[2017-12-01 18:17] LABS: BASO % 0.4 % (0.0-1.0); EOS # 0.2 10^3/uL (0.0-0.50); EOS % 1.6 % (0.0-3.0); HEMATOCRIT 40.8 % (36.0-47.0); HEMOGLOBIN 13.4 g/dl (12.0-15.5); IMMATURE GRANULOCYTE % 0.5 % (0-3.0); LYMPH # 2.6 10^3/uL (1.5-4.5); LYMPH % 23.1 % (24.0-44.0); MEAN CORPUSCULAR HEMOGLOBIN 26.6 pg (27.0-33.0); MEAN CORPUSCULAR HGB CONC 32.8 g/dl (32.0-36.5); MONO # 0.8 10^3/uL (0.0-0.8); MONO % 7.6 % (0.0-5.0); NEUTROPHILS # 7.4 10^3/uL (1.8-7.7); NEUTROPHILS % 66.8 % (36.0-66.0); PLATELET COUNT, AUTOMATED 404 10^3/uL (150-450); RED BLOOD COUNT 5.04 10^6/uL (4.00-5.40); RED CELL DISTRIBUTION WIDTH 14.7 % (11.5-14.5)
[2017-12-01 18:24] LABS: APPEARANCE, URINE HAZY (CLEAR); BACTERIA, URINE AUTO 2+ (NEGATIVE); BILIRUBIN, URINE AUTO NEGATIVE (NEGATIVE); BLOOD, URINE BLOOD NEGATIVE (NEGATIVE); COLOR, URINE YELLOW (YELLOW); GLUCOSE, URINE (UA) AUTO NEGATIVE (NEGATIVE); KETONE, URINE AUTO NEGATIVE (NEGATIVE); LEUKOCYTE ESTERASE, URINE AUTO 3+ (NEGATIVE); NITRITE, URINE AUTO NEGATIVE (NEGATIVE); PROTEIN, URINE AUTO NEGATIVE (NEGATIVE); RBC, URINE AUTO 3 /HPF (0-3); SPECIFIC GRAVITY URINE AUTO 1.002 (1.002-1.035); SQUAMOUS EPITHELIAL CELL UR AU 1 /HPF (0-6); UROBILINOGEN, URINE AUTO 0.2 mg/dL (0.0-2.0); WBC, URINE AUTO 66 /HPF (0-3)
[2017-12-01 18:26] LABS: ALBUMIN 3.6 GM/DL (3.2-5.2); ALBUMIN/GLOBULIN RATIO 0.77 (1.00-1.93); ALKALINE PHOSPHATASE 232 U/L (45-117); ALT/SGPT 42 U/L (12-78); AMYLASE 30 U/L (25-115); ANION GAP 13 MEQ/L (8-16); AST/SGOT 61 U/L (7-37); BILIRUBIN,TOTAL 0.6 MG/DL (0.2-1.0); BLOOD UREA NITROGEN 12 MG/DL (7-18); C REACTIVE PROTEIN QUANTITATIV 1.11 MG/DL (0.00-0.30); CALCIUM LEVEL 9.7 MG/DL (8.8-10.2); CARBON DIOXIDE LEVEL 24 MEQ/L (21-32); CHLORIDE LEVEL 103 MEQ/L (98-107); CREATININE FOR GFR 1.42 MG/DL (0.55-1.30); GAMMA GLUTAMYLTRANSPEPTIDASE 392 U/L (5-55); GLOMERULAR FILTRATION RATE 39.9 (>45); GLUCOSE, FASTING 122 MG/DL (70-100); LIPASE 124 U/L (73-393); POTASSIUM SERUM 4.2 MEQ/L (3.5-5.1); SODIUM LEVEL 140 MEQ/L (136-145); TOTAL PROTEIN 8.3 GM/DL (6.4-8.2)
[2017-12-01] MEDS: READI-CAT 2 PO ×2 (18:40→19:40)
[2017-12-01] MEDS: PERCOCET 5MG/325MG TAB PO (20:26)
[2017-12-01] MEDS ORDERED: ONDANSETRON 4MG/2ML VIAL (J2405) As Ordered (20:27)
[2017-12-01] MEDS: ONDANSETRON 4MG/2ML VIAL (J2405) IV (20:30)
== END 2017-12-02 00:27 | disposition home or self-care (01) ==
LOC: M ED 12-02 00:27
DX: N39.0 Urinary tract infection, site not specified (principal); R10.9 Unspecified abdominal pain; R11.2 Nausea with vomiting, unspecified; K74.60 Unspecified cirrhosis of liver; I50.9 Heart failure, unspecified; E10.9 Type 1 diabetes mellitus without complications; I10 Essential (primary) hypertension; K21.9 Gastro-esophageal reflux disease without esophagitis; E03.9 Hypothyroidism, unspecified; R56.9 Unspecified convulsions; R51 Headache; J45.909 Unspecified asthma, uncomplicated; J44.9 Chronic obstructive pulmonary disease, unspecified; K57.92 Diverticulitis of intestine, part unspecified, without perforation or abscess without bleeding; K31.84 Gastroparesis; Z86.73 Personal history of transient ischemic attack (TIA), and cerebral infarction without residual deficits; Z87.442 Personal history of urinary calculi; Z98.61 Coronary angioplasty status; Z87.891 Personal history of nicotine dependence; Z79.4 Long term (current) use of insulin; Z79.899 Other long term (current) drug therapy; Z88.6 Allergy status to analgesic agent; Z88.8 Allergy status to other drugs, medicaments and biological substances; Z88.1 Allergy status to other antibiotic agents; Z91.018 Allergy to other foods
CPT/HCPCS: J2405

== ENCOUNTER → 2017-12-01 | Outpatient (CLI) | payer MEDICAID | LOC: M PAIN 15:15 | DX: Z53.29 Procedure and treatment not carried out because of patient's decision for other reasons (principal) ==

== ENCOUNTER → 2017-12-01 | Outpatient (REF) | payer MEDICAID ==
[2017-12-01 19:22] LABS: BASO # 0.1 10^3/uL (0.0-0.2); BASO % 0.5 % (0.0-1.0); EOS # 0.2 10^3/uL (0.0-0.50); EOS % 1.6 % (0.0-3.0); HEMATOCRIT 39.3 % (36.0-47.0); HEMOGLOBIN 12.6 g/dl (12.0-15.5); IMMATURE GRANULOCYTE % 0.4 % (0-3.0); LYMPH # 2.4 10^3/uL (1.5-4.5); LYMPH % 22.2 % (24.0-44.0); MEAN CORPUSCULAR HEMOGLOBIN 26.1 pg (27.0-33.0); MEAN CORPUSCULAR HGB CONC 32.1 g/dl (32.0-36.5); MEAN CORPUSCULAR VOLUME 81.5 fl (80.0-96.0); MONO # 0.8 10^3/uL (0.0-0.8); MONO % 7.3 % (0.0-5.0); NEUTROPHILS # 7.2 10^3/uL (1.8-7.7); PLATELET COUNT, AUTOMATED 375 10^3/uL (150-450); RED BLOOD COUNT 4.82 10^6/uL (4.00-5.40); RED CELL DISTRIBUTION WIDTH 14.7 % (11.5-14.5); WHITE BLOOD COUNT 10.6 10^3/uL (4.0-10.0)
[2017-12-01 19:38] LABS: ALBUMIN 3.4 GM/DL (3.2-5.2); ANION GAP 12 MEQ/L (8-16); BLOOD UREA NITROGEN 12 MG/DL (7-18); CALCIUM LEVEL 9.6 MG/DL (8.8-10.2); CARBON DIOXIDE LEVEL 27 MEQ/L (21-32); CHLORIDE LEVEL 103 MEQ/L (98-107); CREATININE FOR GFR 1.47 MG/DL (0.55-1.30); GLOMERULAR FILTRATION RATE 38.3 (>45); GLUCOSE, FASTING 131 MG/DL (70-100); MAGNESIUM LEVEL 2.4 MG/DL (1.8-2.4); PHOSPHORUS LEVEL 3.1 MG/DL (2.5-4.9); POTASSIUM SERUM 4.2 MEQ/L (3.5-5.1); SODIUM LEVEL 142 MEQ/L (136-145); URIC ACID 6.8 MG/DL (2.6-6.0)
== END ==
LOC: M LAB REF 17:13
DX: N18.3 Chronic kidney disease, stage 3 (moderate) (principal)
CPT/HCPCS: 83735

== ENCOUNTER → 2017-12-05 | Outpatient (CLI) | payer MEDICAID | LOC: M PAIN 11:30 | DX: G89.29 Other chronic pain (principal); G57.91 Unspecified mononeuropathy of right lower limb; M54.5 Low back pain; E11.43 Type 2 diabetes mellitus with diabetic autonomic (poly)neuropathy; I50.9 Heart failure, unspecified; I13.0 Hypertensive heart and chronic kidney disease with heart failure and stage 1 through stage 4 chronic kidney disease, or unspecified chronic kidney disease; N18.4 Chronic kidney disease, stage 4 (severe); E03.9 Hypothyroidism, unspecified; E78.00 Pure hypercholesterolemia, unspecified; J45.909 Unspecified asthma, uncomplicated; J44.9 Chronic obstructive pulmonary disease, unspecified; M10.9 Gout, unspecified; G47.30 Sleep apnea, unspecified; Z87.891 Personal history of nicotine dependence; Z79.4 Long term (current) use of insulin; Z79.899 Other long term (current) drug therapy; Z88.6 Allergy status to analgesic agent; Z88.1 Allergy status to other antibiotic agents; Z91.018 Allergy to other foods; Z88.2 Allergy status to sulfonamides; Z91.041 Radiographic dye allergy status | CPT/HCPCS: G0463 ==

== ENCOUNTER → 2017-12-10 | Outpatient (CLI) | payer MEDICAID ==
[2017-12-10 12:27] LABS: APPEARANCE, URINE CLOUDY (CLEAR); BACTERIA, URINE AUTO 2+ (NEGATIVE); BILIRUBIN, URINE AUTO NEGATIVE (NEGATIVE); BLOOD, URINE BLOOD NEGATIVE (NEGATIVE); COLOR, URINE YELLOW (YELLOW); GLUCOSE, URINE (UA) AUTO NEGATIVE (NEGATIVE); KETONE, URINE AUTO NEGATIVE (NEGATIVE); LEUKOCYTE ESTERASE, URINE AUTO 3+ (NEGATIVE); NITRITE, URINE AUTO NEGATIVE (NEGATIVE); PROTEIN, URINE AUTO NEGATIVE (NEGATIVE); RBC, URINE AUTO 9 /HPF (0-3); SPECIFIC GRAVITY URINE AUTO 1.006 (1.002-1.035); SQUAMOUS EPITHELIAL CELL UR AU 2 /HPF (0-6); UROBILINOGEN, URINE AUTO 0.2 mg/dL (0.0-2.0); WBC, URINE AUTO TNTC /HPF (0-3)
== END ==
LOC: M LAB 11:54
DX: N18.3 Chronic kidney disease, stage 3 (moderate) (principal); R33.9 Retention of urine, unspecified; Z87.440 Personal history of urinary (tract) infections
CPT/HCPCS: 81001

== ENCOUNTER → 2018-01-16 | Outpatient (REF) | payer MEDICAID | LOC: M LAB REF 13:12 | DX: N39.0 Urinary tract infection, site not specified (principal) ==

== ENCOUNTER → 2018-01-29 | Outpatient (CLI) | payer MEDICAID | LOC: M RAD 10:10 | DX: M16.11 Unilateral primary osteoarthritis, right hip (principal); M94.251 Chondromalacia, right hip; M76.891 Other specified enthesopathies of right lower limb, excluding foot | CPT/HCPCS: 73700 ==

== ENCOUNTER → 2018-02-09 | Outpatient (CLI) | payer OTHER, MEDICAID ==
[~2018-02-09] MED LIST changes: -ISOVUE-M 300 61% 15ML VIAL (Q9967) As Ordered; +TRIAMCINOLONE ACETONIDE SUSP 40 MG/ML VIAL (J3301) As Ordered; +diazePAM 5 MG TAB As Ordered
[2018-02-09 12:22] LABS: BEDSIDE GLUCOSE 151 MG/DL (80-115)
== END ==
LOC: M PAIN 10:00
DX: G57.91 Unspecified mononeuropathy of right lower limb (principal); E11.43 Type 2 diabetes mellitus with diabetic autonomic (poly)neuropathy; E11.22 Type 2 diabetes mellitus with diabetic chronic kidney disease; I12.9 Hypertensive chronic kidney disease with stage 1 through stage 4 chronic kidney disease, or unspecified chronic kidney disease; N18.4 Chronic kidney disease, stage 4 (severe); E03.9 Hypothyroidism, unspecified; J44.9 Chronic obstructive pulmonary disease, unspecified; E78.00 Pure hypercholesterolemia, unspecified; G47.30 Sleep apnea, unspecified; K31.84 Gastroparesis; Z79.01 Long term (current) use of anticoagulants; Z79.51 Long term (current) use of inhaled steroids; Z79.4 Long term (current) use of insulin; Z79.899 Other long term (current) drug therapy; Z88.1 Allergy status to other antibiotic agents; Z88.6 Allergy status to analgesic agent; Z88.8 Allergy status to other drugs, medicaments and biological substances; Z91.041 Radiographic dye allergy status; Z91.02 Food additives allergy status; Z86.73 Personal history of transient ischemic attack (TIA), and cerebral infarction without residual deficits; Z86.79 Personal history of other diseases of the circulatory system; Z87.891 Personal history of nicotine dependence
CPT/HCPCS: J3301

== ENCOUNTER → 2018-02-11 | Outpatient (CLI) | payer OTHER ==
[2018-02-11 11:48] LABS: BASO % 0.4 % (0.0-1.0); EOS # 0.2 10^3/uL (0.0-0.50); EOS % 1.9 % (0.0-3.0); HEMATOCRIT 36.3 % (36.0-47.0); HEMOGLOBIN 11.6 g/dl (12.0-15.5); IMMATURE GRANULOCYTE % 0.4 % (0-3.0); LYMPH # 1.8 10^3/uL (1.5-4.5); LYMPH % 21.3 % (24.0-44.0); MEAN CORPUSCULAR HEMOGLOBIN 26.9 pg (27.0-33.0); MONO # 0.6 10^3/uL (0.0-0.8); MONO % 7.2 % (0.0-5.0); NEUTROPHILS # 5.7 10^3/uL (1.8-7.7); NEUTROPHILS % 68.8 % (36.0-66.0); PLATELET COUNT, AUTOMATED 272 10^3/uL (150-450); RED BLOOD COUNT 4.32 10^6/uL (4.00-5.40); RED CELL DISTRIBUTION WIDTH 14.1 % (11.5-14.5); WHITE BLOOD COUNT 8.3 10^3/uL (4.0-10.0)
[2018-02-11 11:56] LABS: APPEARANCE, URINE HAZY (CLEAR); BACTERIA, URINE AUTO 3+ (NEGATIVE); BILIRUBIN, URINE AUTO NEGATIVE (NEGATIVE); BLOOD, URINE BLOOD NEGATIVE (NEGATIVE); COLOR, URINE YELLOW (YELLOW); GLUCOSE, URINE (UA) AUTO NEGATIVE (NEGATIVE); KETONE, URINE AUTO NEGATIVE (NEGATIVE); LEUKOCYTE ESTERASE, URINE AUTO 3+ (NEGATIVE); MUCUS, URINE SMALL (NEGATIVE); NITRITE, URINE AUTO NEGATIVE (NEGATIVE); PROTEIN, URINE AUTO NEGATIVE (NEGATIVE); RBC, URINE AUTO 0 /HPF (0-3); SPECIFIC GRAVITY URINE AUTO 1.012 (1.002-1.035); SQUAMOUS EPITHELIAL CELL UR AU 0 /HPF (0-6); WBC, URINE AUTO 122 /HPF (0-3)
[2018-02-11 13:07] LABS: ALBUMIN 3.2 GM/DL (3.2-5.2); ANION GAP 9 MEQ/L (8-16); BLOOD UREA NITROGEN 34 MG/DL (7-18); CALCIUM LEVEL 9.2 MG/DL (8.8-10.2); CARBON DIOXIDE LEVEL 27 MEQ/L (21-32); CHLORIDE LEVEL 105 MEQ/L (98-107); CREATININE FOR GFR 1.02 MG/DL (0.55-1.30); GLOMERULAR FILTRATION RATE 58.5 (>45); GLUCOSE, FASTING 194 MG/DL (70-100); MAGNESIUM LEVEL 2.3 MG/DL (1.8-2.4); PHOSPHORUS LEVEL 2.7 MG/DL (2.5-4.9); POTASSIUM SERUM 4.6 MEQ/L (3.5-5.1); PTH INTACT 84.8 PG/ML (18.5-88.0); SODIUM LEVEL 141 MEQ/L (136-145); URIC ACID 4.5 MG/DL (2.6-6.0)
== END ==
LOC: M LAB 10:58
DX: N18.3 Chronic kidney disease, stage 3 (moderate) (principal)
CPT/HCPCS: 83735

== ENCOUNTER 2018-02-17 17:44 | Emergency (ER) | payer OTHER ==
[2018-02-17] MEDS ORDERED: IPRATROPIUM 0.02% SOLN 0.5MG/2.5 ML NEB INH (18:15)
[2018-02-17] MEDS ORDERED: ALBUTEROL SULFATE 2.5 MG/0.5 ML INH NEB SOLN INH (18:15)
[2018-02-17] MEDS: ALBUTEROL SULFATE 2.5 MG/0.5 ML INH NEB SOLN INH (18:25)
[2018-02-17] MEDS: IPRATROPIUM 0.5MG/ALBUTEROL 2.5MG INH SOL UD 3ML (DUONEB)(J7620) NEB (18:25)
[2018-02-17 18:36] LABS: BASO % 0.4 % (0.0-1.0); EOS # 0.1 10^3/uL (0.0-0.50); EOS % 1.8 % (0.0-3.0); HEMATOCRIT 36.1 % (36.0-47.0); HEMOGLOBIN 11.4 g/dl (12.0-15.5); IMMATURE GRANULOCYTE % 0.4 % (0-3.0); LYMPH # 1.7 10^3/uL (1.5-4.5); LYMPH % 21.7 % (24.0-44.0); MEAN CORPUSCULAR HEMOGLOBIN 26.5 pg (27.0-33.0); MEAN CORPUSCULAR HGB CONC 31.6 g/dl (32.0-36.5); MONO # 0.6 10^3/uL (0.0-0.8); NEUTROPHILS # 5.5 10^3/uL (1.8-7.7); NEUTROPHILS % 68.7 % (36.0-66.0); PLATELET COUNT, AUTOMATED 234 10^3/uL (150-450); RED CELL DISTRIBUTION WIDTH 14.4 % (11.5-14.5)
[2018-02-17] MEDS: dexameTHASONE 20 MG/5 ML VIAL (J1100) IV (18:41)
[2018-02-17 18:43] LABS: INR 1.02; PROTHROMBIN TIME 13.5 SECONDS (12.1-14.4)
[2018-02-17 18:44] LABS: PARTIAL THROMBOPLASTIN TIME 29.8 SECONDS (25.4-37.6)
[2018-02-17 19:56] LABS: BLOOD UREA NITROGEN 33 MG/DL (7-18); CREATININE FOR GFR 1.11 MG/DL (0.55-1.30); GLUCOSE, FASTING 297 MG/DL (70-100)
[2018-02-17 19:57] LABS: ALT/SGPT 50 U/L (12-78); ANION GAP 6 MEQ/L (8-16); AST/SGOT 55 U/L (7-37); CALCIUM LEVEL 8.7 MG/DL (8.8-10.2); CARBON DIOXIDE LEVEL 28 MEQ/L (21-32); CHLORIDE LEVEL 107 MEQ/L (98-107); CK-MB VALUE MASS < 1.0 NG/ML (<3.6); CPK CREATINE PHOSPHOKINASE 48 U/L (26-192); POTASSIUM SERUM 4.3 MEQ/L (3.5-5.1); SODIUM LEVEL 141 MEQ/L (136-145)
[2018-02-17 19:58] LABS: ALBUMIN 3.2 GM/DL (3.2-5.2); ALBUMIN/GLOBULIN RATIO 0.91 (1.00-1.93); ALKALINE PHOSPHATASE 229 U/L (45-117); BILIRUBIN,DIRECT 0.2 MG/DL (0.0-0.2); BILIRUBIN,TOTAL 0.4 MG/DL (0.2-1.0); C REACTIVE PROTEIN QUANTITATIV 1.41 MG/DL (0.00-0.30); TOTAL PROTEIN 6.7 GM/DL (6.4-8.2); TROPONIN I < 0.02 NG/ML (< 0.10)
== END 2018-02-17 20:47 | disposition home or self-care (01) ==
LOC: M ED 17:44
DX: J44.1 Chronic obstructive pulmonary disease with (acute) exacerbation (principal); I50.9 Heart failure, unspecified; E11.9 Type 2 diabetes mellitus without complications
CPT/HCPCS: J1100

== ENCOUNTER → 2018-02-27 | Outpatient (CLI) | payer OTHER, MEDICAID | LOC: M PAIN 10:30 | DX: M47.816 Spondylosis without myelopathy or radiculopathy, lumbar region (principal); G57.91 Unspecified mononeuropathy of right lower limb; E11.22 Type 2 diabetes mellitus with diabetic chronic kidney disease; I50.9 Heart failure, unspecified; I12.9 Hypertensive chronic kidney disease with stage 1 through stage 4 chronic kidney disease, or unspecified chronic kidney disease; E03.9 Hypothyroidism, unspecified; E78.00 Pure hypercholesterolemia, unspecified; J45.909 Unspecified asthma, uncomplicated; J44.9 Chronic obstructive pulmonary disease, unspecified; M10.9 Gout, unspecified; Z86.73 Personal history of transient ischemic attack (TIA), and cerebral infarction without residual deficits; N18.4 Chronic kidney disease, stage 4 (severe); E11.43 Type 2 diabetes mellitus with diabetic autonomic (poly)neuropathy; K31.84 Gastroparesis; Z79.4 Long term (current) use of insulin; Z79.02 Long term (current) use of antithrombotics/antiplatelets; Z79.899 Other long term (current) drug therapy; Z87.891 Personal history of nicotine dependence; Z88.1 Allergy status to other antibiotic agents; Z88.6 Allergy status to analgesic agent; Z88.8 Allergy status to other drugs, medicaments and biological substances; Z91.018 Allergy to other foods; Z91.041 Radiographic dye allergy status | CPT/HCPCS: G0463 ==

== ENCOUNTER → 2018-04-15 | Outpatient (CLI) | payer MEDICAID ==
[~2018-04-15] MED LIST changes: +/MOXI40TA OR; +/PANT40TA PO; +ADV250INH INH; +ALBU17IN2 IN; +ALBU2TA INH; +ALLO100T PO; +ALLO10TA PO; +AMLO5TAB6 PO; +AMOX500C PO; +AMPI500C9 PO; +ANTI25TA OR; +ANTI25TA PO; +ANUSHCSU PR; +ATEN25TA PO; +ATEN50TA2 OR; +ATEN50TA2 PO; +AUGM500T34 PO; +AUGM875T28 PO; +AVEL1TAB3 PO; +AZIT500T2 PO; +BACITAB PO; +BACT800T5 PO; +BELB75MI BUC; +BENT10CA PO; +BENZ-18 PO; +BREO1INH3 INH; +BUDE0.254 INH; -BUPIVACAINE HCL 0.25% 30 ML VIAL As Ordered; +BUPIVACAINE HCL 0.25% 30 ML VIAL As Ordered ONE; +CALC1CAP31 PO; +CARD120T6 OR; +CEFD1CAP8 PO; +CIPR-249 PO; +CLEADRO8 OU; +CLIN200T OR; +CLIN300C OR; +CLOP75TA2 PO; +COLC0.6T OR; +COLC0.6T34 PO; +CRES40TA PO; +DALI500T PO; +DELTASONE PO; +DEMA100T PO; +DEMA20TA6 PO; +DICY1CAP8 PO; +DICY20TA11 PO; +DIFL150T PO; +DILA2TAB OR; +DOCU10ELUD PO; +DOXY100T OR; +FAMO40TA2 PO; +FAMO40TA3 PO; +FENO145T13 PO; +FENO160T10 PO; +FLAG500T PO; +FLOM0.4C39 PO; +FLON1SPR; +FLUC10TA PO; +HEPA1INJ4 IV; +HUMUINJ3 SC; +INCR1INH INH; +INSUHUMDS SC; +INSULANT SC; +INSUN SC; +INSUR50VL SC; +INVA1INJ IV; +ISOVUE-M 300 61% 15ML VIAL (Q9967) As Ordered ONE; +Insulin; +K-TA10TA2 PO; +KEFL500C17 PO; +KLOR10TA76 PO; +KLOR1TAB69 PO; +LASI80TA OR; +LEVA1TAB2 PO; +LEVO75TA4 PO; -LIDOCAINE 1% SDV INJ 30 ML VIAL As Ordered; +LIDOCAINE 1% SDV INJ 30 ML VIAL As Ordered ONE; +LINZ145C PO; +LINZ290C PO; +LISI10TA4 OR; +LISI2.5T PO; +LOFI160T PO; +LOSA25TA14 PO; +LYRI150C PO; +LYRI75CA OR; +MACR100C43 PO; +MECL-68 PO; +METO10ELUD PO; +METO10TA2; +METO10TA2 PO; +MIRA3350 PO; +NEUR300C OR; +NITR PO; +NITR-67 PO; +NOVO70VL SC; +NYAM10003 EXT; +NYST10PW EXT; +ONDA4TAB6 PO; +OSPH1TAB PO; +OXYB5TAB10 PO; +PANT40TA3 PO; +PEPC40SU PO; +PERC7.5T8 OR; +PLAV75TA2 PO; +POTA10TA16 PO; +POTA1TAB23; +POTA20PO4 PO; +PRED10TA PO; +PRED20TA PO; +PRED5TA PO; +PRIL20CA OR; +PROT20TA11 PO; +ROXI1TAB2 PO; +SALI0.9I2 IV; +SENN1TAB10 PO; +SENO8.6T10 PO; +SENO8.6T9 PO; +SUCR1SS PO; +SYNT75TA PO; +SYNT88TA2 PO; +TENO50TA PO; +TIGA300C2 PO; +TIZA4CAP PO; +TORS100T; +TORS100T PO; +TORS100T12 PO; +TORS20TA2 PO; +TOUJ1.2I SC; +TRAM50TA2 OR; -TRIAMCINOLONE ACETONIDE SUSP 40 MG/ML VIAL (J3301) As Ordered; +TRIAMCINOLONE ACETONIDE SUSP 40 MG/ML VIAL (J3301) As Ordered ONE; +TUMS500C PO; +TYLE325T5 PO; +VENTAER INH; +VICO5TAB OR; +VITA50005 PO; +ZANA4CAP PO; +ZOCO80TA PO; +ZOFR4TAB14 PO; +ZOFR8TAB24 PO; +ZYLO300T6 PO; +[UNRECOGNIZED DRUG - CODE] SC; +[UNRECOGNIZED DRUG - REMARK] PO; +[UNRECOGNIZED DRUG - REMARK] PO; +albuterol inhaler INH; -diazePAM 5 MG TAB As Ordered
--- NOTE | 2018-04-15 17:32 | REP ---
Partial lumbar spine: Single view. History: Right-sided facet block for pain. 27 seconds of fluoroscopy time is reported. Findings: A single last image hold fluoroscopically obtained spot radiograph of the lumbar spine documents various needle positions associated with lumbar facet injection. Electronically Signed by González Jamison MD 04/15/2018 08:45 P
--- NOTE | 2018-05-04 00:06 | ECWPNPC ---
PATIENT NAME: NU WOODARD : 1955 GENDER: FEMALE VISIT DATE: 04/15/2018 DISCHARGE DATE: 04/15/18 1519 VISIT LOCKED DATE TIME: PHYSICIAN: ANAY BENTLEY MD RESOURCE: ANAY BENTLEY MD REASON FOR APPOINTMENT 1. RIGHT LFBD #2 HISTORY OF PRESENT ILLNESS HISTORY OF PRESENT ILLNESS: PAIN THE PATIENT DESCRIBES THE PAIN... FALL RISK SCREENING: SCREENING :NO FALLS IN THE PAST YEAR CURRENT MEDICATIONS TAKING INCRUSE ELLIPTA 62.5 MCG/INH AEROSOL POWDER BREATH ACTIVATED 1 PUFF INHALATION ONCE A DAY, NOTES: 04/15/18 AM TAKING SYNTHROID 88 MCG TABLET 1 TABLET EVERY MORNING ON AN EMPTY STOMACH ORALLY ONCE A DAY, NOTES: 04/14/18 TAKING LYRICA 150 MG CAPSULE 1 CAPSULE ORALLY THREE TIMES A DAY, NOTES: 04/14/18 TAKING ANTIVERT 25 MG TABLET 1 TABLET ORALLY TID, NOTES: 04/14/18 TAKING ALLOPURINOL 300 MG TABLETS 1 TAB ORALLY DAILY, NOTES: 04/14/18 TAKING TORSEMIDE 100 MG TABLET 1/2 TAB ORALLY BID, NOTES: 04/14/18 TAKING BREO ELLIPTA 200-25 MCG/INH AEROSOL POWDER BREATH ACTIVATED 1 PUFF INHALATION ONCE A DAY, NOTES: 04/12/18 TAKING LINZESS 290 MCG CAPSULE 1 CAPSULE ORALLY ONCE A DAY PRN, NOTES: NONE LATELY TAKING POTASSIUM CHLORIDE 10 MEQ CAPSULE EXTENDED RELEASE 1 CAPSULE WITH FOOD ORALLY TWO TIMES A DAY, NOTES: 04/14/18 TAKING CALCITRIOL 0.25 MCG CAPSULE 1 CAPSULE ORALLY TWICE WEEKLY, NOTES: 04/12/18 TAKING HUMULIN R U-500 (CONCENTRATED) 500 UNIT/ML SOLUTION DIRECTED SLIDING SCALE BETWEEN 18 AND 27 UNITS SUBCUTANEOUS EVERY 3 HRS., NOTES: 04/14/18 TAKING TOUJEO SOLOSTAR 300 UNIT/ML SOLUTION PEN-INJECTOR 100 SUBCUTANEOUS BID, NOTES: 04/14/18 TAKING SIMVASTATIN 80 MG TABLET 1 TABLET IN THE EVENING ORALLY ONCE A DAY, NOTES: 04/14/18 TAKING VITAMIN D (ERGOCALCIFEROL) 23347 UNIT CAPSULE 1 CAPSULE ORALLY MONTHLY, NOTES: 02/2018 TAKING VOLTAREN 1 % GEL 3 CC AT [facility] AREA TRANSDERMAL TID PRN FOR PAIN, NOTES: LAST WEEKEND TAKING ATENOLOL 25 MG TABLET 1 TABLET ORALLY BID, NOTES: 04/14/18 TAKING CATHETERS 14 FR MISCELLANEOUS DIRECTED TID TAKING LATEX GLOVES LARGE 1 BOX MISCELLANEOUS DIRECTED NEEDED FOR CIC TAKING BETADINE SWABSTICKS 10 % SWAB DIRECTED EXTERNALLY QID- WITH CIC TAKING MACRODANTIN 50 MG CAPSULE 1 CAPSULE WITH FOOD OR MILK ORALLY ONCE A DAY, NOTES: 04/14/18 TAKING PLAVIX 75 MG TABLET 1 TABLET ORALLY ONCE A DAY, NOTES: 04/06/18 TAKING POISE MAXIMUM ABSORBENCY . PAD DIRECTED CHANGE NEEDED, DX CODE- N39.46 TAKING BLADDER CONTROL PADS EX ABSORB - MISCELLANEOUS DIRECTED PARTHA PLUS MAXI NOT-TAKING TIZANIDINE HCL 4 MG TABLET 1 TABLET NEEDED ORALLY EVERY 8 HRS NOT-TAKING BELBUCA 75 MCG FILM 1 FILM TO THE GUM BUCALLY FOR PAIN BID, NOTES: NOT TAKING LATELY BEEN A MONTH NOT-TAKING AMPICILLIN 500 MG CAPSULE 1 CAPSULE 1 HOUR BEFORE OR 2 HOURS AFTER A MEAL ORALLY EVERY 6 HRS NOT-TAKING KEFLEX 500 MG CAPSULE 1 CAPSULE ORALLY EVERY 12 HRS, NOTES: WILL START TODAY NOT-TAKING NYSTATIN POWDER 6 MU/GM POWDER DIRECTED TWICE A DAY MEDICATION LIST REVIEWED AND RECONCILED WITH THE PATIENT PAST MEDICAL HISTORY 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 DR HAYNES KIDNEY DISEASE/FAILURE 2007 DR KNUTSON HYPERTENSION HYPOTHYROIDISM HYPERCHOLESTEROLEMIA ASTHMA COPD [facility] GOUT BRAIN STROKE-07/06 PITUITARY TUMOR-2007 SLEEP APNEA/CPAP 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 GASTROPARESIS KIDNEY STAGE IV 2017 UTI ALLERGIES ASPIRIN: ANAPHYLAXIS: ALLERGY BEEF FLAVOR: SWELLING/FEVER: ALLERGY LEVAQUIN: KIDNEY FAILURE BACTRIM: KIDNEY FAILURE FLAGYL: KIDNEY FAILURE IVP DYE, IODINE: KIDNEY FAILURE QUINALONES: KIDNEY FAILURE SURGICAL HISTORY SHANELLE AND BSO 12/15/1996 COLONOSCOPY X 5 ,8 POLYPS BEIGN 2007,11/2015 BREAST BIOPSY/MASS REMOVED-RIGHT BREAST 06/24/2002 APPENDECTOMY 10/09/2002 LEFT URETERAL STONE 01/29/1979 BRAIN TUMOR TUBAL LIGATION 10/30/1975 WART REMOVAL - EYES VAGINAL BLADDER LIFT - SLING & CYSTOCELE REPAIR 1998 URETHERAL DILATION 11/15/1999 RIGHT METAL PLATE INSERTED INTO RIGHT LEG - "TUMOR FROM FALL" CYSTOSCOPY 09/24/13 SOCIAL HISTORY GENERAL: TOBACCO USE ARE YOU A:FORMER SMOKER HOW LONG HAS IT BEEN SINCE YOU LAST SMOKED?> 10 YEARS ALCOHOL SCREENING DID YOU HAVE A DRINK CONTAINING ALCOHOL IN THE PAST YEAR?NO POINTS0 INTERPRETATIONNEGATIVE CAFFEINE CAFFEINE USE?NO LANGUAGE LANGUAGES SPOKEN:BOTH [place] AND [place] LEARNING BARRIERS / SPECIAL NEEDS READINESS TO LEARN?YES LEARNING PREFERENCES?NO DOMESTIC VIOLENCE DO YOU FEEL SAFE IN YOUR ENVIRONMENT?YES PAIN CLINIC PFS, CLERGY, PUBLIC HEALTH REFERRALS PFS REFERRAL NEEDED?NO CLERGY REFERRAL NEEDED?NO PUBLIC HEALTH REFERRAL NEEDED?NO WAS THE PROVIDER NOTIFIED OF ANY PERTINENT INFO?YES N/A HAS THE PATIENT BEEN EDUCATED REGARDING HIS/HER PLAN OF CARE?YES HAS THE PATIENT BEEN EDUCATED REGARDING PAIN, THE RISK FOR PAIN, THE IMPORTANCE OF EFFECTIVE PAIN MANAGEMENT, AND THE PAIN ASSESSMENT PROCESS?YES ADVANCE DIRECTIVE ADVANCE DIRECTIVE DISCUSSED WITH PATIENT:YES DECLINED 10/20/17 1535 REVIEWED WITH PT. SAURABHVIEWED 02/09/18 1056 BV. HOSPITALIZATION/MAJOR DIAGNOSTIC PROCEDURE SURGICAL RELATED CVA KIDNEY FAILURE UTI [facility] 07/2013 [facility] 09/08/13 [facility] UTI 09/30/13-10/06/13 KIDNEY FAILURE 01/05/112013 ABDOMINAL PAIN-LIVER BIOPSY-CYST 08/2015 AND 09/2015 RENAL FAILURE/UTI 01/2017 &02/2017 REVIEW OF SYSTEMS REVIEWED BY: PROVIDER: . CONSTITUTIONAL: ANY CHANGE IN YOUR MEDICAL CONDITION? NO . CHILLS NO . FEVER NO . INFECTION: DO YOU HAVE NEW INFECTIONS? NO . DO YOU HAVE HISTORY OF MRSA? NO . MUSCULOSKELETAL: ANY NEW PATTERNS OF PAIN OR NUMBNESS? YES, RIGHT LEG NUMBNESS AND PAIN X 1 MONTH . GASTROENTEROLOGY: ANY NEW CHANGE IN BOWEL CONTROL? NO . GENITOURINARY: ANY NEW CHANGE IN BLADDER CONTROL? NO . IS THERE A CHANCE YOU COULD BE ? NO . HEMATOLOGY/LYMPH: DO YOU TAKE ANY BLOOD THINNERS? (FOR EXAMPLE- COUMADIN, PLAVIX, AGGRENOX, PLATEL, PRADAXA, OR XARELTO) YES, PLAVIX 04/06/18 . WHEN WAS YOUR LAST DOSE? DATE: TIME: . NEUROLOGY: HAVE YOU FALLEN IN THE PAST 6 MONTHS? NO . ANY NEW EXTREMITY NUMBNESS OR WEAKNESS? NO . CARDIOLOGY: DO YOU HAVE A PACEMAKER OR DEFIBRILLATOR? NO . RESPIRATORY: HAVE YOU BEEN SICK IN THE PAST WEEK? NO . FEVER NO . FLU LIKE SYMPTOMS? NO . COUGH NO . INTEGUMENTARY: DO YOU HAVE ANY RASHES OR OPEN SORES? NO . ALLERGIC/IMMUNO: ARE YOU ALLERGIC TO SHELLFISH OR IV DYE? YES, IV DYE . ANY NEW ALLERGIES? NO . PSYCHIATRIC: DO YOU HAVE THOUGHTS OF HURTING YOURSELF OR SOMEONE ELSE? NO . ARE YOU ABUSED, NEGLECTED, OR IN AN UNSAFE ENVIRONMENT? NO . ENDOCRINOLOGY: ARE YOU DIABETIC? YES . OTHER: DO YOU NEED ANY PRESCRIPTIONS? NO . IF YES, PLEASE LIST: ____ . ANY NEW PROBLEMS WITH YOUR MEDICATIONS? NO . WHEN DID YOU LAST EAT? 0500 04/15/18 . WHEN DID YOU LAST DRINK? 04/15/18 0700 . WHAT DID YOU LAST DRINK? MIKKI LEA . NAME OF PERSON DRIVING YOU HOME? [facility] . DO YOU HAVE ANY OTHER QUESTIONS OR CONCERNS NO . VITAL SIGNS WT 327 LBS, HT 65.5 IN, BMI 53.58 INDEX, BP 132/63 MM HG, HR 75 /MIN, RR 18 /MIN, TEMP 96.9 F, OXYGEN SAT % 95%, NA INITIALS AW 1238. ASSESSMENTS SPONDYLOSIS OF LUMBAR REGION WITHOUT MYELOPATHY OR RADICULOPATHY - M47.816 (PRIMARY) PROCEDURES PN LUMBAR FACET BLOCK DIAGNOSTIC PRE PROCEDURE DIAGNOSIS LUMBAR SPONDYLOSIS POST PROCEDURE DIAGNOSIS LUMBAR SPONDYLOSIS PROCEDURE RIGHT L3-L4 AND RIGHT L4-L5 FACET BLOCK DIAGNOSTIC NUMBER [address] 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 I EVALUATED THE PATIENT AND REVIEWED THE CHART. I WENT OVER THE RISKS, ALTERNATIVES, AND BENEFITS ASSOCIATED WITH THIS PROCEDURE. THE PATIENT WOULD LIKE TO PROCEED AND GAVE CONSENT TO PERFORM THE PROCEDURE. AGREED WITH THE PATIENT WE ARE DOING THIS PROCEDURE TO DETERMINE IF THE PATIENT IS A CANDIDATE FOR A RADIOFREQUENCY ABLATION OF THE FACETS JOINTS. THE PATIENT DENIES UNEXPLAINABLE WEIGHT LOSS, FEVER, CHILLS, OR NEW CHANGES IN URINARY OR BOWEL CONTROL DESCRIPTION OF PROCEDURE THE PATIENT WAS BROUGHT TO THE PROCEDURE ROOM AND PLACED IN THE PRONE POSITION. THE LUMBOSACRAL AREA WAS CLEANED WITH CHLORAPREP SOLUTION AND DRAPED ASEPTICALLY. THE PROCEDURE WAS DONE UNDER STERILE CONDITIONS. I CHECKED LATERALITY AND THE LEVEL WHERE THE PROCEDURE WAS GOING TO BE PERFORMED WITH THE PATIENT AND THE SUPPORTING STAFF AT THE MOMENT OF THE TIME OUT IN THE PROCEDURE ROOM. UNDER FLUOROSCOPIC GUIDANCE, TARGETS WERE SELECTED AT THE INTERSECTION OF THE RIGHT TRANSVERSE PROCESS OF L3, L4 AND ALA OF L5 WITH ITS RESPECTIVE SUPERIOR ARTICULAR PROCESS. LIDOCAINE WAS USED TO NUMB THE SKIN AND THE SUBCUTANEOUS TISSUE BELOW IT. SPINAL NEEDLE, 22-GAUGE WAS ADVANCED UNDER FLUOROSCOPIC GUIDANCE AND FOLLOWING PATIENT FEEDBACK UNTIL THE TARGETS WERE REACHED. POSITION OF THE NEEDLES WAS VERIFIED WITH AP AND LATERAL VIEWS. AFTER PROPER POSITION OF THE NEEDLES WAS ACHIEVED, ISOVUE-M DYE 30% 0.1 ML WAS INJECTED AT EACH SITE SHOWING ADEQUATE SPREAD OF THE DYE. THEN A SOLUTION OF 0.4 ML OF BUPIVACAINE 0.25% WAS INJECTED AT EACH SITE. THERE WAS NO EVIDENCE OF BLOOD, PARESTHESIA OR CEREBROSPINAL FLUID DURING THE PROCEDURE. THE PATIENT WAS SENT TO THE RECOVERY ROOM. THE PATIENT WAS MOVING THE EXTREMITIES AND DOING WELL. THERE WAS NO COMPLICATION DURING THE PROCEDURE. FLUOROSCOPY TIME WAS 35 SECONDS POST PROCEDURE NOTE THE PATIENT WILL DOCUMENT HIS PAIN LEVEL AND RESPONSE TO THIS PROCEDURE EVERY 30 MINUTES. THE PATIENT WILL BE SEEN IN A FOLLOW UP IN THE NEXT FEW WEEKS. FURTHER DETERMINATION FOR HIS CASE WILL BE DONE AT THE NEXT VISIT. INSTRUCTIONS WERE GIVEN, QUESTIONS WERE ANSWERED, AND THE PATIENT EXPRESSED UNDERSTANDING AND AGREED WITH THE PLAN. I, NICOLE PINA, DOCUMENTED THE ABOVE INFORMATION ACTING A SCRIBE FOR DR. BENTLEY. I HAVE REVIEWED THE ABOVE DOCUMENT, WRITTEN BY NICOLE MOORE AND I VERIFY THAT IT IS ACCURATE. DIAGNOSTIC IMAGING [facility] FACET BLOCK (PAIN)[id number] PROCEDURE CODES 6045F RADXPS IN END [id number] PXD [id number] INJ PARAVERT F JNT L/S 1 LEV, MODIFIERS: [place] [id number] INJ PARAVERT F JNT L/S 2 LEV, MODIFIERS: RT DISPOSITION & COMMUNICATION FOLLOW UP 3 WEEKS ELECTRONICALLY SIGNED BY ANAY BENTLEY MD, ON 05/03/2018 AT 02:22 PM EST DISCLAIMER : THIS IS A VISIT SUMMARY EXTRACTED FROM THE [employer] CHART. IT IS NOT A COPY OF THE [employer] PROGRESS NOTE. MTDD
== END ==
LOC: M PAIN 12:15
PROVIDERS: ATTEND Anesthesiology
DX: M47.816 Spondylosis without myelopathy or radiculopathy, lumbar region (principal); E11.9 Type 2 diabetes mellitus without complications; I50.9 Heart failure, unspecified; N18.4 Chronic kidney disease, stage 4 (severe); I13.0 Hypertensive heart and chronic kidney disease with heart failure and stage 1 through stage 4 chronic kidney disease, or unspecified chronic kidney disease; E03.9 Hypothyroidism, unspecified; E78.00 Pure hypercholesterolemia, unspecified; J45.909 Unspecified asthma, uncomplicated; J44.9 Chronic obstructive pulmonary disease, unspecified; M10.9 Gout, unspecified; Z86.73 Personal history of transient ischemic attack (TIA), and cerebral infarction without residual deficits; G47.30 Sleep apnea, unspecified; Z87.891 Personal history of nicotine dependence; Z79.02 Long term (current) use of antithrombotics/antiplatelets; Z79.4 Long term (current) use of insulin; Z79.899 Other long term (current) drug therapy; Z88.6 Allergy status to analgesic agent; Z88.2 Allergy status to sulfonamides; Z91.041 Radiographic dye allergy status; Z91.018 Allergy to other foods
CPT/HCPCS: 64493; 64494; J3301; Q9967

== ENCOUNTER 2018-04-16 08:48 | Outpatient (RCR) | payer OTHER | END 2018-04-27 | LOC: M PT 08:48 | PROVIDERS: ATTEND Orthopaedic Surgery | DX: M79.621 Pain in right upper arm (principal) ==

== ENCOUNTER → 2018-04-16 | Outpatient (CLI) | payer OTHER, MEDICAID ==
[~2018-04-16] MED LIST changes: +AMLO5TAB4 PO; -AMLO5TAB6 PO; -BUPIVACAINE HCL 0.25% 30 ML VIAL As Ordered ONE; -ISOVUE-M 300 61% 15ML VIAL (Q9967) As Ordered ONE; -LIDOCAINE 1% SDV INJ 30 ML VIAL As Ordered ONE; -LOSA25TA14 PO; +LOSA25TA33 PO; -NITR-67 PO; +NITRO10CA PO; -TRIAMCINOLONE ACETONIDE SUSP 40 MG/ML VIAL (J3301) As Ordered ONE
[2018-04-16 11:34] LABS: BASO # 0.1 10^3/uL (0.0-0.2); BASO % 0.6 % (0.0-1.0); EOS # 0.2 10^3/uL (0.0-0.50); EOS % 2.5 % (0.0-3.0); HEMATOCRIT 37.4 % (36.0-47.0); HEMOGLOBIN 11.7 g/dl (12.0-15.5); LYMPH # 1.8 10^3/uL (1.5-4.5); LYMPH % 22.6 % (24.0-44.0); MEAN CORPUSCULAR HEMOGLOBIN 25.3 pg (27.0-33.0); MEAN CORPUSCULAR HGB CONC 31.3 g/dl (32.0-36.5); MEAN CORPUSCULAR VOLUME 80.8 fl (80.0-96.0); MONO # 0.6 10^3/uL (0.0-0.8); MONO % 7.2 % (0.0-5.0); NEUTROPHILS # 5.4 10^3/uL (1.8-7.7); NEUTROPHILS % 66.4 % (36.0-66.0); PLATELET COUNT, AUTOMATED 286 10^3/uL (150-450); RED BLOOD COUNT 4.63 10^6/uL (4.00-5.40); WHITE BLOOD COUNT 8.1 10^3/uL (4.0-10.0)
[2018-04-16 11:35] LABS: AMORPHOUS SEDIMENT SMALL (NEGATIVE); APPEARANCE, URINE HAZY (CLEAR); BACTERIA, URINE AUTO 3+ (NEGATIVE); BILIRUBIN, URINE AUTO NEGATIVE (NEGATIVE); BLOOD, URINE BLOOD NEGATIVE (NEGATIVE); COLOR, URINE YELLOW (YELLOW); GLUCOSE, URINE (UA) AUTO NEGATIVE (NEGATIVE); KETONE, URINE AUTO NEGATIVE (NEGATIVE); LEUKOCYTE ESTERASE, URINE AUTO 3+ (NEGATIVE); NITRITE, URINE AUTO NEGATIVE (NEGATIVE); PROTEIN, URINE AUTO NEGATIVE (NEGATIVE); RBC, URINE AUTO 1 /HPF (0-3); SPECIFIC GRAVITY URINE AUTO 1.011 (1.002-1.035); SQUAMOUS EPITHELIAL CELL UR AU 1 /HPF (0-6); WBC, URINE AUTO 82 /HPF (0-3)
[2018-04-16 12:02] LABS: ALBUMIN 3.3 GM/DL (3.2-5.2); CALCIUM LEVEL 8.9 MG/DL (8.8-10.2); CREATININE FOR GFR 1.19 MG/DL (0.55-1.30); GLOMERULAR FILTRATION RATE 48.9 (>45); MAGNESIUM LEVEL 2.2 MG/DL (1.8-2.4); PHOSPHORUS LEVEL 3.2 MG/DL (2.5-4.9); POTASSIUM SERUM 4.3 MEQ/L (3.5-5.1)
[2018-04-16 12:12] LABS: PTH INTACT 205.1 PG/ML (18.5-88.0)
== END ==
LOC: M LAB 10:31
PROVIDERS: ATTEND Internal Medicine Nephrology
DX: N18.3 Chronic kidney disease, stage 3 (moderate) (principal); I15.0 Renovascular hypertension; E11.22 Type 2 diabetes mellitus with diabetic chronic kidney disease

== ENCOUNTER → 2018-05-08 | Outpatient (CLI) | payer MEDICAID, OTHER ==
[~2018-05-08] MED LIST changes: -AMLO5TAB4 PO; +AMLO5TAB6 PO; +LOSA25TA14 PO; -LOSA25TA33 PO; +NITR-67 PO; -NITRO10CA PO
--- NOTE | 2018-05-26 00:42 | ECWPNPC ---
PATIENT NAME: NU WOODARD : 1955 GENDER: FEMALE VISIT DATE: 05/08/2018 DISCHARGE DATE: 05/08/18 1143 VISIT LOCKED DATE TIME: PHYSICIAN: ANAY BENTLEY MD RESOURCE: ANAY BENTLEY MD REASON FOR APPOINTMENT 1. POST PROC HISTORY OF PRESENT ILLNESS HISTORY OF PRESENT ILLNESS: PAIN THE PATIENT DESCRIBES THE PAIN... 62 YEAR OLD FEMALE PATIENT WITH A HISTORY OF CHRONIC MULTIPLE BODY PAIN. THE PATIENT DESCRIBES THE PAIN ACHING, TENDER, SHARP, STABBING, AND LASTING ALL DAY WITH A PAIN SCORE OF 8-10/10 DEPENDING ON PHYSICAL ACTIVITY. THE PATIENT SAYS HER PAIN IS MAINLY LOCATED IN HER BACK AND DOWN HER RIGHT LEG. THE PATIENT WAS HERE FOR A DIAGNOSTIC LUMBAR FACET BLOCK ON 04/15/2019 AND REPORTS HAVING GOOD PAIN RELIEF FOR 24 HOURS, SO SHE IS A CANDIDATE FOR RADIOFREQUENCY. THE PATIENT SAYS SHE HAS BEEN RETAINING FLUID RECENTLY DUE TO RENAL DISEASE. PATIENT DENIES UNEXPLAINABLE WEIGHT LOSS, FEVER, CHILLS, NEW CHANGES ON HER URINARY OR BOWEL CONTROL. FALL RISK SCREENING: SCREENING :NO FALLS IN THE PAST YEAR CURRENT MEDICATIONS TAKING INCRUSE ELLIPTA 62.5 MCG/INH AEROSOL POWDER BREATH ACTIVATED 1 PUFF INHALATION ONCE A DAY TAKING SYNTHROID 88 MCG TABLET 1 TABLET EVERY MORNING ON AN EMPTY STOMACH ORALLY ONCE A DAY TAKING LYRICA 150 MG CAPSULE 2 CAPSULE ORALLY BEFORE BEDTIME TAKING ANTIVERT 25 MG TABLET 1 TABLET ORALLY TID TAKING ALLOPURINOL 300 MG TABLETS 1 TAB ORALLY DAILY TAKING TORSEMIDE 100 MG TABLET 1/2 TAB ORALLY BID TAKING BREO ELLIPTA 200-25 MCG/INH AEROSOL POWDER BREATH ACTIVATED 1 PUFF INHALATION ONCE A DAY TAKING LINZESS 290 MCG CAPSULE 1 CAPSULE ORALLY ONCE A DAY PRN TAKING POTASSIUM CHLORIDE 10 MEQ CAPSULE EXTENDED RELEASE 1 CAPSULE WITH FOOD ORALLY TWO TIMES A DAY TAKING CALCITRIOL 0.25 MCG CAPSULE 1 CAPSULE ORALLY TWICE WEEKLY TAKING HUMULIN R U-500 (CONCENTRATED) 500 UNIT/ML SOLUTION DIRECTED SLIDING SCALE BETWEEN 18 AND 27 UNITS SUBCUTANEOUS EVERY 3 HRS. TAKING TOUJEO SOLOSTAR 300 UNIT/ML SOLUTION PEN-INJECTOR 100 SUBCUTANEOUS BID TAKING SIMVASTATIN 80 MG TABLET 1 TABLET IN THE EVENING ORALLY ONCE A DAY TAKING VOLTAREN 1 % GEL 3 CC AT RIGTH HIP AREA TRANSDERMAL TID PRN FOR PAIN TAKING ATENOLOL 25 MG TABLET 1 TABLET ORALLY BID TAKING CATHETERS 14 FR MISCELLANEOUS DIRECTED TID TAKING LATEX GLOVES LARGE 1 BOX MISCELLANEOUS DIRECTED NEEDED FOR CIC TAKING BETADINE SWABSTICKS 10 % SWAB DIRECTED EXTERNALLY QID- WITH CIC TAKING PLAVIX 75 MG TABLET 1 TABLET ORALLY ONCE A DAY TAKING POISE MAXIMUM ABSORBENCY . PAD DIRECTED CHANGE NEEDED, DX CODE- N39.46 TAKING BLADDER CONTROL PADS EX ABSORB - MISCELLANEOUS DIRECTED PARTHA PLUS MAXI TAKING NYSTATIN POWDER 6 MU/GM POWDER DIRECTED TWICE A DAY NOT-TAKING VITAMIN D (ERGOCALCIFEROL) 44559 UNIT CAPSULE 1 CAPSULE ORALLY MONTHLY NOT-TAKING MACRODANTIN 50 MG CAPSULE 1 CAPSULE WITH FOOD OR MILK ORALLY ONCE A DAY NOT-TAKING TIZANIDINE HCL 4 MG TABLET 1 TABLET NEEDED ORALLY EVERY 8 HRS NOT-TAKING BELBUCA 75 MCG FILM 1 FILM TO THE GUM BUCALLY FOR PAIN BID, NOTES: NOT TAKING LATELY BEEN A MONTH NOT-TAKING AMPICILLIN 500 MG CAPSULE 1 CAPSULE 1 HOUR BEFORE OR 2 HOURS AFTER A MEAL ORALLY EVERY 6 HRS NOT-TAKING KEFLEX 500 MG CAPSULE 1 CAPSULE ORALLY EVERY 12 HRS, NOTES: WILL START TODAY MEDICATION LIST REVIEWED AND RECONCILED WITH THE PATIENT PAST MEDICAL HISTORY 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 DR HAYNES KIDNEY DISEASE/FAILURE 2007 DR KNUTSON HYPERTENSION HYPOTHYROIDISM HYPERCHOLESTEROLEMIA ASTHMA COPD [facility] GOUT BRAIN STROKE-07/06 PITUITARY TUMOR-2007 SLEEP APNEA/CPAP 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 GASTROPARESIS KIDNEY STAGE IV 2017 UTI ALLERGIES ASPIRIN: ANAPHYLAXIS: ALLERGY BEEF FLAVOR: SWELLING/FEVER: ALLERGY LEVAQUIN: KIDNEY FAILURE BACTRIM: KIDNEY FAILURE FLAGYL: KIDNEY FAILURE IVP DYE, IODINE: KIDNEY FAILURE QUINALONES: KIDNEY FAILURE SURGICAL HISTORY SHANELLE AND BSO 12/15/1996 COLONOSCOPY X 5 ,8 POLYPS BEIGN 2007,11/2015 BREAST BIOPSY/MASS REMOVED-RIGHT BREAST 06/24/2002 APPENDECTOMY 10/09/2002 LEFT URETERAL STONE 01/29/1979 BRAIN TUMOR TUBAL LIGATION 10/30/1975 WART REMOVAL - EYES VAGINAL BLADDER LIFT - SLING & CYSTOCELE REPAIR 1998 URETHERAL DILATION 11/15/1999 RIGHT METAL PLATE INSERTED INTO RIGHT LEG - "TUMOR FROM FALL" CYSTOSCOPY 09/24/13 FAMILY HISTORY FATHER: DIAGNOSED WITH HYPERTENSION MOTHER: DIAGNOSED WITH HYPERTENSION SOCIAL HISTORY GENERAL: TOBACCO USE ARE YOU A:FORMER SMOKER HOW LONG HAS IT BEEN SINCE YOU LAST SMOKED?> 10 YEARS ALCOHOL SCREENING DID YOU HAVE A DRINK CONTAINING ALCOHOL IN THE PAST YEAR?NO POINTS0 INTERPRETATIONNEGATIVE CAFFEINE CAFFEINE USE?NO LANGUAGE LANGUAGES SPOKEN:BOTH EQUATORIAL GUINEAN AND MONGOLIAN LEARNING BARRIERS / SPECIAL NEEDS READINESS TO LEARN?YES LEARNING PREFERENCES?NO DOMESTIC VIOLENCE DO YOU FEEL SAFE IN YOUR ENVIRONMENT?YES PAIN CLINIC PFS, CLERGY, PUBLIC HEALTH REFERRALS PFS REFERRAL NEEDED?NO CLERGY REFERRAL NEEDED?NO PUBLIC HEALTH REFERRAL NEEDED?NO WAS THE PROVIDER NOTIFIED OF ANY PERTINENT INFO?YES N/A HAS THE PATIENT BEEN EDUCATED REGARDING HIS/HER PLAN OF CARE?YES HAS THE PATIENT BEEN EDUCATED REGARDING PAIN, THE RISK FOR PAIN, THE IMPORTANCE OF EFFECTIVE PAIN MANAGEMENT, AND THE PAIN ASSESSMENT PROCESS?YES ADVANCE DIRECTIVE ADVANCE DIRECTIVE DISCUSSED WITH PATIENT:YES PT DECLINED HCP INFO AND ASSISTANCE WITH FORM AT THIS TIME. 05/08/18 10/20/17 1535 REVIEWED WITH PT. LASREVIEWED 02/09/18 1056 BVREVIEWED WITH PT 05/08/18 0955 BV. HOSPITALIZATION/MAJOR DIAGNOSTIC PROCEDURE SURGICAL RELATED CVA KIDNEY FAILURE UTI [facility] 07/2013 [facility] 09/08/13 [facility] UTI 09/30/13-10/06/13 KIDNEY FAILURE 01/05/112013 ABDOMINAL PAIN-LIVER BIOPSY-CYST 08/2015 AND 09/2015 RENAL FAILURE/UTI 01/2017 &02/2017 REVIEW OF SYSTEMS REVIEWED BY: PROVIDER: ANAY BENTLEY MD . CONSTITUTIONAL: ANY CHANGE IN YOUR MEDICAL CONDITION? NO . CHILLS NO . FEVER NO . INFECTION: DO YOU HAVE NEW INFECTIONS? NO NEW INFECTIONS, PT STATES SHE HAS BEEN DEALING WITH UTI FOR THE PAST YEAR, STATES SHE IS SCHEDULED TO SEE THE INFECTION CONTROL DOCTOR REGARDING THIS. . DO YOU HAVE HISTORY OF MRSA? NO . MUSCULOSKELETAL: ANY NEW PATTERNS OF PAIN OR NUMBNESS? YES, PT STATES SHE HAS HAD INCREASE IN PAIN INTENSITY SINCE LATE MARCH. STATES SHE HAS MOSTLY BEEN USING HER POWER CHAIR INSTEAD OF HER WALKER DUE TO PAIN SINCE LATE MARCH. . GASTROENTEROLOGY: ANY NEW CHANGE IN BOWEL CONTROL? NO . GENITOURINARY: ANY NEW CHANGE IN BLADDER CONTROL? NO . IS THERE A CHANCE YOU COULD BE ? NO . HEMATOLOGY/LYMPH: DO YOU TAKE ANY BLOOD THINNERS? (FOR EXAMPLE- COUMADIN, PLAVIX, AGGRENOX, PLATEL, PRADAXA, OR XARELTO) YES, PLAVIX . WHEN WAS YOUR LAST DOSE? DATE: TIME: . NEUROLOGY: HAVE YOU FALLEN IN THE PAST 6 MONTHS? NO . ANY NEW EXTREMITY NUMBNESS OR WEAKNESS? NO . CARDIOLOGY: DO YOU HAVE A PACEMAKER OR DEFIBRILLATOR? NO . RESPIRATORY: HAVE YOU BEEN SICK IN THE PAST WEEK? NO . FEVER NO . FLU LIKE SYMPTOMS? NO . COUGH NO . INTEGUMENTARY: DO YOU HAVE ANY RASHES OR OPEN SORES? NO . ALLERGIC/IMMUNO: ARE YOU ALLERGIC TO SHELLFISH OR IV DYE? NO . ANY NEW ALLERGIES? NO . PSYCHIATRIC: DO YOU HAVE THOUGHTS OF HURTING YOURSELF OR SOMEONE ELSE? NO . ARE YOU ABUSED, NEGLECTED, OR IN AN UNSAFE ENVIRONMENT? NO . ENDOCRINOLOGY: ARE YOU DIABETIC? NO . OTHER: DO YOU NEED ANY PRESCRIPTIONS? NO . IF YES, PLEASE LIST: ____ . ANY NEW PROBLEMS WITH YOUR MEDICATIONS? NO . WHEN DID YOU LAST EAT? ____ . WHEN DID YOU LAST DRINK? ____ . WHAT DID YOU LAST DRINK? ____ . NAME OF PERSON DRIVING YOU HOME? ____ . DO YOU HAVE ANY OTHER QUESTIONS OR CONCERNS NO . VITAL SIGNS WT 375 LBS, HT 65.5 IN, BMI 61.45 INDEX, BP 120/62 MM HG, HR 79 /MIN, RR 18 /MIN, TEMP 98.6 F, OXYGEN SAT % 95%, NA INITIALS AW 0945, REVIEWED BY: BV. EXAMINATION GENERAL EXAMINATION: PATIENT IS ALERT O X 3 AND COOPERATIVE. PATIENT IS USING A WHEELCHAIR. TENDERNESS IN THE LOW BACK AREA. MRI OF THE LUMBAR SPINE DONE ON 07/25/2015 SHOWS FACET ARTHROPATHY CHANGES AT MULTIPLE LEVELS. 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 WOODARD'S PAIN MANAGEMENT CASE. DUE TO HAVING GOOD RESULTS AFTER 2 DIAGNOSTIC FACET BLOCKS, THE PATIENT IS A CANDIDATE FOR RADIOFREQUENCY. WE WILL WAIT TO DO THE RADIOFREQUENCY UNTIL AFTER THE PATIENT'S CONDITION IMPROVES. FOR NOW WE WILL MANAGE HER PAIN WITH MEDICATION. I WOULD LIKE TO START THE PATIENT ON BELBUCA DUE TO HAVING SIDE EFFECTS FROM TAKING OXYCODONE AND CODEINE. ISTOP [id number] WAS REVIEWED. THE PATIENT WILL FOLLOW UP IN 2 WEEKS. INSTRUCTIONS WERE GIVEN, QUESTIONS WERE ANSWERED, PATIENT REPORTS UNDERSTANDING AND AGREES WITH THE PLAN. I, NICOLE PINA, DOCUMENTED THE ABOVE INFORMATION ACTING A SCRIBE FOR DR. BENTLEY. I HAVE REVIEWED THE ABOVE DOCUMENT, WRITTEN BY NICOLE TELLEZIBGregg AND I VERIFY THAT IT IS ACCURATE. OTHERS START BELBUCA 75 MCG FILM, 75 MCG, 1 FILM, BUCCAL FOR PAIN, Q12H MDD2, 30 DAY(S), 60, REFILLS 0 PROCEDURE CODES FA211 ESTABILISHED PATIENT [facility] CHARGE [id number] CURRENT MEDS W/DOSAGES DOCUMENTED G8730 PAIN ASSESS POS TOOL F/U PLAN DOC DISPOSITION & COMMUNICATION FOLLOW UP 2 WEEKS (REASON: LOW BACK AND HIP) ELECTRONICALLY SIGNED BY ANAY BENTLEY MD, ON 05/25/2018 AT 04:17 PM EST DISCLAIMER : THIS IS A VISIT SUMMARY EXTRACTED FROM THE [employer] CHART. IT IS NOT A COPY OF THE [employer] PROGRESS NOTE. JAYDEN
== END ==
LOC: M PAIN 10:15
PROVIDERS: ATTEND Anesthesiology
DX: M47.816 Spondylosis without myelopathy or radiculopathy, lumbar region (principal); G57.91 Unspecified mononeuropathy of right lower limb; G89.29 Other chronic pain; N18.3 Chronic kidney disease, stage 3 (moderate); E11.43 Type 2 diabetes mellitus with diabetic autonomic (poly)neuropathy; E11.22 Type 2 diabetes mellitus with diabetic chronic kidney disease; I13.0 Hypertensive heart and chronic kidney disease with heart failure and stage 1 through stage 4 chronic kidney disease, or unspecified chronic kidney disease; I50.9 Heart failure, unspecified; E03.9 Hypothyroidism, unspecified; J45.909 Unspecified asthma, uncomplicated; G47.30 Sleep apnea, unspecified; E66.01 Morbid (severe) obesity due to excess calories; Z68.44 Body mass index [BMI] 60.0-69.9, adult; Z79.01 Long term (current) use of anticoagulants; Z79.51 Long term (current) use of inhaled steroids; Z79.4 Long term (current) use of insulin; Z79.899 Other long term (current) drug therapy; Z88.1 Allergy status to other antibiotic agents; Z88.6 Allergy status to analgesic agent; Z88.8 Allergy status to other drugs, medicaments and biological substances; Z91.041 Radiographic dye allergy status; Z91.02 Food additives allergy status; Z87.39 Personal history of other diseases of the musculoskeletal system and connective tissue; Z86.79 Personal history of other diseases of the circulatory system; Z87.891 Personal history of nicotine dependence; Z87.448 Personal history of other diseases of urinary system

== ENCOUNTER 2018-05-14 11:50 | Outpatient (RCR) | payer OTHER | END 2018-05-28 | LOC: M PT 11:50 | PROVIDERS: ATTEND Orthopaedic Surgery | DX: M25.511 Pain in right shoulder (principal) ==

== ENCOUNTER → 2018-05-14 | Outpatient (REF) | payer MEDICAID, OTHER | LOC: M SFHCPLAZ 17:33 | PROVIDERS: ATTEND Internal Medicine Infectious Disease | DX: N39.0 Urinary tract infection, site not specified (principal) ==

== ENCOUNTER → 2018-05-15 | Outpatient (CLI) | payer MEDICAID, OTHER ==
--- NOTE | 2018-05-15 18:31 | REP ---
Digital diagnostic bilateral mammography, 3-D tomography, CAD, and focused left breast sonography: History: Lump left breast. The palpable lump is actually in the lateral chest wall posterior to the breast and could not be projected mammographically. On May 19, 2017 the patient had needle localization directed excisional biopsy for resection of low grade vascular neoplasm which was identified as a mammographically visible nodule. Comparison mammography is from April 18, 2017, March 06, 2017, February 27/2017, and March 17, 2015. Mammographic findings: A skin marker was affixed to the skin at the site of the palpable lump but as stated above, this is quite lateral, posterior to the breast and could not be projected mammographically. Mammographic images demonstrate scattered fibroglandular elements. No abnormality is noted on the left. On the right, there is a new grouping of microcalcifications which is present medially and inferiorly. This is confirmed on diagnostic images and on 3-D tomography images. They are not dermal. They are predominantly punctate but of different sizes. No other suspicious mammographic finding. Focused left breast sonography: The area of palpable concern on the left flank/chest wall is scanned. At the site of the palpable lump, there is a somewhat prominent but patent vein. There is a 0.5 x 0.4 x 0.3 cm hyperechoic area which has a benign appearance. There is an isoechoic area with a hypoechoic center in the region measuring 1.4 x 0.9 x 0.6 cm. In addition, there are two adjacent irregularly marginated hypoechoic nodules in the subcutaneous fat in this region. These measure 1.1 x 0.9 x 1.2 cm and 0.8 x 0.6 x 0.6 cm. There is adjacent blood flow. They are not simple cysts or normal lymph nodes. The irregular margins and hypoechoic nature are somewhat suspicious. Impression: BIRADS category 4 suspicious bilateral breast imaging. The lump along the left lateral chest wall is posterior to the breast but has suspicious sonographic features. Needle biopsy is recommended. Ultrasound guidance could be provided. Mammography demonstrates a new microcalcific grouping in the inferomedial quadrant of the right breast, which must be regarded as suspicious as well. Stereotactic needle biopsy of the right breast is recommended. BI-RADS/ACR category 4 mammogram. Suspicious abnormality - biopsy should be considered. Usually requires biopsy. This mammogram was interpreted with the aid of an FDA-approved computer-aided detection system. The patient states she had a clinical breast exam in April 2018. The patient letter being requested is m#4. Electronically Signed by González Jamison MD 05/15/2018 08:07 P
== END ==
LOC: M RAD 12:06
PROVIDERS: ATTEND Family Medicine Addiction Medicine
DX: N63.20 Unspecified lump in the left breast, unspecified quadrant (principal)
CPT/HCPCS: 76642; 77066; G0279

== ENCOUNTER → 2018-05-21 | Outpatient (CLI) | payer OTHER, MEDICAID ==
--- NOTE | 2018-06-08 00:04 | ECWPNPC ---
PATIENT NAME: NU WOODARD : 1955 GENDER: FEMALE VISIT DATE: 05/21/2018 DISCHARGE DATE: 05/21/18 1339 VISIT LOCKED DATE TIME: PHYSICIAN: ANAY BENTLEY MD RESOURCE: ANAY BENTLEY MD REASON FOR APPOINTMENT 1. LOW BACK AND HIP-ONLY HAS TRANSPORT UNTIL 2 HISTORY OF PRESENT ILLNESS HISTORY OF PRESENT ILLNESS: PAIN THE PATIENT DESCRIBES THE PAIN... THE PATIENT DESCRIBES THE PAIN... 62 YEAR OLD FEMALE PATIENT WITH A HISTORY OF CHRONIC MULTIPLE BODY PAIN. THE PATIENT DESCRIBES THE PAIN ACHING, TENDER, SHARP, STABBING, AND LASTING ALL DAY WITH A PAIN SCORE OF 8-10/10 DEPENDING ON PHYSICAL ACTIVITY. THE PATIENT SAYS HER PAIN IS MAINLY LOCATED IN HER BACK AND DOWN HER RIGHT LEG. PATIENT DENIES UNEXPLAINABLE WEIGHT LOSS, FEVER, CHILLS, NEW CHANGES ON HER URINARY OR BOWEL CONTROL. FALL RISK SCREENING: SCREENING :NO FALLS IN THE PAST YEAR CURRENT MEDICATIONS TAKING INCRUSE ELLIPTA 62.5 MCG/INH AEROSOL POWDER BREATH ACTIVATED 1 PUFF INHALATION ONCE A DAY TAKING SYNTHROID 88 MCG TABLET 1 TABLET EVERY MORNING ON AN EMPTY STOMACH ORALLY ONCE A DAY TAKING ANTIVERT 25 MG TABLET 1 TABLET ORALLY TID TAKING ALLOPURINOL 300 MG TABLETS 1 TAB ORALLY DAILY TAKING TORSEMIDE 100 MG TABLET 1/2 TAB ORALLY BID TAKING BREO ELLIPTA 200-25 MCG/INH AEROSOL POWDER BREATH ACTIVATED 1 PUFF INHALATION ONCE A DAY TAKING LINZESS 290 MCG CAPSULE 1 CAPSULE ORALLY ONCE A DAY PRN TAKING POTASSIUM CHLORIDE 10 MEQ CAPSULE EXTENDED RELEASE 1 CAPSULE WITH FOOD ORALLY TWO TIMES A DAY TAKING CALCITRIOL 0.25 MCG CAPSULE 1 CAPSULE ORALLY TWICE WEEKLY TAKING SIMVASTATIN 80 MG TABLET 1 TABLET IN THE EVENING ORALLY ONCE A DAY TAKING ATENOLOL 25 MG TABLET 1 TABLET ORALLY BID TAKING PLAVIX 75 MG TABLET 1 TABLET ORALLY ONCE A DAY TAKING POISE MAXIMUM ABSORBENCY . PAD DIRECTED CHANGE NEEDED, DX CODE- N39.46 TAKING BLADDER CONTROL PADS EX ABSORB - MISCELLANEOUS DIRECTED PARTHA PLUS MAXI TAKING NYSTATIN POWDER 6 MU/GM POWDER DIRECTED TWICE A DAY TAKING BELBUCA 75 MCG 75 MCG FILM 1 FILM BUCCAL FOR PAIN Q12H MDD2 TAKING HUMULIN R U-500 (CONCENTRATED) 500 UNIT/ML SOLUTION DIRECTED SLIDING SCALE BETWEEN 18 AND 27 UNITS SUBCUTANEOUS EVERY 3 HRS. TAKING TOUJEO SOLOSTAR 300 UNIT/ML SOLUTION PEN-INJECTOR 100 SUBCUTANEOUS BID TAKING ESTRADIOL 0.1 MG/GM CREAM DIRECTED VAGINAL TWO TIMES A WEEK TAKING CATHETERS 14 FR MISCELLANEOUS DIRECTED TID TAKING LATEX GLOVES LARGE 1 BOX MISCELLANEOUS DIRECTED NEEDED FOR CIC TAKING FOSFOMYCIN 3 G DISSOVED IN 4 OZ WATER 3 G DISSOLVED IN 4 OZ OF WATER ORALLY ONE DOSE WEEKLY TAKING LYRICA 150 MG CAPSULE 2 CAPSULE ORALLY BEFORE BEDTIME TAKING VOLTAREN 1 % GEL 3 CC AT RIGTH HIP AREA TRANSDERMAL TID PRN FOR PAIN TAKING CEFDINIR 300 MG CAPSULE DIRECTED ORALLY BID TAKING POISE ULTIMATE ABSORBENCY - PAD DIRECTED USE DAILY NEEDED NOT-TAKING BETADINE SWABSTICKS 10 % SWAB DIRECTED EXTERNALLY QID- WITH CIC NOT-TAKING VITAMIN D (ERGOCALCIFEROL) 28506 UNIT CAPSULE 1 CAPSULE ORALLY MONTHLY NOT-TAKING MACRODANTIN 50 MG CAPSULE 1 CAPSULE WITH FOOD OR MILK ORALLY ONCE A DAY NOT-TAKING TIZANIDINE HCL 4 MG TABLET 1 TABLET NEEDED ORALLY EVERY 8 HRS NOT-TAKING BELBUCA 75 MCG FILM 1 FILM TO THE GUM BUCALLY FOR PAIN BID, NOTES: NOT TAKING LATELY BEEN A MONTH NOT-TAKING AMPICILLIN 500 MG CAPSULE 1 CAPSULE 1 HOUR BEFORE OR 2 HOURS AFTER A MEAL ORALLY EVERY 6 HRS NOT-TAKING KEFLEX 500 MG CAPSULE 1 CAPSULE ORALLY EVERY 12 HRS, NOTES: WILL START TODAY MEDICATION LIST REVIEWED AND RECONCILED WITH THE PATIENT PAST MEDICAL HISTORY 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 DR HAYNES KIDNEY DISEASE/FAILURE 2007 DR KNUTSON HYPERTENSION HYPOTHYROIDISM HYPERCHOLESTEROLEMIA ASTHMA COPD [facility] GOUT BRAIN STROKE-07/06 PITUITARY TUMOR-2007 SLEEP APNEA/CPAP 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 GASTROPARESIS KIDNEY STAGE IV 2017 UTI ALLERGIES ASPIRIN: ANAPHYLAXIS: ALLERGY BEEF FLAVOR: SWELLING/FEVER: ALLERGY LEVAQUIN: KIDNEY FAILURE BACTRIM: KIDNEY FAILURE FLAGYL: KIDNEY FAILURE IVP DYE, IODINE: KIDNEY FAILURE QUINALONES: KIDNEY FAILURE SURGICAL HISTORY SHANELLE AND BSO 12/15/1996 COLONOSCOPY X 5 ,8 POLYPS BEIGN 2007,11/2015 BREAST BIOPSY/MASS REMOVED-RIGHT BREAST 06/24/2002 APPENDECTOMY 10/09/2002 LEFT URETERAL STONE 01/29/1979 BRAIN TUMOR TUBAL LIGATION 10/30/1975 WART REMOVAL - EYES VAGINAL BLADDER LIFT - SLING & CYSTOCELE REPAIR 1997 URETHERAL DILATION 11/15/1999 RIGHT METAL PLATE INSERTED INTO RIGHT LEG - "TUMOR FROM FALL" CYSTOSCOPY 09/24/13 CYSTOSCOPY 05/20/2018 FAMILY HISTORY FATHER: DIAGNOSED WITH HYPERTENSION MOTHER: DIAGNOSED WITH HYPERTENSION SOCIAL HISTORY GENERAL: TOBACCO USE ARE YOU A:FORMER SMOKER HOW LONG HAS IT BEEN SINCE YOU LAST SMOKED?> 10 YEARS ALCOHOL SCREENING DID YOU HAVE A DRINK CONTAINING ALCOHOL IN THE PAST YEAR?NO POINTS0 INTERPRETATIONNEGATIVE RECREATIONAL DRUG USE DRUG USE?NO CAFFEINE CAFFEINE USE?NO HIV / HEP-C SCREENING HIV TEST OFFERED TO PATIENT:YES DATE OFFERED:05/14/2018 TEST ACCEPTED:NO BROCHURE PROVIDED TO PATIENTYES HEP-C TEST OFFERED TO PATIENT:YES DATE OFFERED:05/14/2018 TEST ACCEPTED:NO TEMPLE [id number] SPIRITISM LANGUAGE LANGUAGES SPOKEN:BOTH ICELANDIC AND ARABIC EDUCATION LEVEL OF EDUCATION:NOT FINISHED HIGH SCHOOL LEARNING BARRIERS / SPECIAL NEEDS READINESS TO LEARN?YES LEARNING PREFERENCES?NO DOMESTIC VIOLENCE DO YOU FEEL SAFE IN YOUR ENVIRONMENT?YES OCCUPATION: DISABLED. DIET: NO CONCENTRATED SWEETS., CARBOHYDRATE CONTROLLED. EXERCISE: NONE. MARITAL STATUS: SINGIFIGANT OTHER . OTHERS AT HOME: S.O.. PAIN CLINIC PFS, CLERGY, PUBLIC HEALTH REFERRALS PFS REFERRAL NEEDED?NO CLERGY REFERRAL NEEDED?NO PUBLIC HEALTH REFERRAL NEEDED?NO WAS THE PROVIDER NOTIFIED OF ANY PERTINENT INFO?YES N/A HAS THE PATIENT BEEN EDUCATED REGARDING HIS/HER PLAN OF CARE?YES HAS THE PATIENT BEEN EDUCATED REGARDING PAIN, THE RISK FOR PAIN, THE IMPORTANCE OF EFFECTIVE PAIN MANAGEMENT, AND THE PAIN ASSESSMENT PROCESS?YES ADVANCE DIRECTIVE ADVANCE DIRECTIVE DISCUSSED WITH PATIENT:YES PT DECLINED HCP INFO AND ASSISTANCE WITH FORM AT THIS TIME. 10/20/17 1535 REVIEWED WITH PT. LASREVIEWED 02/09/18 1056 BVREVIEWED WITH PT 05/08/18 0955 BV. HOSPITALIZATION/MAJOR DIAGNOSTIC PROCEDURE SURGICAL RELATED CVA KIDNEY FAILURE UTI [facility] 07[facility]2013 [facility] 09[facility]13 [facility] UTI 09/30/13-10/06/13 KIDNEY FAILURE 01/05/112013 ABDOMINAL PAIN-LIVER BIOPSY-CYST 08/2015 AND 09/2015 RENAL FAILURE/UTI 01/2017 &02/2017 REVIEW OF SYSTEMS REVIEWED BY: PROVIDER: ANAY BENTLEY MD . CONSTITUTIONAL: ANY CHANGE IN YOUR MEDICAL CONDITION? NO . CHILLS NO . FEVER NO . INFECTION: DO YOU HAVE NEW INFECTIONS? NO . DO YOU HAVE HISTORY OF MRSA? NO . MUSCULOSKELETAL: ANY NEW PATTERNS OF PAIN OR NUMBNESS? YES8, BACK PAIN, RIGHT LEG PAIN . GASTROENTEROLOGY: ANY NEW CHANGE IN BOWEL CONTROL? NO . GENITOURINARY: ANY NEW CHANGE IN BLADDER CONTROL? NO . IS THERE A CHANCE YOU COULD BE ? NO . HEMATOLOGY/LYMPH: DO YOU TAKE ANY BLOOD THINNERS? (FOR EXAMPLE- COUMADIN, PLAVIX, AGGRENOX, PLATEL, PRADAXA, OR XARELTO) YES, PLAVIX . WHEN WAS YOUR LAST DOSE? DATE: TIME: . NEUROLOGY: HAVE YOU FALLEN IN THE PAST 12 MONTHS? NO . ANY NEW EXTREMITY NUMBNESS OR WEAKNESS? NO . CARDIOLOGY: DO YOU HAVE A PACEMAKER OR DEFIBRILLATOR? NO . RESPIRATORY: HAVE YOU BEEN SICK IN THE PAST WEEK? NO . FEVER NO . FLU LIKE SYMPTOMS? NO . COUGH NO . INTEGUMENTARY: DO YOU HAVE ANY RASHES OR OPEN SORES? NO . ALLERGIC/IMMUNO: ARE YOU ALLERGIC TO IV DYE? YES, IV DYE . ANY NEW ALLERGIES? NO . PSYCHIATRIC: DO YOU HAVE THOUGHTS OF HURTING YOURSELF OR SOMEONE ELSE? NO . ARE YOU ABUSED, NEGLECTED, OR IN AN UNSAFE ENVIRONMENT? NO . ENDOCRINOLOGY: ARE YOU DIABETIC? NO . OTHER: DO YOU NEED ANY PRESCRIPTIONS? NO . IF YES, PLEASE LIST: ____ . ANY NEW PROBLEMS WITH YOUR MEDICATIONS? NO . WHEN DID YOU LAST EAT? ____ . WHEN DID YOU LAST DRINK? ____ . WHAT DID YOU LAST DRINK? ____ . NAME OF PERSON DRIVING YOU HOME? ____ . DO YOU HAVE ANY OTHER QUESTIONS OR CONCERNS NO . VITAL SIGNS WT 330 LBS, HT 65.5 IN, BMI 54.07 INDEX, BP 135/67 MM HG, HR 75 /MIN, RR 18 /MIN, TEMP 98.1 F, OXYGEN SAT % 97%, NA INITIALS SC 12:01, REVIEWED BY: EM. EXAMINATION GENERAL EXAMINATION: PATIENT IS ALERT O X 3 AND COOPERATIVE. ASSESSMENTS SPONDYLOSIS OF LUMBAR REGION WITHOUT MYELOPATHY OR RADICULOPATHY - M47.816 (PRIMARY) TREATMENT SPONDYLOSIS OF LUMBAR REGION WITHOUT MYELOPATHY OR RADICULOPATHY CLINICAL NOTES: WE DISCUSSED SEVERAL ISSUES WITH MRS. WOODARD'S PAIN MANAGEMENT CASE. I WOULD LIKE THE PATIENT TO START USING BELBUCA PATCH TO AID IN PAIN RELIEF. THE PATIENT WILL FOLLOW UP IN 2 WEEKS. INSTRUCTIONS WERE GIVEN, QUESTIONS WERE ANSWERED, PATIENT REPORTS UNDERSTANDING AND AGREES WITH THE PLAN. I, NICOLE PINA, DOCUMENTED THE ABOVE INFORMATION ACTING A SCRIBE FOR DR. BENTLEY. I HAVE REVIEWED THE ABOVE DOCUMENT, WRITTEN BY NICOLE TELLEZIBGregg AND I VERIFY THAT IT IS ACCURATE. OTHERS REFILL BELBUCA 75 MCG FILM, 75 MCG, 1 FILM, BUCCAL FOR PAIN, Q12H MDD2, 30 DAY(S), 60, REFILLS 0 PROCEDURE CODES FA211 ESTABILISHED PATIENT [facility] CHARGE [id number] CURRENT MEDS W/DOSAGES DOCUMENTED G8730 PAIN ASSESS POS TOOL F/U PLAN DOC DISPOSITION & COMMUNICATION FOLLOW UP 2 WEEKS (REASON: LOW BACK AND HIP) ELECTRONICALLY SIGNED BY ANAY BENTLEY MD, ON 06/07/2018 AT 05:49 PM EST DISCLAIMER : THIS IS A VISIT SUMMARY EXTRACTED FROM THE [employer] CHART. IT IS NOT A COPY OF THE [employer] PROGRESS NOTE. MTDD
== END ==
LOC: M PAIN 12:00
PROVIDERS: ATTEND Anesthesiology
DX: M47.816 Spondylosis without myelopathy or radiculopathy, lumbar region (principal); E11.22 Type 2 diabetes mellitus with diabetic chronic kidney disease; E11.43 Type 2 diabetes mellitus with diabetic autonomic (poly)neuropathy; N18.3 Chronic kidney disease, stage 3 (moderate); I12.9 Hypertensive chronic kidney disease with stage 1 through stage 4 chronic kidney disease, or unspecified chronic kidney disease; E03.9 Hypothyroidism, unspecified; E78.00 Pure hypercholesterolemia, unspecified; K44.9 Diaphragmatic hernia without obstruction or gangrene; G47.30 Sleep apnea, unspecified; Z79.01 Long term (current) use of anticoagulants; E66.01 Morbid (severe) obesity due to excess calories; Z68.43 Body mass index [BMI] 50.0-59.9, adult; Z79.51 Long term (current) use of inhaled steroids; Z79.4 Long term (current) use of insulin; Z79.899 Other long term (current) drug therapy; Z88.1 Allergy status to other antibiotic agents; Z88.6 Allergy status to analgesic agent; Z88.8 Allergy status to other drugs, medicaments and biological substances; Z91.041 Radiographic dye allergy status; Z91.018 Allergy to other foods; Z86.73 Personal history of transient ischemic attack (TIA), and cerebral infarction without residual deficits; Z86.79 Personal history of other diseases of the circulatory system; Z87.39 Personal history of other diseases of the musculoskeletal system and connective tissue; Z87.891 Personal history of nicotine dependence

== ENCOUNTER → 2018-06-17 | Outpatient (CLI) | payer OTHER, MEDICAID ==
[2018-06-17 13:36] LABS: BASO % 0.5 % (0.0-1.0); EOS # 0.2 10^3/uL (0.0-0.50); EOS % 2.5 % (0.0-3.0); HEMATOCRIT 34.7 % (36.0-47.0); HEMOGLOBIN 10.5 g/dl (12.0-15.5); LYMPH % 15.9 % (24.0-44.0); MEAN CORPUSCULAR HGB CONC 30.3 g/dl (32.0-36.5); MEAN CORPUSCULAR VOLUME 82.6 fl (80.0-96.0); MONO # 0.6 10^3/uL (0.0-0.8); MONO % 9.8 % (0.0-5.0); NEUTROPHILS # 4.5 10^3/uL (1.8-7.7); NEUTROPHILS % 70.7 % (36.0-66.0); PLATELET COUNT, AUTOMATED 212 10^3/uL (150-450); WHITE BLOOD COUNT 6.4 10^3/uL (4.0-10.0)
[2018-06-17 13:48] LABS: ALBUMIN 3.1 GM/DL (3.2-5.2); CALCIUM LEVEL 8.9 MG/DL (8.8-10.2); CREATININE FOR GFR 1.16 MG/DL (0.55-1.30); GLOMERULAR FILTRATION RATE 50.2 (>45); MAGNESIUM LEVEL 2.3 MG/DL (1.8-2.4); PHOSPHORUS LEVEL 2.6 MG/DL (2.5-4.9); POTASSIUM SERUM 4.8 MEQ/L (3.5-5.1)
[2018-06-17 13:50] LABS: APPEARANCE, URINE CLOUDY (CLEAR); BACTERIA, URINE AUTO 1+ (NEGATIVE); BILIRUBIN, URINE AUTO NEGATIVE (NEGATIVE); BLOOD, URINE BLOOD NEGATIVE (NEGATIVE); COLOR, URINE YELLOW (YELLOW); GLUCOSE, URINE (UA) AUTO NEGATIVE (NEGATIVE); KETONE, URINE AUTO NEGATIVE (NEGATIVE); LEUKOCYTE ESTERASE, URINE AUTO 3+ (NEGATIVE); NITRITE, URINE AUTO NEGATIVE (NEGATIVE); PROTEIN, URINE AUTO NEGATIVE (NEGATIVE); RBC, URINE AUTO 7 /HPF (0-3); SPECIFIC GRAVITY URINE AUTO 1.008 (1.002-1.035); SQUAMOUS EPITHELIAL CELL UR AU 2 /HPF (0-6); WBC, URINE AUTO TNTC /HPF (0-3)
== END ==
LOC: M LAB 12:32
PROVIDERS: ATTEND Internal Medicine Nephrology
DX: N18.3 Chronic kidney disease, stage 3 (moderate) (principal)